=== PATIENT | male | born 1945 | race Caucasian/White ===

== ENCOUNTER 2022-10-12 11:19 | Outpatient (OUT) | payer MEDICARE, SELFPAY ==
[2022-10-12 12:30] LABS: D Dimer 0.37 mg/L FEU (<=0.59)
== END 2022-10-12 11:20 | disposition home or self-care (01) ==
LOC: LAB 11:26
PROVIDERS: PCP Internal Medicine; Visit Provider Internal Medicine
DX: M79.89 Other specified soft tissue disorders (principal)
CPT/HCPCS: 36415; 85378

== ENCOUNTER 2022-12-06 09:34 | Outpatient (OUT) | payer MEDICARE, SELFPAY ==
--- NOTE | 2022-12-06 10:39 | CA_ITS ---
Patient: SILKE VEGA Exam Date: 12/06/2022 : 1945 Gender:M Ordering : DR RAZIA LIPSCOMB D.O. Admission #: [id number] Family : Order #: [id number] CLICK HERE TO VIEW EXAM ECHOCARDIOGRAM REPORT PROCEDURE: CA ECHO DOPPLER COMPLETE INDICATIONS: Dyspnea on exertion, fatigue, lower extremity swelling, hypertension COMPARISON: None. DESCRIPTION: COMPLETE ECHOCARDIOGRAM Real-time transthoracic echocardiography with 2D, M-mode, spectral and color flow Doppler performed. QUALITY: Technical quality was good. LEFT VENTRICLE: Normal chamber size. Mild concentric left ventricular hypertrophy. LV EF: Normal left ventricular ejection fraction, (>55%). DIASTOLIC: Diastolic function is indeterminate. ATRIAL SEPTUM: Inadequately seen. LEFT ATRIUM: Normal chamber size. RIGHT ATRIUM: Normal chamber size. RIGHT VENTRICLE: Appears enlarged. Normal right ventricular systolic function. TRICUSPID VALVE: Normal mobility and thickness. No stenosis with mild regurgitation. Doppler studies reveal moderately (45-60) elevated right sided pressures. RVSP 50 mmHg MITRAL VALVE: Normal mobility and thickness. No evidence of mitral valve stenosis. Mild mitral annular calcification. Mild mitral regurgitation. AORTIC VALVE: Normal trileaflet appearance. Thickened aortic valve. Normal leaflet mobility. No evidence of aortic valve stenosis. Trivial aortic regurgitation. AORTIC ROOT: Normal diameter and appearance. PULMONIC VALVE: Normal thickness and mobility. No stenosis. Trivial regurgitation. PERICARDIUM: No evidence of pericardial effusion. IVC: Not well visualized. CONCLUSION: 1. Global left ventricular systolic function is normal; visually estimated ejection fraction is 60 to 65% 2. Mild left ventricular hypertrophy 3. Diastolic function is indeterminate 4. The right ventricle appears enlarged with normal systolic function 5. Mild tricuspid regurgitation 6. Moderately elevated right ventricular systolic pressure 7. Mild mitral regurgitation Adult Echocardiography Procedure Report Left Ventricle LVEDD (3.7 - 5.6 cm): 4.60 cm LVESD (2.2 - 4.0 cm): 3.43 cm LVIVS thickness (0.6 - 1.2 cm): 1.32 cm LVPW thickness (0.5 - 1.0 cm): 1.08 cm e': 0.08 m/s E - e': 9.15 LVOT Max Gradient: 4.93 mm[Hg] LVOT Area (cm2): 1.11 m/s Peak Velocity (LVOT): 1.11 m/s Mean Velocity (LVOT): 0.80 m/s LVOT Diameter 1.95 cm Left Atrium LA Volume Index (2D A2C): 28.38 ml/m2 Left Atrium Systolic Dimension: 3.85 cm Mitral Valve MV E to A Ratio: 0.78 Mitral Valve A-Wave Peak Velocity: 0.90 m/s Mitral Valve E-Wave Peak Velocity: 0.70 m/s Right Ventricle Aorta AO Root Diam: 3.21 cm Aortic Valve AoV Area ([place]): 2.49 cm2, 2.49 cm2 AoV Area (VTI): 2.64 cm2, 2.64 cm2 Peak Velocity(Antegrade Flow): 1.33 m/s Peak Gradient(Antegrade Flow): 7.12 mm[Hg] Mean Velocity(Antegrade Flow): 0.88 m/s Mean Gradient(Antegrade Flow): 3.54 mm[Hg] Velocity Time Integral: 27.05 cm Tricuspid Valve Peak Velocity (Regurgitant Flow): 3.43 m/s Pulmonic Valve Peak Velocity: 0.98 m/s Peak Gradient: 3.81 mm[Hg], 3.81 mm[Hg] Right Atrium Dictated by: María Lucio M.D. on 12/07/2022 at 13:23 Approved by: María Lucio M.D. on 12/07/2022 at 13:26
== END 2022-12-06 09:35 | disposition home or self-care (01) ==
LOC: CARD 09:35
PROVIDERS: PCP Internal Medicine; Visit Provider Internal Medicine
DX: M79.89 Other specified soft tissue disorders (principal); I10 Essential (primary) hypertension; R06.09 Other forms of dyspnea; R53.83 Other fatigue; I07.1 Rheumatic tricuspid insufficiency
CPT/HCPCS: 93306

== ENCOUNTER 2022-12-19 09:48 | Outpatient (OUT) | payer MEDICARE, SELFPAY ==
[2022-12-19 10:27] LABS: Protein Creatinine Ratio Urine 0.09; Total Protein Urine Random 26.3 mg/dL (<=11.9)
[2022-12-19 10:31] LABS: Basophils Absolute Auto 0.1 10^3/uL (0.0-0.1); Basophils Percent Auto 1.1 % (0.2-2.0); Eosinophils Absolute Auto 0.2 10^3/uL (0.0-0.7); Eosinophils Percent Auto 2.9 % (0.9-7.0); Hematocrit 42.8 % (42.0-54.0); Immature Granulocytes Abs Auto 0.05 10^3/uL (0.00-0.03); Immature Granulocytes Pct Auto 0.7 % (0.0-0.5); Lymphocytes Absolute Auto 1.6 10^3/uL (1.2-3.8); Mean Corpuscular HGB Conc 32.7 g/dL (29.9-35.2); Mean Corpuscular Hemoglobin 29.9 pg (25.9-34.0); Mean Corpuscular Volume 91.3 fL (80.0-94.0); Mean Platelet Volume 10.6 fL (9.5-13.5); Monocytes Absolute Auto 0.7 10^3/uL (0.3-0.8); Monocytes Percent Auto 9.5 % (1.7-12.0); Neutrophils Absolute Auto 4.5 10^3/uL (1.4-6.5); Neutrophils Percent Auto 62.8 % (43.0-75.0); Platelet Count 209 10^3/uL (150-450); Red Blood Count 4.69 10^6/uL (4.70-6.10); Red Cell Distribution Width 13.2 % (11.0-15.0); White Blood Count 7.1 10^3/uL (4.0-11.0)
[2022-12-19 11:55] LABS: Alanine Aminotransferase 20 U/L (16-63); Albumin Globulin Ratio 1.1; Albumin Level 3.6 g/dL (3.4-5.0); Alkaline Phosphatase 92 U/L (46-116); Anion Gap 13.3; Aspartate Amino Transferase 15 U/L (15-37); BUN Creatinine Ratio 16.5; Bilirubin Total 0.5 mg/dL (0.2-1.0); Calcium 9.1 mg/dL (8.5-10.1); Carbon Dioxide 26.7 mmol/L (21.0-32.0); Chloride 103 mmol/L (98-107); Estimated GFR (African America >60 (>=60); Estimated GFR (Non-African Ame >60 (>=60); Globulin 3.4 g/dL; Glucose 86 mg/dL (74-106); Sodium 139 mmol/L (136-145); Thyroid Stimulating Hormone 1.353 uIU/mL (0.358-3.740)
== END 2022-12-19 09:49 | disposition home or self-care (01) ==
LOC: LAB 09:50
PROVIDERS: PCP Internal Medicine; Visit Provider Internal Medicine
DX: M79.89 Other specified soft tissue disorders (principal); I10 Essential (primary) hypertension; R53.83 Other fatigue
CPT/HCPCS: 36415; 80053; 82570; 84156; 84443; 85025

== ENCOUNTER 2022-12-28 13:36 | Outpatient (OUT) | payer MEDICARE, SELFPAY ==
--- NOTE | 2022-12-28 13:40 | US_ITS ---
[address] [address] Patient Name: SILKE VEGA MRN: [id number] date: 1945 Sex: M Assigned Patient Location: US Current Patient Location: US Accession/Order Number: [id number] Exam Date: 12/28/2022 13:45 Report Date: 12/28/2022 18:26 At the request of: RAZIA LIPSCOMB Procedure: US venous doppler LE BI EXAMINATION: US venous doppler LE BI HISTORY: Varicose veins of both legs with edema I83.893 COMPARISON: No relevant comparison available. TECHNIQUE: Grayscale, color and Doppler FINDINGS: Region: Bilateral legs Thrombus: None Flow: Normal Augmentation: Normal Compressibility: Normal Other: 6.9 cm anechoic area in the right popliteal fossa likely a popliteal cyst. Limited evaluation of the left leg. Subcutaneous edema. US/US venous doppler LE BI IMPRESSION: No deep or superficial vein thrombus identified in the legs *Exam performed in accordance with [facility] practice guidelines- Peripheral venous ultrasound, July 10, 2009. Electronically authenticated by: SILKE CUMMINGS Date: 12/28/2022 18:26
== END 2022-12-28 13:37 | disposition home or self-care (01) ==
LOC: US 13:37
PROVIDERS: PCP Internal Medicine; Visit Provider Internal Medicine
DX: I83.893 Varicose veins of bilateral lower extremities with other complications (principal)
CPT/HCPCS: 93970

== ENCOUNTER 2023-01-30 12:34 | Outpatient (RCR) | payer MEDICARE, SELFPAY | END 2023-01-31 15:48 | disposition home or self-care (01) | LOC: OT 12:34 | PROVIDERS: PCP Internal Medicine; Visit Provider Internal Medicine | DX: R22.40 Localized swelling, mass and lump, unspecified lower limb (principal) | CPT/HCPCS: 97166 ==

== ENCOUNTER 2023-02-09 11:43 | Outpatient (OUT) | payer MEDICARE, SELFPAY ==
[2023-02-09 12:09] LABS: Anion Gap 12.7; BUN Creatinine Ratio 19.5; Calcium 9.1 mg/dL (8.5-10.1); Carbon Dioxide 26.2 mmol/L (21.0-32.0); Chloride 103 mmol/L (98-107); Estimated GFR (African America >60 (>=60); Estimated GFR (Non-African Ame 60 (>=60); Glucose 97 mg/dL (74-106); Potassium 3.9 mmol/L (3.5-5.1); Sodium 138 mmol/L (136-145)
[2023-02-09 12:35] LABS: Prostate Specific Antigen Scrn 0.86 ng/mL (<=4.00)
== END 2023-02-09 11:44 | disposition home or self-care (01) ==
LOC: LAB 11:44
PROVIDERS: PCP Internal Medicine; Visit Provider Internal Medicine
DX: Z00.00 Encounter for general adult medical examination without abnormal findings (principal); Z12.5 Encounter for screening for malignant neoplasm of prostate; I10 Essential (primary) hypertension
CPT/HCPCS: 36415; 80048; G0103

== ENCOUNTER 2023-05-07 11:10 | Emergency (ER) | payer MEDICARE, SELFPAY ==
[2023-05-07] VITALS (20 sets, daily range): BP systolic 131–160; BP diastolic 61–81; PULSE 63–72; RESP 18–33; TEMP 36.4; O2SAT 85–97; BMI 25.8
--- NOTE | 2023-05-07 11:26 | XR_ITS ---
The [address] [address] Patient Name: SILKE VEGA MRN: [id number] date: 1945 Sex: M Assigned Patient Location: ER Current Patient Location: ER Accession/Order Number: [id number] Exam Date: 05/07/2023 11:35 Report Date: 05/07/2023 11:58 At the request of: MIKEY ESCAMILLA Procedure: XR chest 1V EXAM: XR chest 1V HISTORY: Weakness Word vision, hypertension, leg swelling COMPARISON: 09/26/2021. TECHNIQUE: AP portable erect FINDINGS: LUNGS: No significant pulmonary parenchymal abnormalities. VASCULATURE: No increased pulmonary vasculature. PLEURA: No pneumothorax, effusion, or pleural thickening. Elevation the right hemidiaphragm CARDIAC: No cardiomegaly or cardiac silhouette abnormality. MEDIASTINUM: No visible mass or adenopathy. Aortic atherosclerosis BONES: No fracture or visible bone lesion. OTHER: Negative. XR/XR chest 1V IMPRESSION: No acute cardiopulmonary process Electronically authenticated by: SILKE CUMMINGS Date: 05/07/2023 11:58
--- NOTE | 2023-05-07 11:26 | ECG_ITS ---
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
--- NOTE | 2023-05-07 11:26 | CT_ITS ---
The [address] [address] Patient Name: SILKE VEGA MRN: [id number] date: 1945 Sex: M Assigned Patient Location: ER Current Patient Location: ER Accession/Order Number: [id number] Exam Date: 05/07/2023 11:35 Report Date: 05/07/2023 12:05 At the request of: MIKEY ESCAMILLA Procedure: CT head/brain wo con HEAD CT WITHOUT CONTRAST: 05/07/2023 11:35 AM EST Clinical Data: weakness, history of hypertension Comparison: 08/17/2022 Unenhanced axial data from base to vertex. INTRA-AXIAL: No acute hemorrhage. No acute infarction is evident. EXTRA-AXIAL: Again, punctate hyperdense focus in a posterior right parietal sulcus or this is subpial. No interval change. It may simply be vascular No distinct evidence of acute extra-axial hemorrhage. No focal fluid collection. BRAIN VOLUME: Unremarkable for age. VENTRICLES: No hydrocephalus PARANASAL SINUSES: No air-fluid levels in the included aspects. MASTOIDS: Clear. CALVARIUM: No acute finding. EXTRACALVARIAL: No acute findings CT/CT head/brain wo con IMPRESSION: 1. No evidence of acute intracranial process on this unenhanced study as described. All CT scans at this facility use dose modulation, iterative reconstruction, and/or weight based dosing when appropriate to reduce radiation dose to as low as reasonably achievable. Electronically authenticated by: GERTRUDE CASTORENA Date: 05/07/2023 12:05
--- NOTE | 2023-05-07 11:28 | ED.GENADUL1 ---
HPI - General Adult General Chief complaint: Eye Problems Stated complaint: cva symptoms Time Seen by Provider: 05/07/23 11:20 Source: patient and family Mode of arrival: walk-in Limitations: physical limitation History of Present Illness HPI narrative: 78-year-old male presents for body pains and weakness. He hasn't been as active as typical, he's been laying around more than usual and has been sleeping. He doesn't have a headache but the rest of his body hurts. He was put on a new blood pressure medication last week but family doesn't know the name of it. He's had no trauma or fever. No vomiting or diarrhea. Related Data Allergies Allergy/AdvReac Type Severity Reaction Status Date / Time Penicillins Allergy Unknown Verified 05/07/23 11:14 Review of Systems ROS Narrative A ten point review of systems is negative except as noted above. Exam Narrative Exam Narrative: Nurses note and vital signs reviewed and patient is not hypoxic. General: The patient appears well and in no apparent distress. Patient is resting on cart. Skin: Warm, dry, no pallor noted. There is no rash noted. there is some mild erythema on the dorsum of his right foot. Head: Normocephalic, atraumatic Eye: Normal conjunctiva, no drainage Ears, Nose, Mouth, and Throat: oral mucosa is moist. Nares patent. Cardiovascular: Regular Rate and Rhythm Respiratory: Patient is in no distress, no accessory muscle use, lungs are clear to auscultation, no wheezing, rales or rhonchi Back: non-tender GI: soft and nontender Musculoskeletal: The patient has no evidence of calf tenderness, no pitting edema, symmetrical pulses noted bilaterally Neurological: awake and alert. He knows his name and where he is but did not get the year correct. He knows why he is here. Cranial nerves II through XII intact Psychiatric: Cooperative Constitutional Vital Signs, click to edit/add: Last Vital Signs Temp 97.5 F L 05/07/23 11:14 Pulse 71 05/07/23 12:50 Resp 28 H 05/07/23 12:50 BP 155/78 H 05/07/23 12:32 Pulse Ox 95 05/07/23 12:50 O2 Del Method Room Air 05/07/23 11:14 Course Vital Signs Vital signs: Vital Signs Temperature 97.5 F L 05/07/23 11:14 Pulse Rate 72 05/07/23 11:14 Respiratory Rate 18 05/07/23 11:14 Blood Pressure 131/61 05/07/23 11:14 Pulse Oximetry 95 05/07/23 11:14 Oxygen Delivery Method Room Air 05/07/23 11:14 Temperature 97.5 F L 05/07/23 11:14 Pulse Rate 71 05/07/23 12:50 Respiratory Rate 28 H 05/07/23 12:50 Blood Pressure 155/78 H 05/07/23 12:32 Pulse Oximetry 95 05/07/23 12:50 Oxygen Delivery Method Room Air 05/07/23 11:14 Medical Decision Making MDM Narrative Medical decision making narrative: His workup is negative. His blood pressure has been appropriate here. He'll be discharged home and follow-up with his PCP. He's also had some increased tremors from his Parkinson disease and his is going to contact his neurologist. Differential Diagnosis Differential Diagnosis: stroke, urinary tract infection, anemia, medication side effect Lab Data Lab results reviewed: Yes I reviewed the patient's lab results Labs: Lab Results 05/07/23 05/07/23 Range/Units 11:33 12:52 WBC 7.4 (4.0-11.0) 10^3/uL RBC 4.58 L (4.70-6.10) 10^6/uL Hgb 14.0 (14.0-18.0) g/dL Hct 42.6 (42.0-54.0) % MCV 93.0 (80.0-94.0) fL MCH 30.6 (25.9-34.0) pg MCHC 32.9 (29.9-35.2) g/dL RDW 12.7 (11.0-15.0) % Plt Count 178 (150-450) 10^3/uL MPV 11.9 (9.5-13.5) fL Neut % (Auto) 71.0 (43.0-75.0) % Lymph % (Auto) 19.2 L (20.5-60.0) % [place] % (Auto) 7.4 (1.7-12.0) % Eos % (Auto) 1.1 (0.9-7.0) % Baso % (Auto) 0.9 (0.2-2.0) % Neut # (Auto) 5.3 (1.4-6.5) 10^3/uL Lymph # (Auto) 1.4 (1.2-3.8) 10^3/uL [place] # (Auto) 0.6 (0.3-0.8) 10^3/uL Eos # (Auto) 0.1 (0.0-0.7) 10^3/uL Baso # (Auto) 0.1 (0.0-0.1) 10^3/uL Abs Immat Gran (auto) 0.03 (0.00-0.03) 10^3/uL Imm/Tot Granulo (auto) 0.4 (0.0-0.5) % Sodium 140 (136-145) mmol/L Potassium 3.9 (3.5-5.1) mmol/L Chloride 104 (98-107) mmol/L Carbon Dioxide 25.4 (21.0-32.0) mmol/L Anion Gap 14.5 BUN 22.0 H (7.0-18.0) mg/dL Creatinine 1.10 (0.70-1.30) mg/dL Est GFR ( Amer) >60 (>=60) Est GFR (Non-Af Amer) >60 (>=60) BUN/Creatinine Ratio 20.0 Glucose 133 H (74-106) mg/dL Calcium 8.9 (8.5-10.1) mg/dL Troponin I High Sens 6.2 (4.0-76.1) pg/mL Urine Color Yellow (YELLOW) Urine Clarity Clear (CLEAR) Urine pH 6.0 (5.0-9.0) Ur Specific [place] 1.015 (1.005-1.025) Urine Protein Negative (NEG/TRACE) mg/dL Urine Glucose (UA) Negative (NEGATIVE) mg/dL Urine Ketones Negative (NEGATIVE) mg/dL Urine Occult Blood Negative (NEGATIVE) Urine Nitrite Negative (NEGATIVE) Urine Bilirubin Negative (NEGATIVE) Urine Urobilinogen 1.0 (0.2-1.0) EU/dL Ur Leukocyte Esterase Negative (NEGATIVE) Urine RBC 0-2 (0-2) #/HPF Urine WBC 0-2 A (NONE SEEN) #/HPF Ur Squamous Epith Cells None seen (NONE/RARE) #/LPF Urine Crystals None seen (None Seen) #/HPF Urine Bacteria None seen (NONE SEEN) #/HPF Urine Casts None seen (NONE SEEN) #/LPF Urine Mucus None seen (NONE SEEN) Imaging Data CT scan - head: Radiologist's impression: ITS Impressions Chest X-Ray 05/07/23 11:26 IMPRESSION: No acute cardiopulmonary process Electronically authenticated by: SILKE CUMMINGS Date: 05/07/2023 11:[address] 05/07/23 11:26 IMPRESSION: 1. No evidence of acute intracranial process on this unenhanced study as described. All CT scans at this facility use dose modulation, iterative reconstruction, and/or weight based dosing when appropriate to reduce radiation dose to as low as reasonably achievable. Electronically authenticated by: GERTRUDE CASTORENA Date: 05/07/2023 12:05 ECG Data Attestation: I personally reviewed and interpreted this ECG as follows: (EKG on my interpretation shows sinus rhythm with artifact from tremors from Parkinson) Discharge Plan Discharge Chief Complaint: Eye Problems Clinical Impression: Hypertension Patient Disposition: Home, Self-Care Time of Disposition Decision: 13:37 Condition: Good Mode of Transportation: Private Vehicle Instructions: Hypertension (ED) Stand Alone Forms: Portal Instructions Referrals: Prashant Gary DO [Primary Care Provider] - 1 week
[2023-05-07 12:03] LABS: Basophils Absolute Auto 0.1 10^3/uL (0.0-0.1); Basophils Percent Auto 0.9 % (0.2-2.0); Eosinophils Absolute Auto 0.1 10^3/uL (0.0-0.7); Eosinophils Percent Auto 1.1 % (0.9-7.0); Hematocrit 42.6 % (42.0-54.0); Immature Granulocytes Abs Auto 0.03 10^3/uL (0.00-0.03); Immature Granulocytes Pct Auto 0.4 % (0.0-0.5); Lymphocytes Absolute Auto 1.4 10^3/uL (1.2-3.8); Lymphocytes Percent Auto 19.2 % (20.5-60.0); Mean Corpuscular HGB Conc 32.9 g/dL (29.9-35.2); Mean Corpuscular Hemoglobin 30.6 pg (25.9-34.0); Mean Platelet Volume 11.9 fL (9.5-13.5); Monocytes Absolute Auto 0.6 10^3/uL (0.3-0.8); Monocytes Percent Auto 7.4 % (1.7-12.0); Neutrophils Absolute Auto 5.3 10^3/uL (1.4-6.5); Platelet Count 178 10^3/uL (150-450); Red Blood Count 4.58 10^6/uL (4.70-6.10); Red Cell Distribution Width 12.7 % (11.0-15.0); White Blood Count 7.4 10^3/uL (4.0-11.0)
[2023-05-07 12:22] LABS: Anion Gap 14.5; Calcium 8.9 mg/dL (8.5-10.1); Carbon Dioxide 25.4 mmol/L (21.0-32.0); Chloride 104 mmol/L (98-107); Estimated GFR (African America >60 (>=60); Estimated GFR (Non-African Ame >60 (>=60); Glucose 133 mg/dL (74-106); Potassium 3.9 mmol/L (3.5-5.1); Sodium 140 mmol/L (136-145); Troponin I High Sensitivity 6.2 pg/mL (4.0-76.1)
--- OUTSIDE RECORDS SUMMARY | 2023-05-07 12:34 | XMS_ITS | CCD ---
Author Name Unknown Address [address] [place] [address] Organization [facility] Care Team Providers Care Foam Rubber Mixer Name Role Phone [place], Julia K Unavailable Unavailable [place], Julia K Unavailable Unavailable [place], Julia K Unavailable Unavailable PRASHANT GARY~[phone] UNKNOWN Unavailable Unavailable Prashant Gary DO Primary Care Provider Prashant Gary DO Primary Care Provider Prashant Gary LAKSHMIPATHY ., WILMER Attending Ev vailable ABDIRAHMAN, DR RANDLE Primary Care Unavailable LAKSHMIPATHY ., WILMER Consulting Ev vailable LAKSHMIPATHY ., WILMER Admitting Ev vailable DR PRASHANT GARY Primary Care Unavailable LAKSHMIPATHY ., WILMER Consulting Ev vailable LAKSHMIPATHY ., NARSAMEER Admitting Ev vailable LAKSHMIPATHY ., WILMER Attending Ev DR PRASHANT Mata Primary Care Unavailable HALKER ., WILL Admitting Unavailable HALKER ., WILL Attending Unavailable ABDIRAHMAN, DR RANDLE Admitting Unavailable ABDIRAHMAN, DR RANDLE Attending Unavailable ABDIRAHMAN, DR RANDLE Consulting Unavailable ABDIRAHMAN, DR RANDLE Primary Care Unavailable ZIEBER, DR AL Bolden Consulting Unavailable ABDIRAHMAN, DR RANDLE Admitting Unavailable ABDIRAHMAN, DR RANDLE Attending Unavailable ABDIRAHMAN, DR RANDLE Consulting Unavailable ABDIRAHMAN, DR RANDLE Primary Care Unavailable WEN BAEZ Attending Unavailable WEN BAEZ Consulting Unavailable ABDIRAHMAN, DR RANDLE Primary Care Unavailable WEN BAEZ Admitting Unavailable LAKSHMIPATHY ., NARSAMEER Consulting Ev vailable OWOYLIZZETTE AREVALOYINKA Consulting Unavailable WEN BAEZ Consulting Unavailable WEN BAEZ Admitting Unavailable ABDIRAHMAN, DR RANDLE Primary Care Unavailable WEN BAEZ Attending Unavailable AGUILAR YOST Consulting Unavailable ABDIRAHMAN, DR RANDLE Primary Care Unavailable LAKSHMIPATHY ., NARENDRANATH Attending Ev vailable LAKSHMIPATHY ., NARENDRANATH Consulting Ev vailable EMILSHMIPATHY ., NARENDRANATH Admitting Ev vailable MEMO MAGALLON Referring Unavailable MEMO MAGALLON Attending Unavailable PRASHANT GARY Primary Care Unavailable Allergies Allergy Classification Reported Allergen(s) Allergy Type Date of Onset Reaction(s) Facility (4 sources) Latex; Translations: [LATEX, NATURAL RUBBER] Drug Allergy 022 Rash [facility] Work Phone: (4 sources) Morphine; Translations: [MORPHINE] Drug Allergy 011 Other: See Comments [facility] (4 sources) Penicillin G; Translations: [PENICILLIN G] Drug Allergy 007 [facility] Work Phone: (2 sources) Morphine Drug Allergy 020 [facility] Repository (2 sources) natural latex rubber Drug allergy (disorder) [facility]ository (2 sources) Penicillins Drug allergy (disorder) 013 [facility] Repository (8 sources) cyclobenzaprine Drug Allergy Cyclobenzaprine *CHEMICALS* Comment:Hallucina tions [employer] Other (8 sources) pregabalin Drug Allergy Comment:Hallucin a ReCo[employer]ons [employer] Other (8 sources) Flexeril *MUSCULOSKELETAL THERAPY AGENTS* Propensity to adverse reactions Comment:Hallucina tions [employer] Other (8 sources) Substance with penicillin structure and antibacterial mechanism of action (substance) Drug allergy Unknown [employer] Other (3 sources) patient allergy list reviewed by nurse or physicia Propensity to adverse reactions 016 Comment:Done [employer] Other Medications Current Medications Medication Drug Class(es) Dates Sig (Normalized) Sig (Original) acetaminophen 325 mg / HYDROcodone bitartrate 5 mg oral tablet (16 sources) Opioid Agonist take 1 tablet by mouth every six hours HYDROcodone-Aceta minophen 5-325 MG 1 tablet as needed Orally every 6 hrs Active Comment on above: Take 1 tablet by finesse th every 6 hours as needed. AeroChamber Mini Chamber - (13 sources) Start: 06-28-2022 AeroChamber Mini Chamber - 1 inhalation Use with MDI every 4 hours as needed for cough or SOB for 30 days Jun, Active atorvastatin 10 mg oral tablet (16 sources) HMG-CoA Reductase Inhibitor take 1 tablet by mouth every twenty-four hours Atorvastatin Calcium 10 MG 1 tablet Orally Once a day for 90 days Active Comment on above: one daily carbidopa 25 mg / levodopa 100 mg oral tablet (17 sources) Aromatic Amino Acid Decarboxylation Inhibitor, Aromatic Amino Acid Start: 08-08-2021 End: 04-28-2023 take 2 tablets by mouth three times daily carbidopa-levodop a (SINEMET 25-100) 25-100 mg per tablet Indications: Parkinson disease (HCC) Take 2 tablets by mouth three times daily. 540 tablet 3 04/28/2022 04/28/2023 Active take 2 tablets by mouth every si x hours Sinemet 25-100 MG 2 tablet Orally qid Active take 1 tablet by finesse two times weekly as needed Sinemet 25-100 MG 1 tablet as needed Orally Two times a Week Active Comment on above: Take [address] [facility] three times daily. cloNIDine hydrochloride 0.1 mg oral tablet (1 source) Central alpha-2 Adrenergic Agonist Start: 04-27-19 24 take 1 tablet by mouth every twelve hours cloNIDine HCl 0.1 MG 1 tablet Orally every 12 hours for 30 days Apr, Active 24 hr felodipine 5 mg extended release oral tablet (12 sources) Dihydropyridine Calcium Channel Ailyn Start: 12-22-19 take 1 tablet by mouth every twenty-four hours Felodipine ER 5 MG 1 tablet Orally Once a day for 30 days Replaces the 10mg dose Dec, Active Start: 01-17-2021 felodipine ER (PLENDIL) 10 mg 24 hr tablet Felodipine ER 10 MG as directed Orally Active furosemide 20 mg oral tablet (5 sources) Loop Diuretic Start: 01-12-2023 take 1 tablet by mouth every twenty-four hours Furosemide 20 MG 1 tablet Orally Once a day for 30 days Dec, Active hydroCHLOROthiazide 25 mg oral tablet (1 source) Thiazide Diuretic Start: 12-21-2022 take 1 tablet by mouth every twenty-four hours hydroCHLOROthiazide 25 MG 1 tablet in the morning Orally Once a day for 30 days Dec, Active losartan potassium 100 mg oral tablet (16 sources) Angiotensin 2 Receptor Ailyn take 1 tablet by mouth every twenty-four hours Losartan Potassium 100 MG 1 tablet Orally Once a day Active Comment on above: Take 100 mg by mouth once daily. lubiprostone 0.008 mg oral capsule (20 sources) Chloride Channel Activator Start: 10-12-2022 take 1 capsule by mouth once daily at mealtime Lubiprostone 8 MCG 1 capsule with food and water Orally qd for 30 days Sep, Active Start: 10-12-2022 take 1 capsule by mo uth once daily at mealtime Lubiprostone 8 MCG 1 capsule with food and water Orally qd for 30 days Sep, Active Start: 08-30-2022 take 1 capsule by mo uth twice daily at mealtime Lubiprostone 24 MCG 1 capsule with food and water Orally Twice a day for 30 days August, Active Lubiprostone 24 MCG TAKE 1 CAPSULE BY MOUTH TWICE A DAY WITH FOOD OR WATER FOR 30 DAYS for 30 Active pramipexole dihydrochloride 0.25 mg oral tablet (17 sources) Nonergot Dopamine Agonist Start: 08-08-2021 End: 04-28-2023 take 3 tablets by mouth four times daily pramipexole (MIRAPEX) 0.25 mg tablet Indications: Parkinson disease (HCC) , Gait instability Take 3 tablets by mouth four times daily. 1080 tablet 3 04/28/2022 04/28/2023 Active Mirapex Active Comment on above: Take 3 tablets by mo uth four times daily. Completed/Discontinued Medications Medication Drug Class(es) Dates Sig (Normalized) Sig (Original) [id number] 200 actuat albuterol 0.09 mg/actuat metered dose inhaler (16 sources) beta2-Adrenergic Agonist Start: 01-20-2021 albuterol HFA (PROVENTIL HFA, VENTOLIN HFA) 90 mcg/actuation inhaler take 2 puff(s) by in halation every four hours as needed for cough Albuterol Sulfate HFA 108 (90 Base) MCG/ACT 2 puffs Inhalation every 4 hrs as needed for cough and SOB Active take 2 puff(s) by in halation every four hours as needed for cough Albuterol Sulfate HFA 108 (90 Base) MCG/ACT 2 puffs Inhalation every 4 hrs as needed for cough and SOB Active take 2 puff(s) by in halation every four hours as needed for cough Albuterol Sulfate HFA 108 (90 Base) MCG/ACT 2 puffs Inhalation every 4 hrs as needed for cough and SOB Active Docusate (3 sources) docusate sodium (STOOL SOFTENER ORAL) Take by mouth as needed. 0 Active Comment on above: Take by mouth as nee ded. Problems Active Problems Problem Classification Problem Date Documented Da te Episodic/Chronic Chronic obstructive pulmonary disease and bronchiectasis (20 sources) Bronchiectasis; Translations: [Bronchiectasis, uncomplicated] Onset: 04-23-2022 Chronic Disorders of lipid metabolism (20 sources) Pure hypercholesterolemia; Translations: [Familial hypercholesterolemia] Onset: 12-07-2014 Chronic E Codes: Struck by; against (1 source) Striking against or struck by other objects, initial encounter; Translations: [STRIKING AGNST/STRUCK OTH OBJ INIT] Onset: 08-21-2022 Episodic Esophageal disorders (3 sources) Stricture of esophagus; Translations: [Esophageal obstruction] Onset: 10-05-2021 Chronic Essential hypertension (20 sources) Hypertensive disorder; Translations: [Essential (primary) hypertension] Onset: 12-07-2014 03-01-2011 Chronic Hyperplasia of prostate (6 sources) Lower urinary tract symptoms due to benign prostatic hypertrophy; Translations: [Benign prostatic hyperplasia with lower urinary tract symptoms] Onset: 12-07-2014 Chronic Immunizations and screening for infectious disease (3 sources) Vaccination given; Translations: [Encounter for immunization] Episodic Nonspecific chest pain (16 sources) Chest pain; Translations: [Other chest pain] Episodic Occlusion or stenosis of precerebral arteries (3 sources) Carotid artery occlusion without infarction; Translations: [Occlusion and stenosis of carotid artery without mention of cerebral infarction] Onset: 05-13-2015 Chronic Osteoarthritis (20 sources) Degenerative joint disease of ankle AND/OR foot; Translations: [Primary osteoarthritis, unspecified ankle and foot] Onset: 03-25-2007 03-25-2007 Chronic Other aftercare (16 sources) High risk drug monitoring status; Translations: [[facility] (current) use of opiate analgesic] Episodic Other aftercare (13 sources) H/O: high risk medication; Translations: [Other termite exterminator helper (current) drug therapy] Episodic Other aftercare (4 sources) [facility] (current) use of opiate analgesic Episodic Other aftercare (3 sources) Long-term current use of drug therapy; Translations: [Other termite exterminator helper (current) drug therapy] Episodic Other connective tissue disease (1 source) Other specified soft tissue disorders Episodic Other diseases of veins and lymphatics (8 sources) Peripheral venous insufficiency; Translations: [Unspecified venous (peripheral) insufficiency] Onset: 11-06-2016 Episodic Other diseases of veins and lymphatics (2 sources) Venous insufficiency (chronic) (peripheral) Episodic Other ear and sense organ disorders (13 sources) Sensorineural hearing loss, bilateral; Translations: [Sensorineural hearing loss, bilateral] Chronic Other gastrointestinal disorders (13 sources) Dysphagia; Translations: [Dysphagia, unspecified] Episodic Other hereditary and degenerative nervous system conditions (1 source) Restless legs; Translations: [Restless legs syndrome] Chronic Other injuries and conditions due to external causes (4 sources) Unspecified injury of head, initial encounter; Translations: [UNSPECIFIED INJURY HEAD INITIAL ENC] Onset: 08-17-2022 Episodic Other injuries and conditions due to external causes (3 sources) History of fall; Translations: [History of falling] Episodic Other lower respiratory disease (14 sources) Chronic cough; Translations: [Chronic cough] Onset: 04-23-2022 Episodic Other lower respiratory disease (5 sources) Other forms of dyspnea; Translations: [OTHER FORMS OF DYSPNEA] Onset: 04-21-2022 Episodic Other lower respiratory disease (3 sources) Dyspnea; Translations: [Other forms of dyspnea] Episodic Other lower respiratory disease (3 sources) Cough; Translations: [Cough] Episodic Other nervous system disorders (1 source) Other chronic pain; Translations: [OTHER CHRONIC PAIN] Onset: 07-22-2022 Chronic Other nervous system disorders (9 sources) Polyneuropathy; 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 Other nervous system disorders (3 sources) Hereditary peripheral neuropathy; Translations: [Unspecified hereditary and idiopathic peripheral neuropathy] Onset: 12-07-2014 Chronic Other nervous system disorders (1 source) Abnormal gait; Translations: [Unsteadiness on feet] Episodic Other nervous system disorders (3 sources) Paresthesia; Translations: [Paresthesia of skin] Episodic Other nutritional; endocrine; and metabolic disorders (3 sources) Overweight; Translations: [Overweight] Episodic Other screening for suspected conditions (not mental disorders or infectious disease) (3 sources) Radiology result abnormal; Translations: [Other nonspecific (abnormal) findings on radiological and other examination of body structure] Onset: 05-13-2015 Chronic Other screening for suspected conditions (not mental disorders or infectious disease) (2 sources) Encounter for screening for malignant neoplasm of prostate; Translations: [ENC SCREEN MALIG NEOPLASM PROSTATE] Onset: 01-03-2022 Episodic Parkinson`s disease (20 sources) Parkinson's disease; Translations: [Parkinson's disease] Chronic Peripheral and visceral atherosclerosis (9 sources) Atherosclerosis of aorta; Translations: [Atherosclerosis of aorta] Onset: 04-20-2015 Chronic Residual codes; unclassified (1 source) REM sleep behavior disorder; 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 Spondylosis; intervertebral disc disorders; other back problems (20 sources) Lumbar spondylosis; Translations: [Spondylosis without myelopathy or radiculopathy, lumbar region] Chronic Spondylosis; intervertebral disc disorders; other back problems (5 sources) Radiculopathy, thoracic region; Translations: [RADICULOPATHY THORACIC REGION] Onset: 07-18-2022 Episodic Substance-related disorders (13 sources) Tobacco user; Translations: [Nicotine dependence, cigarettes, in remission] Chronic Unclassified (3 sources) Long-term current use of drug therapy; Translations: [Long-term (current) use of other medications] Onset: 11-06-2016 Varicose veins of lower extremity (9 sources) Varicose veins of lower limb co-occurrent with edema; Translations: [Varicose veins of bilateral lower extremities with other complications] Episodic Viral infection (20 sources) Postherpetic neuralgia; Translations: [Other postherpetic nervous system involvement] Onset: 08-17-2022 Episodic Past or Other Problems Problem Classification Problem Date Documented Da te Episodic/Chronic Complication of device; implant or graft (3 sources) Infection AND/OR inflammatory reaction due to internal prosthetic device, implant AND/OR graft; Translations: [Infection and inflammatory reaction due to other internal orthopedic prosthetic devices, implants and grafts, initial encounter] Onset: 09-26-2011 09-26-2011 Episodic E Codes: Natural/environment (1 source) Exposure to other specified factors, initial encounter; Translations: [EXPOSURE OTHER SPEC FACTORS INITIAL] Onset: 09-28-2021 Episodic Heart valve disorders (3 sources) Heart murmur; Translations: [Undiagnosed cardiac murmurs] Onset: 04-20-2015 Episodic Malaise and fatigue (4 sources) Malaise and fatigue; Translations: [Other malaise and fatigue] Onset: 11-27-2017 Episodic Other aftercare (1 source) Other skilled nursing (current) drug therapy; Translations: [OTH PRISON CURRENT DRUG THERAPY] Onset: 01-03-2022 Episodic Other connective tissue disease (3 sources) Neuralgia; Translations: [Neuralgia and neuritis, unspecified] Onset: 12-07-2014 Episodic Other gastrointestinal disorders (3 sources) Dysphagia, unspecified; Translations: [DYSPHAGIA UNSPECIFIED] Onset: 09-26-2021 Episodic Other infections; including parasitic (3 sources) Lyme disease; Translations: [Lyme disease] Onset: 10-13-2015 Episodic Other injuries and conditions due to external causes (1 source) Food in esophagus causing other injury, initial encounter; Translations: [FOOD ESOPH CAUS OTH INJURY INIT ENC] Onset: 09-28-2021 Episodic Other injuries and conditions due to external causes (3 sources) Nonvenomous insect bite of multiple sites; Translations: [Other, multiple, and unspecified sites, insect bite, nonvenomous, without mention of infection] Onset: 10-13-2015 Episodic Other upper respiratory infections (3 sources) Acute maxillary sinusitis; Translations: [Acute recurrent maxillary sinusitis] Onset: 05-24-2018 Episodic Screening and history of mental health and substance abuse codes (4 sources) Personal history of nicotine dependence; Translations: [History of tobacco use] Onset: 05-13-2015 Episodic Results Test Name Value Interpretation Reference Range Facility [facility] SILKE DE LA GARZA ([id number]) 1945 M Date Time Provider Department 12/06/22 MEMO MAGALLON NRMDN During your visit today, we recorded the following information about you: Eduardo Graff 12/06/2022 8:54 AM Signed Pharmacy called stating they the express scripts are unable to fill the carbidopa-levodopa (SINEMET 25-100) 25-100 mg per tablet. Patient is requesting that it be sent to e- [facility]/pharmacy #[id number] [place] [address] - [address] [facility] [facility] . Please call patient at [phone] once sent to the pharmacy. Thank you! Eduardo Memo Cali MD 12/06/2022 2:44 PM Signed The following approved medication requests have been transmitted electronically. Requested Prescriptions Signed Prescriptions Disp Refills carbidopa-levodopa (SINEMET 25-100) 25-100 mg per tablet 540 tablet 3 Sig: Take 2 tablets by mouth three times daily. Authorizing Provider: MEMO MAGALLON MD Appleby, Kristin, MD 12/06/2022 2:44 PM Signed Addended by: MEMO MAGALLON on: 12/06/2022 02:44 PM Modules accepted: Orders Allergies As of Date: 12/06/2022 Noted Allergy Reaction LATEX, NATURAL RUBBER 04/26/2021 2 - Rash MORPHINE 03/01/2011 14 - Other: See Comments Comments: Pt takes Avinza po, had allergic reaction with Morphine IV push, red streaking up arm. PENICILLIN G 03/06/2007 2 - Rash Date Reviewed: 04/28/2022 Reviewed by: Memo Magallon MD - Fully Assessed Reason for Visit: Medication Problem [65] Visit Diagnosis:Parkinson disease (HCC) [G20] Order(s):carbidopa-levodop a (SINEMET 25-100) 25-100 mg per tabletTake 2 tablets by mouth three times daily.Disp: 540 tabletRfl: 3 Prescriptions as of 12/06/2022 - carbidopa-levodopa (SINEMET 25-100) 25-100 mg per tablet Take 2 tablets by mouth three times daily. - pramipexole (MIRAPEX) 0.25 mg tablet Take 3 tablets by mouth four times daily. - docusate sodium (STOOL SOFTENER ORAL) Take by mouth as needed. - felodipine ER (PLENDIL) 10 mg 24 hr tablet - albuterol HFA (PROVENTIL HFA, VENTOLIN HFA) 90 mcg/actuation inhaler - HYDROcodone-acetaminophen (NORCO) 5-325 mg per tablet Take 1 tablet by mouth every 6 hours as needed. - losartan (COZAAR) 100 mg tablet Take 100 mg by mouth once daily. - atorvastatin calcium(LIPITOR 10 MG TAB) one daily Problem List As Of Date 12/06/2022 Noted Resolved OSTEOARTHROS NOS-ANKLE [M19.079] 03/25/2007 Primary localized osteoarthrosis, unspecified s*03/01/2011 Parkinson disease [G20] HTN (hypertension) [I10] Infection, orth device NEC [T84.7XXA] 09/26/2011 Prescriptions ordered this encounter Disp Refills Start End CARBIDOPA 25 MG-LEVODOPA 100 MG TABL* 540 * 3 12/06/2022 12/06/2023 Route: ORAL Sig: Take 2 tablets by mouth three times daily. Medications Discontinued During This Encounter Prescriptions - carbidopa-levodopa (SINEMET 25-100) 25-100 mg per tablet (Discontinued) Take 2 tablets by mouth three times daily. Encounter Status:Closed by EDUARDO GRAFF on 12/06/22 Normal [facility] CT HEAD WO CONon 08-17-2022 CT HEAD WO CON EXAMINATION: CT HEAD WO CON, CT CSPINE WO CON CLINICAL HISTORY: HEADACHE TECHNIQUE: Serial axial unenhanced images were obtained from the vertex to the foramen magnum. Spiral, high resolution axial unenhanced images were obtained from the skull base to the cervicothoracic junction with sagittal and coronal planar reconstructions. . All CT scans at this facility use dose modulation, iterative reconstruction, and/or weight based dosing when appropriate to reduce radiation dose to as low as reasonably achievable. COMPARISON: CT brain 12/10/2015 RESULT: BRAIN: Acute change: No evidence of an acute contusion or other acute parenchymal process. Hemorrhage: No evidence of acute intracranial hemorrhage. Mass lesion / Mass effect: There is no evidence of an intracranial mass or extraaxial fluid collection. No significant mass effect. Chronic change: Patchy foci of low attenuation coefficient are present within the supratentorial white matter which is a nonspecific finding but likely represents moderate microvascular ischemia. Parenchyma: There is moderate generalized volume loss. Ventricles: Ventricular enlargement concordant with the degree of parenchymal volume loss. Soft Tissues: No significant superficial soft tissue swelling. Facial bones: No evidence of an acute fracture in the visualized facial bones. Orbits: Bilateral lens replacement. Paranasal Sinuses: The paranasal sinuses are clear. Mastoid air cells: Clear. CERVICAL: Counting reference: Craniocervical junction. Alignment: Mild reversal of the cervical lordosis. Grade 1 anterolisthesis of C2 on C3. Mild retrolisthesis of C4 on C5 and C5 on C6. Mild loss of disc height involving the C5 and C6 vertebral bodies. Loss of disc spaces throughout the cervical spine. Craniocervical junction: Craniocervical junction is normal. Osseous structures/fracture: No evidence of a lytic or blastic process in the visualized spine. No evidence of acute or chronic fracture. Cervical soft tissues: The paraspinal soft tissues planes are maintained. Advanced multilevel degenerative changes of the cervical spine without significant canal stenosis and neural foraminal narrowing is prominent at C5-C6 and C6-C7. Upper thoracic spine: Visualized upper thoracic canal and foramina without significant narrowing. IMPRESSION: Brain: 1. No acute intracranial abnormality; no acute infarct, intracranial hemorrhage or extra-axial collection. 2. Chronic microvascular ischemia and involutional changes. Cervical spine: 1. No acute fracture or traumatic malalignment in the cervical spine. 2. Advanced multilevel degenerative changes of the cervical spine most prominent at C5-C6 and C6-C7. Electronically authenticated by: ANNE COLLIER Date: 2022-08-17 20:25 Normal [facility] CREATININEon 04-21-2022 Creatinine [Mass/Vol] 0.84 mg/dL Normal 0.70-1.30 [facility] Comment on above: Performed By: #### C MADM #### [facility] [address] [address] [address] Sarah Nath EGFR-AF DUTCH >60 Normal >=60 [facility] Comment on above: Performed By: #### C MADM #### [facility] [address] [address] [address] Sarah Nath EGFR-NON AF DUTCH >60 Normal >=60 [facility] Comment on above: Performed By: #### C MADM #### [facility] [address] [address] [address] Sarah Nath CTA CHEST WO W CONon 023 CTA CHEST WO W CON EXAMINATION: CTA CHEST WO W CON HISTORY: Dyspnea COMPARISON: No relevant comparison available. TECHNIQUE: Multi-planar CT images were created with IV contrast. Axial, Coronal, and Sagittal images. Dose reduction techniques were achieved by using automated exposure control and/or adjustment of mA and/or kV according to patient size and/or use of iterative reconstruction technique. 3-D reconstruction was performed on a separate workstation. FINDINGS: VASCULATURE: No pulmonary embolism or abnormal opacity. LUNGS: Mild bronchiectasis within the lower lobes. Trace amount atelectasis within the dependent lung regions. No acute infiltrates, mass, or significant chronic interstitial changes. PLEURA: No mass, effusion, or pneumothorax. TRA: No mass or adenopathy. MEDIASTINUM: No mass or adenopathy. CARDIAC: No enlargement, pericardial effusion, or pericardial thickening. AORTA: No aneurysm or dissection. CHEST WALL: No mass or axillary adenopathy. BONES: No bone lesion or fracture. LIMITED ABDOMEN: No suspicious findings. Limited images of the upper abdomen. OTHER: Negative. IMPRESSION: 1. Mild bronchiectasis within lower lobes. 2. No acute infiltrates or significant chronic interstitial changes. 3. No pulmonary embolism. Electronically authenticated by: AL MANCERA Date: 2022-04-21 08:37 Normal [facility] HEMOGLOBINon 04-21-2022 Hemoglobin (Bld) [Mass/Vol] 16.1 g/dL Normal 14.0-18.0 [facility] Comment on above: Performed By: #### H GB #### [facility] [address] [address] [address] Sarah Nath CBC AUTO DIFFon 12-30-2021 BASO # 0.1 103/ul Normal 0.0-0.1 [facility] Comment on above: Performed By: #### C EDSONM #### [facility] [address] [address] [address] Sarah Nath Basophils/100 WBC (Bld) 0.9 % Normal 0.2-2.0 [facility] Comment on above: Performed By: #### C EDSONM #### [facility] [address] [address] [address] Sarah Nath EO # 0.1 103/ul Normal 0.0-0.7 [facility] Comment on above: Performed By: #### C MADM #### [facility] [address] [place] [address] Dr. Sarah Nath Eosinophils/100 WBC (Bld) 2.0 % Normal 0.9-7.0 [facility] Comment on above: Performed By: #### C MADM #### [facility] [address] [place] [address] Dr. Sarah Nath Erythrocyte distribution width (RBC) [Ratio] 12.5 % Normal 11.0-15.0 [facility] Comment on above: Performed By: #### C MADM #### [facility] [address] [place] [address] Dr. Sarah Nath Hematocrit (Bld) [Volume fraction] 44.2 % Normal 42.0-54.0 [facility] Comment on above: Performed By: #### C MADM #### [facility] [address] [place] [address] Dr. Sarah Nath Hemoglobin (Bld) [Mass/Vol] 14.6 g/dL Normal 14.0-18.0 [facility] Comment on above: Performed By: #### C MADM #### [facility] [address] [place] [address] Dr. Sarah Nath IG # 0.03 10e3/ul Normal 0.00-0.03 [facility] Comment on above: Performed By: #### C MADM #### [facility] [address] [place] [address] Dr. Sarah Nath IG % 0.4 % Normal 0.0-0.5 [facility] Comment on above: Performed By: #### C MADM #### [facility] [address] [place] [address] Dr. Sarah Nath LYMPH # 1.7 103/ul Normal 1.2-3.8 [facility] Comment on above: Performed By: #### C MADM #### [facility] [address] [address] [address] Sarah Nath Lymphocytes/100 WBC (Bld) 24.6 % Normal 20.5-60.0 [facility] Comment on above: Performed By: #### C MADM #### [facility] [address] [place] [address] Dr. Sarah Nath MANUAL DIFF REQ NO Normal [facility] Comment on above: Performed By: #### C MADM #### [facility] [address] [place] [address] Dr. Sarah Nath MCH (RBC) [Entitic mass] 30.0 pg Normal 25.9-34.0 [facility] Comment on above: Performed By: #### C MADM #### [facility] [address] [place] [address] Dr. Sarah Nath MCHC (RBC) [Mass/Vol] 33.0 g/dL Normal 29.9-35.2 [facility] Comment on above: Performed By: #### C MADM #### [facility] [address] [place] [address] Dr. Sarah Nath MCV (RBC) [Entitic vol] 90.8 fL Normal 80.0-94.0 [facility] Comment on above: Performed By: #### C MADM #### [facility] [address] [place] [address] Dr. Sarah Nath MONO # 0.6 103/ul Normal 0.3-0.8 [facility] Comment on above: Performed By: #### C MADM #### [facility] [address] [place] [address] Dr. Sarah Nath Monocytes/100 WBC (Bld) 8.8 % Normal 1.7-12.0 [facility] Comment on above: Performed By: #### C MADM #### [facility] [address] [place] [address] Dr. Sarah Nath NEUT # 4.3 103/ul Normal 1.4-6.5 [facility] Comment on above: Performed By: #### C MADM #### [facility] [address] [place] [address] Dr. Sarah Nath Neutrophils/100 WBC (Bld) 63.3 % Normal 43.0-75.0 [facility] Comment on above: Performed By: #### C MADM #### [facility] [address] [address] [address] Sarah Nath Platelet mean volume (Bld) [Entitic vol] 10.7 fL Normal 9.5-13.5 [facility] Comment on above: Performed By: #### C MADM #### [facility] [address] [address] [address] Sarah Nath PLT 179 103/ul Normal 150-450 [facility] Comment on above: Performed By: #### C MADM #### [facility] [address] [address] [address] Sarah Nath RBC 4.87 106/ul Normal 4.70-6.10 [facility] Comment on above: Performed By: #### C MADM #### [facility] [address] [address] [address] Sarah Nath WBC 6.8 103/ul Normal 4.0-11.0 [facility] Comment on above: Performed By: #### C MADM #### [facility] [address] [place] [address] Dr. Sarah Nath LIPID PROFILEon 12-30-2021 CHOL-HDL RATIO NORM SEE BELOW Normal [facility] Comment on above: Result Comment: 3.3 - 4.4 LOW RISK 4.4 - 7.1 AVERAGE RISK 7.1 - 11.0 MODERATE RISK >11.0 HIGH RISK Performed By: #### A LT, LIPID, BMP #### [facility] [address] [place] [address] Dr. Sarah Nath Cholesterol [Mass/Vol] 172 mg/dL Normal <=200 [facility] Comment on above: Performed By: #### A LT, LIPID, BMP #### [facility] [address] [address] [address] Sarah Nath Cholesterol in HDL [Mass/Vol] 73 mg/dL Critically high 40-60 [facility] Comment on above: Performed By: #### A LT, LIPID, BMP #### [facility] [address] [place] [address] Dr. Sarah Nath Cholesterol in LDL [Mass/Vol] 80.2 mg/dL Normal [facility] Comment on above: Performed By: #### A LT, LIPID, BMP #### [facility] [address] [place] [address] Dr. Sarah Nath Cholesterol.total /Cholesterol in HDL [Mass ratio] 2.4 {ratio} Normal [facility] Comment on above: Performed By: #### A LT, LIPID, BMP #### [facility] [address] [place] [address] Dr. Sarah Nath HDL NORMAL > or = 60 mg/dl - LO W CARDIOVASCULAR RISK <40 mg/dl - HIGH CARDIOVASCULAR RISK Normal [facility] Comment on above: Performed By: #### A LT, LIPID, BMP #### [facility] [address] [place] [address] Dr. Sarah Nath LDL CALC NORMAL SEE BELOW Normal [facility] Comment on above: Result Comment: <100 mg/dl OPTIMAL 100 - 129 mg/dl NEAR OR ABOVE OPTIMAL 130 - 159 mg/dl BORDERLINE HIGH 160 - 189 mg/dl HIGH >190 mg/dl VERY HIGH Performed By: #### A LT, LIPID, BMP #### [facility] [address] [place] [address] Dr. Sarah Nath Triglyceride [Mass/Vol] 94 mg/dL Normal <=150 [facility] Comment on above: Performed By: #### A LT, LIPID, BMP #### [facility] [address] [place] [address] Dr. Sarah Nath VLDL CALC 18.8 mg/dL Normal [facility] Comment on above: Performed By: #### A LT, LIPID, BMP #### [facility] [address] [place] [address] Dr. Sarah Nath PROF CHEM 8 (BAS METB)on Anion gap [Moles/Vol] 13.3 mmol/L Normal [facility] Comment on above: Performed By: #### A LT, LIPID, BMP #### [facility] [address] [address] [address] Sarah Nath Calcium [Mass/Vol] 8.8 mg/dL Normal 8.5-10.1 [facility] Comment on above: Performed By: #### A LT, LIPID, BMP #### [facility] [address] [address] [address] Sarah Nath Chloride [Moles/Vol] 102 mmol/L Normal 98-107 [facility] Comment on above: Performed By: #### A LT, LIPID, BMP #### [facility] [address] [address] [address] Sarah Nath CO2 [Moles/Vol] 24.6 mmol/L Normal 21.0-32.0 [facility] Comment on above: Performed By: #### A LT, LIPID, BMP #### [facility] [address] [place] [address] Dr. Sarah Nath Creatinine [Mass/Vol] 0.77 mg/dL Normal 0.70-1.30 [facility] Comment on above: Performed By: #### A LT, LIPID, BMP #### [facility] [address] [place] [address] Dr. Sarah Nath EGFR-AF DUTCH >60 Normal >=60 [facility] Comment on above: Performed By: #### A LT, LIPID, BMP #### [facility] [address] [place] [address] Dr. Sarah Nath EGFR-NON AF DUTCH >60 Normal >=60 [facility] Comment on above: Performed By: #### A LT, LIPID, BMP #### [facility] [address] [place] [address] Dr. Sarah Nath Glucose [Mass/Vol] 100 mg/dL Normal 74-106 [facility] Comment on above: Performed By: #### A LT, LIPID, BMP #### [facility] [address] [place] [address] Dr. Sarah Nath Potassium [Moles/Vol] 3.9 mmol/L Normal 3.5-5.1 [facility] Comment on above: Performed By: #### A LT, LIPID, BMP #### [facility] [address] [address] [address] Sarah Nath Sodium [Moles/Vol] 136 mmol/L Normal 136-145 [facility] Comment on above: Performed By: #### A LT, LIPID, BMP #### [facility] [address] [address] [address] Sarah Nath Urea nitrogen [Mass/Vol] 14.0 mg/dL Normal 7.0-18.0 [facility] Comment on above: Performed By: #### A LT, LIPID, BMP #### [facility] [address] [place] [address] Dr. Sarah Nath Urea nitrogen/Creatini ne [Mass ratio] 18.2 mg/mg Normal [facility] Comment on above: Performed By: #### A LT, LIPID, BMP #### [facility] [address] [place] [address] Dr. Sarah Nath [facility] 12-30-2021 ALT [Catalytic activity/Vol] 9 U/L Critically low 16-63 [facility] Comment on above: Performed By: #### A LT, LIPID, BMP #### [facility] [address] [place] [address] Dr. Sarah Nath COVID-19 [facility] 10-03-2021 SARS-CoV-2 (COVID-19) RNA ZAHIDA+probe Ql (Unsp spec) Negative Normal Negative [facility] Comment on above: Order Comment: Healt hcare Worker?: N Result Comment: Testing for SARS-CoV-2 by RT-PCR This test was developed and its performance characteristics determined by [employer]) and validated at the [facility]. This test has not been FDA cleared or approved. This test has been authorized by FDA under an Emergency Use Authorization (EUA). This test has been validated in accordance with the FDA's Guidance Document (Policy for Diagnostics Testing in Laboratories Certified to Perform High Complexity Testing under CLIA prior to Emergency Use Authorization for Coronavirus Disease-2019 during the Public Health Emergency) issued on July 17, 2019. This test is only authorized for the duration of time the declaration that circumstances exist justifying the authorization of the emergency use of in vitro diagnostic tests for detection of SARS-CoV-2 virus and/or diagnosis of COVID-19 infection under section 564(b)(1) of the Act, 21 U.S.C. 360bbb-3(b)(1), unless the authorization is terminated or revoked sooner. PERFORMED BY: [place] [address] PATHOLOGIST [employer] INTERPRETER NANCY MICHEL M.D. Performed By: #### C OVID 19 [facility] #### [id number] [facility] XR CHEST 1 Von 09-27-2021 XR CHEST 1 V EXAM: XR CHEST 1 V HISTORY: CHEST PAIN, UNSPECIFIED COMPARISON: 06/28/2018 and 05/21/2019 TECHNIQUE: Single frontal view of the chest. FINDINGS: Tubes/lines/devices: None. Lungs: Adequate inflation. No evidence of pneumonia or pulmonary edema. Pleura: No pneumothorax. No pleural effusion. Heart and mediastinum: No enlargement of the cardiomediastinal silhouette. Unchanged right paratracheal thickening. Bones/soft tissues: No acute osseous findings. Unremarkable soft tissues. Abdomen: Unremarkable. IMPRESSION: 1. No acute pulmonary findings. 2. Unchanged right paratracheal thickening. Consider nonemergent chest CT to evaluate the underlying etiology. Electronically authenticated by: AGUILAR YOST Date: 2021-09-26 22:49 Normal [facility] CARDIAC OWEN ADMITon 022 CK [Catalytic activity/Vol] 89 U/L Normal 39-308 [facility] Comment on above: Performed By: #### C MADM #### [facility] [address] [address] [address] Sarah Nath CK.MB [Mass/Vol] 2.62 ng/mL Normal <=3.60 [facility] Comment on above: Performed By: #### C MADM #### [facility] [address] [address] [address] Sarah Nath HSTROP 5.6 pg/mL Normal 4.0-76.1 [facility] Comment on above: Result Comment: CUT- OFF POINTS HAVE BEEN ESTABLISHED BASED ON THE FOURTH UNIVERSAL DEFINITIONS OF MYOCARDIAL INFARCTION. THE UPPER REFERENCE LIMIT (URL) OF TROPONIN, DEFINED THE 99TH PERCENTILE OF cTnI DISTRIBUTION IN A REFERENCE POPULATION, HAS BEEN CONFIRMED THE DECISION THRESHOLD FOR [place] DIAGNOSIS. Performed By: #### C MADM #### [facility] [address] [place] [address] Dr. Sarah Nath MARISELA 73 ng/mL Normal 16-96 [facility] Comment on above: Performed By: #### C MADM #### [facility] [address] [place] [address] Dr. Sarah Nath CBC AUTO DIFFon 09-26-2021 BASO # 0.1 103/ul Normal 0.0-0.1 [facility] Comment on above: Performed By: #### C MADM #### [facility] [address] [place] [address] Dr. Sarah Nath Basophils/100 WBC (Bld) 0.7 % Normal 0.2-2.0 [facility] Comment on above: Performed By: #### C MADM #### [facility] [address] [place] [address] Dr. Sarah Nath EO # 0.1 103/ul Normal 0.0-0.7 [facility] Comment on above: Performed By: #### C MADM #### [facility] [address] [place] [address] Dr. Sarah Nath Eosinophils/100 WBC (Bld) 1.0 % Normal 0.9-7.0 [facility] Comment on above: Performed By: #### C MADM #### [facility] [address] [place] [address] Dr. Sarah Nath Erythrocyte distribution width (RBC) [Ratio] 12.9 % Normal 11.0-15.0 [facility] Comment on above: Performed By: #### C MADM #### [facility] [address] [place] [address] Dr. Sarah Nath Hematocrit (Bld) [Volume fraction] 48.9 % Normal 42.0-54.0 [facility] Comment on above: Performed By: #### C MADM #### [facility] [address] [address] [address] Sarah Nath Hemoglobin (Bld) [Mass/Vol] 16.1 g/dL Normal 14.0-18.0 [facility] Comment on above: Performed By: #### C MADM #### [facility] [address] [address] [address] Sarah Nath IG # 0.06 10e3/ul Critically high 0.00-0.03 [facility] Comment on above: Performed By: #### C MADM #### [facility] [address] [address] [address] Sarah Nath IG % 0.7 % Critically high 0.0-0.5 [facility] Comment on above: Performed By: #### C MADM #### [facility] [address] [place] [address] Dr. Sarah Nath LYMPH # 2.0 103/ul Normal 1.2-3.8 [facility] Comment on above: Performed By: #### C MADM #### [facility] [address] [place] [address] Dr. Sarah Nath Lymphocytes/100 WBC (Bld) 21.2 % Normal 20.5-60.0 [facility] Comment on above: Performed By: #### C MADM #### [facility] [address] [place] [address] Dr. Sarah Nath MANUAL DIFF REQ NO Normal [facility] Comment on above: Performed By: #### C MADM #### [facility] [address] [address] [address] Sarah Nath MCH (RBC) [Entitic mass] 30.4 pg Normal 25.9-34.0 [facility] Comment on above: Performed By: #### C MADM #### [facility] [address] [address] [address] Sarah Nath MCHC (RBC) [Mass/Vol] 32.9 g/dL Normal 29.9-35.2 [facility] Comment on above: Performed By: #### C MADM #### [facility] [address] [address] [address] Sarah Nath MCV (RBC) [Entitic vol] 92.3 fL Normal 80.0-94.0 [facility] Comment on above: Performed By: #### C MADM #### [facility] [address] [address] [address] Sarah Nath MONO # 0.7 103/ul Normal 0.3-0.8 [facility] Comment on above: Performed By: #### C MADM #### [facility] [address] [place] [address] Dr. Sarah Nath Monocytes/100 WBC (Bld) 7.9 % Normal 1.7-12.0 [facility] Comment on above: Performed By: #### C MADM #### [facility] [address] [place] [address] Dr. Sarah Nath NEUT # 6.3 103/ul Normal 1.4-6.5 [facility] Comment on above: Performed By: #### C MADM #### [facility] [address] [place] [address] Dr. Sarah Nath Neutrophils/100 WBC (Bld) 68.5 % Normal 43.0-75.0 [facility] Comment on above: Performed By: #### C MADM #### [facility] [address] [place] [address] Dr. Sarah Nath Platelet mean volume (Bld) [Entitic vol] 11.1 fL Normal 9.5-13.5 [facility] Comment on above: Performed By: #### C MADM #### [facility] [address] [place] [address] Dr. Sarah Nath PLT 231 103/ul Normal 150-450 [facility] Comment on above: Performed By: #### C MADM #### [facility] [address] [place] [address] Dr. Sarah Nath RBC 5.30 106/ul Normal 4.70-6.10 [facility] Comment on above: Performed By: #### C MADM #### [facility] [address] [place] [address] Dr. Sarah Nath WBC 9.2 103/ul Normal 4.0-11.0 [facility] Comment on above: Performed By: #### C [facility] #### [facility] [address] [place], [place] [address] Dr. Sarah Nath Coding Summary.on 02-19-2018 Coding Summary. CODING DATE: 018 [facility] STATUS: Home (Routine DC) PAYOR: Medicare APC DESCRIPTION 5522 Level 2 Imaging without Contrast ADMIT DX: REASON FOR VISIT DX: R13.12 Dysphagia, oropharyngeal phase FINAL DX: PRINCIPAL: R13.12 Dysphagia, oropharyngeal phase SECONDARY: PYMT PROC APC STAT DESCRIPTION DOCTOR NAME DATE NOTE: The code number assigned matches the documented diagnosis and / or procedure in the patient's chart. However, the narrative phrase printed from the coding software may appear abbreviated, or result in slightly different terminology. Coded By: Esther Terry Date Saved: 02/19/2018 12:43 pm Normal [facility] XR Swallowing Function w/ Vi eric 02-18-2018 XR Swallowing Function w/ Video Exam Date/Time:02/18/2018 09:26 ESTReason for Exam:R13.12 Dysphagia, oropharyngeal phase, PARKINSONSReportIMPRESSION : NO EVIDENCE OF ASPIRATION.CLINICAL HISTORY: R13.12 Dysphagia, oropharyngeal phase, Parkinson's. COMMENT: Fluoroscopic images were recorded with the patient swallowing differentconsistencies of barium in an upright position as administered under the supervisionof Chikis Diaz, the speech pathologist. The patient swallowed pudding consistencybarium, barium coated soft fruit, barium coated cracker, and thin liquid barium. Withsome swallows, after hypopharyngeal contraction, a small amount of barium remains inthe piriform sinuses inferiorly and/or cervical esophagus. There is a small Zenker'sdiverticulum. There is no penetration of barium into the vestibule nor aspiration ofbarium into the trachea during the study.The radiation dose data is recorded in the technologist comment. FINAL REPORT Dictated: 02/18/2018 3:05 pm Johnny Quintanilla M.D. Signed (Electronic Signature): 02/18/2018 3:05 pm Signed by: Johnny Quintanilla M.D. Transcribed by: LIEGH ANN Technologist: Eloise CommentsRadiation Dose: Kar in mGy = 4.8 Normal [facility] Coding Summary.on 12-05-2017 Coding Summary. CODING DATE: 018 [facility] STATUS: Home (Routine DC) PAYOR: Medicare APC DESCRIPTION 5481 Laser Eye Procedures ADMIT DX: REASON FOR VISIT DX: H26.40 Unspecified secondary cataract FINAL DX: PRINCIPAL: H26.40 Unspecified secondary cataract SECONDARY: PYMT PROC APC STAT DESCRIPTION DOCTOR NAME DATE [id number] T Discission of secondary Sterling Chatman DO 12/04/2017 membranous cataract (opacified posterior lens capsule and/or anterior hyaloid); laser surgery (eg, YAG laser) (1 or more stages) LT Left side (used to identify procedures performed on the left side of the body) NOTE: The code number assigned matches the documented diagnosis and / or procedure in the patient's chart. However, the narrative phrase printed from the coding software may appear abbreviated, or result in slightly different terminology. Coded By: Jewell Reynoso Date Saved: 12/05/2017 09:17 am [facility] Vital Signs Date Time Vital Sign Value Performing Clinician Facility 04-19-2023 10:00-0500 Body height 162.56 cm [facility] [employer] Other [employer] Other 04-19-2023 10:00-0500 Body mass index (BMI) [Ratio] 26.5 kg/m2 [employer] Other [employer] Other 04-19-2023 10:00-0500 Body weight 70.04 kg [employer] Other [employer] Other 04-19-2023 10:00-0500 Diastolic blood pressure 80 mm[Hg] [employer] Other [employer] Other 04-19-2023 10:00-0500 Respiratory rate 12 /min [employer] Other [employer] Other 04-19-2023 10:00-0500 Systolic blood pressure 190 mm[Hg] Prashant Ball Other [employer] Other 01-12-2023 10:30-0400 Body height 162.56 cm Prashant Ball Other [employer] Other 01-12-2023 10:30-0400 Body mass index (BMI) [Ratio] 26.33 kg/m2 Prash[facility] Other [employer] Other 01-12-2023 10:30-0400 Body weight 69.58 kg Prashant Ball Other [employer] Other 01-12-2023 10:30-0400 Diastolic blood pressure 60 mm[Hg] Prashant Ball Other [employer] Other 01-12-2023 10:30-0400 Respiratory rate 12 /min Prashant Ball Other [employer] Other 01-12-2023 10:30-0400 Systolic blood pressure 108 mm[Hg] Prashant Ball Other [employer] Other 11-14-2022 09:45-0400 Body height 162.56 cm Prashant Ball Other [employer] Other 11-14-2022 09:45-0400 Body weight 0.91 kg Prashant Ball Other [employer] Other 11-14-2022 09:45-0400 Diastolic blood pressure 75 mm[Hg] Prashant Ball Other [employer] Other 11-14-2022 09:45-0400 Respiratory rate 12 /min Prashant Ball Other [employer] Other 11-14-2022 09:45-0400 Systolic blood pressure 167 mm[Hg] Prashant Ball Other [employer] Other 10-12-2022 10:30-0400 Body height 162.56 cm Prashant Ball Other [employer] Other 10-12-2022 10:30-0400 Body mass index (BMI) [Ratio] 25.95 kg/m2 Prashant Ball Other [employer] Other 10-12-2022 10:30-0400 Body weight 68.58 kg Prashant Ball Other [employer] Other 10-12-2022 10:30-0400 Diastolic blood pressure 64 mm[Hg] Prashant Ball Other [employer] Other 10-12-2022 10:30-0400 Respiratory rate 12 /min Prashant Ball Other [employer] Other 10-12-2022 10:30-0400 Systolic blood pressure 124 mm[Hg] Prashant Ball Other [employer] Other 06-28-2022 12:30-0400 Body height 162.56 cm Prashant Ball Other [employer] Other 06-28-2022 12:30-0400 Body mass index (BMI) [Ratio] 25.95 kg/m2 Prashant Ball Other [employer] Other 06-28-2022 12:30-0400 Body weight 68.58 kg Prashant Ball Other [employer] Other 06-28-2022 12:30-0400 Diastolic blood pressure 81 mm[Hg] Prashant Ball Other [employer] Other 06-28-2022 12:30-0400 Respiratory rate 12 /min Prashant Gary Other [employer] Other 06-28-2022 12:30-0400 Systolic blood pressure 177 mm[Hg] Prashant Gary Other [employer] Other Encounters Encounter Date Encounter Type Care Provider Facility Start: 04-26-2023 End: 04-26-2023 ambulatory Prashant Abdirahman Other [employer] Other Start: 04-26-2023 Telephone encounter Prashant Gary [facility] Start: 04-19-2023 End: 04-19-2023 ambulatory Prashant Ball Other [employer] Other Start: 04-19-2023 Office outpatient vi sit 25 minutes Prashant Ball [facility] Start: 02-09-2023 End: 02-09-2023 ambulatory Prashant Ball Other [employer] Other Start: 02-09-2023 Telephone encounter Prashant Gary [facility] Start: 01-14-2023 End: 01-14-2023 ambulatory Prashant Ball Other [employer] Other Start: 01-14-2023 Telephone encounter Prashant Ball [facility] Start: 01-12-2023 End: 01-12-2023 ambulatory Prashant Ball Other [employer] Other Start: 01-12-2023 Patient encounter procedure Prashant Ball [facility] Start: 12-29-2022 End: 12-29-2022 ambulatory Prashant Ball Other [employer] Other Start: 12-29-2022 Telephone encounter Prashant Ball [facility] Start: 12-15-2022 End: 12-15-2022 ambulatory Prashant Ball Other [employer] Other Start: 12-15-2022 Telephone encounter Prashant ORDAZ [facility] Start: 12-06-2022 Telephone encounter Memo sawyer MD Work Phone: Neurology Comment on above: Medication Problem Start: 11-14-2022 End: 11-14-2022 ambulatory Prashant Gary Other [employer] Other Start: 11-14-2022 Office outpatient vi sit 15 minutes Prashant Gary [facility] Start: 10-12-2022 End: 10-12-2022 ambulatory Prashant Gary Other [employer] Other Start: 10-12-2022 Office outpatient vi sit 25 minutes Prashant Gary [facility] Start: 09-12-2022 End: 09-12-2022 ambulatory Prashant Gary Other [employer] Other Start: 09-12-2022 Telephone encounter Prashant ORDAZ [facility] Start: 08-17-2022 End: 08-17-2022 ambulatory WEN BAEZ Facility:[facility] Start: 08-17-2022 End: 08-18-2022 ambulatory NARENDRANATH LAKSHMIPATHY . Facility:[facility] Start: 08-01-2022 End: 08-01-[address] PRASHANT GARY Facility:[facility] Start: 07-18-2022 End: 07-19-[address] PRASHANT GARY Facility:[facility] Start: 06-28-2022 End: 06-28-2022 ambulatory Prashant Gary Other [employer] Other Start: 06-28-2022 Office outpatient vi sit 25 minutes Prashant Gary [facility] Start: 06-28-2022 Telephone encounter Prashant ORDAZ [facility] Start: 04-28-2022 End: 04-28-2022 ambulatory Memo Magallon MD Work Phone: Neurology Comment on above: Parkinson disease (H CC); Gait instability Start: 04-28-2022 End: 04-28-2022 Telemedicine consultation with patient Memo Magallon MD Work Phone: [facility] Start: 04-21-2022 End: 04-22-[address] PRASHANT GARY Facility:[facility] Start: 12-30-2021 End: 12-31-[address] PRASHANT GARY Facility:[facility] Start: 12-27-2021 Adult health examination Prashant Gary Other [employer] Other Start: 10-24-2021 End: 10-24-2021 [facility] Memo Magallon MD Work Phone: Neurology Comment on above: Parkinson disease (H CC) (Primary Dx); REM sleep behavior disorder; Restless legs syndrome Start: 09-26-2021 End: 09-27-2021 ambulatory WEN SASHA Facility:[facility] Start: 02-18-2018 End: 02-19-2018 Patient encounter procedure Julia Magallon Facility:[facility] Procedures Date Procedure Procedure Detail Performing Clinician Start: 12-30-2021 PSA screening NARENDRAN ATH LAKSHMIPATHY . Comment on above: Performed By: #### P [facility] #### [facility] [address] [place] [address] Dr. Sarah Nath Start: 04-12-2019 Adult depression screening assessment Memo Magallon MD Work Phone: Start: 02-27-2015 Screening for malign ant neoplasm of colon Prashant Gary Other Start: 12-07-2014 Screening for malign ant neoplasm of prostate Prashant Gary Other Depression screening Bon Gary Other Screening for malign ant neoplasm of prostate Prashant Gary Other Plan of Treatment Date Care Activity Detail Author Start: 12-15-2022 Influenza vaccination INFLUENZA (#1) [facility] Start: 11-23-2022 ambulatory Ambulatory Facility:[facility] 1 Start: 04-16-2022 ADVANCE DIRECTIVE DISCUSSION ADVANCE DIRECTIVE DISCUSSION [facility] Start: 04-16-2022 DEPRESSION ASSESSMENT DEPRESSION ASS ESSMENT [facility] Start: 12-15-2021 Influenza vaccination INFLUENZA (#1) [facility] Start: 04-16-2021 ADVANCE DIRECTIVE DISCUSSION ADVANCE DIRECTIVE DISCUSSION [facility] Start: 04-12-2020 Adult depression scr eening assessment DEPRESSION SCREENING [facility] Start: 07-06-2015 DIABETES SCREEN DIABETES SCREEN [facility] Start: 2008 PNEUMOCOCCAL: 65+ (1 - PCV) PNEUMOCOCCAL: 65+ (1 - PCV) [facility] Start: 1993 SHINGRIX VACCINE (1 of 2) MORAES GRIX VACCINE (1 of 2) [facility] Start: 1962 Urine microalbumin profile DTAP,TDAP ,TD (1 - Tdap) [facility] Start: 1961 ANNUAL PCP TEAM 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 FELECIA DISEASE VISIT ANNUAL PCP TEAM CHRONIC DISEASE VISIT [facility] Start: 1961 BP CONTROLLED (<130/80) BP CONTROLLE D (<130/80) [facility] Start: 1961 HEPATITIS C SCREENING HEPATITIS C SC REENING [facility] Start: 1943 COVID-19 VACCINE (#1) COVID-19 VACCI NE (#1) [facility] Immunizations Immunization Date Immunization Notes Care Provider Lucita chávez 01-12-2023 influenza, high dose seasonal, preservative-free Prashant Gary Other [employer] Other 12-29-2021 influenza virus vaccine, split virus (incl. purified surface antigen) Prashant Gary Other [employer] Other 03-29-2021 COVID-19 Vaccine Pfi zer - Documentation Purposes Only Prashant Gary Other [employer] Other 06-04-2020 COVID-19 Vaccine Pfi zer - Documentation Purposes Only Prashant Gary Other [employer] Other 05-14-2020 COVID-19 Vaccine Moderna - Documentation Purposes Only Prashant Gary Other [employer] Other 02-18-2020 influenza virus vaccine, split virus (incl. purified surface antigen) Prashant Gary Other [employer] Other 11-28-2017 influenza virus vaccine, split virus (incl. purified surface antigen) Prashant Gary Other [employer] Other 11-28-2017 pneumococcal conjuga te vaccine, 13 valent Prashant Abdirahman Other [employer] Other Payers Date Payer Category Payer Medicare HUMANA MEDICARE HUMANA MEDICARE PPO [id number] 2011-Present [phone] [address] [address] [place] [address] PPO [id number] 2011 Medicare HUMANA MEDICARE HUMANA MEDICARE PPO [id number] 2011-Present [phone] [id number] [place] [address] PPO [id number] 1959 Medicare [id number] 1943 Unknown [id number] 1943 Unknown [id number] 1943 Unknown [id number] 1943 Unknown [id number] 1943 Unknown [id number] 1943 Unknown [id number] 1943 Unknown [id number] 1943 Unknown [id number] Social History Date Type Detail Facility Start: 03-01-2011 End: 05-14-2012 Tobacco smoking status NHIS Ex-smoker [facility] End: 05-14-1983 History of tobacco use Current smoker [facility] End: 05-14-1983 History of tobacco use Cigarette Smoker [facility] Start: 03-01-2011 End: 04-28-2022 Cigarettes smoked current (pack per day) - Reported 12 [facility] Start: 03-01-2011 End: 05-14-2012 Tobacco use and exposure Smokeless tobacco non-user [facility] Start: 01-22-2020 Alcohol intake Current drinke r of alcohol (finding) [facility] Start: 1945 Sex Assigned At Not on file C [facility] Start: 10-14-2021 End: 10-24-2021 Exposure to SARS-CoV-2 (event) Unable to assess [facility] Work Phone: Start: 01-22-2020 End: 04-28-2022 Sex Assigned At [facility] Adult Depression Screening Assessment 4 [facility] Medical Equipment Procedure Code Equipment Code Equipment Origin al Text Equipment Identifier Dates Graft Bn Infs Rhbmp-2 2.8ml Sm - [id number] Start: 05-15-2012 Sub Bngf Prognx + Dbm Bov - [id number] Start: 05-15-2012 6.5 Commpression Screw [id number] Start: 03-01-2011 6.5 Mm Compressi on Screw [id number] Start: 03-01-2011 6.5 Compression Screw [id number] Start: 03-01-2011 4.5mm Compressio n Screw [id number] Start: 03-01-2011 6.5mm X110mm Screw [id number] Start: 03-01-2011 Nfz-Ea-I-Kind Implant - [id number] Start: 05-15-2012 Comment on above: Description: 3.5 x 2 0mm angle lock screw Orb-Pj-H-Kind Implant - [id number] Start: 05-15-2012 Comment on above: Description: 3.5 x 1 0 mm angle lock screw Bsx-Eu-Q-Kind Implant - [id number] Start: 05-15-2012 Comment on above: Description: 3.5 x 1 0mm angle lock screw Hzp-Ei-M-Kind Implant - [id number] Start: 05-15-2012 Comment on above: Description: 8 hole l shape ankle plate Axu-Vl-D-Kind Implant - [id number] Start: 05-15-2012 Comment on above: Description: 3.5 x 3 0 lock screw Ocl-Uo-Y-Kind Implant - [id number] Start: 05-15-2012 Comment on above: Description: 3.5 x 3 0mm angle lock screw Kix-Iy-V-Kind Implant - [id number] Start: 05-15-2012 Comment on above: Description: 3.5mm 3 8mm lock screw [id number] 0329 52-Plate Omega3 Standard Barrel Hip Keyless 135 4 Hole [id number] - [id number] Start: 07-05-2012 Screw Compr 6.5x 50mm - [id number] Start: [id number] 0329 52-Screw Bn 13mm 100mm O+ Ss Std - [id number] Start: [id number] 0329 52-Screw Compression [place] 32mm [id number] - [id number] Start: [id number] 0329 52-Screw Bn 4.5mm 38mm Axsos Ss - [id number] Start: [id number] 0329 52-Screw Bn 4.5mm 36mm Axsos Ss - [id number] Start: 07-05-2012 Clinical Notes 10-24-2021 to 04-26-2023 Note Date & Type Note Facility 04-26-2023 Evaluation note Encounter Date Diagnosis Assessment Notes Apr, Primary hypertension (ICD-10 - I10) [employer] Other 01-04-2024 Evaluation note* Encounter Date Diagnosis Assessment Notes Treatment Notes Treatment Clinical Notes Apr, Essential hypertension (ICD-10 - I10) This patient is instructed to consume a healthy, low-fat, low-salt diet. They are also encouraged to continue exercise to achieve/maintain a normal BMI. Patient is instructed on home BP measurements: - rest for 5 minutes w/o talking- positioned w/ feet on floor and arm supported- average best 2/3 readings w/ goal < 135/85 _update in couple days Apr, Bronchiectasis without complication (ICD-10 - J47.9) Mucolytics and CLAUDETTE as needed. Cough and deep breathing exercises UTD w/ vaccines Apr, Chronic venous insufficiency (ICD-10 - I87.2) Avoid salt and elevate lower extremities, support stockings, inspect legs and feet daily for blisters and ulcerations. Apr, Lumbar spondylosis (ICD-10 - M47.816) The patient is instructed to avoid bending, twisting or lifting. They are to use intermittent heat and ice as needed. They may schedule a massage or gentle manipulation. They may safely use Tylenol as needed. Apr, Hyperlipidemia type II (ICD-10 - E78.01) Instructed on diet and exercise with continued statin therapy.Discussed the beneficial effects of lowering cholesterol in reducing the risk for cerebrovascular and cardiovascular disease. Apr, Parkinson disease (ICD-10 - G20) Encouraged to keep active Walk hourly in the house during winter months. Walk outside w/ better weather. Apr, Chronic prescription opiate use (ICD-10 - Z79.891) This patient requires opiate use on a daily basis to control pain.This patient does not exhibit drug-seeking or aberrant behavior.This patient is able to continue with ADL, with an adequate quality of life, that they would not be able toachieve without the prescription pain medication.There has been no surgical treatment recommended for this condition.Use of non-opiate treatment should be continued, such as nonstrenuous and aquatic exercises.This patient has a pain management contract and they have been counseled on safe storage of the medication.They have been counseled on the risks of concomitant use with alcohol or sedating meds. PDMP is being followed and this patient's OARRS report is being monitored every 90 days. [employer] Other 09-29-2023 Evaluation note* Encounter Date Diagnosis Assessment Notes Treatment Notes Treatment Clinical Notes Dec, Medicare annual wellness visit, subsequent (ICD-10 - Z00.00) Personalized health advice was given to the beneficiary including a written plan for screenings discussed and provided. Advanced care planning reviewed and/or information given as requested. Additional counseling was provided here today in regards to, [ ]. The above visit was performed by [ ], under direct supervision of [ ]. Document reviewed and amended by provider signed below. Dec, Chronic venous insufficiency (ICD-10 - I87.2) Avoid salt and elevate lower extremities, support stockings, inspect legs and feet daily for blisters and ulcerations. Evaluation compete: - venous US negative for DVT - Echo w/ normal LVEF and only mild increased RVSP - r/o cirrhosis and nephrosis - d/c Felodipine and added diuretic - ordered lift chair to improve compliance in elevating legs Referral to Lymphatic clinic Dec, Essential hypertension (ICD-10 - I10) This patient is instructed to consume a healthy, low-fat, low-salt diet. They are also encouraged to continue exercise to achieve/maintain a normal BMI. Dec, Bronchiectasis without complication (ICD-10 - J47.9) Stable w/o dyspnea, wheezing, fever or chills UTD w/ immunizations. Increase fluids, mucinex and Albuterol to improve pulmonary toilet Dec, Lumbar spondylosis (ICD-10 - M47.816) The patient is instructed to avoid bending, twisting or lifting. They are to use intermittent heat and ice as needed. They may schedule a massage or gentle manipulation. They may safely use Tylenol as needed. Referred to pain management w/o benefit Dec, Hyperlipidemia type II (ICD-10 - E78.01) Instructed on diet and exercise with continued statin therapy.Discussed the beneficial effects of lowering cholesterol in reducing the risk for cerebrovascular and cardiovascular disease. Dec, Parkinson disease (ICD-10 - G20) Fall precautions Unable to stand from sitting position Suggest lift chair Dec, Chronic prescription opiate use (ICD-10 - Z79.891) This patient requires opiate use on a daily basis to control pain.This patient does not exhibit drug-seeking or aberrant behavior.This patient is able to continue with ADL, with an adequate quality of life, that they would not be able to achieve without the prescription pain medication.There has been no surgical treatment recommended for this condition.Use of nonopiate treatment should be continued, such as nonstrenuous and aquatic exercises.This patient has a pain management contract and they have been counseled on safe storage of the medication.They have been counseled on the risks of concomitant use with alcohol or sedating meds. PDMP is being followed and this patient's OARRS report is being monitored every 90 days. Dec, Screening PSA (prostate specific antigen) (ICD-10 - Z12.5) Mikaela PSA Dec, Other Continues, tolerating Failed multiple trials of guideline directed therapy Failed to improve w/ injections [employer] Other 08-23-2023 Miscellaneous Notes* Telephone Encounter - Eduardo Graff - 12/06/2022 8:52 AM EDT Pharmacy called stating they the express scripts are unable to fill the carbidopa-levodopa ([id number]) 25-100 mg per tablet. Patient is requesting that it be sent to [facility]/pharmacy #[id number] [place] [address] [address] [facility] . Please call patient at [phone] once sent to the pharmacy. Thank you! Eduardo Graff [facility]* Encounter Date Diagnosis Assessment Notes Treatment Notes Treatment Clinical Notes Nov, Essential hypertension (ICD-10 - I10) This patient is instructed to consume a healthy, low-fat, low-salt diet. They are also encouraged to continue exercise to achieve/maintain a normal BMI. Patient is instructed on home BP measurements: - rest for 5 minutes w/o talking- positioned w/ feet on floor and arm supported- average best 2/3 readings w/ goal < 135-85 Nov, Varicose veins of both legs with edema (ICD-10 - I83.893) Avoid salt and elevate lower extremities, support stockings, inspect legs and feet daily for blisters and ulcerations. r/o cirrhosis, nephrosis, pulmonary HTN and CHF Nov, Dyspnea on exertion (ICD-10 - R06.09) Secondary to bronchiectasis. r/o cardiomyopathy, pulmonary HTN Nov, Bronchiectasis without complication (ICD-10 - J47.9) CLAUDETTE as needed. Push fluids, expectorants such as Mucinex. Cough and deep breathing exercises Flutter? Nov, Fatigue, unspecified type (ICD-10 - R53.83) Healthy diet, keep active, proper sleep routine Nov, Other Avoid salt and elevate lower extremities, support stockings, inspect legs and feet daily for blisters and ulcerations. [employer] Other 06-29-2023 Evaluation note* Encounter Date Diagnosis Assessment Notes Treatment Notes Treatment Clinical Notes Sep, Bronchiectasis without complication (ICD-10 - J47.9) Chronic condition w/o cure, encouraged to perform cough and deep breathing exercises Mucinex/Robitusin +/- Albuterol - states inhaler worsens cough Sep, Swelling of lower extremity (ICD-10 - M79.89) Avoid salt and elevate lower extremities, support stockings, inspect legs and feet daily for blisters and ulcerations. Discussed tube compression Discussed lymphatic clinic Must elevate and use compression Felodipine may be contributing DDimer to r/o DVT Sep, Essential hypertension (ICD-10 - I10) This patient is instructed to consume a healthy, low-fat, low-salt diet. They are also encouraged to continue exercise to achieve/maintain a normal BMI. Sep, Lumbar spondylosis (ICD-10 - M47.816) The patient is instructed to avoid bending, twisting or lifting. They are to use intermittent heat and ice as needed. They may schedule a massage or gentle manipulation. They may safely use Tylenol as needed. Sep, Post herpetic neuralgia (ICD-10 - B02.29) Recently evaluated in the pain clinic and received LAUREN w/o benefit. Failed multiple medical treatments. Continue opiate pain meds for now. Sep, Hyperlipidemia type II (ICD-10 - E78.01) Instructed on diet and exercise with continued statin therapy.Discussed the beneficial effects of lowering cholesterol in reducing the risk for cerebrovascular and cardiovascular disease. Sep, Parkinson disease (ICD-10 - G20) Fall precautions Keep active f/u Neurology Sep, Chronic prescription opiate use (ICD-10 - Z79.891) ADR w/ Amitiza, works but has urgency and diarrhea. Suggested healthy, high fiber diet, fluids and reduce Amitiza to 8mg [employer] Other 05-30-2023 Evaluation note* Encounter Date Diagnosis Assessment Notes Treatment Notes Treatment Clinical Notes August, Essential hypertension (ICD-10 - I10) [employer] Other 04-04-2023 NoteCONSULTATION CONSULTATION DATE: 07/18/2022 TO: Prashant Gary D.O. HISTORY: Patient presents today complaining of 5-7/10 pain in his left rib area, left abdominal area, sharp/burning in character. He has increasing pain with even light touch. Denies any change in bowel and bladder habits or new sensorimotor changes in his lower extremities. He feels the most comfortable in the semi-recumbent position. He uses [place] for pain control, 5 mg daily p.r. n. He uses this pretty infrequently. He reports that this seems to take some of the edge off but not completely. He is intolerant to multiple medications, cannot detail or recall the reactions to most of the medications, but he did report that he may have had an issues with gabapentin in the past, causing him to have hallucinations. Again, this is unclear from the patient. EXAM: His examination is notable for the patient having a well healed rash over the distribution of what appears to be the T9 and 10 dermatome predominantly, and he also has allodynia and hyperpathia over this distribution. He also has, along the T9 nerve root, he appears to have pain along the distribution of the myotome as well. Could feel myofascial spasm involving the thoracic paravertebral muscles, especially on the left side. IMPRESSION: Patient has chronic pain considering postherpetic neuralgia complicated by thoracic neuritis involving the T9 and T10 nerve root predominantly. PLAN: I have placed him on Zonegran 50 mg pills, one at h.s. for one week, then increase to two at h.s. thereafter, if he tolerates. I have added baclofen 10 mg pills, half a pill at h.s. and to proceed with a T9, T10 thoracic epidural steroid injection under fluoroscopic guidance. We will use no more than 20 mg of Depo-Medrol as part of the injectate. Gone over the details of the procedure with the patient. All his questions were answered. He agrees to proceed with the outline plan. As part of providing excellent, safe, comprehensive care, the following was completed at our patient's visit: 1. A medication reconciliation and review to ensure accurate knowledge of current/active medications, including asking our patients to inform us about any [id number] medications or herbal remedies/nutritional supplements/alternative remedies. 2. A review to specifically ensure our patients have had annual screening for: elevated body mass index (BMI, see intake chart for exact total), tobacco use, screening for depression, and screening for unhealthy alcohol use. When screening is concerning, patients are provided with education and the specific recommendation to discuss the concerning health issue and treatment options with their primary care provider.[facility] [id number] Evaluation note * Encounter Date Diagnosis Assessment Notes Treatment Notes Treatment Clinical Notes Jun, Essential hypertension (ICD-10 - I10) This patient is instructed to consume a healthy, low-fat, low-salt diet. They are also encouraged to continue exercise to achieve/maintain a normal BMI. Jun, Hyperlipidemia type II (ICD-10 - E78.01) Diet and exercise with continued statin therapy. Jun, Bronchiectasis without complication (ICD-10 - J47.9) CLAUDETTE as needed to clear secretions and cough. Deep breathing and cough exercises. Mucinex as needed Jun, Post herpetic neuralgia (ICD-10 - B02.29) Intractable pain Failed conservative treatment Refer to pain management for options Jun, Lumbar spondylosis (ICD-10 - M47.816) This patient requires opiate use on a daily basis to control pain.Despite treatment, he remains in pain. Will refer to pain management for alternative options Jun, Parkinson disease (ICD-10 - G20) Fall precautions, no change in medications, f/u Neurology Jun, Chronic prescription opiate use (ICD-10 - Z79.891) [employer] Other 01-13-2023 NoteHNO ID: [id number] Author: Memo Magallon MD Service: ? Author Type: Physician Type: Progress Notes Filed: 04/28/2022 5:37 PM Note Text: [facility] - FOLLOW UP EVALUATION - VIRTUAL VISIT Prashant Gary DO [address] [facility] [address] Dear Prashant Gary, DO: I had the pleasure of seeing Mr. De La Garza for follow-up today. As you know he is a 77 year old right-handed male with a history of Parkinson's disease since 2002. Also with chronic low back pain and diffuse arthritis, fused ankles. He is seen with his . We had a visit using: Frameri I received consent from the patient to perform the visit using this platform. Subjective During his previous visit the following plan was made: Previous plan-10/24/2021 Visit: PD - continue current medications. Exercise. RLS - controlled with pramipexole. No side effects RBD - controlled despite being off melatonin. Monitor. Interval History About the same. Shingles pain is unchanged. Pain management not helpful. Nervous now and left arm with tremor. Usually tremor is manageable. Numbness in feet from toes to mid-foot. Gradual for a long time. Not all the time. Mentioned to PCP and thought could have neuropathy. Has had many EMGs in the past and nothing found. Not getting worse. Eyes water a lot. Attributed to dry eyes. Movement Disorders Medications Schedule - as of the start of the visit: Medications 6am 12pm 6pm 12am Sinemet 25/100 2 2 2 Mirapex 0.25 mg 3 3 3 3 Parkinson's Motor Complications Medication benefit onset: 15 minutes Medication duration: 6 hours Wearing off: no Dyskinesia: no (Comment: If tired and not frequently) Prior Anti-Parkinson Therapies Apomorphine SC (Apokyn) Carbidopa/Levodopa Carbidopa/Levodopa CR Carbidopa/Levodopa/Entacapone Pramipexole Selegiline ALLERGIES Allergen Reactions Latex, Natural Rubb* Rash Morphine Other: See Comments Pt takes Avinza po, had allergic reaction with Morphine IV push, red streaking up arm. Penicillin G Rash Current Outpatient Medications Medication Sig docusate sodium (STOOL SOFTENER ORAL) Take by mouth as needed. felodipine ER (PLENDIL) 10 mg 24 hr tablet albuterol HFA (PROVENTIL HFA, VENTOLIN HFA) 90 mcg/actuation inhaler HYDROcodone-acetaminophen (NORCO) 5-325 mg per tablet Take 1 tablet by mouth every 6 hours as needed. losartan (COZAAR) 100 mg tablet Take 100 mg by mouth once daily. atorvastatin calcium(LIPITOR 10 MG TAB) one daily carbidopa-levodopa (SINEMET 25-100) 25-100 mg per tablet Take 2 tablets by mouth three times daily. pramipexole (MIRAPEX) 0.25 mg tablet Take 3 tablets by mouth four times daily. No current facility-administered medications for this visit. Questionnaires: In addition, the following areas that may be affected by abnormal involuntary movements were evaluated: Daily activities Difficulties with eating: can do but slow Difficulties in dressing: can do but slow Difficulties with hygiene activities: can do but slow. needs help with socks due to the fused ankle Difficulties with handwriting: really bad. very small. wants to still write the checks Difficulties with doing hobbies and other activities: Difficulties turning in bed: nothing new or worse. sometimes difficulty due to soft mattress Difficulties getting out of bed, car or chair: nothing new or worse Tremors/Gait/Balance Shaking or tremors: yes Walking and balance problems: slower. still goes to get mail and to the barn. If they go out he takes WC. Number of falls in the Last Month: no falls Gait freezing: Autonomic/Pain Lightheadeness on standing: no Urinary problems: Constipation problems: yes. oatmeal, applesauce, stool softeners. drinking more water Pain and other sensations: Speech/Swallowing Speech problems: hesitates coming up with words. sounds ok Drooling: at night only Chewing and swallowing problems: no Sleep/Fatigue Sleep problems: no. 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 talking, laughing Restless Legs Syndrome: Yes managed Leg swelling: Impaired sense of smell: Cognition: Cognitive impairment: no not what it used to be. does puzzles. Does well if someone comes to visit. MoCA Cognitive assessment: Hallucinations and delusions: no Apathy: yes Occasionally but nothing severe. Intermittent. Physically difficult to get out. Impulse control disorder: Palliative Concerns: Caregiver burden: Spiritual concerns: Advanced directives on file: Palliative services: Therapy and Exercise: Last PT Date: Last OT Date: Last ST Date: Exercises Regularly: Objective General: Awake, alert, interactive, no acute distress, good nutritional status, normal development, well-kep (more content not included)...[facility]01-13-2023 History of Present illness Narrative* Memo Magallon MD - 04/28/2022 5:28 PM EST [facility] - FOLLOW UP EVALUATION - VIRTUAL VISIT Prashant Gary DO [address] [facility] [address] Dear Prashant Gary DO: I had the pleasure of seeing Mr. De La Garza for follow-up today. As you know he is a 77 year old right-handed male with a history of Parkinson's disease since 2002. Also with chronic low back pain and diffuse arthritis, fused ankles. He is seen with his . We had a visit using: Frameri I received consent from the patient to perform the visit using this platform. Subjective During his previous visit the following plan was made: Previous plan-10/24/2021 Visit: PD - continue current medications. Exercise. RLS - controlled with pramipexole. No side effects RBD - controlled despite being off melatonin. Monitor. Interval History About the same. Shingles pain is unchanged. Pain management not helpful. Nervous now and left arm with tremor. Usually tremor is manageable. Numbness in feet from toes to mid-foot. Gradual for a long time. Not all the time. Mentioned to PCPand thought could have neuropathy. Has had many EMGs in the past and nothing found. Not getting worse. Eyes water a lot. Attributed to dry eyes. Movement Disorders Medications Schedule - as of the start of the visit: Medications 6am 12pm 6pm 12am Sinemet 25/100 2 2 2 Mirapex 0.25 mg 3 3 3 3 Parkinson's Motor Complications Medication benefit onset: 15 minutes Medication duration: 6 hours Wearing off: no Dyskinesia: no (Comment: If tired and not frequently) Prior Anti-Parkinson Therapies Apomorphine SC (Apokyn) Carbidopa/Levodopa Carbidopa/Levodopa CR Carbidopa/Levodopa/Entacapone Pramipexole Selegiline ALLERGIES Allergen Reactions Latex, Natural Rubb* Rash Morphine Other: See Comments Pt takes Avinza po, had allergic reaction with Morphine IV push, red streaking up arm. Penicillin G Rash Current Outpatient Medications Medication Sig docusate sodium (STOOL SOFTENER ORAL) Take by mouth as needed. felodipine ER (PLENDIL) 10 mg 24 hr tablet albuterol HFA (PROVENTIL HFA, VENTOLIN HFA) 90 mcg/actuation inhaler HYDROcodone-acetaminophen (NORCO) 5-325 mg per tablet Take 1 tablet by mouth every 6 hours as needed. losartan (COZAAR) 100 mg tablet Take 100 mg by mouth once daily. atorvastatin calcium(LIPITOR 10 MG TAB) one daily carbidopa-levodopa (SINEMET 25-100) 25-100 mg per tablet Take 2 tablets by mouth three times daily. pramipexole (MIRAPEX) 0.25 mg tablet Take 3 tablets by mouth four times daily. No current facility-administered medications for this visit. Questionnaires: In addition, the following areas that may be affected by abnormal involuntary movements were evaluated: Daily activities Difficulties with eating: can do but slow Difficulties in dressing: can do but slow Difficulties with hygiene activities: can do but slow. needs help with socks due to the fused ankle Difficulties with handwriting: really bad. very small. wants to still write the checks Difficulties with doing hobbies and other activities: Difficulties turning in bed: nothing new or worse. sometimes difficulty due to soft mattress Difficulties getting out of bed, car or chair: nothing new or worse Tremors/Gait/Balance Shaking or tremors: yes Walking and balance problems: slower. still goes to get mail and to the barn. If they go out he takes WC. Number of falls in the Last Month: no falls Gait freezing: Autonomic/Pain Lightheadeness on standing: no Urinary problems: Constipation problems: yes. oatmeal, applesauce, stool softeners. drinking more water Pain and other sensations: Speech/Swallowing Speech problems: hesitates coming up with words. sounds ok Drooling: at night only Chewing and swallowing problems: no Sleep/Fatigue Sleep problems: no. 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 talking, laughing Restless Legs Syndrome: Yes managed Leg swelling: Impaired sense of smell: Cognition: Cognitive impairment: no not what it used to be. does puzzles. Does well if someone comes to visit. MoCA Cognitive assessment: Hallucinations and delusions: no Apathy: yes Occasionally but nothing severe. Intermittent. Physically difficult to get out. Impulse control disorder: Palliative Concerns: Caregiver burden: Spiritual concerns: Advanced directives on file: Palliative services: Therapy and Exercise: Last PT Date: Last OT Date: Last ST Date: Exercises Regularly: Objective General: Awake, alert, interactive, no acute distress, good nutritional status, normal development,well-kept Neurological Exam Mental Status Awake and alert. Language is fluent with no aphasia. Motor Occasional left arm resting tremor. No dyskinesia . Assessment and Plan: Assessment Mr. De La Garza is a right-handed 77 year old male with history significant for HTN, neuropathy, LBP, withdystonia-predominant PD since around 2002. His symptoms are stable. There are no motor fluctuations and no recent falls. The following are the current problems noted and addressed during this visit: Parkinson disease (hcc) Gait instability Plan 04/28/2022 Visit: Continue current medications exercise Interested in clinical research? Not currently Updated Movement Disorder Medication Schedule: Medications 6am 12pm 6pm 12am Sinemet 25/100 2 2 2 Mirapex 0.25 mg 3 3 3 3 Level of service : 56585 (20-29 min). Time spent 25 min on the day of service, which included preparing to see the patient, [id number] patient care, completing clinical documentation, and counseling and educating the patient/family/caregiver. Thank you for allowing me to be part of the clinical care of this patient! I look forward to continued participation in the patient s care with you. Please do not hesitate to call with any questions. Sincerely, Memo Magallon MD [facility] History of Present illness Narrative* Memo Magaloln MD - 10/24/2021 11:00 AM EDT [facility] - FOLLOW UP EVALUATION Tamika Gillis [address] [facility] [address] Prashant Gary, DO [address] [facility] [address] I had the pleasure of seeing Mr. De La Garza for follow up today. He is a 76 year old right-handed male with a history of Parkinson's disease since 2002. Also with chronic low back pain and diffuse arthritis, fused ankles. He is seen with his . We had a visit using: Frameri I received consent from the patient to perform the visit using this platform. Subjective Previous Plan-04/26/2021 Visit: Parkinson's disease: Continue current medication schedule Exercise as you are able REM Sleep Behavior Disorder ((acting out of dreams)): Continue melatonin Restless leg syndrome: Continue pramipexole for this and Parkinson's disease symptoms Interval History: Still with persistent shingles pain at his trunk mainly on the left. Tried multiple medications andside effects. Saw PCP and referred to pain management. Walking more than before. Better in open space. Takes walker. Less freezing. Parkinson's Medication Schedule - as of the start of the visit: 6am 12pm 6pm 12am Sinemet 25/100 2 2 2 Mirapex 0.25 mg 3 3 3 3 Parkinson's Motor Complications Medication benefit onset: 15 minutes Medication duration: 5.5 hours Dyskinesia: no (Comment: If tired and not frequently) Prior Anti-Parkinson Therapies Apomorphine SC (Apokyn) Carbidopa/Levodopa Carbidopa/Levodopa CR Carbidopa/Levodopa/Entacapone Pramipexole Selegiline In addition, the following Parkinson-associated features were evaluated: Daily activities Difficulties with eating: No Difficulties in dressing: No Difficulties with hygiene activities: sometimes needs help with socks Difficulties turning in bed: Yes: difficult but can do it Difficulties getting out of bed, car or chair: Yes: difficult but can do it Tremors/Gait/Balance Shaking or tremors: Yes: Walking and balance problems: Yes: Number of falls in the Last Month: No. None in several months or more. New house is easier to walk in and more accessible. Autonomic/Pain Lightheadeness on standing: No Urinary problems: Yes: frequency Constipation problems: Yes: sometimes Speech/Swallowing Drooling: Yes: when asleep Chewing and swallowing problems: Yes: one week ago problem with esophagus. Needed emergent dilation. Went to ED. Otherwise no trouble Sleep/Fatigue Problems sleeping at night: No Daytime sleepiness: Yes: sometimes. Going out is a chore REM sleep behavior disorder: yes But none lately. Off melatonin Restless Legs Syndrome: yes Treated with pramipexole. Mood/Behavior/Cognition Cognitive impairment: no Better than 1 year ago. Had difficulty with transition after they moved. No Data Recorded Hallucinations and delusions: no Apathy: yes Occasionally but nothing severe. Intermittent. Physically difficult to get out. Palliative Concerns Caregiver burden: Spiritual concerns: Advanced directives on file: Palliative services: Finally, the following table shows the patient's overall global physical and mental health using the PROMIS scale relative to the previous visit: PROMIS-10 Office Visit from 04/17/2019 in Neurology Office Visit from 09/04/2018 in Neurology Global Physical Health T Score 32.4 37.4 Global Mental Health T Score 38.8 0-10 Standard Pain Scale 2 6 *PROMIS-10 scoring scale: mean = 50, over 50 is above average, under 50 is below average ALLERGIES Allergen Reactions Latex, Natural Rubb* Rash Morphine Other: See Comments Pt takes Avinza po, had allergic reaction with Morphine IV push, red streaking up arm. Penicillin G Rash Current Outpatient Medications Medication Sig docusate sodium (STOOL SOFTENER ORAL) Take by mouth as needed. carbidopa-levodopa (SINEMET 25-100) 25-100 mg per tablet Take 2 tablets by mouth three times daily. pramipexole (MIRAPEX) 0.25 mg tablet Take 3 tablets by mouth four times daily. felodipine ER (PLENDIL) 10 mg 24 hr tablet albuterol HFA (PROVENTIL HFA, VENTOLIN HFA) 90 mcg/actuation inhaler HYDROcodone-acetaminophen (NORCO) 5-325 mg per tablet Take 1 tablet by mouth every 6 hours as needed. losartan (COZAAR) 100 mg tablet Take 100 mg by mouth once daily. atorvastatin calcium(LIPITOR 10 MG TAB) one daily No current facility-administered medications for this visit. Objective Vital Signs: There were no vitals taken for this visit. General Physical Examination: General: Awake, alert, interactive, no acute distress, good nutritional status, normal development,well-kept General Neurological Examination: Neurological Exam Mental Status Awake and alert. Speech is normal. Language is fluent with no aphasia. Fund of knowledge is appropriate for level of education. Assessment and Plan: Assessment Mr. De La Garza is a right-handed 76 year old male with history significant for HTN, neuropathy, LBP, withdystonia-predominant PD since around 2002. No new complaints. Main complaint continues to be post-herpetic neuralgia. He reports not tolerating multiple medications for this and PCP referred to pain management. Gait is felt to be better since moving to a more accessible house. The following are the current problems noted and addressed during this visit: Parkinson disease (hcc) (primary encounter diagnosis) Rem sleep behavior disorder Restless legs syndrome Plan 10/24/2021 Visit: PD - continue current medications. Exercise. RLS - controlled with pramipexole. No side effects RBD - controlled despite being off melatonin. Monitor. Updated Parkinson's Medication Schedule: 6am 12pm 6pm 12am Sinemet 25/100 2 2 2 Mirapex 0.25 mg 3 3 3 3 Return at or around: 04/26/22 Medical Decision Making: Problems: Moderate: 2+ stable chronic illnesses Risk: Moderate: Drug management Medical Decision Making Level: 4 - Moderate Thank you for allowing me to be part of the clinical care of this patient! I look forward to continued participation in the patient s care with you. Please do not hesitate to call with any questions. Sincerely, Memo Magallon MD [facility]* Diagnosis Parkinson disease (HCC)- Primary Paralysis agitans REM sleep behavior disorder Restless legs syndrome Restless legs syndrome (RLS) documented in this encounter [facility] note* Diagnosis Parkinson disease (HCC) Paralysis agitans Gait instability Abnormality of gait documented in this encounter [facility] noteNo [employer] Other History general Narrative - Reported* Type Description Date Medical History Chronic cough Medical History Chronic prescription opiate use Medical History Lumbar spondylosis Medical History Arthritis of ankle, right Medical History Post herpetic neuralgia Medical History Parkinson disease Medical History Essential hypertension Medical History Hyperlipidemia type II Medical History Sensorineural hearing loss, bila teral Medical History Arthritis of left hip Medical History Nicotine dependence, cigarettes, in remission Medical History High risk medication use Medical History Acute chest wall pain Surgical History LEFT ANKLE FUSION Surgical History LEFT INGUINAL HERNIORRHAPHY Surgical History EGD, WITH PYLORIC BALLNEO DILATI ON 2021 Hospitalization History SEE SURGICAL HX [employer] Other Reason for referral (narrative)* Reason *FU 07/12 Referral for pain management Diagnosis 1 Lumbar spondylosis ( M47.816) Diagnosis 2 Post herpetic neural adam (B02.29) Referral Organization [facility] Mendez chester Referring Provider First Name Prashant Referring Provider Last Name Abdirahman Referring Provider Specialty Internal Me dicine Referred Organization [facility] Referred Provider France Yi Referred Address [address] [facility],[place], [place],[address] Referred Provider Specialty Pain Medicin e Referral Priority Routine General Notes Patient with chronic pain secondary to lumbar spondylosis and post herpetic neuralgia Margareth Haider 06/28/2022 01:49:00 PM >received today, notes locked, referral faxed Margareth Haider 07/05/2022 11:52:22 AM >FAXED FIRST ATTEMPT LETTER Clinical Notes He requires daily us e of opiates to control his pain. Despite this treatment, he remains in daily pain. Alternative medications have failed due to ADR. He is being referred for evaluation and treatment. P: [phone] F: [phone] [employer] Other Summary Purpose Family History No Family History Records FoundNo Family History Records FoundNo Family History Records FoundNo Family History Records Found Advance Directives No Advanced Directives Records FoundNo Advanced Directives Records FoundNo Advanced Directives Records FoundNo Advanced Directives Records Found Reason for Referral Specialty Diagnoses / Procedures Referred By Rose encinas Referred To Contact Diagnoses Parkinson disease (HCC) Procedures PROVIDER ORDERED FOLLOW UP OFFICE/OUTPATIENT [facility] 60-74 MINUTES Memo Magallon MD [facility] [address] [facility] [address] [place] [address] Referral ID Status Reason Start Date Expiration Date Visits Requested Visits Authorized [id number] Authorized PCP Requested Referral 10/24/2021 01/22/2022 1 1 Referral ID Status Reason Start Date Expiration Date Visits Requested Visits Authorized [id number] Authorized PCP Requested Referral 04/28/2022 07/27/2022 1 1 Additional Source Comments (unrecognized sect ion and content) No Status Records FoundNo Status Records FoundNo Status Records FoundNo Status Records Found INFORMATION SOURCE (unrecogn ized section and content) DATE CREATED AUTHOR 03/24/2018 Daniel Nunez [facility] DATE CREATED AUTHOR AUTHOR'S ORGANIZ ATION 10/07/2021 [facility] DATE CREATED AUTHOR AUTHOR'S ORGANIZ ATION 08/22/2022 [facility] DATE CREATED AUTHOR AUTHOR'S ORGANIZ ATION 12/07/2022 [facility] Source Comments (unrecognize d section and content) In the event this informatio n is protected by the Federal Confidentiality of Alcohol and Drug Abuse Patient Records regulations: The Federal rules restrict any use of the information to criminally investigate or prosecute any alcohol or drug abuse patient.[facility] the event this information is protected by the Federal Confidentiality of Alcohol and Drug Abuse Patient Records regulations: The Federal rules restrict any use of the information to criminally investigate or prosecute any alcohol or drug abuse patient.[facility] the event this information is protected by the Federal Confidentiality of Alcohol and Drug Abuse Patient Records regulations: The Federal rules restrict any use of the information to criminally investigate or prosecute any alcohol or drug abuse patient.[facility] Reason for Visit (unrecogniz ed section and content) BP Readings Reason Comments Telemedicine Follow Up Specialty Diagnoses / Procedures Referred By Rose encinas Referred To Contact Diagnoses Parkinson disease (HCC) Procedures PROVIDER ORDERED FOLLOW UP OFFICE/OUTPATIENT NEW HIGH MDM 60-74 MINUTES Memo Magallon MD [address] [facility] [address] [place] [address] Referral ID Status Reason Start Date Expiration Date V isits Requested Visits Authorized [id number] Closed PCP Requested Referral 10/24/2021 01/22/2022 1 1 Reason Comments Medication Problem Care Teams (unrecognized sec tion and content) [employer] Relationship Specialty Start Date End Date Prashant Gary DO PCP - General 03/11/07 [employer] Relationship Specialty Start Date End Date Prashant Gary DO PCP - General 03/11/07 [employer] Relationship Specialty Start Date End Date Prashant Gary DO PCP - General 03/11/07 FOR RECORDS PERTAINING TO PATIENTS WHO ARE OR HAVE BEEN ENROLLED IN A CHEMICAL DEPENDENCY/SUBSTANCEABUSE PROGRAM, SOME INFORMATION MAY BE OMITTED. This clinical summary was aggregated from multiple sources. Caution should be exercised in using it in the provision of clinical care. This summary normalizes information from multiple sources, and as a consequence, information in this document may materially change the coding, format and clinical context of patient data. In addition, data may be omitted in some cases. CLINICAL DECISIONS SHOULD BE BASED ON THE PRIMARY CLINICAL RECORDS. [facility] [email or web address] [facility]. provides no warranty or guarantee of the accuracy or completeness of information in this document.
[2023-05-07 13:00] LABS: Bilirubin Urine NEGATIVE (NEGATIVE); Blood Urine NEGATIVE (NEGATIVE); Clarity Urine CLEAR (CLEAR); Color Urine YELLOW (YELLOW); Glucose Urine UA NEGATIVE (NEGATIVE); Ketones Urine NEGATIVE (NEGATIVE); Leukocyte Esterase Urine NEGATIVE (NEGATIVE); Nitrite Urine NEGATIVE (NEGATIVE); Protein Urine NEGATIVE (NEG/TRACE); Specific Gravity Urine 1.015 (1.005-1.025)
[2023-05-07 13:05] LABS: Bacteria Urine NONE SEEN #/HPF (NONE SEEN); Mucus Urine NONE SEEN (NONE SEEN); RBC Urine 0-2 #/HPF (0-2); WBC Urine 0-2 #/HPF (NONE SEEN)
[2023-05-07 13:06] LABS: Cast Seen? NONE SEEN #/LPF (NONE SEEN); Crystals Seen? None Seen #/HPF (None Seen); Squamous Epithelial Cell Urine NONE SEEN #/LPF (NONE/RARE)
== END 2023-05-07 14:04 | disposition home or self-care (01) ==
PROVIDERS: Emergency Provider Emergency Medicine; PCP Internal Medicine
DX: I10 Essential (primary) hypertension (principal); G20.A1 Parkinson's disease without dyskinesia, without mention of fluctuations
CPT/HCPCS: 36415; 70450; 71045; 80048; 81001; 84484; 85025; 93005; 99285

== ENCOUNTER 2024-01-22 07:38 | Outpatient (OUT) | payer MEDICARE, SELFPAY ==
--- OUTSIDE RECORDS SUMMARY | 2024-01-21 12:20 | XMS_ITS | CCD ---
Author Organization [facility] Care Team Providers Care Color Receiver Name Role Phone Naun, Julia K Unavailable Unavailable Naun, Julia K Unavailable Unavailable Cut Off, Julia K Unavailable Unavailable BELEN [phone] UNKNOWN Unavailable Unavailable Prashant Gary DO Primary Care Provider Prashant Gary DO Primary Care Provider Prashant Gary LAKSHMIPATHY ., WILMER Attending Ev vailable ABDIRAHMAN, DR RANDLE Primary Care Unavailable LAKSHMIPATHY ., WILMER Consulting Ev vailable LAKSHMIPATHY ., WILMER Admitting Ev vailable ABDIRAHMAN, DR RANDLE Primary Care Unavailable LAKSHMIPATHY ., WILMER Consulting Ev vailable LAKSHMIPATHY ., NARJHONATH Admitting Ev vailable LAKSHMIPATHY ., WILMER Attending Ev vailable ABDIRAHMAN, DR RANDLE Primary Care Unavailable HALKER ., WILL Admitting Unavailable HALKER .WILL Attending Unavailable ABDIRAHMAN, DR RANDLE Admitting Unavailable BALL, DR RANDLE Attending Unavailable BALL, DR RANDLE Consulting Unavailable ABDIRAHMAN, DR RANDLE Primary Care Unavailable ZIEBER, DR AL Bolden Consulting Unavailable ABDIRAHMAN, DR RANDLE Admitting Unavailable BALL, DR RANDLE Attending Unavailable BALL, DR RANDLE Consulting Unavailable ABDIRAHMAN, DR RANDLE Primary Care Unavailable WEN BAEZ Attending Unavailable WEN BAEZ Consulting Unavailable ABDIRAHMAN, DR RANDLE Primary Care Unavailable WEN BAEZ Admitting Unavailable LAKSHMIPATHY ., NARENDÁLVAROATH Consulting Ev vailable OWOYELE, ANNE Consulting Unavailable WEN BAEZ Consulting Unavailable SASHA, WEN Admitting Unavailable ABDIRAHMAN, DR RANDLE Primary Care Unavailable WEN BAEZ Attending Unavailable AGUILAR YOST Consulting Unavailable ABDIRAHMAN, DR RANDLE Primary Care Unavailable LAKSHMIPATHY ., NARENDRANATH Attending Ev vailable LAKSHMIPATHY ., NARENDRANATH Consulting Ev vailable LAKSHMIPATHY ., NARENDRANATH Admitting Ev vailable Memo Magallon MD Unavailable [phone] [place] Unavailable [phone] Prashant Gary DO Primary Care Provider PRASHANT GARY Primary Care Unavailable MEMO MAGALLON Referring Unavailable MEMO MAGALLON Attending Unavailable PRASHANT GARY Primary Care Unavailable MEMO MAGALLON Referring Unavailable MEMO MAGALLON Attending Unavailable PRASHANT GARY Primary Care Unavailable MEMO MAGALLON Attending Unavailable Allergies Allergy Classification Reported Allergen(s) Allergy Type Date of Onset Reaction(s) Facility (7 sources) Latex; Translations: [LATEX, NATURAL RUBBER] Drug Allergy 022 [facility] Work Phone: (7 sources) Morphine; Translations: [MORPHINE] Drug Allergy 011 Other: See Comments [facility] (7 sources) Penicillin G; Translations: [PENICILLIN G] Drug Allergy 007 [facility] Work Phone: (2 sources) Morphine Drug Allergy [address] [facility] (2 sources) natural latex rubber Drug allergy (disorder) [facility] (2 sources) Penicillins Drug allergy (disorder) [address] [facility] (13 sources) cyclobenzaprine Drug Allergy Cyclobenzaprine *CHEMICALS* Comment:Hallucina tions Ph.Creative Other (13 sources) pregabalin Drug Allergy Comment:Hallucin a Biotronics3D Other (13 sources) Flexeril *MUSCULOSKELETAL THERAPY AGENTS* Propensity to adverse reactions Comment:Hallucina Scrip Productsons Ph.Creative Other (13 sources) Substance with penicillin structure and antibacterial mechanism of action (substance) Drug allergy Unknown Ph.Creative Other (3 sources) patient allergy list reviewed by nurse or physicia Propensity to adverse reactions 016 Comment:Done Ph.Creative Other Medications Current Medications Medication Drug Class(es) Dates Sig (Normalized) Sig (Original) AeroChamber Mini Chamber - (18 sources) Start: 06-28-2022 AeroChamber Mini Chamber - 1 inhalation Use with MDI every 4 hours as needed for cough or SOB for 30 days Jun, Active [id number] 200 actuat albuterol 0.09 mg/actuat metered dose inhaler (20 sources) beta2-Adrenergic Agonist Start: 01-20-2021 albuterol HFA (PROVENTIL HFA, VENTOLIN HFA) 90 mcg/actuation inhaler 01/20/2021 Active take 2 puff(s) by in halation [...] as needed for cough and SOB Active atorvastatin 10 mg oral tablet (20 sources) HMG-CoA Reductase Inhibitor atorvastatin calcium(LIPITOR 10 MG TAB) one daily Active Comment on above: one daily carbidopa 25 mg / levodopa 100 mg oral tablet (20 sources) Aromatic Amino Acid Decarboxylation Inhibitor, Aromatic Amino Acid Start: 08-08-2021 End: 07-04-2024 carbidopa-levodopa (SINEMET 25-100) 25-100 mg per tablet Indications: Parkinson's disease, unspecified whether dyskinesia present, unspecified whether manifestations fluctuate (HCC) Take 2 tablets by mouth three times a day. 2 tab at 6am, 12pm and 6pm 540 tablet 3 07/05/2023 07/04/2024 Active take 2 tablets by mouth every si x hours Sinemet 25-100 MG 2 tablet Orally qid Active take 1 tablet by finesse th two times weekly as needed Sinemet 25-100 MG 1 tablet as needed Orally Two times a Week Active Comment on above: Take 2 tablets by mo ut three times daily. Take 2 tablets by mo [facility] three times a day. 2 tab at 6am, 12pm and 6pm Take 2 tablets by [facility] three times a day. 24 hr felodipine 5 mg extended release oral tablet (19 sources) Dihydropyridine Calcium Channel Ailyn Start: 12-21-2022 felodipine ER (PLENDIL) 5 mg 24 hr tablet Take by mouth every 24 hours. 12/21/2022 Active Start: 12-21-2022 take 1 tablet by finesse every twenty-four hours Felodipine ER 5 MG 1 tablet Orally Once a day for 30 days Replaces the 10mg dose Dec, Active Start: 01-17-2021 End: 05-10-2023 felodipine ER (PLENDIL) 10 m g 24 hr tablet Felodipine ER 10 MG as directed Orally Active Comment on above: Take by mouth every 24 hours. furosemide 20 mg oral tablet (12 sources) Loop Diuretic Start: 2022 furosemide (LASIX) 20 mg tablet 05/03/2023 Active hydroCHLOROthiazide 25 mg oral tablet (1 source) Thiazide Diuretic Start: 2022 take 1 tablet by mouth every twenty-four hours hydroCHLOROthiazide 25 MG 1 tablet in the morning Orally Once a day for 30 days Dec, Active losartan potassium 100 mg oral tablet (20 sources) Angiotensin 2 Receptor Ailyn losartan (COZAAR) 10 0 mg tablet Take 50 mg by mouth once daily. Active take 1 tablet by finesse every twenty-four hours Losartan Potassium 50 MG 1 tablet Orally Once a day Active take 1 tablet by [facility] every twenty-four hours Losartan Potassium 100 MG 1 tablet Orally Once a day Active Comment on above: Take 100 mg by mouth once daily. Take 50 mg by mouth once daily. lubiprostone 0.008 mg oral capsule (20 sources) Chloride Channel Activator Start: take 1 capsule by mouth once daily at mealtime Lubiprostone 8 MCG 1 capsule with food and water Orally qd for 30 days Sep, Active Start: 10-12-2022 take 1 capsule by [facility] once daily at mealtime Lubiprostone 8 MCG 1 capsule with food and water Orally qd for 30 days Sep, Active Start: 08-30-2022 take 1 capsule by [facility] twice daily at mealtime Lubiprostone 24 MCG 1 capsule with food and water Orally Twice a day for 30 days August, Active Lubiprostone 24 MCG TAKE 1 CAPSULE BY MOUTH TWICE A DAY WITH FOOD OR WATER FOR 30 DAYS for 30 Active pramipexole dihydrochloride 0.25 mg oral tablet (20 sources) Nonergot Dopamine Agonist Start: 08-08-2021 End: 07-04-2024 take 3 tablets by mouth four times daily pramipexole (MIRAPEX) 0.25 mg tablet Indications: Parkinson's disease, unspecified whether dyskinesia present, unspecified whether manifestations fluctuate (HCC) , Gait instability Take 3 tablets by mouth four times daily. 1080 tablet 3 07/05/2023 07/04/2024 Active Mirapex Active Comment on above: Take 3 tablets by mo [facility] four times daily. Completed/Discontinued Medications Medication Drug Class(es) Dates Sig (Normalized) Sig (Original) acetaminophen 325 mg / HYDROcodone bitartrate 5 mg oral tablet (20 sources) Opioid Agonist End: 05-10-2023 take 1 tablet by mouth every six hours as needed HYDROcodone-acetam inophen (NORCO) 5-325 mg per tablet Take 1 tablet by mouth every 6 hours as needed. 0 05/10/2023 Discontinued Comment on above: Take 1 tablet by finesse every 6 hours as needed. cloNIDine hydrochloride 0.1 mg oral tablet (7 sources) Central alpha-2 Adrenergic Agonist Start: 04-27-2023 End: 07-05-2023 take 1 tablet by mouth every twelve hours cloNIDine HCl (CATAPRES) 0.1 mg tablet Take 1 tablet by mouth every 12 hours. 0 04/27/2023 07/05/2023 Discontinued Comment on above: Take 1 tablet by finesse th every 12 hours. Docusate (4 sources) End: 05-10-2023 docusate sodium (STOOL SOFTENER ORAL) Take by mouth as needed. 0 05/10/2023 Discontinued docusate sodium (STOOL SOFTENER ORAL) Take by [...] [Encounter for immunization] Episodic Nonspecific chest pain (20 sources) Chest pain; Translations: [Other chest pain] Episodic Occlusion or stenosis of precerebral arteries (3 sources) Carotid artery occlusion without infarction; Translations: [Occlusion and stenosis of carotid artery without mention of cerebral infarction] Onset: 05-13-2015 Chronic Osteoarthritis (20 sources) Degenerative joint disease of ankle AND/OR foot; Translations: [Primary osteoarthritis, unspecified ankle and foot] Onset: 03-25-2007 03-25-2007 Chronic Other aftercare (20 sources) High risk drug monitoring status; Translations: [halfway (current) use of opiate analgesic] Episodic Other aftercare (18 sources) H/O: high risk medication; Translations: [Other termite treater helper (current) drug therapy] Episodic Other aftercare (4 sources) halfway (current) use of opiate analgesic Episodic Other aftercare (3 sources) Long-term current use of drug therapy; Translations: [Other termite treater helper (current) drug therapy] Episodic Other connective tissue disease (1 source) Other specified soft tissue disorders Episodic Other diseases of veins and lymphatics (13 sources) Peripheral venous insufficiency; Translations: [Unspecified venous (peripheral) insufficiency] Onset: 11-06-2016 Episodic Other diseases of veins and lymphatics (2 sources) Venous insufficiency (chronic) (peripheral) Episodic Other ear and sense organ disorders (18 sources) Sensorineural hearing loss, bilateral; Translations: [Sensorineural hearing loss, bilateral] Chronic Other gastrointestinal disorders (18 sources) Dysphagia; Translations: [Dysphagia, unspecified] Episodic Other [...] of falling] Episodic Other lower respiratory disease (19 sources) Chronic cough; Translations: [Chronic cough] Onset: [...] Onset: 07-22-2022 Chronic Other nervous system disorders (14 sources) Polyneuropathy; 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 Other nervous system disorders (3 sources) Hereditary peripheral neuropathy; Translations: [Unspecified hereditary and idiopathic peripheral neuropathy] Onset: 12-07-2014 Chronic Other nervous system disorders (3 sources) Abnormal gait; Translations: [Unsteadiness on feet] Episodic [...] sources) Parkinson's disease; Translations: [Parkinson's disease] Chronic Parkinson`s disease (1 source) Parkinson`s disease; Translations: [Parkinson's disease, unspecified whether dyskinesia present, unspecified whether manifestations fluctuate (HCC)] Onset: 03-01-2011 Peripheral and visceral atherosclerosis (9 sources) Atherosclerosis [...] THORACIC REGION] Onset: 07-18-2022 Episodic Substance-related disorders (18 sources) Tobacco user; Translations: [Nicotine dependence, cigarettes, in remission] Chronic Unclassified (3 sources) Long-term current use of drug therapy; Translations: [Long-term (current) use of other medications] Onset: 11-06-2016 Varicose veins of lower extremity (14 sources) Varicose veins of lower limb co-occurrent with edema; Translations: [Varicose veins of bilateral lower extremities with other complications] Episodic Viral infection (20 sources) Postherpetic neuralgia; Translations: [Other postherpetic nervous system involvement] Onset: 08-17-2022 Episodic Past or Other Problems Problem Classification Problem Date Documented Da te Episodic/Chronic Complication of device; implant or graft (6 sources) Infection AND/OR inflammatory reaction due to [...] 11-27-2017 Episodic Other aftercare (1 source) Other termite treater helper (current) drug therapy; Translations: [OTH BULB FARMWORKER CURRENT DRUG THERAPY] Onset: 01-03-2022 Episodic Other [...] Test Name Value Interpretation Reference Range Facility [facility] 01-09-2024 CNOV Office Visit (NRMDN) -- GARYSILKE Radhika ([id number]) 1945 M Date Time Provider Department 01/09/24 11:00 AM [facility] During your visit today, we recorded the following information about you: Memo Magallon MD 01/10/2024 12:50 PM Signed [facility] - FOLLOW UP EVALUATION Prashant Gary DO [address] [facility] [id number] I had the pleasure of seeing Mr. De La Garza for follow up today. He is a 78 year old right-handed male with a history of Parkinson's disease since 2002. Also with chronic low back pain and diffuse arthritis, fused ankles. He is seen with his . Subjective Previous Plan-07/05/2023 Visit: Continue your medications as you have been taking them. We are not making any changes today. If you feel you are not tolerating them or your symptoms are changing before your next appointment, please feel free to send me a [employer] message or contact the office PT Interval History: Dyskinesia now which is not typical. More with stress. Also more tremor, often with time pressure. No clear pattern for either besides stressors. Pushes walker far out ahead. can correct him. Has multiple types of walkers. No problems at night. Doesn't want to go to PT. takes him along when she goes out. Doesn't feel safe leaving him alone at home. No falls in a year. Still walks to the barn. No strength to do anything for very long. Generalized weakness. Hallucinations are infrequent. Sometimes illusions. Vision is bad. Still shingles pain which is significant complaint still. Parkinson's Medication Schedule - as of the start of the visit: Medications 6am 12pm 6pm 12am Sinemet 25/100 2 2 2 Mirapex 0.25 mg 3 3 3 3 Parkinson's Motor Complications Medication benefit onset: 15 minutes Medication duration: 6 hours Wearing off: no Dyskinesia: yes (Comment: If tired and not frequently) Prior Anti-Parkinson Therapies Apomorphine SC (Apokyn) Carbidopa/Levodopa Carbidopa/Levodopa CR Carbidopa/Levodopa/Entacap one Pramipexole Selegiline Questionnaires In addition, the following areas that may be affected by abnormal involuntary movements were evaluated: Daily activities Difficulties with eating: Yes (slight) Difficulties in dressing: Yes (slight) Difficulties with hygiene activities: Yes (slight) Difficulties with handwriting: Yes (slight) Difficulties with doing hobbies and other activities: Yes (mild) Difficulties turning in bed: Yes (slight) Difficulties getting out of bed, car or chair: Yes (slight) Tremors/Gait/Balance Shaking or tremors: Yes (moderate) Walking and balance problems: Yes (moderate) Number of falls in the Last Month: 0 Gait freezing: Yes (severe) Autonomic/Pain Lightheadeness on standing: Yes (slight) Urinary problems: frequency. drinks a lot of water Constipation problems: 0 (none) Pain and other sensations: Yes (moderate) Speech/Swallowing Speech problems: Yes (slight) Drooling: Yes (slight) Chewing and swallowing problems: Yes (slight) Sleep/Fatigue Sleep problems: Yes (slight) sleeps a lot Daytime sleepiness: Fatigue: Mood/Behavior Depression: PHQ-9 Score: 12 usually representing moderate (10-14) depression. Anxiety: Finally, the following table shows the patient's overall global physical and mental health using the PROMIS scale: PROMIS-10 Flowsheet Row Office Visit from 05/10/2023 in Neurology Office Visit from 04/17/2019 in Neurology Global Physical Health T Score -- 32.4 Global Mental Health T Score -- 38.8 0-10 Standard Pain Scale 2 2 *PROMIS-10 scoring scale: mean = 50, over 50 is above average, under 50 is below average ALLERGIES Allergen Reactions Latex, Natural Rubb* Rash Morphine Other: See Comments Pt takes Avinza po, had allergic reaction with Morphine IV push, red streaking up arm. Penicillin G Rash Current Outpatient Medications Medication Sig carbidopa-levodopa (SINEMET 25-100) 25-100 mg per tablet Take 2 tablets by mouth three times a day. 2 tab at 6am, 12pm and 6pm pramipexole (MIRAPEX) 0.25 mg tablet Take 3 tablets by mouth four times daily. felodipine ER (PLENDIL) 5 mg 24 hr tablet Take by mouth every 24 hours. furosemide (LASIX) 20 mg tablet albuterol HFA (PROVENTIL HFA, VENTOLIN HFA) 90 mcg/actuation inhaler losartan (COZAAR) 100 mg tablet Take 50 mg by mouth once daily. atorvastatin calcium(LIPITOR 10 MG TAB) one daily No current facility-administered medications for this visit. Objective Vital Signs: SpO2 97% Orthostatic Vitals: Sitting: BP 146/61 Pulse 61 Standing: BP 153/68 Pulse 64 No LMP for male patient. There is no height or weight on file to calculate BMI. General Physical Examination: General: Awake, alert, interactive, no acute distress, good nutritional status, normal development, well-kept General Neurological Examination (more content not included)... Normal [facility] CNOVon 05-10-2023 CNOV Office Visit (NRMDN) -- SILKE DE LA GARZA ([id number]) 1945 M Date Time Provider Department 05/10/23 2:00 PM MEMO MAGALLON NRMDN During your visit today, we recorded the following information about you: Pulse Blood pressure Height 86/minute 162/76 1.651 m Memo Magallon MD 05/10/2023 2:46 PM Signed It was a pleasure to see you today. We addressed the following diagnoses: Parkinson's disease without dyskinesia or fluctuating manifestations (primary encounter diagnosis) My recommendations are as follows: No change to Parkinson's medications for now - Follow-up with primary care - Physical therapy - Follow-up in June - Movement Disorders Medication Schedule: Medications 6am 12pm 6pm 12am Sinemet 25/100 2 2 2 Mirapex 0.25 mg 3 3 3 3 If there are any concerns before your next visit, please call or you can send a message through [employer]. You can also now schedule and select appointments through [employer]. MD Naun Gonzales Kristin, MD 05/14/2023 7:43 AM Signed [facility] - FOLLOW UP EVALUATION No referring provider defined for this encounter. Prashant Gary, DO [address] [facility] [id number] I had the pleasure of seeing Mr. De La Garza for follow up today. He is a 78 year old right-handed male with a history of Parkinson's disease since 2002. Also with chronic low back pain and diffuse arthritis, fused ankles. He is seen with his . Subjective Previous Plan-04/28/2022 Visit: Continue current medications exercise Interval History: Few weeks ago at PCP BP was 200's. Clonidine added. More sedated after starting it. Sleeping all the time. Weak all over. Gradually getting worse in terms of Parkinson's. Gets confused about things. Seems to have started around the time clonidine initiated. Shingles pain still there. Double and hazy vision at times. More lately. Can see a man after waking up at night. Knows he's not there. Needing help with ADLs but more lately. Tremor worse much of the time. Not wearing off. Sleeps well through the night. Sometimes up to bathroom. Hard to get OOB alone sometimes. No PT in months. Open to going back. Parkinson's Medication Schedule - as of the start of the visit: Medications 6am 12pm 6pm 12am Sinemet 25/100 2 2 2 Mirapex 0.25 mg 3 3 3 3 Parkinson's Motor Complications Medication benefit onset: 15 minutes Medication duration: 6 hours Wearing off: no Dyskinesia: no (Comment: If tired and not frequently) Prior Anti-Parkinson Therapies Apomorphine SC (Apokyn) Carbidopa/Levodopa Carbidopa/Levodopa CR Carbidopa/Levodopa/Entacap one Pramipexole Selegiline Questionnaires In addition, the following areas that may be affected by abnormal involuntary movements were evaluated: Daily activities Difficulties with eating: Difficulties in dressing: Yes (moderate) Difficulties with hygiene activities: Yes (mild) Difficulties with handwriting: Yes (mild) Difficulties with doing hobbies and other activities: Yes (mild) Difficulties turning in bed: Yes (severe) Difficulties getting out of bed, car or chair: Yes (moderate) Tremors/Gait/Balance Shaking or tremors: Yes (moderate) more than before Walking and balance problems: Yes (mild) Number of falls in the Last Month: none Gait freezing: Yes (severe) Autonomic/Pain Lightheadeness on standin (none) Urinary problems: Constipation problems: 0 (none) Pain and other sensations: Yes (severe) Speech/Swallowing Speech problems: Yes (slight) Drooling: Yes (mild) Chewing and swallowing problems: Yes (slight) Sleep/Fatigue Sleep problems: Daytime sleepiness: Yes (severe) Fatigue: Yes (severe) Mood/Behavior Depression: PHQ-9 Score: 7 usually representing mild (5-9) depression. Anxiety: MEHRDAD-7 Total Score: 9 usually representing mild (5-9) anxiety. Finally, the following table shows the patient's overall global physical and mental health using the PROMIS scale: PROMIS-10 Flowsheet Row Office Visit from 05/10/2023 in Neurology Office Visit from 04/17/2019 in Neurology Global Physical Health T Score -- 32.4 Global Mental Health T Score -- 38.8 0-10 Standard Pain Scale 2 2 *PROMIS-10 scoring scale: mean = 50, over 50 is above average, under 50 is below average ALLERGIES Allergen Reactions Latex, Natural Rubb* Rash Morphine Other: See Comments Pt takes Avinza po, had allergic reaction with Morphine IV push, red streaking up arm. Penicillin G Rash Current Outpatient Medications Medication Sig cloNIDine HCl (CATAPRES) 0.1 mg tablet Take 1 tablet by mouth every 12 hours. furosemide (LASIX) 20 mg tablet carbidopa-levodopa (SINEMET 25-100) 25-100 mg per tablet Take 2 tablets by mouth three times a day. (Patient taking differently: Take 2 tablets by mouth three times a day. 2 tab at 6am, 12pm and 6pm) pramipexole (MIRAPEX) 0 (more content not included)... Normal [facility] CT HEAD WO CONon 08-17-2022 CT HEAD [...] by: ANNE COLLIER Date: 2022-08-17 20:25 Normal [facility] CREATININEon 04-21-2022 Creatinine [Mass/Vol] 0.84 mg/dL Normal 0.70-1.30 [facility] Comment on above: Performed By: #### C MADM #### [facility] [address] [place] [address] Dr. Sarah Nath EGFR-AF WELSH >60 Normal >=60 [facility] Comment on above: Performed By: #### C MADM #### [facility] [address] [address] [address] Sarah Nath EGFR-NON AF WELSH >60 Normal >=60 [facility] Comment on above: Performed By: #### C MADM #### [facility] [address] [place] [address] Dr. Sarah Nath CTA CHEST WO W [...] AL MANCERA Date: 2022-04-21 08:37 Normal [facility] HEMOGLOBINon 04-21-2022 Hemoglobin (Bld) [Mass/Vol] 16.1 g/dL Normal 14.0-18.0 [facility] Comment on above: Performed By: #### H GB #### [facility] [address] [address] [address] Sarah Nath CBC AUTO DIFFon 12-30-2021 BASO # 0.1 103/ul Normal 0.0-0.1 [facility] Comment on above: Performed By: #### C MADM #### [facility] [address] [place] [address] Dr. Sarah Nath Basophils/100 WBC (Bld) 0.9 % Normal 0.2-2.[address] [facility] Comment on above: Performed By: #### C MADM #### [facility] [address] [address] [address] Sarah Nath EO # 0.1 103/ul Normal 0.0-0.7 [facility] Comment on above: Performed By: #### C MADM #### [facility] [address] [address] [address] Sarah Nath Eosinophils/100 WBC (Bld) 2.0 % Normal 0.9-7.0 [facility] Comment on above: Performed By: #### C MADM #### [facility] [facility] [address] [address] [address] Sarah Nath Erythrocyte distribution width (RBC) [Ratio] 12.5 % Normal 11.0-15.0 [facility] Comment on above: Performed By: #### C MADM #### [facility] [address] [place] [address] Dr. Sarah Nath Hematocrit (Bld) [Volume fraction] 44.2 % Normal 42.0-54.0 [facility] Comment on above: Performed By: #### C MADM #### [facility] [address] [place] [address] Dr. Sarah Nath Hemoglobin (Bld) [Mass/Vol] 14.6 g/dL Normal 14.0-18.0 [facility] Comment on above: Performed By: #### C MADM #### [facility] [address] [place] [address] Dr. Sarah Nath IG # 0.03 10e3/ul Normal 0.00-0.03 [facility] Comment on above: Performed By: #### C MADM #### [facility] [address] [place] [address] Dr. Sarah Nath IG % 0.4 % Normal 0.0-0.5 [facility] Comment on above: Performed By: #### C MADM #### [facility] [address] [place] [address] Dr. Sarah Nath LYMPH # 1.7 103/ul Normal 1.2-3.8 [facility] Comment on above: Performed By: #### C MADM #### [facility] [address] [place] [address] Dr. Sarah Nath Lymphocytes/100 WBC (Bld) 24.6 % Normal 20.5-60.0 [facility] Comment on above: Performed By: #### C MADM #### [facility] [address] [place] [address] Dr. Sarah Nath MANUAL DIFF REQ NO Normal [facility] Comment on above: Performed By: #### C MADM #### [facility] [address] [address] [address] Sarah Nath MCH (RBC) [Entitic mass] 30.0 pg Normal 25.9-34.[address] [facility] Comment on above: Performed By: #### C MADM #### [facility] [address] [address] [address] Sarah Nath MCHC (RBC) [Mass/Vol] 33.0 g/dL Normal 29.9-35.[address] [facility] Comment on above: Performed By: #### C MADM #### [facility] [address] [address] [address] Sarah Nath MCV (RBC) [Entitic vol] 90.8 fL Normal 80.0-94.[address] [facility] Comment on above: Performed By: #### C MADM #### [facility] [address] [place] [address] Dr. Sarah Nath MONO # 0.6 103/ul Normal 0.3-0.[address] [facility] Comment on above: Performed By: #### C MADM #### [facility] [address] [address] [address] Sarah Nath Monocytes/100 WBC (Bld) 8.8 % Normal 1.7-12.[address] [facility] Comment on above: Performed By: #### C MADM #### [facility] [address] [address] [address] Sarah Nath NEUT # 4.3 103/ul Normal 1.4-6.[address] [facility] Comment on above: Performed By: #### C MADM #### [facility] [address] [place] [address] Dr. Sarah Nath Neutrophils/100 WBC (Bld) 63.3 % Normal 43.0-75.[address] [facility] Comment on above: Performed By: #### C MADM #### [facility] [address] [place] [address] Dr. Sarah Nath Platelet mean volume (Bld) [Entitic vol] 10.7 fL Normal 9.5-13.[address] [facility] Comment on above: Performed By: #### C MADM #### [facility] [address] [address] [address] Sarah Nath PLT 179 103/ul Normal 150-[address] [facility] Comment on above: Performed By: #### C MADM #### [facility] [address] [place] [address] Dr. Sarah Nath RBC 4.87 106/ul Normal 4.70-6.[address] [facility] Comment on above: Performed By: #### C MADM #### [facility] [address] [place] [address] Dr. Saarh Nath WBC 6.8 103/ul Normal 4.0-11.[address] [facility] Comment on above: Performed By: #### C MADM #### [facility] [address] [place] [address] Dr. Sarah Nath LIPID PROFILEon 12-30-2021 CHOL-HDL RATIO NORM SEE BELOW Normal [facility] Comment on above: Result Comment: 3.3 - 4.4 LOW RISK 4.4 - 7.1 AVERAGE RISK 7.1 - 11.0 MODERATE RISK >11.0 HIGH RISK Performed By: #### A LT, LIPID, BMP #### [facility] [address] [place] [address] Dr. Sarah Nath Cholesterol [Mass/Vol] 172 mg/dL Normal <=[address] [facility] Comment on above: Performed By: #### A LT, LIPID, BMP #### [facility] [address] [place] [address] Dr. Sarah Nath Cholesterol in HDL [Mass/Vol] 73 mg/dL Critically high 40-[address] [facility] Comment on above: Performed By: #### A LT, LIPID, BMP #### [facility] [address] [place] [address] Dr. Sarah Nath Cholesterol in LDL [Mass/Vol] 80.2 mg/dL Normal [facility] Comment on above: Performed By: #### A LT, LIPID, BMP #### [facility] [address] [place] [address] Dr. Sarah Nath Cholesterol.total /Cholesterol in HDL [Mass ratio] 2.4 {ratio} Normal [facility] Comment on above: Performed By: #### A LT, LIPID, BMP #### [facility] [address] [address] [address] Sarah Nath HDL NORMAL > or = 60 mg/dl - LO W CARDIOVASCULAR RISK <40 mg/dl - HIGH CARDIOVASCULAR RISK Normal [facility] Comment on above: Performed By: #### A LT, LIPID, BMP #### [facility] [address] [address] [address] Sarah Nath LDL CALC NORMAL SEE BELOW Normal [facility] Comment on above: Result Comment: <100 mg/dl OPTIMAL 100 - 129 mg/dl NEAR OR ABOVE OPTIMAL 130 - 159 mg/dl BORDERLINE HIGH 160 - 189 mg/dl HIGH >190 mg/dl VERY HIGH Performed By: #### A LT, LIPID, BMP #### [facility] [address] [address] [address] Sarah Nath Triglyceride [Mass/Vol] 94 mg/dL Normal <=150 [facility] Comment on above: Performed By: #### A LT, LIPID, BMP #### [facility] [address] [address] [address] Sarah Nath VLDL CALC 18.8 mg/dL Normal [facility] Comment on above: Performed By: #### A LT, LIPID, BMP #### [facility] [address] [address] [address] Sarah Nath PROF CHEM 8 (BAS METB)on Anion gap [Moles/Vol] 13.3 mmol/L Normal [facility] Comment on above: Performed By: #### A LT, LIPID, BMP #### [facility] [address] [address] [address] Sarah Nath Calcium [Mass/Vol] 8.8 mg/dL Normal 8.5-10.1 [facility] Comment on above: Performed By: #### A LT, LIPID, BMP #### [facility] [address] [address] [address] Sarah Nath Chloride [Moles/Vol] 102 mmol/L Normal 98-107 [facility] Comment on above: Performed By: #### A LT, LIPID, BMP #### [facility] [address] [place] [address] Dr. Sarah Nath CO2 [Moles/Vol] 24.6 mmol/L Normal 21.0-32.0 [facility] Comment on above: Performed By: #### A LT, LIPID, BMP #### [facility] [address] [place] [address] Dr. Sarah Nath Creatinine [Mass/Vol] 0.77 mg/dL Normal 0.70-1.[address] [facility] Comment on above: Performed By: #### A LT, LIPID, BMP #### [facility] [address] [place] [address] Dr. Sarah Nath EGFR-AF WELSH >60 Normal >=60 [facility] Comment on above: Performed By: #### A LT, LIPID, BMP #### [facility] [address] [place] [address] Dr. Sarah Nath EGFR-NON AF WELSH >60 Normal >=60 [facility] Comment on above: Performed By: #### A LT, LIPID, BMP #### [facility] [address] [place] [address] Dr. Sarah Nath Glucose [Mass/Vol] 100 mg/dL Normal 74-[address] [facility] Comment on above: Performed By: #### A LT, LIPID, BMP #### [facility] [address] [place] [address] Dr. Sarah Nath Potassium [Moles/Vol] 3.9 mmol/L Normal 3.5-5.[address] [facility] Comment on above: Performed By: #### A LT, LIPID, BMP #### [facility] [address] [place] [address] Dr. Sarah Nath Sodium [Moles/Vol] 136 mmol/L Normal 136-[address] [facility] Comment on above: Performed By: #### A LT, LIPID, BMP #### [facility] [address] [place] [address] Dr. Sarah Nath Urea nitrogen [Mass/Vol] 14.0 mg/dL Normal 7.0-18.0 [facility] Comment on above: Performed By: #### A LT, LIPID, BMP #### [facility] [address] [address] [address] Sarah Nath Urea nitrogen/Creatini ne [Mass ratio] 18.2 mg/mg Normal [facility] Comment on above: Performed By: #### A LT, LIPID, BMP #### [facility] [address] [address] [address] Sarah Nath [facility] 12-30-2021 ALT [Catalytic activity/Vol] 9 U/L Critically low 16-63 [facility] Comment on above: Performed By: #### A LT, LIPID, BMP #### [facility] [address] [address] [address] Sarah Nath [facility] SARS-CoV-2 (COVID-19) RNA ZAHIDA+probe Ql (Unsp spec) Negative Normal Negative [facility] Comment on above: Order Comment: Healt hcare Worker?: N Result Comment: Testing for SARS-CoV-2 by RT-PCR This test was developed and its performance characteristics determined by [employer], [employer] and validated at the [facility]. This test has not been FDA cleared [...] is terminated or revoked sooner. PERFORMED BY: [address] [place] [address] PATHOLOGIST [employer] NANCY MICHEL M.D. Performed By: #### C OVID 19 [facility] #### [facility] [address] XR CHEST 1 Von 09-27-2021 XR CHEST [...] AGUILAR YOST Date: 2021-09-26 22:49 Normal [address] [facility] CARDIAC OWEN ADMITon 022 CK [Catalytic activity/Vol] 89 U/L Normal 39-308 [facility] Comment on above: Performed By: #### C MADM #### [facility] [address] [address] [address] Sarah Nath CK.MB [Mass/Vol] 2.62 ng/mL Normal <=3.60 [facility] Comment on above: Performed By: #### C MADM #### [facility] [address] [address] [address] Sarah Nath HSTROP 5.6 pg/mL Normal 4.0-76.1 [facility] Comment on above: Result Comment: CUT- OFF POINTS HAVE BEEN ESTABLISHED BASED ON THE FOURTH UNIVERSAL DEFINITIONS OF MYOCARDIAL INFARCTION. THE UPPER REFERENCE LIMIT (URL) OF TROPONIN, DEFINED THE 99TH PERCENTILE OF cTnI DISTRIBUTION IN A REFERENCE POPULATION, HAS BEEN CONFIRMED THE DECISION THRESHOLD FOR ID DIAGNOSIS. Performed By: #### C MADM #### [facility] [address] [address] [address] Sarah Nath MARISELA 73 ng/mL Normal 16-[address] [facility] Comment on above: Performed By: #### C MADM #### [facility] [address] [address] [address] Sarah Nath CBC AUTO DIFFon 09-26-2021 BASO # 0.1 103/ul Normal 0.0-0.1 [facility] Comment on above: Performed By: #### C MADM #### [facility] [address] [address] [address] Sarah Nath Basophils/100 WBC (Bld) 0.7 % Normal 0.2-2.0 [facility] Comment on above: Performed By: #### C MADM #### [facility] [address] [address] [address] Sarah Nath EO # 0.1 103/ul Normal 0.0-0.7 [facility] Comment on above: Performed By: #### C MADM #### [facility] [address] [place] [address] Dr. Sarah Nath Eosinophils/100 WBC (Bld) 1.0 % Normal 0.9-7.0 [facility] Comment on above: Performed By: #### C MADM #### [facility] [address] [address] [address] Sarah Nath Erythrocyte distribution width (RBC) [Ratio] 12.9 % Normal 11.0-15.0 [facility] Comment on above: Performed By: #### C MADM #### [facility] [address] [address] [address] Sarah Nath Hematocrit (Bld) [Volume fraction] 48.9 % Normal 42.0-54.0 [facility] Comment on above: Performed By: #### C MADM #### [facility] [address] [address] [address] Sarah Nath Hemoglobin (Bld) [Mass/Vol] 16.1 g/dL Normal 14.0-18.0 [facility] Comment on above: Performed By: #### C MADM #### [facility] [address] [address] [address] Sarah Nath IG # 0.06 10e3/ul Critically high 0.00-0.03 [facility] Comment on above: Performed By: #### C MADM #### [facility] [address] [address] [address] Sarah Nath IG % 0.7 % Critically high 0.0-0.5 [facility] Comment on above: Performed By: #### C MADM #### [facility] [address] [address] [address] Sarah Nath LYMPH # 2.0 103/ul Normal 1.2-3.8 [facility] Comment on above: Performed By: #### C MADM #### [facility] [address] [address] [address] Sarah Nath Lymphocytes/100 WBC (Bld) 21.2 % Normal 20.5-60.0 [facility] Comment on above: Performed By: #### C MADM #### [facility] [address] [place] [address] Dr. Sarah Nath MANUAL DIFF REQ NO Normal [facility] Comment on above: Performed By: #### C MADM #### [facility] [address] [address] [address] Sarah Nath MCH (RBC) [Entitic mass] 30.4 pg Normal 25.9-34.0 [facility] Comment on above: Performed By: #### C MADM #### [facility] [address] [address] [address] Sarah Nath MCHC (RBC) [Mass/Vol] 32.9 g/dL Normal 29.9-35.2 [facility] Comment on above: Performed By: #### C MADM #### [facility] [address] [address] [address] Sarah Nath MCV (RBC) [Entitic vol] 92.3 fL Normal 80.0-94.0 [facility] Comment on above: Performed By: #### C MADM #### [facility] [address] [address] [address] Sarah Nath MONO # 0.7 103/ul Normal 0.3-0.8 [facility] Comment on above: Performed By: #### C MADM #### [facility] [address] [address] [address] Sarah Nath Monocytes/100 WBC (Bld) 7.9 % Normal 1.7-12.0 [facility] Comment on above: Performed By: #### C MADM #### [facility] [address] [address] [address] Sarah Nath NEUT # 6.3 103/ul Normal 1.4-6.5 [facility] Comment on above: Performed By: #### C MADM #### [facility] [address] [address] [address] Sarah Nath Neutrophils/100 WBC (Bld) 68.5 % Normal 43.0-75.0 [facility] Comment on above: Performed By: #### C MADM #### [facility] [address] [place] [address] Dr. Sarah Nath Platelet mean volume (Bld) [Entitic vol] 11.1 fL Normal 9.5-13.5 [facility] Comment on above: Performed By: #### C MADM #### [facility] [address] [address] [address] Sarah Nath PLT 231 103/ul Normal 150-[address] [facility] Comment on above: Performed By: #### C MADM #### [facility] [address] [address] [address] Sarah Nath RBC 5.30 106/ul Normal 4.70-6.[address] [facility] Comment on above: Performed By: #### C MADM #### [facility] [address] [address] [address] Sarah Nath WBC 9.2 103/ul Normal 4.0-11.[address] [facility] Comment on above: Performed By: #### C MADM #### [facility] [address] [address] [address] Sarah Nath Coding Summary.on 02-19-2018 Coding Summary. CODING DATE: 018 FINAL [facility] STATUS: Home (Routine DC) PAYOR: Medicare [...] Terry Date Saved: 02/19/2018 12:43 pm Normal [facility] XR Swallowing Function w/ Vi deoon 02-18-2018 XR Swallowing Function w/ Video Exam [...] Signed by: Johnny Quintanilla M.D. Transcribed by: LEIGH ANN Technologist: JONNATechomar CommentsRadiation Dose: Ka,r in mGy = 4.8 Normal [facility] Coding Summary.on 12-05-2017 Coding Summary. CODING DATE: 018 FINAL [facility] STATUS: Home (Routine DC) PAYOR: Medicare APC DESCRIPTION [id number] [facility] Procedures ADMIT DX: REASON FOR VISIT DX: H26.40 Unspecified secondary cataract FINAL DX: PRINCIPAL: H26.40 Unspecified secondary cataract SECONDARY: PYMT PROC APC STAT DESCRIPTION DOCTOR NAME DATE [id number] T Discission of secondary Sterling Chatman DO [...] Jewell Reynoso Date Saved: 12/05/2017 09:17 am [facility] Vital Signs Date Time Vital Sign Value Performing Clinician Facility 01-09-2024 10:48-0400 SaO2% (BldA) [Mass fraction] 97 % Memo Magallon MD Work Phone: [facility] 04-19-2023 10:00-0500 Body height 162.56 cm [facility]ashant [employer] [facility] [employer] Other 04-19-2023 10:00-0500 Body mass index (BMI) [Ratio] 26.5 kg/m2 [facility]ashant [employer] [facility] [employer] Other 04-19-2023 10:00-0500 Body weight 70.04 kg Prashant Ball Other [employer] Other 04-19-2023 10:00-0500 Diastolic blood pressure 80 mm[Hg] Prashant [employer] [facility] [employer] Other 04-19-2023 10:00-0500 Respiratory rate 12 /min Prashant [employer] [facility] [employer] Other 04-19-2023 10:00-0500 Systolic blood pressure 190 mm[Hg] Prashant Ball Other [employer] Other 01-12-2023 10:30-0400 Body height 162.56 cm Prashant Ball Other [employer] Other 01-12-2023 10:30-0400 Body mass index (BMI) [Ratio] 26.33 kg/m2 Prashant Ball Other [employer] Other 01-12-2023 10:30-0400 Body weight 69.58 kg Prashant Ball Other [employer] Other 01-12-2023 10:30-0400 Diastolic blood pressure 60 mm[Hg] Prashant Ball Other [employer] Other 01-12-2023 10:30-0400 Respiratory rate 12 /min Prashant Ball Other [employer] Other 01-12-2023 10:30-0400 Systolic blood pressure 108 mm[Hg] Prashant Ball Other [employer] Other 11-14-2022 09:45-0400 Body height 162.56 cm Prashant Ball Other [employer] Other 11-14-2022 09:45-0400 Body weight 0.91 kg Prashant Ball Other [employer] Other 11-14-2022 09:45-0400 Diastolic blood pressure 75 mm[Hg] Prashant Ball Other [employer] Other 11-14-2022 09:45-0400 Respiratory rate 12 /min Prashant Ball Other [employer] Other 11-14-2022 09:45-0400 Systolic blood pressure 167 mm[Hg] Prashant Ball Other [employer] Other 10-12-2022 10:30-0400 Body height 162.56 cm Prashant Ball Other [employer] Other 10-12-2022 10:30-0400 Body mass index (BMI) [Ratio] 25.95 kg/m2 Prashant Ball Other [employer] Other 10-12-2022 10:30-0400 Body weight 68.58 kg Prashant Ball Other [employer] Other 10-12-2022 10:30-0400 Diastolic blood pressure 64 mm[Hg] Prashant Ball Other [employer] Other 10-12-2022 10:30-0400 Respiratory rate 12 /min Prashant Ball Other [employer] Other 10-12-2022 10:30-0400 Systolic blood pressure 124 mm[Hg] Prashant Ball Other [employer] Other 06-28-2022 12:30-0400 Body height 162.56 cm Prashant Ball Other [employer] Other 06-28-2022 12:30-0400 Body mass index (BMI) [Ratio] 25.95 kg/m2 Prashant Ball Other [employer] Other 06-28-2022 12:30-0400 Body weight 68.58 kg Prashant Ball Other [employer] Other 06-28-2022 12:30-0400 Diastolic blood pressure 81 mm[Hg] Prashant Ball Other [employer] Other 06-28-2022 12:30-0400 Respiratory rate 12 /min Prashant Ball Other [employer] Other 06-28-2022 12:30-0400 Systolic blood pressure 177 mm[Hg] Prashant Gary Other [employer] Other Encounters Encounter Date Encounter Type Care Provider Facility Start: 01-09-2024 End: 01-09-2024 ambulatory PRASHANT GARY Facility:[facility] Start: 01-09-2024 End: 01-09-2024 Office outpatient visit 15 minutes Memo Magallon MD Work Phone: Neurology Comment on above: Parkinson's disease, unspecified whether dyskinesia present, unspecified whether manifestations fluctuate (HCC) Start: 07-05-2023 End: 07-05-2023 ambulatory Memo Magallon MD Work Phone: Neurology Comment on above: Parkinson's disease, unspecified whether dyskinesia present, unspecified whether manifestations fluctuate (HCC); Gait instability Start: 07-05-2023 End: 07-05-2023 Telemedicine consultation with patient Memo Magallon MD Work Phone: [facility] Start: 05-25-2023 End: 05-25-2023 ambulatory Prashant Gary Other [employer] Other Start: 05-25-2023 Telephone encounter Prashant ORDAZ [facility] Start: 05-22-2023 End: 05-22-2023 ambulatory Prashant Gary Other [employer] Other Start: 05-22-2023 Telephone encounter Prashant ORDAZ [facility] Start: 05-17-2023 End: 05-17-2023 ambulatory Prashant Gary Other [employer] Other Start: 05-17-2023 Telephone encounter Prashant ORDAZ [facility] Start: 05-14-2023 End: 05-14-2023 ambulatory Prashant Gary Other [employer] Other Start: 05-14-2023 Telephone encounter Prashant ORDAZ [facility] Start: 05-10-2023 End: 05-10-2023 ambulatory PRASHANT GARY Facility:[facility] Start: 05-07-2023 End: 05-07-2023 ambulatory Prashant Ball Other [employer] Other Start: 05-07-2023 Telephone encounter Prashant Gary [facility] Start: 04-30-2023 Refill Memo faria MD Work Phone: [facility] Comment on above: Refill Request Start: 04-26-2023 End: 04-26-2023 ambulatory Prashant Gary Other [employer] Other Start: 04-26-2023 Telephone encounter Prashant Gary [facility] Start: 04-19-2023 End: 04-19-2023 ambulatory Prashant Ball Other [employer] Other Start: 04-19-2023 Office outpatient vi sit 25 minutes Prashant Gary [facility] Start: 02-09-2023 End: 02-09-2023 ambulatory Prashant Ball Other [employer] Other Start: 02-09-2023 Telephone encounter Prashant Gary [facility] Start: 01-14-2023 End: 01-14-2023 ambulatory Prashant Ball Other [employer] Other Start: 01-14-2023 Telephone encounter Prashant Gary [facility] Start: 01-12-2023 End: 01-12-2023 ambulatory Prashant Ball Other [employer] Other Start: 01-12-2023 Patient encounter procedure Prashatn Ball [facility] Start: 12-29-2022 End: 12-29-2022 ambulatory Prashant Ball Other [employer] Other Start: 12-29-2022 Telephone encounter Prashant Ball [facility] Start: 12-15-2022 End: 12-15-2022 ambulatory Prashant Ball Other [employer] Other Start: 12-15-2022 Telephone encounter Prashant ORDAZ [facility] Start: 12-06-2022 Telephone encounter Memo sawyer MD Work Phone: Neurology Comment on above: Medication Problem Start: 11-14-2022 End: 11-14-2022 ambulatory Prashant Gary Other [employer] Other Start: 11-14-2022 Office outpatient vi sit [address] [facility] Start: 10-12-2022 End: 10-12-2022 ambulatory Prashant Gary Other [employer] Other Start: 10-12-2022 Office outpatient vi sit [address] [facility] Start: 09-12-2022 End: 09-12-2022 ambulatory Prashant Gary Other [employer] Other Start: 09-12-2022 Telephone encounter Prashant ORDAZ G [facility] Start: 08-17-2022 End: 08-17-2022 ambulatory WEN BAEZ Facility:H1 Start: 08-17-2022 End: 08-18-2022 ambulatory NARENDRANATH LAKSHMIPATHY . Facility:H1 Start: 08-01-2022 End: 08-01-[address] PRASHANT GARY Facility:[facility]1 Start: 07-18-2022 End: 07-19-[address] PRASHANT GARY Facility:[facility]1 Start: 06-28-2022 End: 06-28-2022 ambulatory Prashant Gary Other [employer] Other Start: 06-28-2022 Office outpatient vi sit [address] [facility] Start: 06-28-2022 Telephone encounter Prashant ORDAZ G [facility] Start: 04-28-2022 End: 04-28-2022 ambulatory Memo Magallon MD Work Phone: Neurology Comment on above: Parkinson disease (H CC); Gait instability Start: 04-28-2022 End: 04-28-2022 Telemedicine consultation with patient Memo Magallon MD Work Phone: [facility] Start: 04-21-2022 End: 04-22-[address] PRASHANT GARY Facility:[facility]1 Start: 12-30-2021 End: 12-31-[address] PRASHANT GARY Facility:[facility]1 Start: 12-27-2021 Adult health examination Josiah harper Abdirahman Other [facility] [place] Other Start: 10-24-2021 End: 10-24-2021 [facility] Memo Magallon MD Work Phone: Neurology Comment on above: Parkinson disease (H CC) (Primary Dx); REM sleep behavior disorder; Restless legs syndrome Start: 09-26-2021 End: 09-27-2021 ambulatory WEN BAEZ Facility:[facility]1 Start: 02-18-2018 End: 02-19-2018 Patient encounter procedure Julia Magallon Facility:[facility] Procedures Date Procedure Procedure Detail Performing Clinician Start: 12-30-2021 PSA screening NARENDRAN ATH [place] . Comment on above: Performed By: #### P [facility] #### [facility] [address] [place] [address] Dr. Sarah Nath Start: 04-12-2019 Adult depression screening assessment Memo Magallon MD Work Phone: Start: 02-27-2015 Screening for malign ant neoplasm of colon Prashant Gary Other Start: 12-07-2014 Screening for malign ant neoplasm of prostate Prashant aGry Other Depression screening Bon Gary Other Screening for malign ant neoplasm of prostate Prashant Gary Other Plan of Treatment Date Care Activity Detail Author Start: 07-24-2024 End: 07-24-2024 Patient encounter procedure 07/24/2024 11:00 AM EDT Office Visit Neurology [address] [address] Memo Magallon MD [address] [facility] [address] [place] [address] 6 month follow up Neurology Comment on above: 6 month follow up Start: 01-09-2024 End: 01-09-2024 Patient encounter procedure 01/09/2024 11:00 AM EDT Office Visit Neurology [address] [address] Memo Magallon MD [address] [facility] [address] [place] [address] 6 month follow up Neurology Comment on above: 6 month follow up Start: 12-16-2023 Covid-19 Vaccine ( season) Covid-19 Vaccine () [facility] Start: 12-16-2023 Influenza vaccination Influenza Vacc ine (#1) [facility] Start: 04-16-2023 Advance Directive Discussion Advance Directive Discussion [facility] Start: 04-16-2023 Depression [facility] Start: 12-15-2022 Covid-19 Vaccine ( season) Covid-19 Vaccine ( season) [facility] Start: 12-15-2022 Influenza vaccination INFLUENZA (#1) [facility] Start: 11-23-2022 ambulatory Ambulatory Facility:H 1 Start: 04-16-2022 ADVANCE DIRECTIVE DISCUSSION ADVANCE DIRECTIVE DISCUSSION [facility] Start: 04-16-2022 [facility]ION [facility] Start: 12-15-2021 Influenza vaccination INFLUENZA (#1) [facility] Start: 04-16-2021 ADVANCE DIRECTIVE DISCUSSION ADVANCE DIRECTIVE DISCUSSION [facility] Start: 04-12-2020 Adult depression screening assessment DEPRESSION SCREENING [facility] Start: 11-28-2018 Pneumococcal Vaccine : 65+ (2 of 2 - PPSV23 or PCV20) Pneumococcal Vaccine: 65+ (2 of 2 - PPSV23 or PCV20) [facility] Start: 2018 RSV Vaccine (1 - 1-d ose 75+ series) RSV Vaccine (1 - 1-dose 75+ series) [facility] Start: 07-06-2015 DIABETES SCREEN DIABETES SCREEN [facility] Start: 07-06-2015 Diabetes Screening Diabetes Screenin g [facility] Start: 2008 PNEUMOCOCCAL: 65+ (1 - PCV) PNEUMOCOCCAL: 65+ (1 - PCV) [facility] Start: 2003 RSV Vaccine (1 - 1-d ose 60+ series) RSV Vaccine (1 - 1-dose 60+ series) [facility] Start: 1993 SHINGRIX VACCINE (1 of 2) SHINGRIX V ACCINE (1 of 2) [facility] Start: 1962 Urine microalbumin profile [facility] Start: 1961 ANNUAL PCP TEAM FARMHAND FELECIA DISEASE VISIT ANNUAL PCP TEAM CHRONIC DISEASE VISIT [facility] Start: 1961 Anxiety Screening Anxiety Screening [facility] Start: 1961 BP CONTROLLED (<130/80) BP CONTROLLE D (<130/80) [facility] Start: 1961 Depression Screening Depression Scre ening [facility] Start: 1961 HEPATITIS C SCREENING HEPATITIS C SC REENING [facility] Start: 1943 COVID-19 VACCINE (#1) COVID-19 VACCI NE (#1) [facility] Immunizations Immunization Date Immunization Notes Care Provider Fa cility 01-12-2023 influenza, high dose seasonal, preservative-free Prashant Gary Other [employer] Other 01-12-2023 influenza virus vaccine, unspecified formulation Memo Magallon MD Work Phone: [facility] 12-29-2021 influenza virus vaccine, split virus (incl. purified surface antigen) Prashant Gary Other [employer] Other 03-29-2021 COVID-19 Vaccine Pfi zer - Documentation Purposes Only Prashant Gary Other [employer] Other 06-04-2020 COVID-19 Vaccine Pfi zer - Documentation Purposes Only Prashant Gary Other [employer] Other 05-14-2020 COVID-19 Vaccine Moderna - Documentation Purposes Only Prashant Gary Other [employer] Other 02-18-2020 influenza virus vaccine, split virus (incl. purified surface antigen) Prashant Gary Other [employer] Other 11-28-2017 influenza virus vaccine, split virus (incl. purified surface antigen) Prashant Gary Other [employer] Other 11-28-2017 pneumococcal conjuga te vaccine, 13 valent Prashant Gary Other [employer] Other Payers Date Payer Category Payer Medicare HU[employer]NA MEDICARE HU[employer]NA MEDICARE PPO [id number] 2011-Present [phone] [place] [address] PPO [id number] 2011 Medicare HUMANA MEDICARE HU[employer]NA MEDICARE PPO [id number] 2011-Present [phone] [place] [address] PPO [id number] 1959 Medicare [id number] 1943 Unknown [id number] 1943 Unknown [id number] 1943 Unknown [id number] 1943 Unknown [id number] 1943 Unknown [id number] 1943 Unknown [id number] 1943 Unknown [id number] 1943 Unknown [id number] Social History Date Type Detail Facility Start: 03-01-2011 End: 01-09-2024 Tobacco smoking status NHIS Ex-smoker [facility] Start: 05-14-1975 End: 05-14-1983 History of tobacco use Current smoker [facility] Start: 05-14-1975 End: 05-14-1983 History of tobacco use Cigarette Smoker [facility] Start: 03-01-2011 End: 07-05-2023 Cigarettes smoked current (pack per day) - Reported 12 [facility] Start: 03-01-2011 End: 01-09-2024 Tobacco use and exposure Smokeless tobacco non-user [facility] Start: 01-22-2020 End: 01-09-2024 Alcohol intake Current drinker of alcohol (finding) [facility] Start: 1945 Sex Assigned At Not on file [facility] Start: 10-14-2021 End: 10-24-2021 Exposure to SARS-CoV-2 (event) Unable to assess [facility] Work Phone: Start: 01-22-2020 End: 07-05-2023 Sex Assigned At [facility] Adult Depression Screening Assessment 4 [facility] Medical Equipment Procedure Code Equipment Code Equipment Origin al Text Equipment Identifier Dates Graft Bn Infs Rhbmp-2 2.8ml Sm - [id number] Start: 05-15-2012 Sub Bngf Prognx + Dbm Bov - [id number] Start: 05-15-2012 6.5 Commpression Screw [id number] Start: 03-01-2011 6.5 Mm Compressi on Screw [id number] Start: 03-01-2011 6.5 Compression Screw [id number] Start: 03-01-2011 4.5mm Compressio n Screw [id number] Start: 03-01-2011 6.5mm X110mm Screw [id number] Start: 03-01-2011 Yjt-Sz-M-Kind Implant - [id number] Start: 05-15-2012 Comment on above: Description: 3.5 x 2 0mm angle lock screw Grh-Td-I-Kind Implant - [id number] Start: 05-15-2012 Comment on above: Description: 3.5 x 1 0 mm angle lock screw Mhh-Dp-U-Kind Implant - [id number] Start: 05-15-2012 Comment on above: Description: 3.5 x 1 0mm angle lock screw Ujb-Yf-K-Kind Implant - [id number] Start: 05-15-2012 Comment on above: Description: 8 hole l shape ankle plate Eco-Io-K-Kind Implant - [id number] Start: 05-15-2012 Comment on above: Description: 3.5 x 3 0 lock screw Scz-Kd-D-Kind Implant - [id number] Start: 05-15-2012 Comment on above: Description: 3.5 x 3 0mm angle lock screw Lxl-Ih-L-Kind Implant - [id number] Start: 05-15-2012 Comment on above: Description: 3.5mm 3 8mm lock screw [id number] 0329 52-Plate Omega3 Standard Barrel Hip Keyless 135 4 Hole [id number] - [id number] Start: 07-05-2012 Screw Compr 6.5x 50mm - [id number] Start: [id number] 0329 52-Screw Bn 13mm 100mm O+ Ss Std - [id number] Start: [id number] 0329 52-Screw Compression [place] 32mm 802993f - [id number] Start: [id number] 0329 52-Screw Bn 4.5mm 38mm Axsos Ss - [id number] Start: [id number] 0329 52-Screw Bn 4.5mm 36mm Axsos Ss - [id number] Start: 03-22-2013 Clinical Notes 10-24-2021 to 01-10-2024 Memo Magallon MD - 01/10/2024 12:46 PM EDTAMemo bruno MD - 07/05/2023 7:32 AM EDT Note Date & Type Note Facility 01-10-2024 Note HNO ID: [id number] Author: MEMO MAGALLON MD Service: ? Author Type: Physician Type: Progress Notes Filed: 01/10/2024 12:50 Note Text: [facility] - FOLLOW UP EVALUATION Prashant Gary, DO [address] [facility] [address] I had the pleasure of seeing Mr. De La Garza for follow up today. He is a 78 year old right-handed male with a history of Parkinson's disease since 2002. Also with chronic low back pain and diffuse arthritis, fused ankles. He is seen with his . Subjective Previous Plan-07/05/2023 Visit: Continue your medications as you have been taking them. We are not making any changes today. If you feel you are not tolerating them or your symptoms are changing before your next appointment, please feel free to send me a [employer] message or contact the office PT Interval History: Dyskinesia now which is not typical. More with stress. Also more tremor, often with time pressure. No clear pattern for either besides stressors. Pushes walker far out ahead. can correct him. Has multiple types of walkers. No problems at night. Doesn't want to go to PT. takes him along when she goes out. Doesn't feel safe leaving him alone at home. No falls in a year. Still walks to the barn. No strength to do anything for very long. Generalized weakness. Hallucinations are infrequent. Sometimes illusions. Vision is bad. Still shingles pain which is significant complaint still. Parkinson's Medication Schedule - as of the start of the visit: Medications 6am 12pm 6pm 12am Sinemet 25/100 2 2 2 Mirapex 0.25 mg 3 3 3 3 Parkinson's Motor Complications Medication benefit onset: 15 minutes Medication duration: 6 hours Wearing off: no Dyskinesia: yes (Comment: If tired and not frequently) Prior Anti-Parkinson Therapies Apomorphine SC (Apokyn) Carbidopa/Levodopa Carbidopa/Levodopa CR Carbidopa/Levodopa/Entacapone Pramipexole Selegiline Questionnaires In addition, the following areas that may be affected by abnormal involuntary movements were evaluated: Daily activities Difficulties with eating: Yes (slight) Difficulties in dressing: Yes (slight) Difficulties with hygiene activities: Yes (slight) Difficulties with handwriting: Yes (slight) Difficulties with doing hobbies and other activities: Yes (mild) Difficulties turning in bed: Yes (slight) Difficulties getting out of bed, car or chair: Yes (slight) Tremors/Gait/Balance Shaking or tremors: Yes (moderate) Walking and balance problems: Yes (moderate) Number of falls in the Last Month: 0 Gait freezing: Yes (severe) Autonomic/Pain Lightheadeness on standing: Yes (slight) Urinary problems: frequency. drinks a lot of water Constipation problems: 0 (none) Pain and other sensations: Yes (moderate) Speech/Swallowing Speech problems: Yes (slight) Drooling: Yes (slight) Chewing and swallowing problems: Yes (slight) Sleep/Fatigue Sleep problems: Yes (slight) sleeps a lot Daytime sleepiness: Fatigue: Mood/Behavior Depression: PHQ-9 Score: 12 usually representing moderate (10-14) depression. Anxiety: Finally, the following table shows the patient's overall global physical and mental health using the PROMIS scale: PROMIS-10 Flowsheet Row Office Visit from 05/10/2023 in Neurology Office Visit from 04/17/2019 in Neurology Global Physical Health T Score -- 32.4 Global Mental Health T Score -- 38.8 0-10 Standard Pain Scale 2 2 *PROMIS-10 scoring scale: mean = 50, over 50 is above average, under 50 is below average ALLERGIES Allergen Reactions Latex, Natural Rubb* Rash Morphine Other: See Comments Pt takes Avinza po, had allergic reaction with Morphine IV push, red streaking up arm. Penicillin G Rash Current Outpatient Medications Medication Sig carbidopa-levodopa (SINEMET 25-100) 25-100 mg per tablet Take 2 tablets by mouth three times a day. 2 tab at 6am, 12pm and 6pm pramipexole (MIRAPEX) 0.25 mg tablet Take 3 tablets by mouth four times daily. felodipine ER (PLENDIL) 5 mg 24 hr tablet Take by mouth every 24 hours. furosemide (LASIX) 20 mg tablet albuterol HFA (PROVENTIL HFA, VENTOLIN HFA) 90 mcg/actuation inhaler losartan (COZAAR) 100 mg tablet Take 50 mg by mouth once daily. atorvastatin calcium(LIPITOR 10 MG TAB) one daily No current facility-administered medications for this visit. Objective Vital Signs: SpO2 97% Orthostatic Vitals: Sitting: BP 146/61 Pulse 61 Standing: BP 153/68 Pulse 64 No LMP for male patient. There is no height or weight on file to calculate BMI. General Physical Examination: General: Awake, alert, interactive, no acute distress, good nutritional status, normal development, well-kept General Neurological Examination: Neurological Exam Mental Status Awake and alert. Language is fluent with no aphasia. Motor Frequent mild dyskinesia. Movement Disorders Scales Performed: MDS-UPDRS Motor subsc (more content not included)... [facility] 01-10-2024 History of Present illness Narrative [facility] - FOLLOW UP EVALUATION Prashant Gary, DO [address] [facility] [address] I had the pleasure of seeing Mr. De La Garza for follow up today. He is a 78 year old right-handed male with a history of Parkinson's disease since 2002. Also with chronic low back pain and diffuse arthritis, fused ankles. He is seen with his . Subjective Previous Plan-07/05/2023 Visit: Continue your medications as you have been taking them. We are not making any changes today. If you feel you are not tolerating them or your symptoms are changing before your next appointment, please feel free to send me a [employer] message or contact the office PT Interval History: Dyskinesia now which is not typical. More with stress. Also more tremor, often with time pressure. No clear pattern for either besides stressors. Pushes walker far out ahead. can correct him. Has multiple types of walkers. No problems at night. Doesn't want to go to PT. takes him along when she goes out. Doesn't feel safe leaving him alone at home. No falls in a year. Still walks to the barn. No strength to do anything for very long. Generalized weakness. Hallucinations are infrequent. Sometimes illusions. Vision is bad. Still shingles pain which is significant complaint still. Parkinson's Medication Schedule - as of the start of the visit: Medications 6am 12pm 6pm 12am Sinemet 25/100 2 2 2 Mirapex 0.25 mg 3 3 3 3 Parkinson's Motor Complications Medication benefit onset: 15 minutes Medication duration: 6 hours Wearing off: no Dyskinesia: yes (Comment: If tired and not frequently) Prior Anti-Parkinson Therapies Apomorphine SC (Apokyn) Carbidopa/Levodopa Carbidopa/Levodopa CR Carbidopa/Levodopa/Entacapone Pramipexole Selegiline Questionnaires In addition, the following areas that may be affected by abnormal involuntary movements were evaluated: Daily activities Difficulties with eating: Yes (slight) Difficulties in dressing: Yes (slight) Difficulties with hygiene activities: Yes (slight) Difficulties with handwriting: Yes (slight) Difficulties with doing hobbies and other activities: Yes (mild) Difficulties turning in bed: Yes (slight) Difficulties getting out of bed, car or chair: Yes (slight) Tremors/Gait/Balance Shaking or tremors: Yes (moderate) Walking and balance problems: Yes (moderate) Number of falls in the Last Month: 0 Gait freezing: Yes (severe) Autonomic/Pain Lightheadeness on standing: Yes (slight) Urinary problems: frequency. drinks a lot of water Constipation problems: 0 (none) Pain and other sensations: Yes (moderate) Speech/Swallowing Speech problems: Yes (slight) Drooling: Yes (slight) Chewing and swallowing problems: Yes (slight) Sleep/Fatigue Sleep problems: Yes (slight) sleeps a lot Daytime sleepiness: Fatigue: Mood/Behavior Depression: PHQ-9 Score: 12 usually representing moderate (10-14) depression. Anxiety: Finally, the following table shows the patient's overall global physical and mental health using the PROMIS scale: PROMIS-10 Flowsheet Row Office Visit from 05/10/2023 in Neurology Office Visit from 04/17/2019 in Neurology Global Physical Health T Score -- 32.4 Global Mental Health T Score -- 38.8 0-10 Standard Pain Scale 2 2 *PROMIS-10 scoring scale: mean = 50, over 50 is above average, under 50 is below average ALLERGIES Allergen Reactions Latex, Natural Rubb* Rash Morphine Other: See Comments Pt takes Avinza po, had allergic reaction with Morphine IV push, red streaking up arm. Penicillin G Rash Current Outpatient Medications Medication Sig carbidopa-levodopa (SINEMET 25-100) 25-100 mg per tablet Take 2 tablets by mouth three times a day. 2 tab at 6am, 12pm and 6pm pramipexole (MIRAPEX) 0.25 mg tablet Take 3 tablets by mouth four times daily. felodipine ER (PLENDIL) 5 mg 24 hr tablet Take by mouth every 24 hours. furosemide (LASIX) 20 mg tablet albuterol HFA (PROVENTIL HFA, VENTOLIN HFA) 90 mcg/actuation inhaler losartan (COZAAR) 100 mg tablet Take 50 mg by mouth once daily. atorvastatin calcium(LIPITOR 10 MG TAB) one daily No current facility-administered medications for this visit. Objective Vital Signs: SpO2 97% Orthostatic Vitals: Sitting: BP 146/61 Pulse 61 Standing: BP 153/68 Pulse 64 No LMP for male patient. There is no height or weight on file to calculate BMI. General Physical Examination: General: Awake, alert, interactive, no acute distress, good nutritional status, normal development, well-kept General Neurological Examination: Neurological Exam Mental Status Awake and alert. Language is fluent with no aphasia. Motor Frequent mild dyskinesia. Movement Disorders Scales Performed: MDS-UPDRS Motor subscale condition of exam Medication Off/On/Naiive ON Time of UPDRS 1129 Time of Last Medication 0600 Last Medication Taken DBS Right N/A DBS Left N/A MDS-UPDRS Motor subscale scores Speech 2-Mild. Loss of modulation, diction, or volume, with a few words unclear, but the overall sentences easy to follow. Facial Expression 2-Mild. In addition to decreased eye-blink frequency, Masked facies present in the lower face as well, namely fewer movements around the mouth, such as less spontaneous smiling, but lips not parted. Rigidity Neck 0-Normal. No rigidity. Rigidity Right Upper Extremity 0-Normal. No rigidity. Rigidity Left Upper Extremity 0-Normal. No rigidity. Rigidity Right Lower Extremity 0-Normal. No rigidity. Rigidity Left Lower Extremity 0-Normal. No rigidity. Finger Taps Right 1-Slight. a) the regular rhythm is broken with one or two interruptions or hesitations of the tapping movement, b) slight slowing, c) the amplitude decrements near the end of the 10 taps. Finger Taps Left 1-Slight. a) the regular rhythm is broken with one or two interruptions or hesitations of the tapping movement, b) slight slowing, c) the amplitude decrements near the end of the 10 taps. Hand Movements Right 1-Slight. a) the regular rhythm is broken with one or two interruptions or hesitations of the movement, b) slight slowing, c) the amplitude decrements near the end of the task. Hand Movements Left 3-Moderate. a) more than 5 interruptions during the movement or at least one longer arrest (freeze) in ongoing movement, b) moderate slowing, c) the amplitude decrements starting after the 1st [id number] sequence. Arm Movements Right 1-Slight. a) the regular rhythm is broken with one or two interruptions or hesitations of the movement, b) slight slowing, c) the amplitude decrements near the end of the sequence. Arm Movements Left 1-Slight. a) the regular rhythm is broken with one or two interruptions or hesitations of the movement, b) slight slowing, c) the amplitude decrements near the end of the sequence. Toe Taps Right 4-Severe. Cannot or can only barely perform the task because of slowing, interruptions or decrements. (ankle fusion bilaterally) Toe Taps Left 4-Severe. Cannot or can only barely perform the task because of slowing, interruptions or decrements. Leg Agility Right 1-Slight. a) the regular rhythm is broken with one or two interruptions or hesitations of the movement, b) slight slowing, c) the amplitude decrements near the end of the task. Leg Agility Left 1-Slight. a) the regular rhythm is broken with one or two interruptions or hesitations of the movement, b) slight slowing, c) the amplitude decrements near the end of the task. Arise From Chair Gait Gait Freezing Posture Stability Posture Body Bradykinesia 1-Slight. Slight global slowness and poverty of spontaneous movements. Postural Tremor Hand Right 0-Normal. No tremor. Postural Tremor Hand Left 0-Normal. No tremor. Kinetic Tremor Right 0-Normal. No tremor. Kinetic Tremor Left 0-Normal. No tremor. Rest Tremor Amplitude Right Upper Extremity 0-Normal. No tremor. Rest Tremor Amplitude Left Upper Extremity 0-Normal. No tremor. Rest Tremor Amplitude Right Lower Extremity 0-Normal. No tremor. Rest Tremor Amplitude Left Lower Extremity 0-Normal. No tremor. Rest Tremor Amplitude Lip/Jaw 0-Normal. No tremor. Rest Tremor Constancy 0-Normal. No tremor. MDS-UPDRS Motor subscale totals Left Total 10 Right Total 8 Midline Total Tremor Total / 10 0 PIGD Total / 3 Overall Total % Change Compared to Last Filed Total Pertinent Studies Head CT 05/07/2023 Unenhanced axial data from base to vertex. INTRA-AXIAL: No acute hemorrhage. No acute infarction is evident. EXTRA-AXIAL: Again, punctate hyperdense focus in a posterior right parietal sulcus or this is subpial. No interval change. It may simply be vascular No distinct evidence of acute extra-axial hemorrhage. No focal fluid collection. BRAIN VOLUME: Unremarkable for age. VENTRICLES: No hydrocephalus PARANASAL SINUSES: No air-fluid levels in the included aspects. MASTOIDS: Clear. CALVARIUM: No acute finding. EXTRACALVARIAL: No acute findings IMPRESSION: 1. No evidence of acute intracranial process on this unenhanced study as described. Assessment and Plan: Assessment Mr. De La Garza is a right-handed 78 year old year old male with history significant for HTN, neuropathy, LBP, with dystonia-predominant PD since around 2002. Improved significantly compared to last in-person visit in April when symptoms were exacerbated possibly due to clonidine. Dyskinesia that he has today is not typical and likely due to mild stress/anxiety related to being at the visit. Discussed the importance of exercise. Strongly urged him to attend physical therapy to work on gait and balance. The following are the current problems noted and addressed during this visit: Parkinson's disease, unspecified whether dyskinesia present, unspecified whether manifestations fluctuate ([facility]) Plan 01/09/2024 Visit: Continue your medications as you have been taking them. We are not making any changes today. If you feel you are not tolerating them or your symptoms are changing before your next appointment, please feel free to send me a QingCloud message or contact the office - Physical therapy- Interested in clinical research? Not discussed Updated Movement Disorders Medication Schedule: Medications 6am 12pm 6pm 12am Sinemet 25/100 2 2 2 Mirapex 0.25 mg 3 3 3 3 Return at or around: 07/08/24 Level of service : 81449 (20-29 min). Time spent 24 min on the day of service, which included preparing to see the patient, [id number] patient care, completing clinical documentation, performing a medically appropriate examination, and counseling and educating the patient/family/caregiver. Thank you for allowing me to be part of the clinical care of this patient! I look forward to continued participation in the patient s care with you. Please do not hesitate to call with any questions. Sincerely, Memo Magallon MD documented in this encounter [facility] 07-05-2023 Note HNO ID: [id number] Author: MEMO MAGALLON MD Service: ? Author Type: Physician Type: Progress Notes Filed: 07/08/2023 15:52 Note Text: [facility] - FOLLOW UP EVALUATION - VIRTUAL VISIT Prashant Gary DO [address] [facility] [address] Dear Prashant Gary DO: I had the pleasure of seeing Mr. De La Garza for follow-up today. As you know he is a 78 year old right-handed male with a history of Parkinson's disease since 2002. Also with chronic low back pain and diffuse arthritis, fused ankles. He is seen with his . We had a visit using: Telephone I have communicated my name and active licensure. The patient's identity and physical location were verified at the time of this visit. Either the patient or their legal pharmaceutical service representative has been informed of the risks and benefits of -- and alternatives to -- treatment through a remote evaluation and consents to proceed with the evaluation remotely. Subjective During his previous visit the following plan was made: Previous plan-05/10/2023 Visit: No change to Parkinson's medications for now - Follow-up with primary care - Physical therapy - Follow-up in June - Patient's perception of importance for healthcare provider to let them know of research trials for which they may be eligible? Not very important Interested in clinical research? Not currently Interval History Since last visit adjustments made to BP medication. Off clonidine and reduced losartan. Much better. Walking better. Still sleepy. Sees people. Not scary. Manageable. He's convinced they are there. Still more tremor in the left hand than before. Sleeps well through the night. No falls. Walks out to the barn again. Going with on errands again. Hasn't been good enough for PT. Will go when it warms up. Swallowing- sometimes phlegm in the night but otherwise ok. Movement Disorders Medications Schedule - as of [...] G Rash Current Outpatient Medications Medication Sig felodipine ER (PLENDIL) 5 mg 24 hr tablet Take by mouth every 24 hours. furosemide (LASIX) 20 mg tablet albuterol HFA (PROVENTIL HFA, VENTOLIN HFA) 90 mcg/actuation inhaler losartan (COZAAR) 100 mg tablet Take 50 mg by mouth once daily. atorvastatin calcium(LIPITOR 10 MG TAB) one daily carbidopa-levodopa (SINEMET 25-100) 25-100 mg per tablet Take 2 tablets by mouth three times a day. 2 tab at 6am, 12pm and 6pm pramipexole (MIRAPEX) 0.25 mg tablet Take 3 tablets by mouth four times daily. No current facility-administered medications for this visit. Questionnaires: Objective Pertinent Studies Head CT 05/07/2023 Unenhanced axial data from base to vertex. INTRA-AXIAL: No acute hemorrhage. No acute infarction is evident. EXTRA-AXIAL: Again, punctate hyperdense focus in a posterior right parietal sulcus or this is subpial. No interval change. It may simply be vascular No distinct evidence of acute extra-axial hemorrhage. No focal fluid collection. BRAIN VOLUME: Unremarkable for age. VENTRICLES: No hydrocephalus PARANASAL SINUSES: No air-fluid levels in the included aspects. MASTOIDS: Clear. CALVARIUM: No acute finding. EXTRACALVARIAL: No acute findings IMPRESSION: 1. No evidence of acute intracranial process on this unenhanced study as described. Assessment and Plan: Assessment Mr. De La Garza is a right-handed 78 year old male with history significant for HTN, neuropathy, LBP, with dystonia-predominant PD since around 2002. At last visit his symptoms had recently worsened in the setting of BP medication changes, seemed triggered by starting clonidine. He is off clonidine, BP medications have stabilized, he is feeling good again. Will continue current medications. PT when ready. The following are the current problems noted and addressed during this visit: Parkinson's disease, unspecified whether dyskinesia present, unspecified whether manifestations fluctuate (hcc) Gait instability Plan 07/05/2023 Visit: Continue your medications as you have been taking them. We are not making any changes today. If you feel you are not tolerating them or your symptoms are changing before your next appointment, please feel free to send me a QingCloud message or contact the office PT Interested in clinical research? Not currently Updated Movement Disor (more content not included)... [facility] 07-05-2023 History of Present illness Narrative [facility] - FOLLOW UP EVALUATION - VIRTUAL VISIT Prashant Gary DO [address] [facility] [address] Dear Prashant Gary DO: I had the pleasure of seeing Mr. De La Garza for follow-up today. As you know he is a 78 year old right-handed male with a history of Parkinson's disease since 2002. Also with chronic low back pain and diffuse arthritis, fused ankles. He is seen with his . We had a visit using: Telephone I have communicated my name and active licensure. The patient's identity and physical location were verified at the time of this visit. Either the patient or their legal pharmaceutical service representative has been informed of the risks and benefits of -- and alternatives to -- treatment through a remote evaluation and consents to proceed with the evaluation remotely. Subjective During his previous visit the following plan was made: Previous plan-05/10/2023 Visit: No change to Parkinson's medications for now - Follow-up with primary care - Physical therapy - Follow-up in June - Patient's perception of importance for healthcare provider to let them know of research trials for which they may be eligible? Not very important Interested in clinical research? Not currently Interval History Since last visit adjustments made to BP medication. Off clonidine and reduced losartan. Much better. Walking better. Still sleepy. Sees people. Not scary. Manageable. He's convinced they are there. Still more tremor in the left hand than before. Sleeps well through the night. No falls. Walks out to the barn again. Going with on errands again. Hasn't been good enough for PT. Will go when it warms up. Swallowing- sometimes phlegm in the night but otherwise ok. Movement Disorders Medications Schedule - as of [...] G Rash Current Outpatient Medications Medication Sig felodipine ER (PLENDIL) 5 mg 24 hr tablet Take by mouth every 24 hours. furosemide (LASIX) 20 mg tablet albuterol HFA (PROVENTIL HFA, VENTOLIN HFA) 90 mcg/actuation inhaler losartan (COZAAR) 100 mg tablet Take 50 mg by mouth once daily. atorvastatin calcium(LIPITOR 10 MG TAB) one daily carbidopa-levodopa (SINEMET 25-100) 25-100 mg per tablet Take 2 tablets by mouth three times a day. 2 tab at 6am, 12pm and 6pm pramipexole (MIRAPEX) 0.25 mg tablet Take 3 tablets by mouth four times daily. No current facility-administered medications for this visit. Questionnaires: Objective Pertinent Studies Head CT 05/07/2023 Unenhanced axial data from base to vertex. INTRA-AXIAL: No acute hemorrhage. No acute infarction is evident. EXTRA-AXIAL: Again, punctate hyperdense focus in a posterior right parietal sulcus or this is subpial. No interval change. It may simply be vascular No distinct evidence of acute extra-axial hemorrhage. No focal fluid collection. BRAIN VOLUME: Unremarkable for age. VENTRICLES: No hydrocephalus PARANASAL SINUSES: No air-fluid levels in the included aspects. MASTOIDS: Clear. CALVARIUM: No acute finding. EXTRACALVARIAL: No acute findings IMPRESSION: 1. No evidence of acute intracranial process on this unenhanced study as described. Assessment and Plan: Assessment Mr. De La Garza is a right-handed 78 year old male with history significant for HTN, neuropathy, LBP, with dystonia-predominant PD since around 2002. At last visit his symptoms had recently worsened in the setting of BP medication changes, seemed triggered by starting clonidine. He is off clonidine, BP medications have stabilized, he is feeling good again. Will continue current medications. PT when ready. The following are the current problems noted and addressed during this visit: Parkinson's disease, unspecified whether dyskinesia present, unspecified whether manifestations fluctuate (hcc) Gait instability Plan 07/05/2023 Visit: Continue your medications as you have been taking them. We are not making any changes today. If you feel you are not tolerating them or your symptoms are changing before your next appointment, please feel free to send me a QingCloud message or contact the office PT Interested in clinical research? Not currently Updated Movement Disorder Medication Schedule: Medications 6am 12pm 6pm 12am Sinemet 25/100 2 2 2 Mirapex 0.25 mg 3 3 3 3 Total time in minutes spent with patient: 27 with more than 50% of the time spent in patient education/counselling/coordinati ng care with the patient and /or family. Thank you for allowing me to be part of the clinical care of this patient! I look forward to continued participation in the patient s care with you. Please do not hesitate to call with any questions. Sincerely, Memo Magallon MD documented in this encounter [facility] 05-25-2023 Evaluation note Encounter Date Diagnosis Assessment Notes May, Essential hypertension (ICD-10 - I10) [facility] Other 01-25-2024 NoteHNO ID: [id number] Author: MEMO MAGALLON MD Service: ? Author Type: Physician Type: Progress Notes Filed: 05/14/2023 07:43 Note Text: [facility] - FOLLOW UP EVALUATION No referring provider defined for this encounter. Prashant Gary DO [address] [facility] [address] I had the pleasure of seeing Mr. De La Garza for follow up today. He is a 78 year old right-handed male with a history of Parkinson's disease since 2002. Also with chronic low back pain and diffuse arthritis, fused ankles. He is seen with his . Subjective Previous Plan-04/28/2022 Visit: Continue current medications exercise Interval History: Few weeks ago at PCP BP was 200's. Clonidine added. More sedated after starting it. Sleeping all the time. Weak all over. Gradually getting worse in terms of Parkinson's. Gets confused about things. Seems to have started around the time clonidine initiated. Shingles pain still there. Double and hazy vision at times. More lately. Can see a man after waking up at night. Knows he's not there. Needing help with ADLs but more lately. Tremor worse much of the time. Not wearing off. Sleeps well through the night. Sometimes up to bathroom. Hard to get OOB alone sometimes. No PT in months. Open to going back. Parkinson's Medication Schedule - as of the start of the visit: Medications 6am 12pm 6pm 12am Sinemet 25/100 2 2 2 Mirapex 0.25 mg 3 3 3 3 Parkinson's Motor Complications Medication benefit onset: 15 minutes Medication duration: 6 hours Wearing off: no Dyskinesia: no (Comment: If tired and not frequently) Prior Anti-Parkinson Therapies Apomorphine SC (Apokyn) Carbidopa/Levodopa Carbidopa/Levodopa CR Carbidopa/Levodopa/Entacapone Pramipexole Selegiline Questionnaires In addition, the following areas that may be affected by abnormal involuntary movements were evaluated: Daily activities Difficulties with eating: Difficulties in dressing: Yes (moderate) Difficulties with hygiene activities: Yes (mild) Difficulties with handwriting: Yes (mild) Difficulties with doing hobbies and other activities: Yes (mild) Difficulties turning in bed: Yes (severe) Difficulties getting out of bed, car or chair: Yes (moderate) Tremors/Gait/Balance Shaking or tremors: Yes (moderate) more than before Walking and balance problems: Yes (mild) Number of falls in the Last Month: none Gait freezing: Yes (severe) Autonomic/Pain Lightheadeness on standin (none) Urinary problems: Constipation problems: 0 (none) Pain and other sensations: Yes (severe) Speech/Swallowing Speech problems: Yes (slight) Drooling: Yes (mild) Chewing and swallowing problems: Yes (slight) Sleep/Fatigue Sleep problems: Daytime sleepiness: Yes (severe) Fatigue: Yes (severe) Mood/Behavior Depression: PHQ-9 Score: 7 usually representing mild (5-9) depression. Anxiety: MEHRDAD-7 Total Score: 9 usually representing mild (5-9) anxiety. Finally, the following table shows the patient's overall global physical and mental health using the PROMIS scale: PROMIS-10 Flowsheet Row Office Visit from 05/10/2023 in Neurology Office Visit from 04/17/2019 in Neurology Global Physical Health T Score -- 32.4 Global Mental Health T Score -- 38.8 0-10 Standard Pain Scale 2 2 *PROMIS-10 scoring scale: mean = 50, over 50 is above average, under 50 is below average ALLERGIES Allergen Reactions Latex, Natural Rubb* Rash Morphine Other: See Comments Pt takes Avinza po, had allergic reaction with Morphine IV push, red streaking up arm. Penicillin G Rash Current Outpatient Medications Medication Sig cloNIDine HCl (CATAPRES) 0.1 mg tablet Take 1 tablet by mouth every 12 hours. furosemide (LASIX) 20 mg tablet carbidopa-levodopa (SINEMET 25-100) 25-100 mg per tablet Take 2 tablets by mouth three times a day. (Patient taking differently: Take 2 tablets by mouth three times a day. 2 tab at 6am, 12pm and 6pm) pramipexole (MIRAPEX) 0.25 mg tablet Take 3 tablets by mouth four times daily. albuterol HFA (PROVENTIL HFA, VENTOLIN HFA) 90 mcg/actuation inhaler losartan (COZAAR) 100 mg tablet Take 100 mg by mouth once daily. atorvastatin calcium(LIPITOR 10 MG TAB) one daily No current facility-administered medications for this visit. Objective Vital Signs: BP 162/76 (BP Site: Right Arm, BP Position: Sitting, BP Cuff Size: Regular Adult) Pulse 86 Ht 165.1 cm (5' 5 ) SpO2 95% BMI 26.63 kg/m? Orthostatic Vitals: None for this encounter Height: 165.1 cm (5' 5 ) No LMP for male patient. Body mass index is 26.63 kg/m?. General Physical Examination: General: Awake, alert, interactive, no acute distress, good nutritional status, normal development, well-kept General Neurological Examination: Neurological Exam Mental Status Awake and alert. Language is fluent with no aphasia. Movement Disorders Scales Performed: [id number]-[id number] Motor subsca (more content not included)...[facility] 04-30-2023 Telephone encounter Note* Telephone Encounter - Memo Magallon MD - 04/30/2023 12:16 PM EST Done [facility]01-15-2024 Miscellaneous Notes* Telephone Encounter - Memo Magallon MD - 04/30/2023 12:16 PM EST Done * Telephone Encounter - Mague Altamirano - 04/30/2023 11:31 AM EST Spouse requesting refill as follows: Last FUV Apr 2022 with [facility] Next FUV June 2023 with [facility] Requested Prescriptions Pending Prescriptions Disp Refills carbidopa-levodopa (SINEMET 25-100) 25-100 mg per tablet 540 tablet 3 Sig: Take 2 tablets by mouth three times a day. pramipexole (MIRAPEX) 0.25 mg tablet 1080 tablet 3 Sig: Take 3 tablets by mouth four times daily. Upon approval, script will be sent electronically to the patient's pharmacy. Mague Da Silva, Scarf And Anneal Operator III documented [facility] Telephone encounter Note * Telephone Encounter - Mague Altamirano - 04/30/2023 11:31 AM EST Spouse requesting refill as follows: Last FUV Apr 2022 with [facility] Next FUV June 2023 with [facility] Requested Prescriptions Pending Prescriptions Disp Refills carbidopa-levodopa (SINEMET 25-100) 25-100 mg per tablet 540 tablet 3 Sig: Take 2 tablets by mouth three times a day. pramipexole (MIRAPEX) 0.25 mg tablet 1080 tablet 3 Sig: Take 3 tablets by mouth four times daily. Upon approval, script will be sent electronically to the patient's pharmacy. Mague Da Silva, Scarf And Anneal Operator III [facility]01-11-2024 Evaluation note* Encounter Date Diagnosis Assessment Notes Treatment Notes Treatment Clinical Notes Apr, Primary hypertension (ICD-10 - I10) [facility] Other 01-04-2024 Evaluation note* Encounter Date Diagnosis [...] report is being monitored every 90 days. [facility] Other 09-29-2023 Evaluation note* Encounter Date Diagnosis [...] PSA (prostate specific antigen) (ICD-10 - Z12.5) Johnalry PSA Dec, Other Continues, tolerating Failed multiple trials of guideline directed therapy Failed to improve w/ injections [facility] Other 08-23-2023 Miscellaneous Notes* Telephone Encounter - Autumn Graff - 12/06/2022 8:52 AM EDT Pharmacy called stating they the [facility] are unable to fill the carbidopa-levodopa ([id number]) 25-100 mg per tablet. Patient is requesting that it be sent to e- [facility]/pharmacy #[id number] [place] [address] [address] [facility] . Please call patient at [phone] once sent to the pharmacy. Thank you! Autumn Graff documented [facility] this encounterC[facility] Evaluation note* Encounter Date Diagnosis Assessment [...] and feet daily for blisters and ulcerations. [facility] Other 06-29-2023 Evaluation note* Encounter Date Diagnosis [...] diet, fluids and reduce Amitiza to 8mg [facility] Other 05-30-2023 Evaluation note* Encounter Date Diagnosis Assessment Notes Treatment Notes Treatment Clinical Notes August, Essential hypertension (ICD-10 - I10) [facility] Other 04-04-2023 NoteCONSULTATION CONSULTATION DATE: 07/18/2022 TO: [...] comfortable in the semi-recumbent position. He uses [place] for pain control, 5 mg daily p.r. [...] our patients to inform us about any ozoe-elv-aklykyv medications or herbal remedies/nutritional supplements/alternative remedies. 2. [...] treatment options with their primary care provider.[id number] Evaluation note * Encounter Date Diagnosis Assessment [...] breathing and cough exercises. Mucinex as needed 15 Mar, 2023 Post herpetic neuralgia (ICD-10 - B02.29) Intractable [...] Chronic prescription opiate use (ICD-10 - Z79.891) [facility] Other 01-13-2023 History of Present illness Narrative* Memo Magallon MD - 04/28/2022 5:28 PM EST [facility] - FOLLOW UP EVALUATION - VIRTUAL VISIT Prashant Gary DO [address] [facility] [address] Dear Prashant Gary DO: I had the pleasure of seeing Mr. De La Garza for follow-up today. As you know he is a 77 year old right-handed male with a history of Parkinson's disease since 2002. Also with chronic low back pain and diffuse arthritis, fused ankles. He is seen with his . We had a visit using: YaBeam I received consent from the patient to [...] 3 3 3 Level of service : 55031 (20-29 min). Time spent 25 min on the day of service, which included preparing to see the patient, [id number] patient care, completing clinical documentation, and counseling and educating the patient/family/caregiver. Thank you for allowing me to be part of the clinical care of this patient! I look forward to continued participation in the patient s care with you. Please do not hesitate to call with any questions. Sincerely, Memo Magallon MD documented in [facility] encounter[facility] History of Present illness Narrative* Memo Magallon MD - 10/24/2021 11:00 AM EDT [facility] - FOLLOW UP EVALUATION Tamika Gillis [address] [facility] [address] Prashant Gary, DO [address] [place] [place] [address] I had the pleasure of seeing Mr. De La Garza for follow up today. He is a 76 year old right-handed male with a history of Parkinson's disease since 2002. Also with chronic low back pain and diffuse arthritis, fused ankles. He is seen with his . We had a visit using: YaBeam I received consent from the patient to [...] Sincerely, Memo Magallon MD [facility] Diagnosis Parkinson disease (HCC)- Primary Paralysis agitans REM sleep behavior disorder Restless legs syndrome Restless legs syndrome (RLS) documented in this encounter [facility] note* Diagnosis Parkinson disease (HCC) Paralysis agitans Gait instability Abnormality of gait documented in this encounter [facility] noteNo [employer] [employer] Other Evaluation note* Diagnosis Parkinson's disease, unspecified whether dyskinesia present, unspecified whether manifestations fluctuate (HCC) Gait instability Abnormality of gait documented in this encounter [facility] note* Diagnosis Parkinson disease (HCC) Paralysis agitans Gait instability Abnormality of gait [facility] Diagnosis Parkinson's disease, unspecified whether dyskinesia present, unspecified whether manifestations fluctuate (HCC) documented in this encounter [facility] general Narrative - Reported* Type Description Date [...] INGUINAL HERNIORRHAPHY Surgical History EGD, WITH PYLORIC BALLON DILATI ON 2021 Hospitalization History SEE SURGICAL HX [facility] Other Reason for referral (narrative)* Reason * 07/12 Referral for pain management Diagnosis 1 Lumbar spondylosis ( M47.816) Diagnosis 2 Post herpetic neural adam (B02.29) Referral Organization [facility] nemo Referring Provider First Name Prashant Referring Provider Last Name Abdirahman Referring Provider Specialty Internal Me dicine [facility] Referred Provider France Yi Referred Address [address] [place], [place],[address] Referred Provider Specialty Pain Medicin e Referral [...] being referred for evaluation and treatment. P: [phone] F: [phone] [facility] Other Summary Purpose Family History No Family History Records FoundNo Family History Records FoundNo Family History Records FoundNo Family History Records Found Advance Directives No Advanced Directives Records FoundNo Advanced Directives Records FoundNo Advanced Directives Records FoundNo Advanced Directives Records Found Reason for Referral Specialty Diagnoses / Procedures Referred By Contac t Referred To Contact Diagnoses Parkinson disease (HCC) Procedures PROVIDER ORDERED FOLLOW UP OFFICE/OUTPATIENT NEW HIGH MDM 60-74 MINUTES Memo Magallon MD [address] [address] Referral ID Status Reason Start Date Expiration Date Visits Requested Visits Authorized [id number] Authorized PCP Requested Referral 10/24/2021 01/22/2022 1 1 Referral ID Status Reason Start Date Expiration Date Visits Requested Visits Authorized [id number] Authorized PCP Requested Referral 04/28/2022 07/27/2022 1 1 Specialty Diagnoses / Procedures Referred By Contac t Referred To Contact Diagnoses Parkinson's disease, unspecified whether dyskinesia present, unspecified whether manifestations fluctuate (HCC) Procedures PROVIDER ORDERED FOLLOW UP OFFICE/OUTPATIENT NEW HIGH MDM 60 MINUTES Memo Magallon MD [address] [address] Referral ID Status Reason Start Date Expiration Date Visits Requested Visits Authorized [id number] Authorized PCP Requested Referral 07/05/2023 10/03/2023 1 1 Referral ID Status Reason Start Date Expiration Date Visits Requested Visits Authorized [id number] Authorized PCP Requested Referral 01/09/2024 04/08/2024 1 1 Specialty Diagnoses / Procedures Referred By Contac t Referred To Contact [facility] Diagnoses Parkinson's disease, unspecified whether dyskinesia present, unspecified whether manifestations fluctuate (HCC) Procedures CONSULT TO PHYSICAL THERAPY PHYSICAL THERAPY EVALUATION HIGH COMPLEX 45 MINS Memo Magallon MD [address] [address] [facility] [place] [address] Referral ID Status Reason Start Date Expiration Date Visits Requested Visits Authorized [id number] Pending Review Auto-Generat ed Referral 01/09/2024 01/08/2025 1 1 Additional Source Comments (unrecognized sect ion and content) No Status Records FoundNo Status Records FoundNo Status Records FoundNo Status Records Found INFORMATION SOURCE (unrecogn ized section and content) DATE CREATED AUTHOR 03/24/2018 Daniel Nunez [facility] DATE CREATED AUTHOR AUTHOR'S ORGANIZ ATION 10/07/2021 [facility] DATE CREATED AUTHOR AUTHOR'S ORGANIZ ATION 08/22/2022 [facility] DATE CREATED AUTHOR AUTHOR'S ORGANIZ ATION 01/11/2024 [facility] Source Comments (unrecognize d section and content) In the event this informatio n is protected by the Federal Confidentiality of Alcohol and Drug Abuse Patient Records regulations: The Federal rules restrict any use of the information to criminally investigate or prosecute any alcohol or drug abuse patient.[facility] the event this information is protected by the Federal Confidentiality of Alcohol and Drug Abuse Patient Records regulations: The Federal rules restrict any use of the information to criminally investigate or prosecute any alcohol or drug abuse patient.[facility] the event this information is protected by the Federal Confidentiality of Alcohol and Drug Abuse Patient Records regulations: The Federal rules restrict any use of the information to criminally investigate or prosecute any alcohol or drug abuse patient.[facility] the event this information is protected by the Federal Confidentiality of Alcohol and Drug Abuse Patient Records regulations: The Federal rules restrict any use of the information to criminally investigate or prosecute any alcohol or drug abuse patient.[facility] the event this information is protected by the Federal Confidentiality of Alcohol and Drug Abuse Patient Records regulations: The Federal rules restrict any use of the information to criminally investigate or prosecute any alcohol or drug abuse patient.[facility] the event this information is protected by the Federal Confidentiality of Alcohol and Drug Abuse Patient Records regulations: The Federal rules restrict any use of the information to criminally investigate or prosecute any alcohol or drug abuse patient.[facility] Reason for Visit (unrecogniz ed section and content) Reason Comments Telemedicine Follow Up Specialty Diagnoses / Procedures Referred By Contac t Referred To Contact Diagnoses Parkinson disease (HCC) Procedures PROVIDER ORDERED FOLLOW UP OFFICE/OUTPATIENT [facility] 60-74 MINUTES Memo Magallon MD [address] [place] [id number] Referral ID Status Reason Start Date Expiration Date V isits Requested Visits Authorized [id number] Closed PCP Requested Referral 10/24/2021 01/22/2022 1 1 Reason Comments Medication Problem Reason Onset Date Comments Refill Request 04/30/2023 Reason Comments Parkinson's Disease Specialty Diagnoses / Procedures Referred By Rose t Referred To Contact Diagnoses Parkinson's disease, unspecified whether dyskinesia present, unspecified whether manifestations fluctuate ([facility]) Procedures PROVIDER ORDERED FOLLOW UP OFFICE/OUTPATIENT NEW HIGH MDM 60 MINUTES Memo Magallon MD [address] [address] Referral ID Status Reason Start Date Expiration Date V isits Requested Visits Authorized [id number] Closed PCP Requested Referral 07/05/2023 10/03/2023 1 1 Care Teams (unrecognized sec tion and content) Color Receiver Relationship Specialty Start Date End Date Prashant Gary DO PCP - General 03/11/07 Color Receiver Relationship Specialty Start Date End Date Prashant Gary DO PCP - General 03/11/07 Color Receiver Relationship Specialty Start Date End Date Prashant Gary DO PCP - General 03/11/07 Color Receiver Relationship Specialty Start Date End Date Prashant Gary DO PCP - General 03/11/07 Memo Magallon MD [address] [address] Specialty Electrician Constructor Supervisor Neurology 04/04/23 Tamika Gillis [employer] [address] [place] [address] Specialty Electrician Constructor Supervisor Neurology 04/04/23 Color Receiver Relationship Specialty Start Date End Date Prashant Gary DO PCP - General 03/11/07 Memo Magallon MD [address] [phone] Specialty Electrician Constructor Supervisor Neurology 04/04/23 Tamika Gillis, [employer] [address] [place] [address] Specialty Electrician Constructor Supervisor Neurology 04/04/23 Color Receiver Relationship Specialty Start Date End Date Prashant Gary DO PCP - General 03/11/07 Memo Magallon MD [address] [phone] Specialty Electrician Constructor Supervisor Neurology 04/04/23 Tamika Gillis, [employer] [address] [place], [place] [id number] Specialty Electrician Constructor Supervisor Neurology 04/04/23 FOR RECORDS PERTAINING TO PATIENTS WHO ARE [...] BE BASED ON THE PRIMARY CLINICAL RECORDS. [facility] [employer] [facility]. provides no warranty or guarantee of the accuracy or completeness of information in this document.
--- OUTSIDE RECORDS SUMMARY | 2024-01-22 07:41 | XMS_ITS | CCD ---
Author Organization [facility] Care Team Providers Care Tank Cooper Name Role Phone Naun, Julia K Unavailable Unavailable Naun, Julia K Unavailable Unavailable [place], Julia K Unavailable Unavailable BELEN [phone] UNKNOWN Unavailable Unavailable Prashant Gary DO Primary [...] Admitting Ev vailable Memo Magallon MD Unavailable [phone] Car[place] BARAJASTamika [place] Unavailable Prashant Gary DO Primary Care Provider PRASHANT GARY Primary Care Unavailable MEMO MAGALLON Referring Unavailable MEMO MAGALLON Attending Unavailable PRASHANT GARY Primary Care Unavailable MEMO MAGALLON Referring Unavailable MEMO MAGALLON Attending Unavailable PRASHANT GARY Primary Care Unavailable MEMO MAGALLON Attending Unavailable Allergies Allergy Classification Reported Allergen(s) Allergy Type Date of Onset Reaction(s) Facility (7 sources) Latex; Translations: [LATEX, NATURAL RUBBER] Drug Allergy 022 [facility] Work Phone: (7 sources) Morphine; Translations: [MORPHINE] Drug Allergy 011 Other: See Comments [facility] (7 sources) Penicillin G; Translations: [PENICILLIN G] Drug Allergy 007 [facility] Work Phone: (2 sources) Morphine Drug Allergy 020 [facility] (2 sources) natural latex rubber Drug allergy (disorder) [facility] (2 sources) Penicillins Drug allergy (disorder) 013 [facility] (13 sources) cyclobenzaprine Drug Allergy Cyclobenzaprine *CHEMICALS* Comment:Hallucina tions [facility] Other (13 sources) pregabalin Drug Allergy Comment:Hallucin a [employer] Other (13 sources) Flexeril *MUSCULOSKELETAL THERAPY AGENTS* Propensity to adverse reactions Comment:Hallucina CamioCamons [facility] Other (13 sources) Substance with penicillin structure and antibacterial mechanism of action (substance) Drug allergy Unknown [facility] Other (3 sources) patient allergy list reviewed by nurse or physicia Propensity to adverse reactions 016 Comment:Done [facility] Other Medications Current Medications Medication Drug Class(es) Dates Sig (Normalized) Sig (Original) AeroChamber Mini Chamber - (18 sources) Start: 06-28-2022 AeroChamber Mini Chamber - 1 inhalation Use with MDI every 4 hours as needed for cough or SOB for 30 days Jun, Active [id number] 200 actuat albuterol 0.09 mg/actuat metered dose [...] times daily. Take 2 tablets by mo [facility] three times a day. 2 tab at 6am, 12pm and 6pm Take 2 tablets by [facility] three times a day. 24 hr felodipine [...] a day Active take 1 tablet by [facility] every twenty-four hours Losartan Potassium 100 MG [...] Active Start: 10-12-2022 take 1 capsule by [facility] once daily at mealtime Lubiprostone 8 MCG 1 capsule with food and water Orally qd for 30 days Sep, Active Start: 08-30-2022 take 1 capsule by [facility] twice daily at mealtime Lubiprostone 24 MCG [...] on above: Take 3 tablets by mo [facility] four times daily. 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; Translations: [OTH MEDIA LIBRARIAN CURRENT DRUG THERAPY] Onset: 01-03-2022 Episodic Other [...] Test Name Value Interpretation Reference Range Facility [facility] 01-09-2024 CNOV Office Visit (NRMDN) -- GARYSILKE Radhika ([id number]) 1945 M Date Time Provider Department 01/09/24 11:00 AM [facility] your visit today, we recorded the following information about you: Memo Magallon MD 01/10/2024 12:50 PM Signed [facility] - FOLLOW UP EVALUATION Prashant Gary DO [address] [facility] [address] I had the pleasure of seeing Mr. [...] please feel free to send me a Kick[employer] message or contact the office PT Interval [...] Neurological Examination (more content not included)... Normal [facility] CNOVon 05-10-2023 CNOV Office Visit (NRMDN) -- SILKE DE LA GARZA ([id number]) 1945 M Date Time Provider Department 05/10/23 [...] or you can send a message through [employer]. You can also now schedule and select appointments through [employer]. MD Naun Gonzales Kristin, MD 05/14/2023 7:43 AM Signed [facility] - FOLLOW UP EVALUATION No referring provider defined for this encounter. Prashant Gary, DO [address] [facility] [address] I had the pleasure of seeing Mr. [...] (MIRAPEX) 0 (more content not included)... Normal [facility] CT HEAD WO CONon 08-17-2022 CT [...] by: ANNE COLLIER Date: 2022-08-17 20:25 Normal [facility] CREATININEon 04-21-2022 Creatinine [Mass/Vol] 0.84 mg/dL Normal 0.70-1.30 [facility] Comment on above: Performed By: #### C MADM #### [facility] [address] [place] [address] Dr. Sarah Nath EGFR-AF ITALIAN >60 Normal >=60 [facility] Comment on above: Performed By: #### C MADM #### [facility] [address] [address] [address] Sarah Nath EGFR-NON AF ITALIAN >60 Normal >=60 [facility] Comment on above: Performed By: #### C MADM #### [facility] [address] [place] [address] Dr. Sarah Nath CTA CHEST WO W [...] AL MANCERA Date: 2022-04-21 08:37 Normal [facility] HEMOGLOBINon 04-21-2022 Hemoglobin (Bld) [Mass/Vol] 16.1 g/dL Normal 14.0-18.0 [facility] Comment on above: Performed By: #### H GB #### [facility] [address] [address] [address] Sarah Nath CBC AUTO DIFFon 12-30-2021 BASO # 0.1 103/ul Normal 0.0-0.1 [facility] Comment on above: Performed By: #### C MADM #### [facility] [address] [place] [address] Dr. Sarah Nath Basophils/100 WBC (Bld) 0.9 % Normal 0.2-2.0 [facility] Comment on above: Performed By: #### C MADM #### [facility] [address] [address] [address] Sarah Nath EO # 0.1 103/ul Normal 0.0-0.7 [facility] Comment on above: Performed By: #### C MADM #### [facility] [address] [address] [address] Sarah Nath Eosinophils/100 WBC (Bld) 2.0 % Normal 0.9-7.0 [facility] Comment on above: Performed By: #### C MADM #### [facility] [address] [address] [address] Sarah Nath Erythrocyte distribution width (RBC) [Ratio] 12.5 % Normal 11.0-15.0 [facility] Comment on above: Performed By: #### C MADM #### [facility] [address] [place] [address] Dr. Sarah Nath Hematocrit (Bld) [Volume fraction] 44.2 % Normal 42.0-54.0 [facility] Comment on above: Performed By: #### C MADM #### [facility] [address] [place] [address] Dr. Sarah Nath Hemoglobin (Bld) [Mass/Vol] 14.6 g/dL Normal 14.0-18.0 [facility] Comment on above: Performed By: #### C MADM #### [facility] [address] [place] [address] Dr. Sarah Nath IG # 0.03 10e3/ul Normal 0.00-0.03 [facility] Comment on above: Performed By: #### C MADM #### [facility] [address] [place] [address] Dr. Sarah Nath IG % 0.4 % Normal 0.0-0.5 [facility] Comment on above: Performed By: #### C MADM #### [facility] [address] [place] [address] Dr. Sarah Nath LYMPH # 1.7 103/ul Normal 1.2-3.8 [facility] Comment on above: Performed By: #### C MADM #### [facility] [address] [place] [address] Dr. Sarah Nath Lymphocytes/100 WBC (Bld) 24.6 % Normal 20.5-60.0 [facility] Comment on above: Performed By: #### C MADM #### [facility] [address] [place] [address] Dr. Sarah Nath MANUAL DIFF REQ NO Normal [facility] Comment on above: Performed By: #### C MADM #### [facility] [address] [address] [address] Sarah Nath MCH (RBC) [Entitic mass] 30.0 pg Normal 25.9-34.0 [facility] Comment on above: Performed By: #### C MADM #### [facility] [address] [address] [address] Sarah Nath MCHC (RBC) [Mass/Vol] 33.0 g/dL Normal 29.9-35.2 [facility] Comment on above: Performed By: #### C MADM #### [facility] [address] [address] [address] Sarah Nath MCV (RBC) [Entitic vol] 90.8 fL Normal 80.0-94.0 [facility] Comment on above: Performed By: #### C MADM #### [facility] [address] [place] [address] Dr. Sarah Nath MONO # 0.6 103/ul Normal 0.3-0.8 [facility] Comment on above: Performed By: #### C MADM #### [facility] [address] [address] [address] Sarah Nath Monocytes/100 WBC (Bld) 8.8 % Normal 1.7-12.0 [facility] Comment on above: Performed By: #### C MADM #### [facility] [address] [address] [address] Sarah Nath NEUT # 4.3 103/ul Normal 1.4-6.5 [facility] Comment on above: Performed By: #### C MADM #### [facility] [address] [place] [address] Dr. Sarah Nath Neutrophils/100 WBC (Bld) 63.3 % Normal 43.0-75.0 [facility] Comment on above: Performed By: #### C MADM #### [facility] [address] [place] [address] Dr. Sarah Nath Platelet mean volume (Bld) [Entitic vol] 10.7 fL Normal 9.5-13.5 [facility] Comment on above: Performed By: #### C MADM #### [facility] [address] [address] [address] Sarah Nath PLT 179 103/ul Normal 150-450 [facility] Comment on above: Performed By: #### C MADM #### [facility] [address] [place] [address] Dr. Sarah Nath RBC 4.87 106/ul Normal 4.70-6.10 [facility] Comment on above: Performed By: #### C MADM #### [facility] [address] [place] [address] Dr. Sarah Nath WBC 6.8 103/ul Normal 4.0-11.0 [facility] Comment on above: Performed By: #### C MADM #### [facility] [address] [place] [address] Dr. Sarah Nath LIPID PROFILEon 12-30-2021 CHOL-HDL RATIO NORM SEE BELOW Normal [facility] Comment on above: Result Comment: 3.3 - 4.4 LOW RISK 4.4 - 7.1 AVERAGE RISK 7.1 - 11.0 MODERATE RISK >11.0 HIGH RISK Performed By: #### A LT, LIPID, BMP #### [facility] [address] [place] [address] Dr. Sarah Nath Cholesterol [Mass/Vol] 172 mg/dL Normal <=200 [facility] Comment on above: Performed By: #### A LT, LIPID, BMP #### [facility] [address] [place] [address] Dr. Sarah Nath Cholesterol in HDL [Mass/Vol] 73 mg/dL Critically high 40-60 [facility] Comment on above: Performed By: #### A LT, LIPID, BMP #### [facility] [address] [place] [address] Dr. Sarah Nath Cholesterol in LDL [Mass/Vol] 80.2 mg/dL Normal [facility] Comment on above: Performed By: #### A LT, LIPID, BMP #### [facility] [address] [place] [address] Dr. Sarah Nath Cholesterol.total /Cholesterol in HDL [Mass ratio] 2.4 {ratio} Normal [facility] Comment on above: Performed By: #### A LT, LIPID, BMP #### [facility] [address] [address] [address] Sarah Nath HDL NORMAL > or = 60 mg/dl - LO W CARDIOVASCULAR RISK <40 mg/dl - HIGH CARDIOVASCULAR RISK Normal [facility] Comment on above: Performed By: #### A LT, LIPID, BMP #### [facility] [address] [address] [address] Sarah Nath LDL CALC NORMAL SEE BELOW Normal [facility] Comment on above: Result Comment: <100 mg/dl OPTIMAL 100 - 129 mg/dl NEAR OR ABOVE OPTIMAL 130 - 159 mg/dl BORDERLINE HIGH 160 - 189 mg/dl HIGH >190 mg/dl VERY HIGH Performed By: #### A LT, LIPID, BMP #### [facility] [address] [address] [address] Sarah Nath Triglyceride [Mass/Vol] 94 mg/dL Normal <=150 [facility] Comment on above: Performed By: #### A LT, LIPID, BMP #### [facility] [address] [address] [address] Sarah Nath VLDL CALC 18.8 mg/dL Normal [facility] Comment on above: Performed By: #### A LT, LIPID, BMP #### [facility] [address] [address] [address] Sarah Nath PROF CHEM 8 (BAS METB)on Anion gap [Moles/Vol] 13.3 mmol/L Normal [facility] Comment on above: Performed By: #### A LT, LIPID, BMP #### [facility] [address] [address] [address] Sarah Nath Calcium [Mass/Vol] 8.8 mg/dL Normal 8.5-10.1 [facility] Comment on above: Performed By: #### A LT, LIPID, BMP #### [facility] [address] [address] [address] Sarah Nath Chloride [Moles/Vol] 102 mmol/L Normal 98-107 [facility] Comment on above: Performed By: #### A LT, LIPID, BMP #### [facility] [address] [place] [address] Dr. Sarah Nath CO2 [Moles/Vol] 24.6 mmol/L Normal 21.0-32.0 [facility] Comment on above: Performed By: #### A LT, LIPID, BMP #### [facility] [address] [place] [address] Dr. Sarah Nath Creatinine [Mass/Vol] 0.77 mg/dL Normal 0.70-1.30 [facility] Comment on above: Performed By: #### A LT, LIPID, BMP #### [facility] [address] [place] [address] Dr. Sarah Nath EGFR-AF ITALIAN >60 Normal >=60 [facility] Comment on above: Performed By: #### A LT, LIPID, BMP #### [facility] [address] [place] [address] Dr. Sarah Nath EGFR-NON AF ITALIAN >60 Normal >=60 [facility] Comment on above: Performed By: #### A LT, LIPID, BMP #### [facility] [address] [place] [address] Dr. Sarah Nath Glucose [Mass/Vol] 100 mg/dL Normal 74-106 [facility] Comment on above: Performed By: #### A LT, LIPID, BMP #### [facility] [address] [place] [address] Dr. Sarah Nath Potassium [Moles/Vol] 3.9 mmol/L Normal 3.5-5.1 [facility] Comment on above: Performed By: #### A LT, LIPID, BMP #### [facility] [address] [place] [address] Dr. Sarah Nath Sodium [Moles/Vol] 136 mmol/L Normal 136-145 [facility] Comment on above: Performed By: #### A LT, LIPID, BMP #### [facility] [address] [place] [address] Dr. Sarah Nath Urea nitrogen [Mass/Vol] 14.0 mg/dL Normal 7.0-18.0 [facility] Comment on above: Performed By: #### A LT, LIPID, BMP #### [facility] [address] [address] [address] Sarah Nath Urea nitrogen/Creatini ne [Mass ratio] 18.2 mg/mg Normal [facility] Comment on above: Performed By: #### A LT, LIPID, BMP #### [facility] [address] [address] [address] Sarah Nath [facility] 12-30-2021 ALT [Catalytic activity/Vol] 9 U/L Critically low 16-63 [facility] Comment on above: Performed By: #### A LT, LIPID, BMP #### [facility] [address] [address] [address] [facility] SARS-CoV-2 (COVID-19) RNA ZAHIDA+probe Ql (Unsp spec) Negative Normal Negative [facility] Comment on above: Order Comment: Healt hcare Worker?: N Result Comment: Testing for SARS-CoV-2 by RT-PCR This test was developed and its performance characteristics determined by [employer] and validated at the [facility]. This test has not been FDA [...] is terminated or revoked sooner. PERFORMED BY: [address] [address] [place] [address] PATHOLOGIST GRANTS MANAGER NANCY MICHEL M.D. Performed By: #### C OVID 19 [facility] #### [facility] [address] XR CHEST 1 Von 09-27-2021 XR [...] AGUILAR YOST Date: 2021-09-26 22:49 Normal [facility] CARDIAC OWEN ADMITon 022 CK [Catalytic activity/Vol] 89 U/L Normal 39-308 [facility] Comment on above: Performed By: #### C MADM #### [facility] [address] [address] [address] Sarah Nath CK.MB [Mass/Vol] 2.62 ng/mL Normal <=3.60 [facility] Comment on above: Performed By: #### C MADM #### [facility] [address] [address] [address] Sarah Nath HSTROP 5.6 pg/mL Normal 4.0-76.1 [facility] Comment on above: Result Comment: CUT- OFF POINTS HAVE BEEN ESTABLISHED BASED ON THE FOURTH UNIVERSAL DEFINITIONS OF MYOCARDIAL INFARCTION. THE UPPER REFERENCE LIMIT (URL) OF TROPONIN, DEFINED THE 99TH PERCENTILE OF cTnI DISTRIBUTION IN A REFERENCE POPULATION, HAS BEEN CONFIRMED THE DECISION THRESHOLD FOR DE DIAGNOSIS. Performed By: #### C MADM #### [facility] [address] [address] [address] Sarah Nath MARISELA 73 ng/mL Normal 16-96 [facility] Comment on above: Performed By: #### C MADM #### [facility] [address] [address] [address] Sarah Nath CBC AUTO DIFFon 09-26-2021 BASO # 0.1 103/ul Normal 0.0-0.1 [facility] Comment on above: Performed By: #### C MADM #### [facility] [address] [address] [address] Sarah Nath Basophils/100 WBC (Bld) 0.7 % Normal 0.2-2.0 [facility] Comment on above: Performed By: #### C MADM #### [facility] [address] [address] [address] Sarah Nath EO # 0.1 103/ul Normal 0.0-0.7 [facility] Comment on above: Performed By: #### C MADM #### [facility] [address] [place] [address] Dr. Sarah Nath Eosinophils/100 WBC (Bld) 1.0 % Normal 0.9-7.0 [facility] Comment on above: Performed By: #### C MADM #### [facility] [address] [address] [address] Sarah Nath Erythrocyte distribution width (RBC) [Ratio] 12.9 % Normal 11.0-15.0 [facility] Comment on above: Performed By: #### C MADM #### [facility] [address] [address] [address] Sarah Nath Hematocrit (Bld) [Volume fraction] 48.9 % Normal 42.0-54.0 [facility] Comment on above: Performed By: #### C MADM #### [facility] [address] [address] [address] Sarah Nath Hemoglobin (Bld) [Mass/Vol] 16.1 g/dL Normal 14.0-18.0 [facility] Comment on above: Performed By: #### C MADM #### [facility] [address] [address] [address] Sarah Nath IG # 0.06 10e3/ul Critically high 0.00-0.03 [facility] Comment on above: Performed By: #### C MADM #### [facility] [address] [address] [address] Sarah Nath IG % 0.7 % Critically high 0.0-0.5 [facility] Comment on above: Performed By: #### C MADM #### [facility] [address] [address] [address] Sarah Nath LYMPH # 2.0 103/ul Normal 1.2-3.8 [facility] Comment on above: Performed By: #### C MADM #### [facility] [address] [address] [address] Sarah Nath Lymphocytes/100 WBC (Bld) 21.2 % Normal 20.5-60.0 [facility] Comment on above: Performed By: #### C MADM #### [facility] [address] [place] [address] Dr. Sarah Nath MANUAL DIFF REQ NO Normal [facility] Comment on above: Performed By: #### C MADM #### [facility] [address] [address] [address] Sarah Nath MCH (RBC) [Entitic mass] 30.4 pg Normal 25.9-34.0 [facility] Comment on above: Performed By: #### C MADM #### [facility] [address] [address] [address] Sarah Nath MCHC (RBC) [Mass/Vol] 32.9 g/dL Normal 29.9-35.2 [facility] Comment on above: Performed By: #### C MADM #### [facility] [address] [address] [address] Sarah Nath MCV (RBC) [Entitic vol] 92.3 fL Normal 80.0-94.0 [facility] Comment on above: Performed By: #### C MADM #### [facility] [address] [address] [address] Sarah Nath MONO # 0.7 103/ul Normal 0.3-0.8 [facility] Comment on above: Performed By: #### C MADM #### [facility] [address] [address] [address] Sarah Nath Monocytes/100 WBC (Bld) 7.9 % Normal 1.7-12.0 [facility] Comment on above: Performed By: #### C MADM #### [facility] [address] [address] [address] Sarah Nath NEUT # 6.3 103/ul Normal 1.4-6.5 [facility] Comment on above: Performed By: #### C MADM #### [facility] [address] [address] [address] Sarah Nath Neutrophils/100 WBC (Bld) 68.5 % Normal 43.0-75.0 [facility] Comment on above: Performed By: #### C MADM #### [facility] [address] [place] [address] Dr. Sarah Nath Platelet mean volume (Bld) [Entitic vol] 11.1 fL Normal 9.5-13.5 [facility] Comment on above: Performed By: #### C MADM #### [facility] [address] [address] [address] Sarah Nath PLT 231 103/ul Normal 150-450 [facility] Comment on above: Performed By: #### C MADM #### [facility] [address] [address] [address] Sarah Nath RBC 5.30 106/ul Normal 4.70-6.10 [facility] Comment on above: Performed By: #### C MADM #### [facility] [address] [address] [address] Sarah Nath WBC 9.2 103/ul Normal 4.0-11.0 [facility] Comment on above: Performed By: #### C MADM #### [facility] [address] [address] [address] Sarah Nath Coding Summary.on 02-19-2018 Coding Summary. CODING DATE: 018 FINAL [facility] STATUS: Home (Routine DC) PAYOR: Medicare APC [...] Terry Date Saved: 02/19/2018 12:43 pm Normal [facility] XR Swallowing Function w/ Vi deoon [...] Dose: Ka,r in mGy = 4.8 Normal [facility] Coding Summary.on 12-05-2017 Coding Summary. CODING DATE: 018 FINAL [facility] STATUS: Home (Routine DC) PAYOR: Medicare APC DESCRIPTION [id number] [facility] Procedures ADMIT DX: REASON FOR VISIT DX: H26.40 Unspecified secondary cataract FINAL DX: PRINCIPAL: H26.40 Unspecified secondary cataract SECONDARY: PYMT PROC APC STAT DESCRIPTION DOCTOR NAME DATE [id number] T Discission of secondary Sterling Chatman DO [...] Jewell Reynoso Date Saved: 12/05/2017 09:17 am [facility] Vital Signs Date Time Vital Sign Value Performing Clinician Facility 01-09-2024 10:48-0400 SaO2% (BldA) [Mass fraction] 97 % Memo Magallon MD Work Phone: [facility] 04-19-2023 10:00-0500 Body height 162.56 cm Prashant ZAOZAO Other [facility] Other 04-19-2023 10:00-0500 Body mass index (BMI) [Ratio] 26.5 kg/m2 Prashant ZAOZAO Other [facility] Other 04-19-2023 10:00-0500 Body weight 70.04 kg Prashant Ball Other [facility] Other 04-19-2023 10:00-0500 Diastolic blood pressure 80 mm[Hg] Prashant ZAOZAO Other [facility] Other 04-19-2023 10:00-0500 Respiratory rate 12 /min Prashant ZAOZAO Other [facility] Other 04-19-2023 10:00-0500 Systolic blood pressure 190 mm[Hg] Prashant Ball Other [facility] Other 01-12-2023 10:30-0400 Body height 162.56 cm Prashant Ball Other [facility] Other 01-12-2023 10:30-0400 Body mass index (BMI) [Ratio] 26.33 kg/m2 Prashant Ball Other [facility] Other 01-12-2023 10:30-0400 Body weight 69.58 kg Prashant Ball Other [facility] Other 01-12-2023 10:30-0400 Diastolic blood pressure 60 mm[Hg] Prashant Ball Other [facility] Other 01-12-2023 10:30-0400 Respiratory rate 12 /min Prashant Ball Other [facility] Other 01-12-2023 10:30-0400 Systolic blood pressure 108 mm[Hg] Prashant Ball Other [employer] Other 11-14-2022 09:45-0400 Body height 162.56 cm Prashant Ball Other [facility] Other 11-14-2022 09:45-0400 Body weight 0.91 kg Prashant Ball Other [facility] Other 11-14-2022 09:45-0400 Diastolic blood pressure 75 mm[Hg] Prashant Ball Other [facility] Other 11-14-2022 09:45-0400 Respiratory rate 12 /min Prashant Ball Other [facility] Other 11-14-2022 09:45-0400 Systolic blood pressure 167 mm[Hg] Prashant Ball Other [facility] Other 10-12-2022 10:30-0400 Body height 162.56 cm Prashant Ball Other [facility] Other 10-12-2022 10:30-0400 Body mass index (BMI) [Ratio] 25.95 kg/m2 Prashant Ball Other [facility] Other 10-12-2022 10:30-0400 Body weight 68.58 kg Prashant Ball Other [facility] Other 10-12-2022 10:30-0400 Diastolic blood pressure 64 mm[Hg] Prashant Ball Other [facility] Other 10-12-2022 10:30-0400 Respiratory rate 12 /min Prashant Ball Other [facility] Other 10-12-2022 10:30-0400 Systolic blood pressure 124 mm[Hg] Prashant Ball Other [facility] Other 06-28-2022 12:30-0400 Body height 162.56 cm Prashant Ball Other [facility] Other 06-28-2022 12:30-0400 Body mass index (BMI) [Ratio] 25.95 kg/m2 Prashant Ball Other [facility] Other 06-28-2022 12:30-0400 Body weight 68.58 kg Prashant Ball Other [facility] Other 06-28-2022 12:30-0400 Diastolic blood pressure 81 mm[Hg] Prashant Ball Other [facility] Other 06-28-2022 12:30-0400 Respiratory rate 12 /min Prashant Ball Other [facility] Other 06-28-2022 12:30-0400 Systolic blood pressure 177 mm[Hg] Prashant Gary Other [facility] Other Encounters Encounter Date Encounter Type Care Provider Facility Start: 01-09-2024 End: 01-09-2024 ambulatory PRASHANT GARY Facility:[facility] Start: 01-09-2024 End: 01-09-2024 Office outpatient visit [...] with patient Memo Magallon MD Work Phone: [facility] Start: 05-25-2023 End: 05-25-2023 ambulatory Prashant Gary Other [facility] [facility] Other Start: 05-25-2023 Telephone encounter Prashant ORDAZ [facility] Start: 05-22-2023 End: 05-22-2023 ambulatory Prashant Gary Other [facility] [facility] Other Start: 05-22-2023 Telephone encounter Prashant ORDAZ [facility] Start: 05-17-2023 End: 05-17-2023 ambulatory Prashant Gary Other [facility] [facility] Other Start: 05-17-2023 Telephone encounter Prashant ORDZA [facility] Start: 05-14-2023 End: 05-14-2023 ambulatory Prashant Gary Other [facility] Other Start: 05-14-2023 Telephone encounter Prashant ORDAZ [facility] Start: 05-10-2023 End: 05-10-2023 ambulatory PRASHANT GARY Facility:[facility] Start: 05-07-2023 End: 05-07-2023 ambulatory Prashant Ball Other [facility] Other Start: 05-07-2023 Telephone encounter Prashant Gary [facility] Start: 04-30-2023 Refill Memo faria MD Work Phone: [facility] Comment on above: Refill Request Start: 04-26-2023 End: 04-26-2023 ambulatory Prashant Gary Other [facility] Other Start: 04-26-2023 Telephone encounter Prashant Gary [facility] Start: 04-19-2023 End: 04-19-2023 ambulatory Prashant Ball Other [facility] Other Start: 04-19-2023 Office outpatient vi sit 25 minutes Prashant Gary [facility] Start: 02-09-2023 End: 02-09-2023 ambulatory Prashant Ball Other [facility] Other Start: 02-09-2023 Telephone encounter Prashant Gary [facility] Start: 01-14-2023 End: 01-14-2023 ambulatory Prashant Ball Other [facility] Other Start: 01-14-2023 Telephone encounter Prashant Gary [facility] Start: 01-12-2023 End: 01-12-2023 ambulatory Prashant Ball Other [facility] Other Start: 01-12-2023 Patient encounter procedure Prashant Ball [facility] Start: 12-29-2022 End: 12-29-2022 ambulatory Parshant Ball Other [facility] Other Start: 12-29-2022 Telephone encounter Prashant Ball [facility] Start: 12-15-2022 End: 12-15-2022 ambulatory Prashant Ball Other [facility] Other Start: 12-15-2022 Telephone encounter Prashant ORDAZ [facility] Start: 12-06-2022 Telephone encounter Memo sawyer MD Work Phone: Neurology Comment on above: Medication Problem Start: 11-14-2022 End: 11-14-2022 ambulatory Prashant Gary Other [facility] Other Start: 11-14-2022 Office outpatient vi sit 15 minutes Prashant Gary [facility] Start: 10-12-2022 End: 10-12-2022 ambulatory Prashant Gary Other [facility] Other Start: 10-12-2022 Office outpatient vi sit 25 minutes Prashant Abdirahman [facility] Start: 09-12-2022 End: 09-12-2022 ambulatory Prashant Gary Other [facility] Other Start: 09-12-2022 Telephone encounter Prashant ORDAZ [facility] Start: 08-17-2022 End: 08-17-2022 ambulatory WEN BAEZ Facility:[facility] Start: 08-17-2022 End: 08-18-2022 ambulatory NARENDRANATH LAKSHMIPATHY . Facility:[facility] Start: 08-01-2022 End: 08-01-[address] PRASHANT GARY Facility:[facility] Start: 07-18-2022 End: 07-19-[address] PRASHANT GARY Facility:[facility] Start: 06-28-2022 End: 06-28-2022 ambulatory Prashant Gary Other [facility] Other Start: 06-28-2022 Office outpatient vi sit 25 minutes Prashant Abdirahman [facility] Start: 06-28-2022 Telephone encounter Prashant ORDAZ [facility] Start: 04-28-2022 End: 04-28-2022 ambulatory Memo Magallon MD Work Phone: Neurology Comment on above: Parkinson disease (H CC); Gait instability Start: 04-28-2022 End: 04-28-2022 Telemedicine consultation with patient Memo Magallon MD Work Phone: [facility] Start: 04-21-2022 End: 04-22-[address] PRASHANT GARY Facility:[facility] Start: 12-30-2021 End: 12-31-[address] PRASHANT GARY Facility:[facility] Start: 12-27-2021 Adult health examination Josiah harper Abdirahman Other [facility] Other Start: 10-24-2021 End: 10-24-2021 [facility] Memo Magallon MD Work Phone: Neurology Comment on above: Parkinson disease (H CC) (Primary Dx); REM sleep behavior disorder; Restless legs syndrome Start: 09-26-2021 End: 09-27-2021 ambulatory WEN BAEZ Facility:[facility] Start: 02-18-2018 End: 02-19-2018 Patient encounter procedure Julia Magallon Facility:[facility] Procedures Date Procedure Procedure Detail Performing Clinician Start: 12-30-2021 PSA screening NARENDRAN ATH [place] . Comment on above: Performed By: #### P [facility] #### [facility] [address] [place] [address] Dr. Sarah Nath Start: 04-12-2019 Adult depression [...] AM EDT Office Visit Neurology [address] [address] Memo Magallon MD [address] [place] [address] 6 month follow up Neurology Comment on above: 6 month follow up Start: 01-09-2024 End: 01-09-2024 Patient encounter procedure 01/09/2024 11:00 AM EDT Office Visit Neurology [address] [address] Memo Magallon MD [address] [place] [address] 6 month follow up Neurology Comment on above: 6 month follow up Start: 12-16-2023 Covid-19 Vaccine ( season) Covid-19 Vaccine () [facility] Start: 12-16-2023 Influenza vaccination Influenza Vacc ine (#1) [facility] Start: 04-16-2023 Advance Directive Discussion Advance Directive Discussion [facility] Start: 04-16-2023 Depression Assessment Depression Ass [facility] Start: 12-15-2022 Covid-19 Vaccine ( season) Covid-19 Vaccine ( season) [facility] Start: 12-15-2022 Influenza vaccination INFLUENZA (#1) [facility] Start: 11-23-2022 ambulatory Ambulatory Facility:[facility] Start: 04-16-2022 ADVANCE DIRECTIVE DISCUSSION ADVANCE DIRECTIVE DISCUSSION [facility] Start: 04-16-2022 [facility]PRESSION [facility]MENT [facility] Start: 12-15-2021 Influenza vaccination INFLUENZA (#1) [facility] Start: 04-16-2021 ADVANCE DIRECTIVE DISCUSSION ADVANCE DIRECTIVE DISCUSSION [facility] Start: 04-12-2020 Adult depression screening assessment DEPRESSION SCREENING [facility] Start: 11-28-2018 Pneumococcal Vaccine : 65+ (2 of 2 - PPSV23 or PCV20) Pneumococcal Vaccine: 65+ (2 of 2 - PPSV23 or PCV20) [facility] Start: 2018 RSV Vaccine (1 - 1-d ose 75+ series) RSV Vaccine (1 - 1-dose 75+ series) [facility] Start: 07-06-2015 DIABETES SCREEN DIABETES SCREEN [facility] Start: 07-06-2015 Diabetes Screening Diabetes Screenin g [facility] Start: 2008 PNEUMOCOCCAL: 65+ (1 - PCV) PNEUMOCOCCAL: 65+ (1 - PCV) [facility] Start: 2003 RSV Vaccine (1 - 1-d ose 60+ series) RSV Vaccine (1 - 1-dose 60+ series) [facility] Start: 1993 SHINGRIX VACCINE (1 of 2) SHINGRIX V ACCINE (1 of 2) [facility] Start: 1962 Urine microalbumin profile [facility] Start: 1961 ANNUAL PCP 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 FELECIA DISEASE VISIT ANNUAL PCP TEAM CHRONIC DISEASE VISIT [facility] Start: 1961 Anxiety Screening Anxiety Screening [facility] Start: 1961 BP CONTROLLED (<130/80) BP CONTROLLE D (<130/80) [facility] Start: 1961 Depression Screening Depression Scre ening [facility] Start: 1961 HEPATITIS C SCREENING HEPATITIS C SC REENING [facility] Start: 1943 COVID-19 VACCINE (#1) COVID-19 VACCI NE (#1) [facility] Immunizations Immunization Date Immunization Notes Care Provider Fa cility 01-12-2023 influenza, high dose seasonal, preservative-free Prashant Gary Other [facility] Other 01-12-2023 influenza virus vaccine, unspecified formulation Memo Magallon MD Work Phone: [facility] 12-29-2021 influenza virus vaccine, split virus (incl. purified surface antigen) Prashant Gary Other [facility] Other 03-29-2021 COVID-19 Vaccine Pfi zer - Documentation Purposes Only Prashant Gary Other [facility] Other 06-04-2020 COVID-19 Vaccine Pfi zer - Documentation Purposes Only Prashant Gary Other [facility] Other 05-14-2020 COVID-19 Vaccine Moderna - Documentation Purposes Only Prashant Gary Other [facility] Other 02-18-2020 influenza virus vaccine, split virus (incl. purified surface antigen) Prashant Gary Other [facility] Other 11-28-2017 influenza virus vaccine, split virus (incl. purified surface antigen) Prashant Gary Other [facility] Other 11-28-2017 pneumococcal conjuga te vaccine, 13 valent Prashant Gary Other [facility] Other Payers Date Payer Category Payer Medicare HUMANA MEDICARE HUMANA MEDICARE PPO [id number] 2011-Present [phone] [address] [place] [address] PPO [id number] 2011 Medicare HUMANA MEDICARE HUMANA MEDICARE PPO [id number] 2011-Present [phone] [address] [place] [address] PPO [id number] 1959 Medicare [id number] 1943 Unknown [id number] 1943 Unknown [id number] 1943 Unknown [id number] 1943 Unknown [id number] 1943 Unknown [id number] 1943 Unknown [id number] 1943 Unknown [id number] 1943 Unknown [id number] Social History Date Type Detail Facility Start: 03-01-2011 End: 01-09-2024 Tobacco smoking status NHIS Ex-smoker [facility] Start: 05-14-1975 End: 05-14-1983 History of tobacco use Current smoker [facility] Start: 05-14-1975 End: 05-14-1983 History of tobacco use Cigarette Smoker [facility] Start: 03-01-2011 End: 07-05-2023 Cigarettes smoked current (pack per day) - Reported 12 [facility] Start: 03-01-2011 End: 01-09-2024 Tobacco use and exposure Smokeless tobacco non-user [facility] Start: 01-22-2020 End: 01-09-2024 Alcohol intake Current drinker of alcohol (finding) [facility] Start: 1945 Sex Assigned At Not on file [facility] Start: 10-14-2021 End: 10-24-2021 Exposure to SARS-CoV-2 (event) Unable to assess [facility] Work Phone: Start: 01-22-2020 End: 07-05-2023 Sex Assigned At [facility] Adult Depression Screening Assessment 4 [facility] Medical Equipment Procedure Code Equipment Code Equipment Origin al Text Equipment Identifier Dates Graft Bn Infs Rhbmp-2 2.8ml Sm - [id number] Start: 05-15-2012 Sub Bngf Prognx + Dbm Bov - [id number] Start: 05-15-2012 6.5 Commpression Screw [id number] Start: 03-01-2011 6.5 Mm Compressi on Screw [id number] Start: 03-01-2011 6.5 Compression Screw [id number] Start: 03-01-2011 4.5mm Compressio n Screw [id number] Start: 03-01-2011 6.5mm X110mm Screw [id number] Start: 03-01-2011 Oec-Mf-E-Kind Implant - [id number] Start: 05-15-2012 Comment on above: Description: 3.5 x 2 0mm angle lock screw Aop-Du-Q-Kind Implant - [id number] Start: 05-15-2012 Comment on above: Description: 3.5 x 1 0 mm angle lock screw Ivx-Sr-W-Kind Implant - [id number] Start: 05-15-2012 Comment on above: Description: 3.5 x 1 0mm angle lock screw Tpe-Nx-R-Kind Implant - [id number] Start: 05-15-2012 Comment on above: Description: 8 hole l shape ankle plate Ajh-To-F-Kind Implant - [id number] Start: 05-15-2012 Comment on above: Description: 3.5 x 3 0 lock screw Tzr-Dx-D-Kind Implant - [id number] Start: 05-15-2012 Comment on above: Description: 3.5 x 3 0mm angle lock screw Trr-Kb-O-Kind Implant - [id number] Start: 05-15-2012 Comment on above: Description: 3.5mm 3 8mm lock screw [id number] 0329 52-Plate Omega3 Standard Barrel Hip Keyless 135 4 Hole [id number] - [id number] Start: 07-05-2012 Screw Compr 6.5x 50mm - [id number] Start: [id number] 0329 52-Screw Bn 13mm 100mm O+ Ss Std - [id number] Start: [id number] 0329 52-Screw Compression [place] 32mm 774931f - [id number] Start: [id number] 0329 52-Screw Bn 4.5mm 38mm Axsos Ss - [id number] Start: [id number] 0329 52-Screw Bn 4.5mm 36mm Axsos Ss - [id number] Start: 03-22-2013 Clinical Notes 10-24-2021 to 01-10-2024 Memo Magallon MD - 01/10/2024 12:46 PM EDTAMemo bruno MD - 07/05/2023 7:32 AM EDT Note Date & Type Note Facility 01-10-2024 Note HNO ID: [id number] Author: MEMO MAGALLON MD Service: ? Author Type: Physician Type: Progress Notes Filed: 01/10/2024 12:50 Note Text: [facility] - FOLLOW UP EVALUATION Prashant Gary, DO [address] [facility] [address] I had the pleasure of seeing Mr. [...] please feel free to send me a Kickplay message or contact the office PT Interval [...] MDS-UPDRS Motor subsc (more content not included)... [facility] 01-10-2024 History of Present illness Narrative [facility] - FOLLOW UP EVALUATION Prashant Gary, DO [address] [facility] [address] I had the pleasure of seeing Mr. [...] please feel free to send me a ZENTt message or contact the office PT Interval [...] the amplitude decrements starting after the 1st pyam-bxk-wmwze sequence. Arm Movements Right 1-Slight. a) the [...] whether dyskinesia present, unspecified whether manifestations fluctuate ([facility]) Plan 01/09/2024 Visit: Continue your medications as you have been taking them. We are not making any changes today. If you feel you are not tolerating them or your symptoms are changing before your next appointment, please feel free to send me a Kickplay message or contact the office - Physical therapy- Interested in clinical research? Not discussed Updated Movement Disorders Medication Schedule: Medications 6am 12pm 6pm 12am Sinemet 25/100 2 2 2 Mirapex 0.25 mg 3 3 3 3 Return at or around: 07/08/24 Level of service : 02416 (20-29 min). Time spent 24 min on the day of service, which included preparing to see the patient, ntsz-sv-eqlj patient care, completing clinical documentation, performing a medically appropriate examination, and counseling and educating the patient/family/caregiver. Thank you for allowing me to be part of the clinical care of this patient! I look forward to continued participation in the patient s care with you. Please do not hesitate to call with any questions. Sincerely, Memo Magallon MD documented in this encounter [facility] 07-05-2023 Note HNO ID: [id number] Author: MEMO MAGALLON MD Service: ? Author Type: Physician Type: Progress Notes Filed: 07/08/2023 15:52 Note Text: [facility] - FOLLOW UP EVALUATION - VIRTUAL VISIT Prashant Gary DO [address] [facility] [address] Dear Prashant Gary DO: I had the [...] visit. Either the patient or their legal sales representative groceries has been informed of the risks and [...] please feel free to send me a Kickplay message or contact the office PT Interested in clinical research? Not currently Updated Movement Disor (more content not included)... [facility] 07-05-2023 History of Present illness Narrative [facility] - FOLLOW UP EVALUATION - VIRTUAL VISIT Prashant Gary DO [address] [facility] [address] Dear Prashant Gary DO: I had the [...] visit. Either the patient or their legal sales representative groceries has been informed of the risks and [...] please feel free to send me a Kickplay message or contact the office PT Interested [...] Memo Magallon MD documented in this encounter [facility] 05-25-2023 Evaluation note Encounter Date Diagnosis Assessment Notes May, Essential hypertension (ICD-10 - I10) [facility] Other 01-25-2024 NoteHNO ID: [id number] Author: MEMO MAGALLON MD Service: ? Author Type: Physician Type: Progress Notes Filed: 05/14/2023 07:43 Note Text: [facility] - FOLLOW UP EVALUATION No referring provider defined for this encounter. Prashant Gary DO [address] [facility] [address] I had the pleasure of seeing Mr. [...] Performed: MDS-UPDRS Motor subsca (more content not included)...[facility] 04-30-2023 Telephone encounter Note* Telephone Encounter - Memo Magaloln MD - 04/30/2023 12:16 PM EST Done [facility]01-15-2024 Miscellaneous Notes* Telephone Encounter - Memo Magallon [...] to the patient's pharmacy. Mague Da Silva, Ecotherapist III documented [facility] Telephone encounter Note * Telephone Encounter - [...] to the patient's pharmacy. Mague Da Silva, Ecotherapist III [facility]01-11-2024 Evaluation note* Encounter Date Diagnosis Assessment Notes Treatment Notes Treatment Clinical Notes Apr, Primary hypertension (ICD-10 - I10) [facility] Other 01-04-2024 Evaluation note* Encounter Date Diagnosis [...] report is being monitored every 90 days. [facility] Other 09-29-2023 Evaluation note* Encounter Date Diagnosis [...] directed therapy Failed to improve w/ injections [facility] Other 08-23-2023 Miscellaneous Notes* Telephone Encounter - Autumn Graff - 12/06/2022 8:52 AM EDT Pharmacy called stating they the [facility] are unable to fill the carbidopa-levodopa ([id number]) 25-100 mg per tablet. Patient is requesting that it be sent to e- [facility]/pharmacy #[id number] [place] [address] - [address] [facility] . Please call patient at [phone] once sent to the pharmacy. Thank you! Autumn Graff [facility] note* Encounter Date Diagnosis Assessment Notes [...] and feet daily for blisters and ulcerations. [facility] Other 06-29-2023 Evaluation note* Encounter Date Diagnosis [...] diet, fluids and reduce Amitiza to 8mg [facility] Other 05-30-2023 Evaluation note* Encounter Date Diagnosis Assessment Notes Treatment Notes Treatment Clinical Notes August, Essential hypertension (ICD-10 - I10) [facility] Other 04-04-2023 NoteCONSULTATION CONSULTATION DATE: 07/18/2022 TO: [...] comfortable in the semi-recumbent position. He uses Ihlen for pain control, 5 mg daily p.r. [...] our patients to inform us about any bada-tfh-ahaqadc medications or herbal remedies/nutritional supplements/alternative remedies. 2. [...] treatment options with their primary care provider.[id number] note * Encounter Date Diagnosis Assessment [...] Chronic prescription opiate use (ICD-10 - Z79.891) [facility] Other 01-13-2023 History of Present illness Narrative* Memo Magallon MD - 04/28/2022 5:28 PM EST [facility] - FOLLOW UP EVALUATION - VIRTUAL VISIT Prashant Gary DO [address] [facility] [address] Dear Prashant Gary DO: I had the pleasure of seeing Mr. De La Garza for follow-up today. As you know he is a 77 year old right-handed male with a history of Parkinson's disease since 2002. Also with chronic low back pain and diffuse arthritis, fused ankles. He is seen with his . We had a visit using: [employer] I received consent from the patient to [...] 3 3 3 Level of service : 49593 (20-29 min). Time spent 25 min on the day of service, which included preparing to see the patient, nqno-kh-upcv patient care, completing clinical documentation, and counseling and educating the patient/family/caregiver. Thank you for allowing me to be part of the clinical care of this patient! I look forward to continued participation in the patient s care with you. Please do not hesitate to call with any questions. Sincerely, Memo Magallon MD [facility] History of Present illness Narrative* Memo Magallon MD - 10/24/2021 11:00 AM EDT [facility] - FOLLOW UP EVALUATION Tamika Gillis [address] [facility] [address] Prashant Gary, DO [address] [place] [facility] [place] [address] I had the pleasure of seeing Mr. De La Garza for follow up today. He is a 76 year old right-handed male with a history of Parkinson's disease since 2002. Also with chronic low back pain and diffuse arthritis, fused ankles. He is seen with his . We had a visit using: [employer] I received consent from the patient to [...] Sincerely, Memo Magallon MD [facility] Diagnosis Parkinson disease (HCC)- Primary Paralysis agitans REM sleep behavior disorder Restless legs syndrome Restless legs syndrome (RLS) documented in this encounter [facility] note* Diagnosis Parkinson disease (HCC) Paralysis agitans Gait instability Abnormality of gait documented in this encounter [facility] noteNo [employer] Other Evaluation note* Diagnosis Parkinson's disease, unspecified whether dyskinesia present, unspecified whether manifestations fluctuate (HCC) Gait instability Abnormality of gait documented in this encounter [facility] note* Diagnosis Parkinson disease (HCC) Paralysis agitans Gait instability Abnormality of gait [facility] Diagnosis Parkinson's disease, unspecified whether dyskinesia present, unspecified whether manifestations fluctuate (HCC) documented in this [facility] general Narrative - Reported* Type Description [...] ON 2021 Hospitalization History SEE SURGICAL HX [facility] Other Reason for referral (narrative)* Reason * 07/12 Referral for pain management Diagnosis 1 Lumbar spondylosis ( M47.816) Diagnosis 2 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 P: [phone] F: [id number] [facility] Other Summary Purpose Family History No Family [...] 60-74 MINUTES Memo Magallon MD [address] [address] Referral ID Status Reason Start Date Expiration Date Visits Requested Visits Authorized [id number] Authorized PCP Requested Referral 10/24/2021 01/22/2022 1 1 Referral ID Status Reason Start Date Expiration Date Visits Requested Visits Authorized [id number] Authorized PCP Requested Referral 04/28/2022 07/27/2022 1 1 Specialty Diagnoses / Procedures Referred By Contac t Referred To Contact Diagnoses Parkinson's disease, unspecified whether dyskinesia present, unspecified whether manifestations fluctuate (HCC) Procedures PROVIDER ORDERED FOLLOW UP OFFICE/OUTPATIENT NEW HIGH MDM 60 MINUTES Memo Magallon MD [address] [address] Referral ID Status Reason Start Date Expiration Date Visits Requested Visits Authorized [id number] Authorized PCP Requested Referral 07/05/2023 10/03/2023 1 1 Referral ID Status Reason Start Date Expiration Date Visits Requested Visits Authorized [id number] Authorized PCP Requested Referral 01/09/2024 04/08/2024 1 1 Specialty Diagnoses / Procedures Referred By Contac t Referred To Contact [facility] Diagnoses Parkinson's disease, unspecified whether dyskinesia present, unspecified whether manifestations fluctuate (HCC) Procedures CONSULT TO PHYSICAL THERAPY PHYSICAL THERAPY EVALUATION HIGH COMPLEX 45 MINS Memo Magallon MD [address] [address] [facility] [place] [id number] Referral ID Status Reason Start Date Expiration Date Visits Requested Visits Authorized [id number] Pending Review Auto-Generat ed Referral 01/09/2024 01/08/2025 1 1 Additional Source Comments (unrecognized sect ion and content) No Status Records FoundNo Status Records FoundNo Status Records FoundNo Status Records Found INFORMATION SOURCE (unrecogn ized section and content) DATE CREATED AUTHOR 03/24/2018 Daniel Nunez [facility] DATE CREATED AUTHOR AUTHOR'S ORGANIZ ATION 10/07/2021 [facility] DATE CREATED AUTHOR AUTHOR'S ORGANIZ ATION 08/22/2022 [facility] DATE CREATED AUTHOR AUTHOR'S ORGANIZ ATION 01/11/2024 [facility] Source Comments (unrecognize d section and content) In the event this informatio n is protected by the Federal Confidentiality of Alcohol and Drug Abuse Patient Records regulations: The Federal rules restrict any use of the information to criminally investigate or prosecute any alcohol or drug abuse patient.[facility] the event this information is protected by the Federal Confidentiality of Alcohol and Drug Abuse Patient Records regulations: The Federal rules restrict any use of the information to criminally investigate or prosecute any alcohol or drug abuse patient.[facility] the event this information is protected by the Federal Confidentiality of Alcohol and Drug Abuse Patient Records regulations: The Federal rules restrict any use of the information to criminally investigate or prosecute any alcohol or drug abuse patient.[facility] the event this information is protected by the Federal Confidentiality of Alcohol and Drug Abuse Patient Records regulations: The Federal rules restrict any use of the information to criminally investigate or prosecute any alcohol or drug abuse patient.[facility] [place] the event this information is protected by the Federal Confidentiality of Alcohol and Drug Abuse Patient Records regulations: The Federal rules restrict any use of the information to criminally investigate or prosecute any alcohol or drug abuse patient.[facility] the event this information is protected by the Federal Confidentiality of Alcohol and Drug Abuse Patient Records regulations: The Federal rules restrict any use of the information to criminally investigate or prosecute any alcohol or drug abuse patient.[facility] Reason for Visit (unrecogniz ed section and content) Reason Comments Telemedicine Follow Up Specialty Diagnoses / Procedures Referred By Contac t Referred To Contact Diagnoses Parkinson disease (HCC) Procedures PROVIDER ORDERED FOLLOW UP OFFICE/OUTPATIENT [facility] 60-74 MINUTES Memo Magallon MD [address] [place] [address] Referral ID Status Reason Start Date Expiration Date V isits Requested Visits Authorized [id number] Closed PCP Requested Referral 10/24/2021 01/22/2022 1 1 Reason Comments Medication Problem Reason Onset Date Comments Refill Request 04/30/2023 Reason Comments Parkinson's Disease Specialty Diagnoses / Procedures Referred By Rose t Referred To Contact Diagnoses Parkinson's disease, unspecified whether dyskinesia present, unspecified whether manifestations fluctuate ([facility]) Procedures PROVIDER ORDERED FOLLOW UP OFFICE/OUTPATIENT NEW HIGH MDM 60 MINUTES Memo Magallon MD [address] [address] Referral ID Status Reason Start Date Expiration Date V isits Requested Visits Authorized [id number] Closed PCP Requested Referral 07/05/2023 10/03/2023 1 1 Care Teams (unrecognized sec tion and content) Tank Cooper Relationship Specialty Start Date End Date Prashant Gary DO PCP - General 03/11/07 Tank Cooper Relationship Specialty Start Date End Date Prashant Gary DO PCP - General 03/11/07 Tank Cooper Relationship Specialty Start Date End Date Prashant Gary DO PCP - General 03/11/07 Tank Cooper Relationship Specialty Start Date End Date Prashant Gary DO PCP - General 03/11/07 Memo Magallon MD [address] [address] Specialty Project Planner Neurology 04/04/23 Tamika Gillis STEAM HAMMER OPERATOR.TELEPHONE SUPERVISOR [address] [place] [address] Specialty Project Planner Neurology 04/04/23 Tank Cooper Relationship Specialty Start Date End Date Prashant Gary DO PCP - General 03/11/07 Memo Magallon MD [address] [phone] Specialty Project Planner Neurology 04/04/23 Tamika Gillis, STEAM HAMMER OPERATOR.TELEPHONE SUPERVISOR [address] [place] [address] Specialty Project Planner Neurology 04/04/23 Tank Cooper Relationship Specialty Start Date End Date Prashant Gary DO PCP - General 03/11/07 Memo Magallon MD [address] [phone] Specialty Project Planner Neurology 04/04/23 Tamika Gillis, STEAM HAMMER OPERATOR.TELEPHONE SUPERVISOR [address], [place] [phone] Specialty Project Planner Neurology 04/04/23 FOR RECORDS PERTAINING TO PATIENTS [...] BE BASED ON THE PRIMARY CLINICAL RECORDS. [facility] [employer] [facility]. provides no warranty or guarantee of the accuracy or completeness of information in this document.
[2024-01-22 08:11] LABS: Basophils Absolute Auto 0.1 10^3/uL (0.0-0.1); Basophils Percent Auto 1.4 % (0.2-2.0); Eosinophils Absolute Auto 0.1 10^3/uL (0.0-0.7); Eosinophils Percent Auto 1.7 % (0.9-7.0); Hematocrit 42.1 % (42.0-54.0); Hemoglobin 14.1 g/dL (14.0-18.0); Immature Granulocytes Abs Auto 0.02 10^3/uL (0.00-0.03); Immature Granulocytes Pct Auto 0.3 % (0.0-0.5); Lymphocytes Absolute Auto 1.3 10^3/uL (1.2-3.8); Mean Corpuscular HGB Conc 33.5 g/dL (29.9-35.2); Mean Corpuscular Hemoglobin 30.3 pg (25.9-34.0); Mean Corpuscular Volume 90.5 fL (80.0-94.0); Mean Platelet Volume 11.6 fL (9.5-13.5); Monocytes Absolute Auto 0.6 10^3/uL (0.3-0.8); Monocytes Percent Auto 8.9 % (1.7-12.0); Neutrophils Absolute Auto 4.3 10^3/uL (1.4-6.5); Neutrophils Percent Auto 66.7 % (43.0-75.0); Platelet Count 175 10^3/uL (150-450); Red Blood Count 4.65 10^6/uL (4.70-6.10); Red Cell Distribution Width 12.8 % (11.0-15.0); White Blood Count 6.4 10^3/uL (4.0-11.0)
[2024-01-22 09:49] LABS: Prostate Specific Antigen Scrn 0.69 ng/mL (<=4.00)
[2024-01-22 11:17] LABS: Alanine Aminotransferase <6 U/L (16-63); Albumin Globulin Ratio 1.2; Albumin Level 3.5 g/dL (3.4-5.0); Alkaline Phosphatase 93 U/L (46-116); Anion Gap 12.7; Aspartate Amino Transferase 16 U/L (15-37); BUN Creatinine Ratio 14.9; Bilirubin Total 0.9 mg/dL (0.2-1.0); Calcium 9.3 mg/dL (8.5-10.1); Chloride 103 mmol/L (98-107); Chol HDL Ratio 2.1; Cholesterol 150 mg/dL (<=200); Estimated GFR (African America >60 (>=60 mL/min/1.73m^2); Estimated GFR (Non-African Ame >60 (>=60 mL/min/1.73m^2); Globulin 2.9 g/dL; Glucose 95 mg/dL (74-106); HDL Cholesterol 70 mg/dL (40-60); Potassium 3.7 mmol/L (3.5-5.1); Sodium 138 mmol/L (136-145); Thyroid Stimulating Hormone 1.198 uIU/mL (0.358-3.740); Total Protein 6.4 g/dL (6.4-8.2); Triglycerides 58 mg/dL (<=150); VLDL CHOLESTEROL 11.6 mg/dL
== END 2024-01-22 07:39 | disposition home or self-care (01) ==
LOC: LAB 07:38
PROVIDERS: PCP Internal Medicine; Visit Provider Internal Medicine
DX: R63.4 Abnormal weight loss (principal); I10 Essential (primary) hypertension; E78.00 Pure hypercholesterolemia, unspecified; I87.2 Venous insufficiency (chronic) (peripheral); G20.C Parkinsonism, unspecified; Z12.5 Encounter for screening for malignant neoplasm of prostate; R53.83 Other fatigue
CPT/HCPCS: 36415; 80053; 80061; 84443; 85025; G0103

== ENCOUNTER 2024-01-27 13:58 | Emergency (ER) | payer MEDICARE, SELFPAY ==
[2024-01-27] VITALS (23 sets, daily range): BP systolic 63–145; BP diastolic 41–73; PULSE 59–73; TEMP 36.8; O2SAT 93–100; BMI 22.5
--- OUTSIDE RECORDS SUMMARY | 2024-01-27 14:05 | XMS_ITS | CCD ---
Author Organization [facility] Care Team Providers Care Game Show Host Name Role Phone Naun, Julia K Unavailable Unavailable Naun, Julia K Unavailable Unavailable Naun, Julia K Unavailable Unavailable BELEN [id number] UNKNOWN Unavailable Unavailable Prashant Gary DO Primary Care Provider Prashant Gary DO Primary Care Provider Prashant Gary LAKSHMIPATHY ., WILMER Attending Ev vailable ABDIRAHMAN, DR RANDLE Primary Care Unavailable LAKSHMIPATHY ., WILMER Consulting Ev vailable LAKSHMIPATHY ., WILMER Admitting Ev vailable ABDIRAHAMN, DR RANDLE Primary Care Unavailable LAKSHMIPATHY ., [...] Admitting Ev vailable Memo Magallon MD Unavailable [phone] [place] Unavailable [phone] Prashant Gary DO Primary Care Provider PRASHANT GARY Primary Care Unavailable MEMO MAGALLON Referring Unavailable MEMO MAGALLON Attending Unavailable PRASHANT GARY Primary Care Unavailable MEMO MAGALLON Referring Unavailable MEMO MAGALLON Attending Unavailable PRASHANT GARY Primary Care Unavailable MEMO MAGALLON Attending Unavailable Allergies Allergy Classification Reported Allergen(s) Allergy Type Date of Onset Reaction(s) Facility (7 sources) Latex; Translations: [LATEX, NATURAL RUBBER] Drug Allergy 022 [facility] Work Phone: (7 sources) Morphine; Translations: [MORPHINE] Drug Allergy 011 Other: See Comments [facility] (7 sources) Penicillin G; Translations: [PENICILLIN G] Drug Allergy 00[facility] Work Phone: (2 sources) Morphine Drug Allergy 020 [facility] (2 sources) natural latex rubber Drug allergy (disorder) [facility] (2 sources) Penicillins Drug allergy (disorder) 013 [facility] (13 sources) cyclobenzaprine Drug Allergy Cyclobenzaprine *CHEMICALS* Comment:Hallucina tions [employer] Other (13 sources) pregabalin Drug Allergy Comment:Hallucin a [employer] Other (13 sources) Flexeril *MUSCULOSKELETAL THERAPY AGENTS* Propensity to adverse reactions Comment:Hallucina Rainons [employer] Other (13 sources) Substance with penicillin structure and antibacterial mechanism of action (substance) Drug allergy Unknown [employer] Other (3 sources) patient allergy list reviewed by nurse or physicia Propensity to adverse reactions 016 Comment:Done [employer] Other Medications Current Medications Medication Drug Class(es) Dates Sig (Normalized) Sig (Original) AeroChamber Mini Chamber - (18 sources) Start: 06-28-2022 AeroChamber Mini Chamber - 1 inhalation Use with MDI every 4 hours as needed for cough or SOB for 30 days Jun, Active [id number] actuat albuterol 0.09 mg/actuat metered dose [...] times daily. Take 2 tablets by mo [facility] three times a day. 2 tab at 6am, 12pm and 6pm Take 2 tablets by [facility] three times a day. 24 hr [...] a day Active take 1 tablet by [facility] every twenty-four hours Losartan Potassium 100 MG [...] Active Start: 10-12-2022 take 1 capsule by [facility] once daily at mealtime Lubiprostone 8 MCG 1 capsule with food and water Orally qd for 30 days Sep, Active Start: 08-30-2022 take 1 capsule by [facility] twice daily at mealtime Lubiprostone 24 [...] on above: Take 3 tablets by mo [facility] four times daily. Completed/Discontinued Medications Medication Drug [...] sources) High risk drug monitoring status; Translations: [intermediate (current) use of opiate analgesic] Episodic Other aftercare (18 sources) H/O: high risk medication; Translations: [Other vermin exterminator (current) drug therapy] Episodic Other aftercare (4 sources) intermediate (current) use of opiate analgesic Episodic Other aftercare (3 sources) Long-term current use of drug therapy; Translations: [Other vermin exterminator (current) drug therapy] Episodic Other connective tissue [...] 11-27-2017 Episodic Other aftercare (1 source) Other vermin exterminator (current) drug therapy; Translations: [OTH OUTCOME ANALYST CURRENT DRUG THERAPY] Onset: 01-03-2022 Episodic Other [...] Test Name Value Interpretation Reference Range Facility [facility] 01-09-2024 CNOV Office Visit (NRMDN) -- GARYSILKE Radhika ([id number]) 1945 M Date Time Provider Department 01/09/24 11:00 AM MEMO MAGALLON [facility] During your visit today, we recorded the following information about you: Memo Magallon MD 01/10/2024 12:50 PM Signed [facility] - FOLLOW UP EVALUATION Prashant Gary DO [address] [facility] [address] I had the pleasure of seeing Mr. [...] please feel free to send me a [email or web address] message or contact the office PT Interval [...] Neurological Examination (more content not included)... Normal [facility] CNOVon 05-10-2023 CNOV Office Visit (NRMDN) -- SILKE DE LA GARZA ([id number]) 1945 M Date Time Provider Department 05/10/23 [...] or you can send a message through [employer]. You can also now schedule and select appointments through [employer]. MD Naun Gonzales Kristin, MD 05/14/2023 7:43 AM Signed [facility] - FOLLOW UP EVALUATION No referring provider defined for this encounter. Prashant Gary, DO [address] [facility] [address] I had the pleasure of seeing Mr. [...] (MIRAPEX) 0 (more content not included)... Normal [facility] CT HEAD WO CONon 08-17-2022 CT [...] by: ANNE COLLIER Date: 2022-08-17 20:25 Normal [facility] CREATININEon 04-21-2022 Creatinine [Mass/Vol] 0.84 mg/dL Normal 0.70-1.30 [facility] Comment on above: Performed By: #### C MADM #### [facility] [address] [place] [address] Dr. Sarah Nath EGFR-AF ETHIOPIAN >60 Normal >=60 [facility] Comment on above: Performed By: #### C MADM #### [facility] [address] [address] [address] Sarah Nath EGFR-NON AF ETHIOPIAN >60 Normal >=60 [facility] Comment on above: Performed By: #### C MADM #### [facility] [address] [place] [address] Dr. Sarah Nath CTA CHEST WO W [...] AL MANCERA Date: 2022-04-21 08:37 Normal [facility] HEMOGLOBINon 04-21-2022 Hemoglobin (Bld) [Mass/Vol] 16.1 g/dL Normal 14.0-18.0 [facility] Comment on above: Performed By: #### H GB #### [facility] [address] [address] [address] Sarah Nath CBC AUTO DIFFon 12-30-2021 BASO # 0.1 103/ul Normal 0.0-0.1 [facility] Comment on above: Performed By: #### C MADM #### [facility] [address] [place] [address] Dr. Sarah Nath Basophils/100 WBC (Bld) 0.9 % Normal 0.2-2.0 [facility] Comment on above: Performed By: #### C MADM #### [facility] [address] [address] [address] Sarah Nath EO # 0.1 103/ul Normal 0.0-0.7 [facility] Comment on above: Performed By: #### C MADM #### [facility] [address] [address] [address] Sarah Nath Eosinophils/100 WBC (Bld) 2.0 % Normal 0.9-7.0 [facility] Comment on above: Performed By: #### C MADM #### [facility] [address] [address] [address] Sarah Nath Erythrocyte distribution width (RBC) [Ratio] 12.5 % Normal 11.0-15.0 [facility] Comment on above: Performed By: #### C MADM #### [facility] [address] [place] [address] Dr. Sarah Nath Hematocrit (Bld) [Volume fraction] 44.2 % Normal 42.0-54.0 [facility] Comment on above: Performed By: #### C MADM #### [facility] [address] [place] [address] Dr. Sarah Nath Hemoglobin (Bld) [Mass/Vol] 14.6 g/dL Normal 14.0-18.0 [facility] Comment on above: Performed By: #### C MADM #### [facility] [address] [place] [address] Dr. Sarah Nath IG # 0.03 10e3/ul Normal 0.00-0.03 [facility] Comment on above: Performed By: #### C MADM #### [facility] [address] [place] [address] Dr. Sarah Nath IG % 0.4 % Normal 0.0-0.5 [facility] Comment on above: Performed By: #### C MADM #### [facility] [address] [place] [address] Dr. Sarah Nath LYMPH # 1.7 103/ul Normal 1.2-3.8 [facility] Comment on above: Performed By: #### C MADM #### [facility] [address] [place] [address] Dr. Sarah Nath Lymphocytes/100 WBC (Bld) 24.6 % Normal 20.5-60.0 [facility] Comment on above: Performed By: #### C MADM #### [facility] [address] [place] [address] Dr. Sarah Nath MANUAL DIFF REQ NO Normal [facility] Comment on above: Performed By: #### C MADM #### [facility] [address] [address] [address] Sarah Nath MCH (RBC) [Entitic mass] 30.0 pg Normal 25.9-34.0 [facility] Comment on above: Performed By: #### C MADM #### [facility] [address] [address] [address] Sarah Nath MCHC (RBC) [Mass/Vol] 33.0 g/dL Normal 29.9-35.2 [facility] Comment on above: Performed By: #### C MADM #### [facility] [address] [address] [address] Sarah Nath MCV (RBC) [Entitic vol] 90.8 fL Normal 80.0-94.0 [facility] Comment on above: Performed By: #### C MADM #### [facility] [address] [place] [address] Dr. Sarah Nath MONO # 0.6 103/ul Normal 0.3-0.8 [facility] Comment on above: Performed By: #### C MADM #### [facility] [address] [address] [address] Sarah Nath Monocytes/100 WBC (Bld) 8.8 % Normal 1.7-12.0 [facility] Comment on above: Performed By: #### C MADM #### [facility] [address] [address] [address] Sarah Nath NEUT # 4.3 103/ul Normal 1.4-6.5 [facility] Comment on above: Performed By: #### C MADM #### [facility] [address] [place] [address] Dr. Sarah Nath Neutrophils/100 WBC (Bld) 63.3 % Normal 43.0-75.0 [facility] Comment on above: Performed By: #### C MADM #### [facility] [address] [place] [address] Dr. Sarah Nath Platelet mean volume (Bld) [Entitic vol] 10.7 fL Normal 9.5-13.5 [facility] Comment on above: Performed By: #### C MADM #### [facility] [address] [address] [address] Sarah Nath PLT 179 103/ul Normal 150-450 [facility] Comment on above: Performed By: #### C MADM #### [facility] [address] [place] [address] Dr. Sarah Nath RBC 4.87 106/ul Normal 4.70-6.10 [facility] Comment on above: Performed By: #### C MADM #### [facility] [address] [place] [address] Dr. Sarah Nath WBC 6.8 103/ul Normal 4.0-11.0 [facility] Comment on above: Performed By: #### C MADM #### [facility] [address] [place] [address] Dr. Sarah Nath LIPID PROFILEon 12-30-2021 CHOL-HDL RATIO NORM SEE BELOW Normal [facility] Comment on above: Result Comment: 3.3 - 4.4 LOW RISK 4.4 - 7.1 AVERAGE RISK 7.1 - 11.0 MODERATE RISK >11.0 HIGH RISK Performed By: #### A LT, LIPID, BMP #### [facility] [address] [place] [address] Dr. Sarah Nath Cholesterol [Mass/Vol] 172 mg/dL Normal <=200 [facility] Comment on above: Performed By: #### A LT, LIPID, BMP #### [facility] [address] [place] [address] Dr. Sarah Nath Cholesterol in HDL [Mass/Vol] 73 mg/dL Critically high 40-60 [facility] Comment on above: Performed By: #### A LT, LIPID, BMP #### [facility] [address] [place] [address] Dr. Sarah Nath Cholesterol in LDL [Mass/Vol] 80.2 mg/dL Normal [facility] Comment on above: Performed By: #### A LT, LIPID, BMP #### [facility] [address] [place] [address] Dr. Sarah Nath Cholesterol.total /Cholesterol in HDL [Mass ratio] 2.4 {ratio} Normal [facility] Comment on above: Performed By: #### A LT, LIPID, BMP #### [facility] [address] [address] [address] Sarah Nath HDL NORMAL > or = 60 mg/dl - LO W CARDIOVASCULAR RISK <40 mg/dl - HIGH CARDIOVASCULAR RISK Normal [facility] Comment on above: Performed By: #### A LT, LIPID, BMP #### [facility] [address] [address] [address] Sarah Nath LDL CALC NORMAL SEE BELOW Normal [facility] Comment on above: Result Comment: <100 mg/dl OPTIMAL 100 - 129 mg/dl NEAR OR ABOVE OPTIMAL 130 - 159 mg/dl BORDERLINE HIGH 160 - 189 mg/dl HIGH >190 mg/dl VERY HIGH Performed By: #### A LT, LIPID, BMP #### [facility] [address] [address] [address] Sarah Nath Triglyceride [Mass/Vol] 94 mg/dL Normal <=150 [facility] Comment on above: Performed By: #### A LT, LIPID, BMP #### [facility] [address] [address] [address] Sarah Nath VLDL CALC 18.8 mg/dL Normal [facility] Comment on above: Performed By: #### A LT, LIPID, BMP #### [facility] [address] [address] [address] Sarah Nath PROF CHEM 8 (BAS METB)on Anion gap [Moles/Vol] 13.3 mmol/L Normal [facility] Comment on above: Performed By: #### A LT, LIPID, BMP #### [facility] [address] [address] [address] Sarah Nath Calcium [Mass/Vol] 8.8 mg/dL Normal 8.5-10.1 [facility] Comment on above: Performed By: #### A LT, LIPID, BMP #### [facility] [address] [address] [address] Sarah Nath Chloride [Moles/Vol] 102 mmol/L Normal 98-107 [facility] Comment on above: Performed By: #### A LT, LIPID, BMP #### [facility] [address] [place] [address] Dr. Sarah Nath CO2 [Moles/Vol] 24.6 mmol/L Normal 21.0-32.0 [facility] Comment on above: Performed By: #### A LT, LIPID, BMP #### [facility] [address] [place] [address] Dr. Sarah Nath Creatinine [Mass/Vol] 0.77 mg/dL Normal 0.70-1.30 [facility] Comment on above: Performed By: #### A LT, LIPID, BMP #### [facility] [address] [place] [address] Dr. Sarah Nath EGFR-AF ETHIOPIAN >60 Normal >=60 [facility] Comment on above: Performed By: #### A LT, LIPID, BMP #### [facility] [address] [place] [address] Dr. Sarah Nath EGFR-NON AF ETHIOPIAN >60 Normal >=60 [facility] Comment on above: Performed By: #### A LT, LIPID, BMP #### [facility] [address] [place] [address] Dr. Sarah Nath Glucose [Mass/Vol] 100 mg/dL Normal 74-106 [facility] Comment on above: Performed By: #### A LT, LIPID, BMP #### [facility] [address] [place] [address] Dr. Sarah Nath Potassium [Moles/Vol] 3.9 mmol/L Normal 3.5-5.1 [facility] Comment on above: Performed By: #### A LT, LIPID, BMP #### [facility] [address] [place] [address] Dr. Sarah Nath Sodium [Moles/Vol] 136 mmol/L Normal 136-145 [facility] Comment on above: Performed By: #### A LT, LIPID, BMP #### [facility] [address] [place] [address] Dr. Sarah Nath Urea nitrogen [Mass/Vol] 14.0 mg/dL Normal 7.0-18.0 [facility] Comment on above: Performed By: #### A LT, LIPID, BMP #### [facility] [address] [address] [address] Sarah Nath Urea nitrogen/Creatini ne [Mass ratio] 18.2 mg/mg Normal [facility] Comment on above: Performed By: #### A LT, LIPID, BMP #### [facility] [address] [address] [address] Sarah Nath [facility] 12-30-2021 ALT [Catalytic activity/Vol] 9 U/L Critically low 16-63 [facility] Comment on above: Performed By: #### A LT, LIPID, BMP #### [facility] [address] [address] [address] Sarah Nath COVID[facility]19 [facility] SARS-CoV-2 (COVID-19) RNA ZAHIDA+probe Ql (Unsp spec) Negative Normal Negative [facility] Comment on above: Order Comment: Healt hcare Worker?: N Result Comment: Testing for SARS-CoV-2 by RT-PCR This test was developed and its performance characteristics determined by [employer] and validated at the [facility]. This test has not been FDA [...] is terminated or revoked sooner. PERFORMED BY: [address] [address] [place] [address] PATHOLOGIST CONTROL CLERK AUDITING NANCY MICHEL M.D. Performed By: #### C OVID 19 [facility] #### [facility] [address] XR CHEST 1 Von 09-27-2021 XR [...] AGUILAR YOST Date: 2021-09-26 22:49 Normal [facility] CARDIAC OWEN ADMITon 022 CK [Catalytic activity/Vol] 89 U/L Normal 39-308 [facility] Comment on above: Performed By: #### C MADM #### [facility] [address] [address] [address] Sarah Nath CK.MB [Mass/Vol] 2.62 ng/mL Normal <=3.60 [facility] Comment on above: Performed By: #### C MADM #### [facility] [address] [address] [address] Sarah Nath HSTROP 5.6 pg/mL Normal 4.0-76.1 [facility] Comment on above: Result Comment: CUT- OFF POINTS HAVE BEEN ESTABLISHED BASED ON THE FOURTH UNIVERSAL DEFINITIONS OF MYOCARDIAL INFARCTION. THE UPPER REFERENCE LIMIT (URL) OF TROPONIN, DEFINED THE 99TH PERCENTILE OF cTnI DISTRIBUTION IN A REFERENCE POPULATION, HAS BEEN CONFIRMED THE DECISION THRESHOLD FOR VA DIAGNOSIS. Performed By: #### C MADM #### [facility] [address] [address] [address] Sarah Nath MARISELA 73 ng/mL Normal 16-96 [facility] Comment on above: Performed By: #### C MADM #### [facility] [address] [address] [address] Sarah Nath CBC AUTO DIFFon 09-26-2021 BASO # 0.1 103/ul Normal 0.0-0.1 [facility] Comment on above: Performed By: #### C MADM #### [facility] [address] [address] [address] Sarah Nath Basophils/100 WBC (Bld) 0.7 % Normal 0.2-2.0 [facility] Comment on above: Performed By: #### C MADM #### [facility] [address] [address] [address] Sarah Nath EO # 0.1 103/ul Normal 0.0-0.7 [facility] Comment on above: Performed By: #### C MADM #### [facility] [address] [place] [address] Dr. Sarah Nath Eosinophils/100 WBC (Bld) 1.0 % Normal 0.9-7.0 [facility] Comment on above: Performed By: #### C MADM #### [facility] [address] [address] [address] Sarah Nath Erythrocyte distribution width (RBC) [Ratio] 12.9 % Normal 11.0-15.0 [facility] Comment on above: Performed By: #### C MADM #### [facility] [address] [address] [address] Sarah Nath Hematocrit (Bld) [Volume fraction] 48.9 % Normal 42.0-54.0 [facility] Comment on above: Performed By: #### C MADM #### [facility] [address] [address] [address] Sarah Nath Hemoglobin (Bld) [Mass/Vol] 16.1 g/dL Normal 14.0-18.0 [facility] Comment on above: Performed By: #### C MADM #### [facility] [address] [address] [address] Sarah Nath IG # 0.06 10e3/ul Critically high 0.00-0.[address] [facility] Comment on above: Performed By: #### C MADM #### [facility] [address] [address] [address] Sarah Nath IG % 0.7 % Critically high 0.0-0.5 [facility] Comment on above: Performed By: #### C MADM #### [facility] [address] [address] [address] Sarah Nath LYMPH # 2.0 103/ul Normal 1.2-3.8 [facility] Comment on above: Performed By: #### C MADM #### [facility] [address] [address] [address] Sarah Nath Lymphocytes/100 WBC (Bld) 21.2 % Normal 20.5-60.0 [facility] Comment on above: Performed By: #### C MADM #### [facility] [address] [place] [address] Dr. Sarah Nath MANUAL DIFF REQ NO Normal [facility] Comment on above: Performed By: #### C MADM #### [facility] [address] [address] [address] Saarh Nath MCH (RBC) [Entitic mass] 30.4 pg Normal 25.9-34.0 [facility] Comment on above: Performed By: #### C MADM #### [facility] [address] [address] [address] Sarah Nath MCHC (RBC) [Mass/Vol] 32.9 g/dL Normal 29.9-35.2 [facility] Comment on above: Performed By: #### C MADM #### [facility] [address] [address] [address] Sarah Nath MCV (RBC) [Entitic vol] 92.3 fL Normal 80.0-94.0 [facility] Comment on above: Performed By: #### C MADM #### [facility] [address] [address] [address] Sarah Nath MONO # 0.7 103/ul Normal 0.3-0.8 [facility] Comment on above: Performed By: #### C MADM #### [facility] [address] [address] [address] Sarah Nath Monocytes/100 WBC (Bld) 7.9 % Normal 1.7-12.0 [facility] Comment on above: Performed By: #### C MADM #### [facility] [address] [address] [address] Sarah Nath NEUT # 6.3 103/ul Normal 1.4-6.5 [facility] Comment on above: Performed By: #### C MADM #### [facility] [address] [address] [address] Sarah Nath Neutrophils/100 WBC (Bld) 68.5 % Normal 43.0-75.0 [facility] Comment on above: Performed By: #### C MADM #### [facility] [address] [place] [address] Dr. Sarah Nath Platelet mean volume (Bld) [Entitic vol] 11.1 fL Normal 9.5-13.5 [facility] Comment on above: Performed By: #### C MADM #### [facility] [address] [address] [address] Sarah Nath PLT 231 103/ul Normal 150-450 [facility] [facility] Comment on above: Performed By: #### C MADM #### [facility] [address] [address] [address] Sarah Nath RBC 5.30 106/ul Normal 4.70-6.10 [facility] Comment on above: Performed By: #### C MADM #### [facility] [address] [address] [address] Sarah Nath WBC 9.2 103/ul Normal 4.0-11.0 [facility] Comment on above: Performed By: #### C MADM #### [facility] [address] [address] [address] Sarah Nath Coding Summary.on 02-19-2018 Coding Summary. CODING DATE: 018 FINAL [facility] STATUS: Home (Routine DC) PAYOR: Medicare [...] Terry Date Saved: 02/19/2018 12:43 pm Normal [facility] XR Swallowing Function w/ Vi deoon [...] Dose: Ka,r in mGy = 4.8 Normal [facility] Coding Summary.on 12-05-2017 Coding Summary. CODING DATE: 018 FINAL [facility] STATUS: Home (Routine DC) PAYOR: Medicare APC DESCRIPTION [facility] Procedures ADMIT DX: REASON FOR VISIT DX: H26.40 Unspecified secondary cataract FINAL DX: PRINCIPAL: H26.40 Unspecified secondary cataract SECONDARY: PYMT PROC APC STAT DESCRIPTION DOCTOR NAME DATE 53725 0093 T Discission of secondary Sterling Chatman DO [...] Jewell Reynoso Date Saved: 12/05/2017 09:17 am [facility] Vital Signs Date Time Vital Sign Value Performing Clinician Facility 01-09-2024 10:48-0400 SaO2% (BldA) [Mass fraction] 97 % Memo Magallon MD Work Phone: [facility] 04-19-2023 10:00-0500 Body height 162.56 cm Prashant Codeship Other [employer] Other 04-19-2023 10:00-0500 Body mass index (BMI) [Ratio] 26.5 kg/m2 Prashant [employer] Other [employer] Other 04-19-2023 10:00-0500 Body weight 70.04 kg Prashant Ball Other [employer] Other 04-19-2023 10:00-0500 Diastolic blood pressure 80 mm[Hg] Prashant [employer] Other [employer] Other 04-19-2023 10:00-0500 Respiratory rate 12 /min Prashant [employer] Other [employer] Other 04-19-2023 10:00-0500 Systolic blood pressure 190 mm[Hg] Prashant Ball Other [employer] Other 01-12-2023 10:30-0400 Body height 162.56 cm Prashant Ball Other [employer] Other 01-12-2023 10:30-0400 Body mass index (BMI) [Ratio] 26.33 kg/m2 Prashant Ball Other [employer] Other 01-12-2023 10:30-0400 Body weight 69.58 kg Prashant Ball Other [employer] Other 01-12-2023 10:30-0400 Diastolic blood pressure 60 mm[Hg] Prashant Ball Other [employer] Other 01-12-2023 10:30-0400 Respiratory rate 12 /min Prashant Ball Other [employer] Other 01-12-2023 10:30-0400 Systolic blood pressure 108 mm[Hg] Prashant Ball Other [employer] Other 11-14-2022 09:45-0400 Body height 162.56 cm Prashant Ball Other [employer] Other 11-14-2022 09:45-0400 Body weight 0.91 kg Prashant Ball Other [employer] Other 11-14-2022 09:45-0400 Diastolic blood pressure 75 mm[Hg] Prashant Ball Other [employer] Other 11-14-2022 09:45-0400 Respiratory rate 12 /min Prashant Ball Other [employer] Other 11-14-2022 09:45-0400 Systolic blood pressure 167 mm[Hg] Prashant Ball Other [employer] Other 10-12-2022 10:30-0400 Body height 162.56 cm Prashant Ball Other [employer] Other 10-12-2022 10:30-0400 Body mass index (BMI) [Ratio] 25.95 kg/m2 Prashant Ball Other [employer] Other 10-12-2022 10:30-0400 Body weight 68.58 kg Prashant Ball Other [employer] Other 10-12-2022 10:30-0400 Diastolic blood pressure 64 mm[Hg] Prashant Ball Other [employer] Other 10-12-2022 10:30-0400 Respiratory rate 12 /min Prashant Ball Other [employer] Other 10-12-2022 10:30-0400 Systolic blood pressure 124 mm[Hg] Prashant Ball Other [employer] Other 06-28-2022 12:30-0400 Body height 162.56 cm Prashant Ball Other [employer] Other 06-28-2022 12:30-0400 Body mass index (BMI) [Ratio] 25.95 kg/m2 Prashant Ball Other [employer] Other 06-28-2022 12:30-0400 Body weight 68.58 kg Prashant Ball Other [employer] Other 06-28-2022 12:30-0400 Diastolic blood pressure 81 mm[Hg] Prashant Ball Other [employer] Other 06-28-2022 12:30-0400 Respiratory rate 12 /min Prashant Ball Other [employer] Other 06-28-2022 12:30-0400 Systolic blood pressure 177 mm[Hg] Prashant Gary Other [employer] Other Encounters Encounter Date Encounter Type Care Provider Facility Start: 01-09-2024 End: 01-09-2024 ambulatory PRASHANT GARY Facility:[facility] Start: 01-09-2024 End: 01-09-2024 Office outpatient visit [...] with patient Memo Magallon MD Work Phone: [facility] Start: 05-25-2023 End: 05-25-2023 ambulatory Prashant Gary Other [employer] Other Start: 05-25-2023 Telephone encounter Prashant ORDAZ [facility] Start: 05-22-2023 End: 05-22-2023 ambulatory Prashant Gary Other [employer] Other Start: 05-22-2023 Telephone encounter Prashant ORDAZ [facility] Start: 05-17-2023 End: 05-17-2023 ambulatory Prashant Gary Other [employer] Other Start: 05-17-2023 Telephone encounter Prashant ORDAZ [facility] Start: 05-14-2023 End: 05-14-2023 ambulatory Prashant Gary Other [employer] Other Start: 05-14-2023 Telephone encounter Prashant ORDAZ [facility] Start: 05-10-2023 End: 05-10-2023 ambulatory PRASHANT GARY Facility:[facility] Start: 05-07-2023 End: 05-07-2023 ambulatory Prashant Ball Other [employer] Other Start: 05-07-2023 Telephone encounter Prashant Gary [facility] Start: 04-30-2023 Refill Memo faria MD Work Phone: [facility] Comment on above: Refill Request Start: 04-26-2023 End: 04-26-2023 ambulatory Prashant Gary Other [employer] Other Start: 04-26-2023 Telephone encounter Prashant Gary [facility] Start: 04-19-2023 End: 04-19-2023 ambulatory Prashant Ball Other [employer] Other Start: 04-19-2023 Office outpatient vi sit 25 minutes Prashant Gary [facility] Start: 02-09-2023 End: 02-09-2023 ambulatory Prashant Ball Other [employer] Other Start: 02-09-2023 Telephone encounter Prashant Gary [facility] Start: 01-14-2023 End: 01-14-2023 ambulatory Prashant Ball Other [employer] Other Start: 01-14-2023 Telephone encounter Prashant Gary [facility] Start: 01-12-2023 End: 01-12-2023 ambulatory Prashant Ball Other [employer] Other Start: 01-12-2023 Patient encounter procedure Prashant Ball [facility] Start: 12-29-2022 End: 12-29-2022 ambulatory Prashant Ball Other [employer] Other Start: 12-29-2022 Telephone encounter Prashant Ball [facility] Start: 12-15-2022 End: 12-15-2022 ambulatory Prashant Ball Other [employer] Other Start: 12-15-2022 Telephone encounter Prashant ORDAZ [facility] Start: 12-06-2022 Telephone encounter Memo sawyer MD Work Phone: Neurology Comment on above: Medication Problem Start: 11-14-2022 End: 11-14-2022 ambulatory Prashant Gary Other [employer] Other Start: 11-14-2022 Office outpatient vi sit 15 minutes Prashant Gary [facility] Start: 10-12-2022 End: 10-12-2022 ambulatory Prashant Gary Other [employer] Other Start: 10-12-2022 Office outpatient vi sit 25 minutes Prashant Abdirahman [facility] Start: 09-12-2022 End: 09-12-2022 ambulatory Prashant Gary Other [employer] Other Start: 09-12-2022 Telephone encounter Prashant ORDAZ [facility] Start: 08-17-2022 End: 08-17-2022 ambulatory WEN BAEZ Facility:[facility] Start: 08-17-2022 End: 08-18-2022 ambulatory NARENDRANATH LAKSHMIPATHY . Facility:[facility] Start: 08-01-2022 End: 08-01-[address] PRASHANT GARY Facility:[facility] Start: 07-18-2022 End: 07-19-[address] PRASHANT GARY Facility:[facility] Start: 06-28-2022 End: 06-28-2022 ambulatory Prashant Gary Other [employer] Other Start: 06-28-2022 Office outpatient vi sit 25 minutes Prashant Abdirahman [facility] Start: 06-28-2022 Telephone encounter Prashant ORDAZ [facility] Start: 04-28-2022 End: 04-28-2022 ambulatory Memo Magallon MD Work Phone: Neurology Comment on above: Parkinson disease (H CC); Gait instability Start: 04-28-2022 End: 04-28-2022 Telemedicine consultation with patient Memo Magallon MD Work Phone: [facility] Start: 04-21-2022 End: 04-22-[address] PRASHANT GARY Facility:[facility] Start: 12-30-2021 End: 12-31-[address] PRASHANT GARY Facility:[facility] Start: 12-27-2021 Adult health examination Josiah harper Abdirahman Other [facility] [employer] Other Start: 10-24-2021 End: 10-24-2021 [facility] Memo Magallon MD Work Phone: Neurology Comment on above: Parkinson disease (H CC) (Primary Dx); REM sleep behavior disorder; Restless legs syndrome Start: 09-26-2021 End: 09-27-2021 ambulatory WEN BAEZ Facility:[facility] Start: 02-18-2018 End: 02-19-2018 Patient encounter procedure Julia Magallon Facility:[facility] [place] [place] Procedures Date Procedure Procedure Detail Performing Clinician Start: 12-30-2021 PSA screening NARENDRAN [place]TH [place] . Comment on above: Performed By: #### P [facility] #### [facility] [address] [place] [address] Dr. Sarah Nath Start: 04-12-2019 Adult depression [...] AM EDT Office Visit Neurology [address] [phone] Memo Magallon MD [address] [facility] [address] [place] [address] 6 month follow up Neurology Comment on above: 6 month follow up Start: 01-09-2024 End: 01-09-2024 Patient encounter procedure 01/09/2024 11:00 AM EDT Office Visit Neurology [address] [phone] Memo Magallon MD [address] [facility] [address] [place] [address] 6 month follow up Neurology Comment on above: 6 month follow up Start: 12-16-2023 Covid-19 Vaccine ( season) Covid-19 Vaccine () [facility] Start: 12-16-2023 Influenza vaccination Influenza Vacc ine (#1) [facility] Start: 04-16-2023 Advance Directive Discussion Advance Directive Discussion [facility] Start: 04-16-2023 Depression Assessment Depression Ass witham health servicesment [facility] Start: 12-15-2022 Covid-19 Vaccine ( season) Covid-19 Vaccine ( season) [facility] Start: 12-15-2022 Influenza vaccination INFLUENZA (#1) [facility] Start: 11-23-2022 ambulatory Ambulatory Facility:[facility] 1 Start: 04-16-2022 ADVANCE DIRECTIVE DISCUSSION ADVANCE DIRECTIVE DISCUSSION [facility] Start: 04-16-2022 [facility] Start: 12-15-2021 Influenza vaccination INFLUENZA (#1) [facility] Start: 04-16-2021 ADVANCE DIRECTIVE DISCUSSION ADVANCE DIRECTIVE DISCUSSION [facility] Start: 04-12-2020 Adult depression screening assessment DEPRESSION SCREENING [facility] Start: 11-28-2018 Pneumococcal Vaccine : 65+ (2 of 2 - PPSV23 or PCV20) Pneumococcal Vaccine: 65+ (2 of 2 - PPSV23 or PCV20) [facility] Start: 2018 RSV Vaccine (1 - 1-d ose 75+ series) RSV Vaccine (1 - 1-dose 75+ series) [facility] Start: 07-06-2015 DIABETES SCREEN DIABETES SCREEN [facility] Start: 07-06-2015 Diabetes Screening Diabetes Screenin g [facility] Start: 2008 PNEUMOCOCCAL: 65+ (1 - PCV) PNEUMOCOCCAL: 65+ (1 - PCV) [facility] Start: 2003 RSV Vaccine (1 - 1-d ose 60+ series) RSV Vaccine (1 - 1-dose 60+ series) [facility] Start: 1993 SHINGRIX VACCINE (1 of 2) SHINGRIX V ACCINE (1 of 2) [facility] Start: 1962 Urine microalbumin profile [facility] Start: 1961 ANNUAL PCP TEAM ELDERLY COMPANION FELECIA DISEASE VISIT ANNUAL PCP TEAM CHRONIC DISEASE VISIT [facility] Start: 1961 Anxiety Screening Anxiety Screening [facility] Start: 1961 BP CONTROLLED (<130/80) BP CONTROLLE D (<130/80) [facility] Start: 1961 Depression Screening Depression Scre ening [facility] Start: 1961 HEPATITIS C SCREENING HEPATITIS C SC REENING [facility] Start: 1943 COVID-19 VACCINE (#1) COVID-19 VACCI NE (#1) [facility] Immunizations Immunization Date Immunization Notes Care Provider Fa cility 01-12-2023 influenza, high dose seasonal, preservative-free Prashant Gary Other [employer] Other 01-12-2023 influenza virus vaccine, unspecified formulation Memo Magallon MD Work Phone: [facility] 12-29-2021 influenza virus vaccine, split virus (incl. purified surface antigen) Prashant Gary Other [employer] Other 03-29-2021 COVID-19 Vaccine Pfi zer - Documentation Purposes Only Prashant Gary Other [employer] Other 06-04-2020 COVID-19 Vaccine Pfi zer - Documentation Purposes Only Prashant Gary Other [employer] Other 05-14-2020 COVID-19 Vaccine Moderna - Documentation Purposes Only Prashant Gary Other [employer] Other 02-18-2020 influenza virus vaccine, split virus (incl. purified surface antigen) Prashant Gary Other [employer] Other 11-28-2017 influenza virus vaccine, split virus (incl. purified surface antigen) Prashant Gary Other [employer] Other 11-28-2017 pneumococcal conjuga te vaccine, 13 valent Prashant Gary Other [employer] Other Payers Date Payer Category Payer Medicare HUMANA MEDICARE HU[employer]NA MEDICARE PPO [id number] 2011-Present [phone] [address] [place] [address] PPO [id number] 2011 Medicare HUMANA MEDICARE HUMANA MEDICARE PPO [id number] 2011-Present [phone] [place] [address] PPO [id number] 1959 Medicare [id number] 1943 Unknown [id number] 1943 Unknown [id number] 1943 Unknown [id number] 1943 Unknown [id number] 1943 Unknown [id number] 1943 Unknown [id number] 1943 Unknown [id number] 1943 Unknown [id number] Social History Date Type Detail Facility Start: 03-01-2011 End: 01-09-2024 Tobacco smoking status NHIS Ex-smoker [facility] Start: 05-14-1975 End: 05-14-1983 History of tobacco use Current smoker [facility] Start: 05-14-1975 End: 05-14-1983 History of tobacco use Cigarette Smoker [facility] Start: 03-01-2011 End: 07-05-2023 Cigarettes smoked current (pack per day) - Reported 12 [facility] Start: 03-01-2011 End: 01-09-2024 Tobacco use and exposure Smokeless tobacco non-user [facility] Start: 01-22-2020 End: 01-09-2024 Alcohol intake Current drinker of alcohol (finding) [facility] Start: 1945 Sex Assigned At Not on file C [facility] Start: 10-14-2021 End: 10-24-2021 Exposure to SARS-CoV-2 (event) Unable to assess [facility] Work Phone: Start: 01-22-2020 End: 07-05-2023 Sex Assigned At [facility] Adult Depression Screening Assessment 4 [facility] Medical Equipment Procedure Code Equipment Code Equipment Origin al Text Equipment Identifier Dates Graft Bn Infs Rhbmp-2 2.8ml Sm - [id number] Start: 05-15-2012 Sub Bngf Prognx + Dbm Bov - [id number] Start: 05-15-2012 6.5 Commpression Screw [id number] Start: 03-01-2011 6.5 Mm Compressi on Screw [id number] Start: 03-01-2011 6.5 Compression Screw [id number] Start: 03-01-2011 4.5mm Compressio n Screw [id number] Start: 03-01-2011 6.5mm X110mm Screw [id number] Start: 03-01-2011 Uvo-Iu-N-Kind Implant - [id number] Start: 05-15-2012 Comment on above: Description: 3.5 x 2 0mm angle lock screw Hmx-It-M-Kind Implant - [id number] Start: 05-15-2012 Comment on above: Description: 3.5 x 1 0 mm angle lock screw Yqf-Rl-W-Kind Implant - [id number] Start: 05-15-2012 Comment on above: Description: 3.5 x 1 0mm angle lock screw Qpy-Aw-D-Kind Implant - [id number] Start: 05-15-2012 Comment on above: Description: 8 hole l shape ankle plate Qhn-Be-X-Kind Implant - [id number] Start: 05-15-2012 Comment on above: Description: 3.5 x 3 0 lock screw Kax-Gc-Y-Kind Implant - [id number] Start: 05-15-2012 Comment on above: Description: 3.5 x 3 0mm angle lock screw Vhk-Ts-R-Kind Implant - [id number] Start: 05-15-2012 Comment on above: Description: 3.5mm 3 8mm lock screw [id number] 0329 52-Plate Omega3 Standard Barrel Hip Keyless 135 4 Hole [id number] - [id number] Start: 07-05-2012 Screw Compr 6.5x 50mm - [id number] Start: [id number] 0329 52-Screw Bn 13mm 100mm O+ Ss Std - [id number] Start: [id number] 0329 52-Screw Compression [place] 32mm [id number] - [id number] Start: [id number] 0329 52-Screw Bn 4.5mm 38mm Axsos Ss - [id number] Start: [id number] 0329 52-Screw Bn 4.5mm 36mm Axsos Ss - [id number] Start: 03-22-2013 Clinical Notes 10-24-2021 to 01-10-2024 Memo Magallon MD - 01/10/2024 12:46 PM EDTAMemo bruno MD - 07/05/2023 7:32 AM EDT Note Date & Type Note Facility 01-10-2024 Note HNO ID: [id number] Author: MEMO MAGALLON MD Service: ? Author Type: Physician Type: Progress Notes Filed: 01/10/2024 12:50 Note Text: [facility] - FOLLOW UP EVALUATION Prashant Gary, DO [address] [facility] [address] I had the pleasure of seeing Mr. [...] please feel free to send me a [email or web address] message or contact the office PT Interval [...] MDS-UPDRS Motor subsc (more content not included)... [facility] 01-10-2024 History of Present illness Narrative [facility] - FOLLOW UP EVALUATION Prashant Gary, DO [address] [facility] [address] I had the pleasure of seeing Mr. [...] please feel free to send me a [employer] message or contact the office PT Interval [...] the amplitude decrements starting after the 1st zvvr-usv-thjmr sequence. Arm Movements Right 1-Slight. a) the [...] whether dyskinesia present, unspecified whether manifestations fluctuate ([facility]) Plan 01/09/2024 Visit: Continue your medications as you have been taking them. We are not making any changes today. If you feel you are not tolerating them or your symptoms are changing before your next appointment, please feel free to send me a [email or web address] message or contact the office - Physical therapy- Interested in clinical research? Not discussed Updated Movement Disorders Medication Schedule: Medications 6am 12pm 6pm 12am Sinemet 25/100 2 2 2 Mirapex 0.25 mg 3 3 3 3 Return at or around: 07/08/24 Level of service : 06307 (20-29 min). Time spent 24 min on the day of service, which included preparing to see the patient, jadd-ts-tvrj patient care, completing clinical documentation, performing a medically appropriate examination, and counseling and educating the patient/family/caregiver. Thank you for allowing me to be part of the clinical care of this patient! I look forward to continued participation in the patient s care with you. Please do not hesitate to call with any questions. Sincerely, Memo Magallon MD documented in this encounter [facility] 07-05-2023 Note HNO ID: [id number] Author: MEMO MAGALLON MD Service: ? Author Type: Physician Type: Progress Notes Filed: 07/08/2023 15:52 Note Text: [facility] - FOLLOW UP EVALUATION - VIRTUAL VISIT Prashant Gary DO [address] [facility] [address] Dear Prsahant Gary DO: I had the pleasure of [...] visit. Either the patient or their legal health and safety representative has been informed of the risks [...] please feel free to send me a [email or web address] message or contact the office PT Interested in clinical research? Not currently Updated Movement Disor (more content not included)... [facility] 07-05-2023 History of Present illness Narrative [facility] - FOLLOW UP EVALUATION - VIRTUAL VISIT Prashant Gary DO [address] [facility] [address] Dear Prashant Gary DO: I had the [...] visit. Either the patient or their legal health and safety representative has been informed of the risks [...] please feel free to send me a [email or web address] message or contact the office PT Interested [...] Memo Magallon MD documented in this encounter [facility] 05-25-2023 Evaluation note Encounter Date Diagnosis Assessment Notes May, Essential hypertension (ICD-10 - I10) [employer] Other 01-25-2024 NoteHNO ID: [id number] Author: MEMO MAGALLON MD Service: ? Author Type: Physician Type: Progress Notes Filed: 05/14/2023 07:43 Note Text: [facility] - FOLLOW UP EVALUATION No referring provider defined for this encounter. Prashant Gary DO [address] [facility] [address] I had the pleasure of seeing Mr. [...] Performed: MDS-UPDRS Motor subsca (more content not included)...[facility] 04-30-2023 Telephone encounter Note* Telephone Encounter - Memo Magallon MD - 04/30/2023 12:16 PM EST Done [facility]01-15-2024 Miscellaneous Notes* Telephone Encounter - Memo Magallon MD - 04/30/2023 12:16 PM EST Done * Telephone Encounter - Mague lAtamirano - 04/30/2023 11:31 AM EST Spouse requesting [...] be sent electronically to the patient's pharmacy. Mageu Da Silva, Family Welfare Social Work Professor III [facility] Telephone encounter Note * Telephone Encounter - [...] to the patient's pharmacy. Mague Da Silva, Family Welfare Social Work Professor III [facility]01-11-2024 Evaluation note* Encounter Date Diagnosis Assessment Notes Treatment Notes Treatment Clinical Notes Apr, Primary hypertension (ICD-10 - I10) [employer] Other 01-04-2024 Evaluation note* Encounter Date Diagnosis [...] report is being monitored every 90 days. [employer] Other 09-29-2023 Evaluation note* Encounter Date Diagnosis [...] directed therapy Failed to improve w/ injections [employer] Other 08-23-2023 Miscellaneous Notes* Telephone Encounter - Autumn Graff - 12/06/2022 8:52 AM EDT Pharmacy called stating they [facility] unable to fill the carbidopa-levodopa ([id number]) 25-100 mg per tablet. Patient is requesting that it be sent to e- [facility]/pharmacy #[id number] - [place] [address] [address] [facility] . Please call patient at [phone] once sent to the pharmacy. Thank you! Autumn Graff documented [facility] Evaluation note* Encounter Date Diagnosis Assessment Notes [...] and feet daily for blisters and ulcerations. [employer] Other 06-29-2023 Evaluation note* Encounter Date Diagnosis [...] diet, fluids and reduce Amitiza to 8mg [employer] Other 05-30-2023 Evaluation note* Encounter Date Diagnosis Assessment Notes Treatment Notes Treatment Clinical Notes August, Essential hypertension (ICD-10 - I10) [employer] Other 04-04-2023 NoteCONSULTATION CONSULTATION DATE: 07/18/2022 TO: [...] comfortable in the semi-recumbent position. He uses [place] for pain control, 5 mg daily p.r. [...] our patients to inform us about any qddd-zdm-dqclddt medications or herbal remedies/nutritional supplements/alternative remedies. 2. [...] treatment options with their primary care provider.[id number] Evaluation note * Encounter Date Diagnosis Assessment [...] Chronic prescription opiate use (ICD-10 - Z79.891) [employer] Other 01-13-2023 History of Present illness Narrative* Memo Magallon MD - 04/28/2022 5:28 PM EST [facility] - FOLLOW UP EVALUATION - VIRTUAL VISIT Prashant Gary DO [address] [facility] [address] Dear Prashant Gary DO: I had the pleasure of seeing Mr. De La Garza for follow-up today. As you know he is a 77 year old right-handed male with a history of Parkinson's disease since 2002. Also with chronic low back pain and diffuse arthritis, fused ankles. He is seen with his . We had a visit using: [employer] I received consent from the patient to [...] 3 3 3 Level of service : 96615 (20-29 min). Time spent 25 min on the day of service, which included preparing to see the patient, renm-ir-ujae patient care, completing clinical documentation, and counseling and educating the patient/family/caregiver. Thank you for allowing me to be part of the clinical care of this patient! I look forward to continued participation in the patient s care with you. Please do not hesitate to call with any questions. Sincerely, Memo Magallon MD [facility] History of Present illness Narrative* Memo Magallon MD - 10/24/2021 11:00 AM EDT [facility] - FOLLOW UP EVALUATION Tamika Gillis [address] [facility] [address] Prashant Gary, DO [address] [place] [place] [address] I had the pleasure of seeing Mr. De La Garza for follow up today. He is a 76 year old right-handed male with a history of Parkinson's disease since 2002. Also with chronic low back pain and diffuse arthritis, fused ankles. He is seen with his . We had a visit using: [employer] I received consent from the patient to [...] Sincerely, Memo Magallon MD [facility] Diagnosis Parkinson disease (HCC)- Primary Paralysis agitans REM sleep behavior disorder Restless legs syndrome Restless legs syndrome (RLS) documented in this encounter [facility] note* Diagnosis Parkinson disease (HCC) Paralysis agitans Gait instability Abnormality of gait documented in this encounter [facility] noteNo [employer] Other Evaluation note* Diagnosis Parkinson's disease, unspecified whether dyskinesia present, unspecified whether manifestations fluctuate (HCC) Gait instability Abnormality of gait documented in this encounter [facility] note* Diagnosis Parkinson disease (HCC) Paralysis agitans Gait instability Abnormality of gait [facility]* Diagnosis Parkinson's disease, unspecified whether dyskinesia present, unspecified whether manifestations fluctuate (HCC) documented in this encounter [facility] general Narrative - Reported* Type Description [...] ON 2021 Hospitalization History SEE SURGICAL HX [employer] Other Reason for referral (narrative)* Reason * 07/12 Referral for pain management Diagnosis 1 Lumbar spondylosis ( M47.816) Diagnosis 2 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 P: [phone] F: [phone] [employer] Other Summary Purpose Family History No Family [...] 60-74 MINUTES Memo Magallon MD [address] [address] Referral ID Status Reason Start Date Expiration Date Visits Requested Visits Authorized [id number] Authorized PCP Requested Referral 10/24/2021 01/22/2022 1 1 Referral ID Status Reason Start Date Expiration Date Visits Requested Visits Authorized [id number] Authorized PCP Requested Referral 04/28/2022 07/27/2022 1 1 Specialty Diagnoses / Procedures Referred By Contac t Referred To Contact Diagnoses Parkinson's disease, unspecified whether dyskinesia present, unspecified whether manifestations fluctuate (HCC) Procedures PROVIDER ORDERED FOLLOW UP OFFICE/OUTPATIENT NEW HIGH MDM 60 MINUTES Memo Magallon MD [address] [address] Referral ID Status Reason Start Date Expiration Date Visits Requested Visits Authorized [id number] Authorized PCP Requested Referral 07/05/2023 10/03/2023 1 1 Referral ID Status Reason Start Date Expiration Date Visits Requested Visits Authorized [id number] Authorized PCP Requested Referral 01/09/2024 04/08/2024 1 1 Specialty Diagnoses / Procedures Referred By Contac t Referred To Contact [facility] Diagnoses Parkinson's disease, unspecified whether dyskinesia present, unspecified whether manifestations fluctuate (HCC) Procedures CONSULT TO PHYSICAL THERAPY PHYSICAL THERAPY EVALUATION HIGH COMPLEX 45 MINS Memo Magallon MD [address] [address] [facility] [place] [address] Referral ID Status Reason Start Date Expiration Date Visits Requested Visits Authorized [id number] Pending Review Auto-Generat ed Referral 01/09/2024 01/08/2025 1 1 Additional Source Comments (unrecognized sect ion and content) No Status Records FoundNo Status Records FoundNo Status Records FoundNo Status Records Found INFORMATION SOURCE (unrecogn ized section and content) DATE CREATED AUTHOR 03/24/2018 Daniel Nunez [facility] DATE CREATED AUTHOR AUTHOR'S ORGANIZ ATION 10/07/2021 [facility] DATE CREATED AUTHOR AUTHOR'S ORGANIZ ATION 08/22/2022 [facility] DATE CREATED AUTHOR AUTHOR'S ORGANIZ ATION 01/11/[address] [facility] Source Comments (unrecognize d section and content) In the event this informatio n is protected by the Federal Confidentiality of Alcohol and Drug Abuse Patient Records regulations: The Federal rules restrict any use of the information to criminally investigate or prosecute any alcohol or drug abuse patient.[facility] the event this information is protected by the Federal Confidentiality of Alcohol and Drug Abuse Patient Records regulations: The Federal rules restrict any use of the information to criminally investigate or prosecute any alcohol or drug abuse patient.[facility] the event this information is protected by the Federal Confidentiality of Alcohol and Drug Abuse Patient Records regulations: The Federal rules restrict any use of the information to criminally investigate or prosecute any alcohol or drug abuse patient.[facility] the event this information is protected by the Federal Confidentiality of Alcohol and Drug Abuse Patient Records regulations: The Federal rules restrict any use of the information to criminally investigate or prosecute any alcohol or drug abuse patient.[facility] the event this information is protected by the Federal Confidentiality of Alcohol and Drug Abuse Patient Records regulations: The Federal rules restrict any use of the information to criminally investigate or prosecute any alcohol or drug abuse patient.[facility] the event this information is protected by the Federal Confidentiality of Alcohol and Drug Abuse Patient Records regulations: The Federal rules restrict any use of the information to criminally investigate or prosecute any alcohol or drug abuse patient.[facility] Reason for Visit (unrecogniz ed section and content) Reason Comments Telemedicine Follow Up Specialty Diagnoses / Procedures Referred By Contac t Referred To Contact Diagnoses Parkinson disease (HCC) Procedures PROVIDER ORDERED FOLLOW UP OFFICE/OUTPATIENT [facility] 60-74 MINUTES Memo Magallon MD [address] [place] [id number] Referral ID Status Reason Start Date Expiration Date V isits Requested Visits Authorized [id number] Closed PCP Requested Referral 10/24/2021 01/22/2022 1 1 Reason Comments Medication Problem Reason Onset Date Comments Refill Request 04/30/2023 Reason Comments Parkinson's Disease Specialty Diagnoses / Procedures Referred By Rose t Referred To Contact Diagnoses Parkinson's disease, unspecified whether dyskinesia present, unspecified whether manifestations fluctuate ([facility]) Procedures PROVIDER ORDERED FOLLOW UP OFFICE/OUTPATIENT NEW HIGH MDM 60 MINUTES Memo Magallon MD [address] [address] Referral ID Status Reason Start Date Expiration Date V isits Requested Visits Authorized [id number] Closed PCP Requested Referral 07/05/2023 10/03/2023 1 1 Care Teams (unrecognized sec tion and content) Game Show Host Relationship Specialty Start Date End Date Prashant Gary DO PCP - General 03/11/07 Game Show Host Relationship Specialty Start Date End Date Prashant Gary DO PCP - General 03/11/07 Game Show Host Relationship Specialty Start Date End Date Prashant Gary DO PCP - General 03/11/07 Game Show Host Relationship Specialty Start Date End Date Prashant Gary DO PCP - General 03/11/07 Memo Magallon MD [address] [address] Specialty Park Services Specialist Neurology 04/04/23 Tamika Gillis [employer]Y TEACHER [address] [place] [address] Specialty Park Services Specialist Neurology 04/04/23 Game Show Host Relationship Specialty Start Date End Date Prashant Gary DO PCP - General 03/11/07 Memo Magallon MD [address] [id number] Specialty Park Services Specialist Neurology 04/04/23 Tamika Gillis, [employer]IOLOGY TEACHER [address] [place] [address] Specialty Park Services Specialist Neurology 04/04/23 Game Show Host Relationship Specialty Start Date End Date Prashant Gary DO PCP - General 03/11/07 Memo Magallon MD [address] [id number] Specialty Park Services Specialist Neurology 04/04/23 Tamika Gillis, [employer]RADIOLOGY TEACHER [address] [place], [place] [id number] Specialty Park Services Specialist Neurology 04/04/23 FOR RECORDS PERTAINING TO PATIENTS [...] BE BASED ON THE PRIMARY CLINICAL RECORDS. [facility] [employer] [facility]. provides no warranty or guarantee of the accuracy or completeness of information in this document.
--- NOTE | 2024-01-27 14:09 | ED.WEAKNESS1 ---
HPI - Weakness General Chief complaint: Weakness Stated complaint: LOW BP, GENERAL WEAKNESS Time Seen by Provider: 01/27/24 14:08 Source: patient Mode of arrival: Wheelchair History of Present Illness HPI Narrative: The patient have history of Parkinson disease coming to the ER with a low blood pressure that was noted by the for the last week although today he had an episode of dizziness where he felt he is going to pass out, the patient did not pass out he actually held to what ever was beside him Patient denies any nausea vomiting or any headache or chest pain He does not have any dizziness at the moment He also according to the and the family at the bedside is not drinking enough water although his appetite is decreasing over the last few weeks and he had lost some weight Related Data Home Medications ?Medication ?Instructions ?Recorded ?Confirmed atorvastatin 10 mg tablet mg 01/27/24 furosemide 20 mg tablet mg 01/27/24 losartan 50 mg tablet mg 01/27/24 pramipexole 0.25 mg tablet mg 01/27/24 Allergies Allergy/AdvReac Type Severity Reaction Status Date / Time Penicillins Allergy Unknown Verified 05/07/23 11:14 Review of Systems ROS Status of ROS 10 or more systems reviewed and unremarkable except as noted in history and below PFSH PFSH Social History Little interest or pleasure in doing things: not at all Feeling down, depressed, or hopeless: not at all Exam Narrative Exam Narrative: Nurses notes and vital signs reviewed and patient is not hypoxic. General: Well-appearing and in no apparent distress. Skin: Warm, dry, no pallor noted. No rash. Head: Normocephalic, atraumatic. Neck: Supple, non-tender. Eye: Pupils are equal, round and EOMI. No scleral icterus. Ears, Nose, Mouth, and Throat: TM are clear, no nasal mucosal hypertrophy. Oral mucosa is dry, no posterior oropharynx erythema, uvula is mid-line Cardiovascular: Regular Rate and Rhythm without murmur, gallop or rub. Respiratory: No accessory muscle use or respiratory distress. Lungs are clear to auscultation, no wheezing, rales or rhonchi Chest Wall: no tenderness Back: No midline thoracic or lumbar vertebral tenderness. No CVA tenderness Musculoskeletal: normal ROM, no calf or popliteal tenderness, no lower extremity edema/swelling GI: Abdomen is soft, non-distended. Normal bowel sounds. No masses appreciated. No tenderness to palpation. No rebound, guarding, or rigidity noted. Neurological: A&O x4. No cranial nerve dysfunction observed. No truncal ataxia. Moves all extremities. Sensation intact. Psychiatric: Cooperative and interactive. Normal mood and affect. Constitutional Vital Signs, click to edit/add: Last Vital Signs Temp 98.3 F 01/27/24 14:01 Pulse 59 L 01/27/24 15:20 Resp 16 01/27/24 15:20 BP 143/62 H 01/27/24 15:15 Pulse Ox 98 01/27/24 15:20 O2 Del Method Room Air 01/27/24 14:01 Course Vital Signs Vital signs: Vital Signs Temperature 98.3 F 01/27/24 14:01 Pulse Rate 73 01/27/24 14:01 Respiratory Rate 18 01/27/24 14:01 Blood Pressure 93/59 01/27/24 14:01 Pulse Oximetry 97 01/27/24 14:01 Oxygen Delivery Method Room Air 01/27/24 14:01 Temperature 98.3 F 01/27/24 14:01 Pulse Rate 59 L 01/27/24 15:20 Respiratory Rate 16 01/27/24 15:20 Blood Pressure 143/62 H 01/27/24 15:15 Pulse Oximetry 98 01/27/24 15:20 Oxygen Delivery Method Room Air 01/27/24 14:01 MDM - Weakness MDM Narrative Medical decision making narrative: The patient EKG showing sinus rhythm with a heart rate of [address] elevation or depression Some nonspecific T changes The patient CBC and chemistry shows an acute kidney injury with 1.3 creatinine The patient initially was noted to be orthostatic provided with 1 L of fluid he was feeling much better and ready to go home The patient instructed to measure the patient blood pressure daily with 2 readings [id number] and it should be 2 hours at least after his meal or before his meal The patient was instructed that right now we will hold his blood pressure medication until his blood pressure is above 120 systolic then he can restart the losartan at 25 mg daily The patient to follow-up with his primary care doctor within few days to repeat the kidney function test and hydration was also encouraged The patient is to follow up with primary care physician in next 2-3 days or to return to the emergency department should any of the signs or symptoms worsen or new symptoms develop. The patient agrees with the following Diagnosis and Treatment plan and the patient will be discharged home. Lab Data Labs: Lab Results 01/27/24 Range/Units 14:14 WBC 6.8 (4.0-11.0) 10^3/uL RBC 4.55 L (4.70-6.10) 10^6/uL Hgb 13.8 L (14.0-18.0) g/dL Hct 41.0 L (42.0-54.0) % MCV 90.1 (80.0-94.0) fL MCH 30.3 (25.9-34.0) pg MCHC 33.7 (29.9-35.2) g/dL RDW 12.7 (11.0-15.0) % Plt Count 189 (150-450) 10^3/uL MPV 11.3 (9.5-13.5) fL Neut % (Auto) 71.7 (43.0-75.0) % Lymph % (Auto) 18.3 L (20.5-60.0) % Hettinger % (Auto) 7.2 (1.7-12.0) % Eos % (Auto) 1.8 (0.9-7.0) % Baso % (Auto) 0.7 (0.2-2.0) % Neut # (Auto) 4.8 (1.4-6.5) 10^3/uL Lymph # (Auto) 1.2 (1.2-3.8) 10^3/uL Het[place]er # (Auto) 0.5 (0.3-0.8) 10^3/uL Eos # (Auto) 0.1 (0.0-0.7) 10^3/uL Baso # (Auto) 0.1 (0.0-0.1) 10^3/uL Abs Immat Gran (auto) 0.02 (0.00-0.03) 10^3/uL Imm/Tot Granulo (auto) 0.3 (0.0-0.5) % PT 10.7 (9.0-11.6) sec INR 1.01 Sodium 137 (136-145) mmol/L Potassium 3.7 (3.5-5.1) mmol/L Chloride 104 (98-107) mmol/L Carbon Dioxide 25.3 (21.0-32.0) mmol/L Anion Gap 11.4 BUN 18.0 (7.0-18.0) mg/dL Creatinine 1.32 H (0.70-1.30) mg/dL Est GFR ( Amer) >60 (>=60 mL/min/1.73m^2) Est GFR (Non-Af Amer) 52 L (>=60 mL/min/1.73m^2) BUN/Creatinine Ratio 13.6 Glucose 112 H (74-106) mg/dL Calcium 9.1 (8.5-10.1) mg/dL Magnesium 2.0 (1.8-2.4) mg/dL Total Bilirubin 0.5 (0.2-1.0) mg/dL AST 10 L (15-37) U/L ALT <6 L (16-63) U/L Alkaline Phosphatase 97 (46-116) U/L Troponin I High Sens 5.6 (4.0-76.1) pg/mL Total Protein 6.6 (6.4-8.2) g/dL Albumin 3.7 (3.4-5.0) g/dL Globulin 2.9 g/dL Albumin/Globulin Ratio 1.3 Discharge Plan Discharge Chief Complaint: Weakness Clinical Impression: DESIREE (acute kidney injury), Dehydration, Hypotension Patient Disposition: Home, Self-Care Time of Disposition Decision: 15:41 Condition: Good Prescriptions / Home Meds: No Action losartan 50 mg tablet atorvastatin 10 mg tablet pramipexole 0.25 mg tablet furosemide 20 mg tablet Print Language: French Instructions: Dehydration (ED), Acute Kidney Injury (DC), Hypotension (DC) Additional Instructions: please hold Losartan until his BP is above 120 systolic then restart it at 25 mg daily Referrals: Prashant Gary DO [Primary Care Provider] - 1 week
--- NOTE | 2024-01-27 14:11 | ECG_ITS ---
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
[2024-01-27 14:24] LABS: Basophils Absolute Auto 0.1 10^3/uL (0.0-0.1); Basophils Percent Auto 0.7 % (0.2-2.0); Eosinophils Absolute Auto 0.1 10^3/uL (0.0-0.7); Eosinophils Percent Auto 1.8 % (0.9-7.0); Hemoglobin 13.8 g/dL (14.0-18.0); Immature Granulocytes Abs Auto 0.02 10^3/uL (0.00-0.03); Immature Granulocytes Pct Auto 0.3 % (0.0-0.5); Lymphocytes Absolute Auto 1.2 10^3/uL (1.2-3.8); Lymphocytes Percent Auto 18.3 % (20.5-60.0); Mean Corpuscular HGB Conc 33.7 g/dL (29.9-35.2); Mean Corpuscular Hemoglobin 30.3 pg (25.9-34.0); Mean Corpuscular Volume 90.1 fL (80.0-94.0); Mean Platelet Volume 11.3 fL (9.5-13.5); Monocytes Absolute Auto 0.5 10^3/uL (0.3-0.8); Monocytes Percent Auto 7.2 % (1.7-12.0); Neutrophils Absolute Auto 4.8 10^3/uL (1.4-6.5); Neutrophils Percent Auto 71.7 % (43.0-75.0); Platelet Count 189 10^3/uL (150-450); Red Blood Count 4.55 10^6/uL (4.70-6.10); Red Cell Distribution Width 12.7 % (11.0-15.0); White Blood Count 6.8 10^3/uL (4.0-11.0)
[2024-01-27 14:38] LABS: INR 1.01; Prothrombin Time 10.7 sec (9.0-11.6)
[2024-01-27] MEDS: 0.9 % SODIUM CHLORIDE 1,000 ML 1000 ML IV (14:39)
[2024-01-27 14:44] LABS: Alanine Aminotransferase <6 U/L (16-63); Albumin Globulin Ratio 1.3; Albumin Level 3.7 g/dL (3.4-5.0); Alkaline Phosphatase 97 U/L (46-116); Anion Gap 11.4; Aspartate Amino Transferase 10 U/L (15-37); BUN Creatinine Ratio 13.6; Bilirubin Total 0.5 mg/dL (0.2-1.0); Calcium 9.1 mg/dL (8.5-10.1); Carbon Dioxide 25.3 mmol/L (21.0-32.0); Chloride 104 mmol/L (98-107); Estimated GFR (African America >60 (>=60 mL/min/1.73m^2); Estimated GFR (Non-African Ame 52 (>=60 mL/min/1.73m^2); Globulin 2.9 g/dL; Glucose 112 mg/dL (74-106); Potassium 3.7 mmol/L (3.5-5.1); Sodium 137 mmol/L (136-145); Total Protein 6.6 g/dL (6.4-8.2); Troponin I High Sensitivity 5.6 pg/mL (4.0-76.1)
== END 2024-01-27 15:55 | disposition home or self-care (01) ==
PROVIDERS: Emergency Provider Emergency Medicine; PCP Internal Medicine
DX: E86.0 Dehydration (principal); N17.9 Acute kidney failure, unspecified; I95.9 Hypotension, unspecified; G20.A1 Parkinson's disease without dyskinesia, without mention of fluctuations
CPT/HCPCS: 36415; 80053; 83735; 84484; 85025; 85610; 93005; 96360; 99285

== ENCOUNTER 2024-06-03 11:59 | Outpatient (OUT) | payer MEDICARE, SELFPAY ==
--- OUTSIDE RECORDS SUMMARY | 2024-06-03 12:13 | XMS_ITS | CCD ---
Author Organization [facility] Care Team Providers Care Lime Spreader Name Role Phone [place], Julia K Unavailable Unavailable Naun, Julia K Unavailable Unavailable Naun, Julia K Unavailable Unavailable BELEN [phone] UNKNOWN Unavailable Unavailable Prashant Gary DO Primary [...] Unavailable ABDIRAHMAN, DR RANDLE Primary Care Unavailable WNE BAEZ Attending Unavailable WEN BAEZ Consulting Unavailable [...] Admitting Ev vailable Memo Magallon MD Unavailable Carlin BARAJASTamika [place] Unavailable Prashant Gary DO [...] Translations: [LATEX, NATURAL RUBBER] Drug Allergy 022 [facility] Work Phone: (7 sources) Morphine; Translations: [MORPHINE] Drug Allergy 011 Other: See Comments [facility] (7 sources) Penicillin G; Translations: [PENICILLIN G] Drug Allergy 007 [facility] Work Phone: (2 sources) Morphine Drug Allergy 020 [facility] (2 sources) natural latex rubber Drug allergy (disorder) [facility] (2 sources) Penicillins Drug allergy (disorder) 013 [facility] (13 sources) cyclobenzaprine Drug Allergy Cyclobenzaprine *CHEMICALS* Comment:Hallucina tions [facility] Other (13 sources) pregabalin Drug Allergy Comment:Hallucin a Mzinga Other (13 sources) Flexeril *MUSCULOSKELETAL THERAPY AGENTS* Propensity to adverse reactions Comment:Hallucina VoiceObjectsons [facility] Other (13 sources) Substance with penicillin structure and antibacterial mechanism of action (substance) Drug allergy Unknown [facility] Other (3 sources) patient allergy list reviewed by nurse or physicia Propensity to adverse reactions 016 Comment:Done [facility] Other Medications Current Medications Medication Drug Class(es) Dates Sig (Normalized) Sig (Original) AeroChamber Mini Chamber - (18 sources) Start: 06-28-2022 AeroChamber Mini Chamber - 1 inhalation Use with MDI every 4 hours as needed for cough or SOB for 30 days Jun, Active [id number] 200 actuat albuterol 0.09 mg/actuat metered dose [...] times daily. Take 2 tablets by [facility] three times a day. 2 tab at 6am, 12pm and 6pm Take 2 tablets by [facility] three times a day. 24 hr [...] a day Active take 1 tablet by [facility] every twenty-four hours Losartan Potassium [...] Active Start: 10-12-2022 take 1 capsule by [facility] once daily at mealtime Lubiprostone 8 MCG 1 capsule with food and water Orally qd for 30 days Sep, Active Start: 08-30-2022 take 1 capsule by [facility] twice daily at mealtime Lubiprostone 24 [...] on above: Take 3 tablets by [facility] four times daily. 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] Episodic Other connective tissue [...] 11-27-2017 Episodic Other aftercare (1 source) Other group home (current) drug therapy; Translations: [OTH SAP BASIS ARCHITECT CURRENT DRUG THERAPY] Onset: 01-03-2022 Episodic Other [...] Test Name Value Interpretation Reference Range Facility [facility] 01-09-2024 CNOV Office Visit (NRMDN) -- GARYSILKE Radhika ([id number]) 1945 M Date Time Provider Department 01/09/24 11:00 AM [facility] your visit today, we recorded the following information about you: Memo Magallon MD 01/10/2024 12:50 PM Signed [facility] - FOLLOW UP EVALUATION Prashant Gary DO [address] [facility] [address] I had the pleasure of seeing Mr. [...] please feel free to send me a Sendmail message or contact the office PT Interval [...] Neurological Examination (more content not included)... Normal [facility] CNOVon 05-10-2023 CNOV Office Visit (NRMDN) -- SILKE DE LA GARZA ([id number]) 1945 M Date Time Provider Department 05/10/23 [...] or you can send a message through [employer]. You can also now schedule and select appointments through [employer]. MD Naun Gonzales Kristin, MD 05/14/2023 7:43 AM Signed [facility] - FOLLOW UP EVALUATION No referring provider defined for this encounter. Prashant Gary, DO [address] [facility] [address] I had the pleasure of seeing Mr. [...] (MIRAPEX) 0 (more content not included)... Normal [facility] CT HEAD WO CONon 08-17-2022 CT [...] by: ANNE COLLIER Date: 2022-08-17 20:25 Normal [facility] CREATININEon 04-21-2022 Creatinine [Mass/Vol] 0.84 mg/dL Normal 0.70-1.30 [facility] Comment on above: Performed By: #### C MADM #### [facility] [address] [place] [address] Dr. Sarah Nath EGFR-AF ERITREAN >60 Normal >=60 [facility] Comment on above: Performed By: #### C MADM #### [facility] [address] [address] [address] Sarah Nath EGFR-NON AF ERITREAN >60 Normal >=60 [facility] Comment on above: Performed By: #### C MADM #### [facility] [address] [place] [address] Dr. Sarah Nath CTA CHEST WO W [...] AL MANCERA Date: 2022-04-21 08:37 Normal [facility] HEMOGLOBINon 04-21-2022 Hemoglobin (Bld) [Mass/Vol] 16.1 g/dL Normal 14.0-18.0 [facility] Comment on above: Performed By: #### H GB #### [facility] [address] [address] [address] Sarah Nath CBC AUTO DIFFon 12-30-2021 BASO # 0.1 103/ul Normal 0.0-0.1 [facility] Comment on above: Performed By: #### C MADM #### [facility] [address] [place] [address] Dr. Sarah Nath Basophils/100 WBC (Bld) 0.9 % Normal 0.2-2.0 [facility] Comment on above: Performed By: #### C MADM #### [facility] [address] [address] [address] Sarah Nath EO # 0.1 103/ul Normal 0.0-0.7 [facility] Comment on above: Performed By: #### C MADM #### [facility] [address] [address] [address] Sarah Nath Eosinophils/100 WBC (Bld) 2.0 % Normal 0.9-7.0 [facility] Comment on above: Performed By: #### C MADM #### [facility] [address] [address] [address] Sarah Nath Erythrocyte distribution width (RBC) [Ratio] 12.5 % Normal 11.0-15.0 [facility] Comment on above: Performed By: #### C MADM #### [facility] [address] [place] [address] Dr. Sarah Nath Hematocrit (Bld) [Volume fraction] 44.2 % Normal 42.0-54.0 [facility] Comment on above: Performed By: #### C MADM #### [facility] [address] [place] [address] Dr. Sarah Nath Hemoglobin (Bld) [Mass/Vol] 14.6 g/dL Normal 14.0-18.0 [facility] Comment on above: Performed By: #### C MADM #### [facility] [address] [place] [address] Dr. Sarah Nath IG # 0.03 10e3/ul Normal 0.00-0.03 [facility] Comment on above: Performed By: #### C MADM #### [facility] [address] [place] [address] Dr. Sarah Nath IG % 0.4 % Normal 0.0-0.5 [facility] Comment on above: Performed By: #### C MADM #### [facility] [address] [place] [address] Dr. Sarah Nath LYMPH # 1.7 103/ul Normal 1.2-3.8 [facility] Comment on above: Performed By: #### C MADM #### [facility] [address] [place] [address] Dr. Sarah Nath Lymphocytes/100 WBC (Bld) 24.6 % Normal 20.5-60.0 [facility] Comment on above: Performed By: #### C MADM #### [facility] [address] [place] [address] Dr. Sarah Nath MANUAL DIFF REQ NO Normal [facility] Comment on above: Performed By: #### C MADM #### [facility] [address] [address] [address] Sarah Nath MCH (RBC) [Entitic mass] 30.0 pg Normal 25.9-34.0 [facility] Comment on above: Performed By: #### C MADM #### [facility] [address] [address] [address] Sarah Nath MCHC (RBC) [Mass/Vol] 33.0 g/dL Normal 29.9-35.2 [facility] Comment on above: Performed By: #### C MADM #### [facility] [address] [address] [address] Sarah Nath MCV (RBC) [Entitic vol] 90.8 fL Normal 80.0-94.0 [facility] Comment on above: Performed By: #### C MADM #### [facility] [address] [place] [address] Dr. Sarah Nath MONO # 0.6 103/ul Normal 0.3-0.8 [facility] Comment on above: Performed By: #### C MADM #### [facility] [address] [address] [address] Sarah Nath Monocytes/100 WBC (Bld) 8.8 % Normal 1.7-12.0 [facility] Comment on above: Performed By: #### C MADM #### [facility] [address] [address] [address] Sarah Nath NEUT # 4.3 103/ul Normal 1.4-6.5 [facility] Comment on above: Performed By: #### C MADM #### [facility] [address] [place] [address] Dr. Sarah Nath Neutrophils/100 WBC (Bld) 63.3 % Normal 43.0-75.0 [facility] Comment on above: Performed By: #### C MADM #### [facility] [address] [place] [address] Dr. Sarah Nath Platelet mean volume (Bld) [Entitic vol] 10.7 fL Normal 9.5-13.5 [facility] Comment on above: Performed By: #### C MADM #### [facility] [address] [address] [address] Sarah Nath PLT 179 103/ul Normal 150-450 [facility] Comment on above: Performed By: #### C MADM #### [facility] [address] [place] [address] Dr. Sarah Nath RBC 4.87 106/ul Normal 4.70-6.10 [facility] Comment on above: Performed By: #### C MADM #### [facility] [address] [place] [address] Dr. Sarah Nath WBC 6.8 103/ul Normal 4.0-11.0 [facility] Comment on above: Performed By: #### C MADM #### [facility] [address] [place] [address] Dr. Sarah Nath LIPID PROFILEon 12-30-2021 CHOL-HDL RATIO NORM SEE BELOW Normal [facility] Comment on above: Result Comment: 3.3 - 4.4 LOW RISK 4.4 - 7.1 AVERAGE RISK 7.1 - 11.0 MODERATE RISK >11.0 HIGH RISK Performed By: #### A LT, LIPID, BMP #### [facility] [address] [place] [address] Dr. Sarah Nath Cholesterol [Mass/Vol] 172 mg/dL Normal <=200 [facility] Comment on above: Performed By: #### A LT, LIPID, BMP #### [facility] [address] [place] [address] Dr. Sarah Nath Cholesterol in HDL [Mass/Vol] 73 mg/dL Critically high 40-60 [facility] Comment on above: Performed By: #### A LT, LIPID, BMP #### [facility] [address] [place] [address] Dr. Sarah Nath Cholesterol in LDL [Mass/Vol] 80.2 mg/dL Normal [facility] Comment on above: Performed By: #### A LT, LIPID, BMP #### [facility] [address] [place] [address] Dr. Sarah Nath Cholesterol.total /Cholesterol in HDL [Mass ratio] 2.4 {ratio} Normal [facility] Comment on above: Performed By: #### A LT, LIPID, BMP #### [facility] [address] [address] [address] Sarah Nath HDL NORMAL > or = 60 mg/dl - LO W CARDIOVASCULAR RISK <40 mg/dl - HIGH CARDIOVASCULAR RISK Normal [facility] Comment on above: Performed By: #### A LT, LIPID, BMP #### [facility] [address] [address] [address] Sarah Nath LDL CALC NORMAL SEE BELOW Normal [facility] Comment on above: Result Comment: <100 mg/dl OPTIMAL 100 - 129 mg/dl NEAR OR ABOVE OPTIMAL 130 - 159 mg/dl BORDERLINE HIGH 160 - 189 mg/dl HIGH >190 mg/dl VERY HIGH Performed By: #### A LT, LIPID, BMP #### [facility] [address] [address] [address] Sarah Nath Triglyceride [Mass/Vol] 94 mg/dL Normal <=150 [facility] Comment on above: Performed By: #### A LT, LIPID, BMP #### [facility] [address] [address] [address] Sarah Nath VLDL CALC 18.8 mg/dL Normal [facility] Comment on above: Performed By: #### A LT, LIPID, BMP #### [facility] [address] [address] [address] Sarah Nath PROF CHEM 8 (BAS METB)on Anion gap [Moles/Vol] 13.3 mmol/L Normal [facility] Comment on above: Performed By: #### A LT, LIPID, BMP #### [facility] [address] [address] [address] Sarah Nath Calcium [Mass/Vol] 8.8 mg/dL Normal 8.5-10.1 [facility] Comment on above: Performed By: #### A LT, LIPID, BMP #### [facility] [address] [address] [address] Sarah Nath Chloride [Moles/Vol] 102 mmol/L Normal 98-107 [facility] Comment on above: Performed By: #### A LT, LIPID, BMP #### [facility] [address] [place] [address] Dr. Sarah Nath CO2 [Moles/Vol] 24.6 mmol/L Normal 21.0-32.0 [facility] Comment on above: Performed By: #### A LT, LIPID, BMP #### [facility] [address] [place] [address] Dr. Sarah Nath Creatinine [Mass/Vol] 0.77 mg/dL Normal 0.70-1.30 [facility] Comment on above: Performed By: #### A LT, LIPID, BMP #### [facility] [address] [place] [address] Dr. Sarah Nath EGFR-AF ERITREAN >60 Normal >=60 [facility] Comment on above: Performed By: #### A LT, LIPID, BMP #### [facility] [address] [place] [address] Dr. Sarah Nath EGFR-NON AF ERITREAN >60 Normal >=60 [facility] Comment on above: Performed By: #### A LT, LIPID, BMP #### [facility] [address] [place] [address] Dr. Sarah Nath Glucose [Mass/Vol] 100 mg/dL Normal 74-106 [facility] Comment on above: Performed By: #### A LT, LIPID, BMP #### [facility] [address] [place] [address] Dr. Sarah Nath Potassium [Moles/Vol] 3.9 mmol/L Normal 3.5-5.1 [facility] Comment on above: Performed By: #### A LT, LIPID, BMP #### [facility] [address] [place] [address] Dr. Sarah Nath Sodium [Moles/Vol] 136 mmol/L Normal 136-145 [facility] Comment on above: Performed By: #### A LT, LIPID, BMP #### [facility] [address] [place] [address] Dr. Sarah Nath Urea nitrogen [Mass/Vol] 14.0 mg/dL Normal 7.0-18.0 [facility] Comment on above: Performed By: #### A LT, LIPID, BMP #### [facility] [address] [address] [address] Sarah Nath Urea nitrogen/Creatini ne [Mass ratio] 18.2 mg/mg Normal [facility] Comment on above: Performed By: #### A LT, LIPID, BMP #### [facility] [address] [address] [address] Sarah Nath [facility] 12-30-2021 ALT [Catalytic activity/Vol] 9 U/L Critically low 16-63 [facility] Comment on above: Performed By: #### A LT, LIPID, BMP #### [facility] [address] [address] [address] Sarah Nath [facility] SARS-CoV-2 (COVID-19) RNA ZAHIDA+probe Ql (Unsp spec) Negative Normal Negative [facility] Comment on above: Order Comment: Healt hcare Worker?: N Result Comment: Testing for SARS-CoV-2 by RT-PCR This test was developed and its performance characteristics determined by [employer] and validated at the [facility]. This test has not been FDA cleared [...] is terminated or revoked sooner. PERFORMED BY: [address] [place] [address] PATHOLOGIST TRAINING AND DEVELOPMENT PROFESSIONAL NANCY MICHEL M.D. Performed By: #### C OVID 19 [facility] #### [facility] [address] XR CHEST 1 Von 09-27-2021 XR [...] AGUILAR YOST Date: 2021-09-26 22:49 Normal [facility] CARDIAC OWEN ADMITon 022 CK [Catalytic activity/Vol] 89 U/L Normal 39-308 [facility] Comment on above: Performed By: #### C MADM #### [facility] [address] [address] [address] Sarah Nath CK.MB [Mass/Vol] 2.62 ng/mL Normal <=3.60 [facility] Comment on above: Performed By: #### C MADM #### [facility] [address] [address] [address] Sarah Nath HSTROP 5.6 pg/mL Normal 4.0-76.1 [facility] Comment on above: Result Comment: CUT- OFF POINTS HAVE BEEN ESTABLISHED BASED ON THE FOURTH UNIVERSAL DEFINITIONS OF MYOCARDIAL INFARCTION. THE UPPER REFERENCE LIMIT (URL) OF TROPONIN, DEFINED THE 99TH PERCENTILE OF cTnI DISTRIBUTION IN A REFERENCE POPULATION, HAS BEEN CONFIRMED THE DECISION THRESHOLD FOR AL DIAGNOSIS. Performed By: #### C MADM #### [facility] [address] [address] [address] Sarah Nath MARISELA 73 ng/mL Normal 16-96 [facility] Comment on above: Performed By: #### C MADM #### [facility] [address] [address] [address] Sarah Nath CBC AUTO DIFFon 09-26-2021 BASO # 0.1 103/ul Normal 0.0-0.1 [facility] Comment on above: Performed By: #### C MADM #### [facility] [address] [address] [address] Sarah Nath Basophils/100 WBC (Bld) 0.7 % Normal 0.2-2.0 [facility] Comment on above: Performed By: #### C MADM #### [facility] [address] [address] [address] Sarah Nath EO # 0.1 103/ul Normal 0.0-0.7 [facility] Comment on above: Performed By: #### C MADM #### [facility] [address] [place] [address] Dr. Sarah Nath Eosinophils/100 WBC (Bld) 1.0 % Normal 0.9-7.0 [facility] Comment on above: Performed By: #### C MADM #### [facility] [address] [address] [address] Sarah Nath Erythrocyte distribution width (RBC) [Ratio] 12.9 % Normal 11.0-15.0 [facility] Comment on above: Performed By: #### C MADM #### [facility] [address] [address] [address] Sarah Nath Hematocrit (Bld) [Volume fraction] 48.9 % Normal 42.0-54.0 [facility] Comment on above: Performed By: #### C MADM #### [facility] [address] [address] [address] Sarah Nath Hemoglobin (Bld) [Mass/Vol] 16.1 g/dL Normal 14.0-18.0 [facility] Comment on above: Performed By: #### C MADM #### [facility] [address] [address] [address] Sarah Nath IG # 0.06 10e3/ul Critically high 0.00-0.03 [facility] Comment on above: Performed By: #### C MADM #### [facility] [address] [address] [address] Sarah Nath IG % 0.7 % Critically high 0.0-0.5 [facility] Comment on above: Performed By: #### C MADM #### [facility] [address] [address] [address] Sarah Nath LYMPH # 2.0 103/ul Normal 1.2-3.8 [facility] Comment on above: Performed By: #### C MADM #### [facility] [address] [address] [address] Sarah Nath Lymphocytes/100 WBC (Bld) 21.2 % Normal 20.5-60.0 [facility] Comment on above: Performed By: #### C MADM #### [facility] [address] [place] [address] Dr. Sarah Nath MANUAL DIFF REQ NO Normal [facility] Comment on above: Performed By: #### C MADM #### [facility] [address] [address] [address] Sarah Nath MCH (RBC) [Entitic mass] 30.4 pg Normal 25.9-34.0 [facility] Comment on above: Performed By: #### C MADM #### [facility] [address] [address] [address] Sarah Nath MCHC (RBC) [Mass/Vol] 32.9 g/dL Normal 29.9-35.2 [facility] Comment on above: Performed By: #### C MADM #### [facility] [address] [address] [address] Sarah Nath MCV (RBC) [Entitic vol] 92.3 fL Normal 80.0-94.0 [facility] Comment on above: Performed By: #### C MADM #### [facility] [address] [address] [address] Sarah Nath MONO # 0.7 103/ul Normal 0.3-0.8 [facility] Comment on above: Performed By: #### C MADM #### [facility] [address] [address] [address] Sarah Nath Monocytes/100 WBC (Bld) 7.9 % Normal 1.7-12.0 [facility] Comment on above: Performed By: #### C MADM #### [facility] [address] [address] [address] Sarah Nath NEUT # 6.3 103/ul Normal 1.4-6.5 [facility] Comment on above: Performed By: #### C MADM #### [facility] [address] [address] [address] Sarah Nath Neutrophils/100 WBC (Bld) 68.5 % Normal 43.0-75.0 [facility] Comment on above: Performed By: #### C MADM #### [facility] [address] [place] [address] Dr. Sarah Nath Platelet mean volume (Bld) [Entitic vol] 11.1 fL Normal 9.5-13.5 [facility] Comment on above: Performed By: #### C MADM #### [facility] [address] [address] [address] Sarah Nath PLT 231 103/ul Normal 150-450 [facility] Comment on above: Performed By: #### C MADM #### [facility] [address] [address] [address] Sarah Nath RBC 5.30 106/ul Normal 4.70-6.10 [facility] Comment on above: Performed By: #### C MADM #### [facility] [address] [address] [address] Sarah Nath WBC 9.2 103/ul Normal 4.0-11.0 [facility] Comment on above: Performed By: #### C MADM #### [facility] [address] [address] [address] Sarah Nath Coding Summary.on 02-19-2018 Coding Summary. CODING DATE: 018 FINAL [facility] STATUS: Home (Routine DC) PAYOR: Medicare [...] Terry Date Saved: 02/19/2018 12:43 pm Normal [facility] XR Swallowing Function w/ Vi deoon [...] Dose: Ka,r in mGy = 4.8 Normal [facility] Coding Summary.on 12-05-2017 Coding Summary. CODING DATE: 018 FINAL [facility] STATUS: Home (Routine DC) PAYOR: Medicare APC DESCRIPTION [id number] Procedures ADMIT DX: REASON FOR VISIT DX: H26.40 Unspecified secondary cataract FINAL DX: PRINCIPAL: H26.40 Unspecified secondary cataract SECONDARY: PYMT PROC APC STAT DESCRIPTION DOCTOR NAME DATE [id number] T Discission of secondary Sterling Chatman DO [...] Jewell Reynoso Date Saved: 12/05/2017 09:17 am [facility] Vital Signs Date Time Vital Sign Value Performing Clinician Facility 01-09-2024 10:48-0400 SaO2% (BldA) [Mass fraction] 97 % Memo Magallon MD Work Phone: [facility] 04-19-2023 10:00-0500 Body height 162.56 cm Prashant [employer] Other [employer] Other 04-19-2023 10:00-0500 Body mass index (BMI) [Ratio] 26.5 kg/m2 Prashant [employer] Other [employer] Other 04-19-2023 10:00-0500 Body weight 70.04 kg Prashant Ball Other [facility] Other 04-19-2023 10:00-0500 Diastolic blood pressure 80 mm[Hg] Prashant [employer] Other [employer] Other 04-19-2023 10:00-0500 Respiratory rate 12 /min Prashant [employer] Other [facility] Other 04-19-2023 10:00-0500 Systolic blood pressure 190 mm[Hg] Prashant Ball Other [facility] Other 01-12-2023 10:30-0400 Body height 162.56 cm Prashant Ball Other [employer] Other 01-12-2023 10:30-0400 Body mass index (BMI) [Ratio] 26.33 kg/m2 Prashant Ball Other [employer] Other 01-12-2023 10:30-0400 Body weight 69.58 kg Prashant Ball Other [employer] Other 01-12-2023 10:30-0400 Diastolic blood pressure 60 mm[Hg] Prashant Ball Other [employer] Other 01-12-2023 10:30-0400 Respiratory rate 12 /min Prashant Ball Other [employer] Other 01-12-2023 10:30-0400 Systolic blood pressure 108 mm[Hg] Prashant Ball Other [employer] Other 11-14-2022 09:45-0400 Body height 162.56 cm Prashant Ball Other [employer] Other 11-14-2022 09:45-0400 Body weight 0.91 kg Prashant Ball Other [employer] Other 11-14-2022 09:45-0400 Diastolic blood pressure 75 mm[Hg] Prashant Ball Other [employer] Other 11-14-2022 09:45-0400 Respiratory rate 12 /min Prashant Ball Other [employer] Other 11-14-2022 09:45-0400 Systolic blood pressure 167 mm[Hg] Prashant Ball Other [employer] Other 10-12-2022 10:30-0400 Body height 162.56 cm Prashant Ball Other [employer] Other 10-12-2022 10:30-0400 Body mass index (BMI) [Ratio] 25.95 kg/m2 Prashant Ball Other [employer] Other 10-12-2022 10:30-0400 Body weight 68.58 kg Prashant Ball Other [employer] Other 10-12-2022 10:30-0400 Diastolic blood pressure 64 mm[Hg] Prashant Ball Other [employer] Other 10-12-2022 10:30-0400 Respiratory rate 12 /min Prashant Ball Other [employer] Other 10-12-2022 10:30-0400 Systolic blood pressure 124 mm[Hg] Prashant Ball Other [employer] Other 06-28-2022 12:30-0400 Body height 162.56 cm Prashant Ball Other Flotype Other 06-28-2022 12:30-0400 Body mass index (BMI) [Ratio] 25.95 kg/m2 Prashant Ball Other [employer] Other 06-28-2022 12:30-0400 Body weight 68.58 kg Prashant Ball Other [employer] Other 06-28-2022 12:30-0400 Diastolic blood pressure 81 mm[Hg] Prashant Ball Other [employer] Other 06-28-2022 12:30-0400 Respiratory rate 12 /min Prashant Ball Other [employer] Other 06-28-2022 12:30-0400 Systolic blood pressure 177 mm[Hg] Prashant Gary Other [employer] Other Encounters Encounter Date Encounter Type Care Provider Facility Start: 01-09-2024 End: 01-09-2024 ambulatory PRASHANT GARY Facility:[facility] Start: 01-09-2024 End: 01-09-2024 Office outpatient [...] with patient Memo Magallon MD Work Phone: [facility] Start: 05-25-2023 End: 05-25-2023 ambulatory Prashant Gary Other [employer] Other Start: 05-25-2023 Telephone encounter Prashant ORDAZ [facility] Start: 05-22-2023 End: 05-22-2023 ambulatory Prashant Gary Other [employer] Other Start: 05-22-2023 Telephone encounter Prashant ORDAZ [facility] Start: 05-17-2023 End: 05-17-2023 ambulatory Prashant Gary Other [employer] Other Start: 05-17-2023 Telephone encounter Prashant ORDAZ [facility] Start: 05-14-2023 End: 05-14-2023 ambulatory Prashant Gary Other [employer] Other Start: 05-14-2023 Telephone encounter Prashant ORDAZ [facility] Start: 05-10-2023 End: 05-10-2023 ambulatory PRASHANT GARY Facility:[facility] Start: 05-07-2023 End: 05-07-2023 ambulatory Prashant Ball Other [employer] Other Start: 05-07-2023 Telephone encounter Prashant Gary [facility] Start: 04-30-2023 Refill Memo faria MD Work Phone: [facility] Comment on above: Refill Request Start: 04-26-2023 End: 04-26-2023 ambulatory Prashant Gary Other [employer] Other Start: 04-26-2023 Telephone encounter Prashant Gary FP [facility] Start: 04-19-2023 End: 04-19-2023 ambulatory Prashant Ball Other [employer] Other Start: 04-19-2023 Office outpatient vi sit 25 minutes Prashant Gary [facility] Start: 02-09-2023 End: 02-09-2023 ambulatory Prashant Ball Other [employer] Other Start: 02-09-2023 Telephone encounter Prashant Gary [facility] Start: 01-14-2023 End: 01-14-2023 ambulatory Prashant Ball Other [employer] Other Start: 01-14-2023 Telephone encounter Prashant Gary [facility] Start: 01-12-2023 End: 01-12-2023 ambulatory Prashant Ball Other [employer] Other Start: 01-12-2023 Patient encounter procedure Prashant Ball [facility] Start: 12-29-2022 End: 12-29-2022 ambulatory Prashant Ball Other [employer] Other Start: 12-29-2022 Telephone encounter Prashant Ball [facility] Start: 12-15-2022 End: 12-15-2022 ambulatory Prashant Ball Other [employer] Other Start: 12-15-2022 Telephone encounter Prashant ORDAZ [facility] Start: 12-06-2022 Telephone encounter Memo sawyer MD Work Phone: Neurology Comment on above: Medication Problem Start: 11-14-2022 End: 11-14-2022 ambulatory Prashant Gary Other [employer] Other Start: 11-14-2022 Office outpatient vi sit 15 minutes Prashant Gary [facility] Start: 10-12-2022 End: 10-12-2022 ambulatory Prashant Gary Other [employer] Other Start: 10-12-2022 Office outpatient vi sit 25 minutes Prashant Abdirahman [facility] Start: 09-12-2022 End: 09-12-2022 ambulatory Prashant Gary Other [employer] Other Start: 09-12-2022 Telephone encounter Prashant ORDAZ [facility] Start: 08-17-2022 End: 08-17-2022 ambulatory WEN BAEZ Facility:[facility] Start: 08-17-2022 End: 08-18-2022 ambulatory NARENDRANATH LAKSHMIPATHY . Facility:[facility] Start: 08-01-2022 End: 08-01-[address] PRASHANT GARY Facility:[facility] Start: 07-18-2022 End: 07-19-[address] PRASHANT GARY Facility:[facility] Start: 06-28-2022 End: 06-28-2022 ambulatory Prashant Gary Other [employer] Other Start: 06-28-2022 Office outpatient vi sit 25 minutes Prashant Abdirahman [facility] Start: 06-28-2022 Telephone encounter Prashant ORDAZ [facility] Start: 04-28-2022 End: 04-28-2022 ambulatory Memo Magallon MD Work Phone: Neurology Comment on above: Parkinson disease (H CC); Gait instability Start: 04-28-2022 End: 04-28-2022 Telemedicine consultation with patient Memo Magallon MD Work Phone: [facility] Start: 04-21-2022 End: 04-22-[address] PRASHANT GARY Facility:[facility] Start: 12-30-2021 End: 12-31-[address] PRASHANT GARY Facility:[facility] Start: 12-27-2021 Adult health examination Josiah harper Abdirahman Other [facility] [employer] Other Start: 10-24-2021 End: 10-24-2021 [facility] Memo Magallon MD Work Phone: Neurology Comment on above: Parkinson disease (H CC) (Primary Dx); REM sleep behavior disorder; Restless legs syndrome Start: 09-26-2021 End: 09-27-2021 ambulatory WEN BAEZ Facility:[facility] Start: 02-18-2018 End: 02-19-2018 Patient encounter procedure Julia Magallon Facility:[facility] Procedures Date Procedure Procedure Detail Performing Clinician Start: 12-30-2021 PSA screening NARENDRAN ATH [place] . Comment on above: Performed By: #### P [facility] #### [facility] [address] [place] [address] Dr. Sarah Nath Start: 04-12-2019 Adult depression [...] AM EDT Office Visit Neurology [address] [address] Memo Magallon MD [address] [facility] [address] [place] [address] 6 month follow up Neurology Comment on above: 6 month follow up Start: 01-09-2024 End: 01-09-2024 Patient encounter procedure 01/09/2024 11:00 AM EDT Office Visit Neurology [address] [address] Memo Magallon MD [address] [facility] [address] [place] [address] 6 month follow up Neurology Comment on above: 6 month follow up Start: 12-16-2023 Covid-19 Vaccine ( season) Covid-19 Vaccine () [facility] Start: 12-16-2023 Influenza vaccination Influenza Vacc ine (#1) [facility] Start: 04-16-2023 Advance Directive Discussion Advance Directive Discussion [facility] Start: 04-16-2023 [facility] Start: 12-15-2022 Covid-19 Vaccine ( season) Covid-19 Vaccine ( season) [facility] Start: 12-15-2022 Influenza vaccination INFLUENZA (#1) [facility] Start: 11-23-2022 ambulatory Ambulatory Facility:[facility] 1 Start: 04-16-2022 ADVANCE DIRECTIVE DISCUSSION ADVANCE DIRECTIVE DISCUSSION [facility] Start: 04-16-2022 [facility] Start: 12-15-2021 Influenza vaccination INFLUENZA (#1) [facility] Start: 04-16-2021 ADVANCE DIRECTIVE DISCUSSION ADVANCE DIRECTIVE DISCUSSION [facility] Start: 04-12-2020 Adult depression screening assessment DEPRESSION SCREENING [facility] Start: 11-28-2018 Pneumococcal Vaccine : 65+ (2 of 2 - PPSV23 or PCV20) Pneumococcal Vaccine: 65+ (2 of 2 - PPSV23 or PCV20) [facility] Start: 2018 RSV Vaccine (1 - 1-d ose 75+ series) RSV Vaccine (1 - 1-dose 75+ series) [facility] Start: 07-06-2015 DIABETES SCREEN DIABETES SCREEN [facility] Start: 07-06-2015 Diabetes Screening Diabetes Screenin g [facility] Start: 2008 PNEUMOCOCCAL: 65+ (1 - PCV) PNEUMOCOCCAL: 65+ (1 - PCV) [facility] Start: 2003 RSV Vaccine (1 - 1-d ose 60+ series) RSV Vaccine (1 - 1-dose 60+ series) [facility] Start: 1993 SHINGRIX VACCINE (1 of 2) SHINGRIX V ACCINE (1 of 2) [facility] Start: 1962 Urine microalbumin profile [facility] Start: 1961 ANNUAL PCP TEAM FURNITURE MOVER FELECIA DISEASE VISIT ANNUAL PCP TEAM CHRONIC DISEASE VISIT [facility] Start: 1961 Anxiety Screening Anxiety Screening [facility] Start: 1961 BP CONTROLLED (<130/80) BP CONTROLLE D (<130/80) [facility] Start: 1961 Depression Screening Depression Scre ening [facility] Start: 1961 HEPATITIS C SCREENING HEPATITIS C SC REENING [facility] Start: 1943 COVID-19 VACCINE (#1) COVID-19 VACCI NE (#1) [facility] Immunizations Immunization Date Immunization Notes Care Provider Fa cility 01-12-2023 influenza, high dose seasonal, preservative-free Prashant Gary Other [facility] Other 01-12-2023 influenza virus vaccine, unspecified formulation Memo Magallon MD Work Phone: [facility] 12-29-2021 influenza virus vaccine, split virus (incl. purified surface antigen) Prashant Gary Other [facility] Other 03-29-2021 COVID-19 Vaccine Pfi zer - Documentation Purposes Only Prashant Gary Other [facility] Other 06-04-2020 COVID-19 Vaccine Pfi zer - Documentation Purposes Only Prashant Gary Other [facility] Other 05-14-2020 COVID-19 Vaccine Moderna - Documentation Purposes Only Prashant Gary Other [facility] Other 02-18-2020 influenza virus vaccine, split virus (incl. purified surface antigen) Prashant Gary Other [facility] Other 11-28-2017 influenza virus vaccine, split virus (incl. purified surface antigen) Prashant Gary Other [facility] Other 11-28-2017 pneumococcal conjuga te vaccine, 13 valent Prashant Gary Other [facility] Other Payers Date Payer Category Payer Medicare HUMANA MEDICARE HU[employer]NA MEDICARE PPO [id number] 2011-Present [phone] [address] [place] [address] PPO [id number] 2011 Medicare HUMANA MEDICARE HU[employer]NA MEDICARE PPO [id number] 2011-Present [phone] [place] [address] PPO [id number] 1959 Medicare [id number] 1943 Unknown [id number] 1943 Unknown [id number] 1943 Unknown [id number] 1943 Unknown [id number] 1943 Unknown [id number] 1943 Unknown [id number] 1943 Unknown [id number] 1943 Unknown [id number] Social History Date Type Detail Facility Start: 03-01-2011 End: 01-09-2024 Tobacco smoking status NHIS Ex-smoker [facility] Start: 05-14-1975 End: 05-14-1983 History of tobacco use Current smoker [facility] Start: 05-14-1975 End: 05-14-1983 History of tobacco use Cigarette Smoker [facility] Start: 03-01-2011 End: 07-05-2023 Cigarettes smoked current (pack per day) - Reported 12 [facility] Start: 03-01-2011 End: 01-09-2024 Tobacco use and exposure Smokeless tobacco non-user [facility] Start: 01-22-2020 End: 01-09-2024 Alcohol intake Current drinker of alcohol (finding) [facility] Start: 1945 Sex Assigned At Not on file [facility] Start: 10-14-2021 End: 10-24-2021 Exposure to SARS-CoV-2 (event) Unable to assess [facility] Work Phone: Start: 01-22-2020 End: 07-05-2023 Sex Assigned At [facility] Adult Depression Screening Assessment 4 [facility] Medical Equipment Procedure Code Equipment Code Equipment Origin al Text Equipment Identifier Dates Graft Bn Infs Rhbmp-2 2.8ml Sm - [id number] Start: 05-15-2012 Sub Bngf Prognx + Dbm Bov - [id number] Start: 05-15-2012 6.5 Commpression Screw [id number] Start: 03-01-2011 6.5 Mm Compressi on Screw [id number] Start: 03-01-2011 6.5 Compression Screw [id number] Start: 03-01-2011 4.5mm Compressio n Screw [id number] Start: 03-01-2011 6.5mm X110mm Screw [id number] Start: 03-01-2011 Qna-Ck-T-Kind Implant - [id number] Start: 05-15-2012 Comment on above: Description: 3.5 x 2 0mm angle lock screw Hre-Gf-J-Kind Implant - [id number] Start: 05-15-2012 Comment on above: Description: 3.5 x 1 0 mm angle lock screw Amz-Vw-I-Kind Implant - [id number] Start: 05-15-2012 Comment on above: Description: 3.5 x 1 0mm angle lock screw Dln-Fo-G-Kind Implant - [id number] Start: 05-15-2012 Comment on above: Description: 8 hole l shape ankle plate Sph-Nb-W-Kind Implant - [id number] Start: 05-15-2012 Comment on above: Description: 3.5 x 3 0 lock screw Hfr-Bc-V-Kind Implant - [id number] Start: 05-15-2012 Comment on above: Description: 3.5 x 3 0mm angle lock screw Ftr-Xl-C-Kind Implant - [id number] Start: 05-15-2012 Comment on above: Description: 3.5mm 3 8mm lock screw [id number] 0329 52-Plate Omega3 Standard Barrel Hip Keyless 135 4 Hole [id number] - [id number] Start: 07-05-2012 Screw Compr 6.5x 50mm - [id number] Start: [id number] 0329 52-Screw Bn 13mm 100mm O+ Ss Std - [id number] Start: [id number] 0329 52-Screw Compression Butternut 32mm [id number] - [id number] Start: [id number] 0329 52-Screw Bn 4.5mm 38mm Axsos Ss - [id number] Start: [id number] 0329 52-Screw Bn 4.5mm 36mm Axsos Ss - [id number] Start: 03-22-2013 Clinical Notes 10-24-2021 to 01-10-2024 Memo Magallon MD - 01/10/2024 12:46 PM EDTAMemo bruno MD - 07/05/2023 7:32 AM EDT Note Date & Type Note Facility 01-10-2024 Note HNO ID: [id number] Author: MEMO MAGALLON MD Service: ? Author Type: Physician Type: Progress Notes Filed: 01/10/2024 12:50 Note Text: [facility] - FOLLOW UP EVALUATION Prashant Gary, DO [address] [facility] [address] I had the pleasure of seeing Mr. [...] please feel free to send me a Sendmail message or contact the office PT Interval [...] MDS-UPDRS Motor subsc (more content not included)... [facility] 01-10-2024 History of Present illness Narrative [facility] - FOLLOW UP EVALUATION Prashant Gary, DO [address] [facility] [address] I had the pleasure of seeing Mr. [...] please feel free to send me a [employer] message or contact the office PT Interval [...] the amplitude decrements starting after the 1st zeaf-lhf-bddev sequence. Arm Movements Right 1-Slight. a) the [...] please feel free to send me a Sendmail message or contact the office - Physical therapy- Interested in clinical research? Not discussed Updated Movement Disorders Medication Schedule: Medications 6am 12pm 6pm 12am Sinemet 25/100 2 2 2 Mirapex 0.25 mg 3 3 3 3 Return at or around: 07/08/24 Level of service : 66731 (20-29 min). Time spent 24 min on the day of service, which included preparing to see the patient, yiwe-gc-nhdi patient care, completing clinical documentation, performing a medically appropriate examination, and counseling and educating the patient/family/caregiver. Thank you for allowing me to be part of the clinical care of this patient! I look forward to continued participation in the patient s care with you. Please do not hesitate to call with any questions. Sincerely, Memo Magallon MD documented in this encounter [facility] 07-05-2023 Note HNO ID: [id number] Author: MEMO MAGALLON MD Service: ? Author Type: Physician Type: Progress Notes Filed: 07/08/2023 15:52 Note Text: [facility] - FOLLOW UP EVALUATION - VIRTUAL VISIT Prashant Gary DO [address] [facility] [address] Dear Prashant Gary DO: I had the [...] visit. Either the patient or their legal territory account representative has been informed of the risks [...] please feel free to send me a Sendmail message or contact the office PT Interested in clinical research? Not currently Updated Movement Disor (more content not included)... [facility] 07-05-2023 History of Present illness Narrative [facility] - FOLLOW UP EVALUATION - VIRTUAL VISIT Prashant Gary DO [address] [facility] [address] Dear Prashant Gary DO: I had the [...] visit. Either the patient or their legal territory account representative has been informed of the risks [...] please feel free to send me a Sendmail message or contact the office PT Interested [...] Memo Magallon MD documented in this encounter [facility] 05-25-2023 Evaluation note Encounter Date Diagnosis Assessment Notes May, Essential hypertension (ICD-10 - I10) [facility] 01-25-2024 NoteHNO ID: [id number] Author: MEMO MAGALLON MD Service: ? Author Type: Physician Type: Progress Notes Filed: 05/14/2023 07:43 Note Text: [facility] - FOLLOW UP EVALUATION No referring provider defined for this encounter. Prashant Gary DO [address] [facility] [address] I had the pleasure of seeing Mr. [...] Performed: MDS-UPDRS Motor subsca (more content not included)...[facility] 04-30-2023 Telephone encounter Note* Telephone Encounter - Memo Magallon MD - 04/30/2023 12:16 PM EST Done [facility]01-15-2024 Miscellaneous Notes* Telephone Encounter - Memo [...] to the patient's pharmacy. Mague Da Silva, Landscaper III [facility] Telephone encounter Note * Telephone Encounter [...] to the patient's pharmacy. Mague Da Silva, Landscaper III [facility]01-11-2024 Evaluation note* Encounter Date Diagnosis Assessment Notes Treatment Notes Treatment Clinical Notes Apr, Primary hypertension (ICD-10 - I10) [facility] 01-04-2024 Evaluation note* Encounter Date Diagnosis [...] report is being monitored every 90 days. [facility] Other 09-29-2023 Evaluation note* Encounter Date Diagnosis [...] directed therapy Failed to improve w/ injections [facility] 08-23-2023 Miscellaneous Notes* Telephone Encounter - Autumn Graff - 12/06/2022 8:52 AM EDT Pharmacy called stating they the [facility] are unable to fill the carbidopa-levodopa ([id number]) 25-100 mg per tablet. Patient is requesting that it be sent to e- [facility]/pharmacy #[id number] [place] [address] [address] [facility] . Please call patient at [phone] once sent to the pharmacy. Thank you! Autumn Graff [facility] note* Encounter Date Diagnosis [...] and feet daily for blisters and ulcerations. [facility] 06-29-2023 Evaluation note* Encounter Date Diagnosis [...] diet, fluids and reduce Amitiza to 8mg [facility] 05-30-2023 Evaluation note* Encounter Date Diagnosis Assessment Notes Treatment Notes Treatment Clinical Notes August, Essential hypertension (ICD-10 - I10) [facility] 04-04-2023 NoteCONSULTATION CONSULTATION DATE: 07/18/2022 TO: [...] comfortable in the semi-recumbent position. He uses Shandaken for pain control, 5 mg daily p.r. [...] our patients to inform us about any dzru-xtf-rtmmtvf medications or herbal remedies/nutritional supplements/alternative remedies. 2. [...] treatment options with their primary care provider.[id number] Evaluation note * Encounter Date Diagnosis Assessment [...] Chronic prescription opiate use (ICD-10 - Z79.891) [facility] 01-13-2023 History of Present illness Narrative* Memo Magallon MD - 04/28/2022 5:28 PM EST [facility] - FOLLOW UP EVALUATION - VIRTUAL VISIT Prashant Gary DO [address] [facility] [address] Dear Prashant Gary DO: I had the pleasure of seeing Mr. De La Garza for follow-up today. As you know he is a 77 year old right-handed male with a history of Parkinson's disease since 2002. Also with chronic low back pain and diffuse arthritis, fused ankles. He is seen with his . We had a visit using: [employer] I received consent from the patient to [...] 3 3 3 Level of service : 10989 (20-29 min). Time spent 25 min on the day of service, which included preparing to see the patient, dlnd-ln-bdem patient care, completing clinical documentation, and counseling and educating the patient/family/caregiver. Thank you for allowing me to be part of the clinical care of this patient! I look forward to continued participation in the patient s care with you. Please do not hesitate to call with any questions. Sincerely, Memo Magallon MD [facility] History of Present illness Narrative* Memo Magallon MD - 10/24/2021 11:00 AM EDT [facility] - FOLLOW UP EVALUATION Tamika Gillis [address] [facility] [address] Prashant Gary, DO [address] [facility] [place] [address] I had the pleasure of seeing Mr. De La Garza for follow up today. He is a 76 year old right-handed male with a history of Parkinson's disease since 2002. Also with chronic low back pain and diffuse arthritis, fused ankles. He is seen with his . We had a visit using: [employer] I received consent from the patient to [...] [facility] Diagnosis Parkinson disease (HCC)- Primary Paralysis agitans REM sleep behavior disorder Restless legs syndrome Restless legs syndrome (RLS) documented in this [facility] note* Diagnosis Parkinson disease (HCC) Paralysis agitans Gait instability Abnormality of gait documented in this encounter [facility] noteNo [employer] Other Evaluation note* Diagnosis Parkinson's disease, unspecified whether dyskinesia present, unspecified whether manifestations fluctuate (HCC) Gait instability Abnormality of gait documented in this encounter [facility] note* Diagnosis Parkinson disease (HCC) Paralysis agitans Gait instability Abnormality of gait [facility] Diagnosis Parkinson's disease, unspecified whether dyskinesia present, unspecified whether manifestations fluctuate (HCC) documented in this encounter [facility] general Narrative - Reported* Type Description Date [...] ON 2021 Hospitalization History SEE SURGICAL HX [facility] Other Reason for referral (narrative)* Reason * 07/12 Referral for pain management Diagnosis 1 Lumbar spondylosis ( M47.816) Diagnosis 2 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 P: [id number] F: [id number] [facility] Other Summary Purpose Family History No Family [...] 60-74 MINUTES Memo Magallon MD [address] [address] Referral ID Status Reason Start Date Expiration Date Visits Requested Visits Authorized [id number] Authorized PCP Requested Referral 10/24/2021 01/22/2022 1 1 Referral ID Status Reason Start Date Expiration Date Visits Requested Visits Authorized [id number] Authorized PCP Requested Referral 04/28/2022 07/27/2022 1 1 Specialty Diagnoses / Procedures Referred By Contac t Referred To Contact Diagnoses Parkinson's disease, unspecified whether dyskinesia present, unspecified whether manifestations fluctuate (HCC) Procedures PROVIDER ORDERED FOLLOW UP OFFICE/OUTPATIENT NEW HIGH MDM 60 MINUTES Memo Magallon MD [address] [address] Referral ID Status Reason Start Date Expiration Date Visits Requested Visits Authorized [id number] Authorized PCP Requested Referral 07/05/2023 10/03/2023 1 1 Referral ID Status Reason Start Date Expiration Date Visits Requested Visits Authorized [id number] Authorized PCP Requested Referral 01/09/2024 04/08/2024 1 1 Specialty Diagnoses / Procedures Referred By Contac t Referred To Contact [facility] Diagnoses Parkinson's disease, unspecified whether dyskinesia present, unspecified whether manifestations fluctuate (HCC) Procedures CONSULT TO PHYSICAL THERAPY PHYSICAL THERAPY EVALUATION HIGH COMPLEX 45 MINS Memo Magallon MD [address] [address] [facility] [place] [address] Referral ID Status Reason Start Date Expiration Date Visits Requested Visits Authorized [id number] Pending Review Auto-Generat ed Referral 01/09/2024 01/08/2025 1 1 Additional Source Comments (unrecognized sect ion and content) No Status Records FoundNo Status Records FoundNo Status Records FoundNo Status Records Found INFORMATION SOURCE (unrecogn ized section and content) DATE CREATED AUTHOR 03/24/2018 Daniel Nunez [facility] DATE CREATED AUTHOR AUTHOR'S ORGANIZ ATION 10/07/2021 [facility] DATE CREATED AUTHOR AUTHOR'S ORGANIZ ATION 08/22/2022 [facility] DATE CREATED AUTHOR AUTHOR'S ORGANIZ ATION 01/11/2024 [facility] Source Comments (unrecognize d section and content) In the event this informatio n is protected by the Federal Confidentiality of Alcohol and Drug Abuse Patient Records regulations: The Federal rules restrict any use of the information to criminally investigate or prosecute any alcohol or drug abuse patient.[facility] the event this information is protected by the Federal Confidentiality of Alcohol and Drug Abuse Patient Records regulations: The Federal rules restrict any use of the information to criminally investigate or prosecute any alcohol or drug abuse patient.[facility] the event this information is protected by the Federal Confidentiality of Alcohol and Drug Abuse Patient Records regulations: The Federal rules restrict any use of the information to criminally investigate or prosecute any alcohol or drug abuse patient.[facility] the event this information is protected by the Federal Confidentiality of Alcohol and Drug Abuse Patient Records regulations: The Federal rules restrict any use of the information to criminally investigate or prosecute any alcohol or drug abuse patient.[facility] the event this information is protected by the Federal Confidentiality of Alcohol and Drug Abuse Patient Records regulations: The Federal rules restrict any use of the information to criminally investigate or prosecute any alcohol or drug abuse patient.[facility] the event this information is protected by the Federal Confidentiality of Alcohol and Drug Abuse Patient Records regulations: The Federal rules restrict any use of the information to criminally investigate or prosecute any alcohol or drug abuse patient.[facility] Reason for Visit (unrecogniz ed section and content) Reason Comments Telemedicine Follow Up Specialty Diagnoses / Procedures Referred By Contac t Referred To Contact Diagnoses Parkinson disease (HCC) Procedures PROVIDER ORDERED FOLLOW UP OFFICE/OUTPATIENT [facility] 60-74 MINUTES Memo Magallon MD [address] [place] [id number] Referral ID Status Reason Start Date Expiration Date V isits Requested Visits Authorized [id number] Closed PCP Requested Referral 10/24/2021 01/22/2022 1 1 Reason Comments Medication Problem Reason Onset Date Comments Refill Request 04/30/2023 Reason Comments Parkinson's Disease Specialty Diagnoses / Procedures Referred By Rose t Referred To Contact Diagnoses Parkinson's disease, unspecified whether dyskinesia present, unspecified whether manifestations fluctuate ([facility]) Procedures PROVIDER ORDERED FOLLOW UP OFFICE/OUTPATIENT NEW HIGH MDM 60 MINUTES Memo Magallon MD [address] [address] Referral ID Status Reason Start Date Expiration Date V isits Requested Visits Authorized [id number] Closed PCP Requested Referral 07/05/2023 10/03/2023 1 1 Care Teams (unrecognized sec tion and content) Lime Spreader Relationship Specialty Start Date End Date Prashant Gary DO PCP - General 03/11/07 Lime Spreader Relationship Specialty Start Date End Date Prashant Gary DO PCP - General 03/11/07 Lime Spreader Relationship Specialty Start Date End Date Prashant Gary DO PCP - General 03/11/07 Lime Spreader Relationship Specialty Start Date End Date Prashant Gary DO PCP - General 03/11/07 Memo Magallon MD [address] [address] Specialty Employee Development Specialist Neurology 04/04/23 Tamika Gillis TURRET LATHE MACHINIST.SUPERVISOR MOLD CONSTRUCTION [address] [place] [address] Specialty Employee Development Specialist Neurology 04/04/23 Lime Spreader Relationship Specialty Start Date End Date Prashant Gary DO PCP - General 03/11/07 Memo Magallon MD [address] [phone] Specialty Employee Development Specialist Neurology 04/04/23 Tamika Gillis, TURRET LATHE MACHINIST.SUPERVISOR MOLD CONSTRUCTION [address] [place] [address] Specialty Employee Development Specialist Neurology 04/04/23 Lime Spreader Relationship Specialty Start Date End Date Prashant Gary DO PCP - General 03/11/07 Memo Magallon MD [address] [phone] Specialty Employee Development Specialist Neurology 04/04/23 Tamika Gillis, TURRET LATHE MACHINIST.SUPERVISOR MOLD CONSTRUCTION [address] [place], [place] [phone] Specialty Employee Development Specialist Neurology 04/04/23 FOR RECORDS PERTAINING TO [...] BE BASED ON THE PRIMARY CLINICAL RECORDS. [facility] [employer] [facility]. provides no warranty or guarantee of the accuracy or completeness of information in this document.
[2024-06-03 12:30] LABS: Bilirubin Urine NEGATIVE (NEGATIVE); Blood Urine NEGATIVE (NEGATIVE); Clarity Urine CLEAR (CLEAR); Color Urine LT. YELLOW (YELLOW); Glucose Urine UA NEGATIVE (NEGATIVE); Ketones Urine NEGATIVE (NEGATIVE); Leukocyte Esterase Urine NEGATIVE (NEGATIVE); Nitrite Urine NEGATIVE (NEGATIVE); Protein Urine NEGATIVE (NEG/TRACE); Urobilinogen Urine 0.2 EU/dL (0.2-1.0); pH Urine 5.5 (5.0-9.0)
[2024-06-03 12:31] LABS: Basophils Absolute Auto 0.1 10^3/uL (0.0-0.1); Basophils Percent Auto 0.7 % (0.2-2.0); Eosinophils Absolute Auto 0.1 10^3/uL (0.0-0.7); Eosinophils Percent Auto 1.1 % (0.9-7.0); Hematocrit 43.6 % (42.0-54.0); Hemoglobin 14.6 g/dL (14.0-18.0); Immature Granulocytes Abs Auto 0.03 10^3/uL (0.00-0.03); Immature Granulocytes Pct Auto 0.4 % (0.0-0.5); Lymphocytes Absolute Auto 1.8 10^3/uL (1.2-3.8); Lymphocytes Percent Auto 21.7 % (20.5-60.0); Mean Corpuscular HGB Conc 33.5 g/dL (29.9-35.2); Mean Corpuscular Volume 89.5 fL (80.0-94.0); Mean Platelet Volume 11.4 fL (9.5-13.5); Monocytes Absolute Auto 0.7 10^3/uL (0.3-0.8); Monocytes Percent Auto 8.6 % (1.7-12.0); Neutrophils Absolute Auto 5.6 10^3/uL (1.4-6.5); Neutrophils Percent Auto 67.5 % (43.0-75.0); Platelet Count 189 10^3/uL (150-450); Red Blood Count 4.87 10^6/uL (4.70-6.10); Red Cell Distribution Width 12.7 % (11.0-15.0); White Blood Count 8.3 10^3/uL (4.0-11.0)
[2024-06-03 12:51] LABS: Alanine Aminotransferase 10 U/L (16-63); Albumin Globulin Ratio 1.2; Alkaline Phosphatase 108 U/L (46-116); Anion Gap 14.8; Aspartate Amino Transferase 23 U/L (15-37); BUN Creatinine Ratio 14.8; Bilirubin Total 0.8 mg/dL (0.2-1.0); Carbon Dioxide 24.6 mmol/L (21.0-32.0); Chloride 104 mmol/L (98-107); Estimated GFR (African America >60 (>=60 mL/min/1.73m^2); Estimated GFR (Non-African Ame >60 (>=60 mL/min/1.73m^2); Globulin 3.3 g/dL; Glucose 106 mg/dL (74-106); Potassium 4.4 mmol/L (3.5-5.1); Sodium 139 mmol/L (136-145); Total Protein 7.3 g/dL (6.4-8.2)
[2024-06-03 13:07] LABS: Bacteria Urine NONE SEEN #/HPF (NONE SEEN); Cast Seen? NONE SEEN #/LPF (NONE SEEN); Crystals Seen? None Seen #/HPF (None Seen); Mucus Urine NONE SEEN (NONE SEEN); RBC Urine NONE SEEN #/HPF (0-2); Squamous Epithelial Cell Urine RARE #/LPF (NONE/RARE); WBC Urine NONE SEEN #/HPF (NONE SEEN)
[2024-06-03 13:08] LABS: Urine Culture Indicated ALREADY ORDERED
== END 2024-06-03 12:00 | disposition home or self-care (01) ==
LOC: LAB 12:02
PROVIDERS: PCP Internal Medicine; Visit Provider Internal Medicine
DX: R44.1 Visual hallucinations (principal); I10 Essential (primary) hypertension; G20.B1 Parkinson's disease with dyskinesia, without mention of fluctuations; R82.998 Other abnormal findings in urine
CPT/HCPCS: 36415; 80053; 81001; 85025; 87086

== ENCOUNTER 2024-12-08 13:57 | Emergency (ER) | payer MEDICARE, SELFPAY ==
[2024-12-08] VITALS (26 sets, daily range): BP systolic 80–156; BP diastolic 52–82; PULSE 56–72; O2SAT 92–100; BMI 25.0
--- OUTSIDE RECORDS SUMMARY | 2024-12-08 14:05 | XMS_ITS | Encounter Summary ---
Author Organization [facility] Address [facility] [place] [address] Care Team Providers Care Balance And Hairspring Assembler Name Role Phone Prashant Gayr DO Primary Care Provider [phone] Tasneem Magallon MD Unavailable [phone] Tamika Gillis APRN.ASSISTANT SHIFT SUPERVISOR Unavailable [phone] Source Comments In the event this information is protected by the Federal Confidentiality of Alcohol and Drug AbusePatient Records regulations: The Federal rules restrict any use of the information to criminally investigate or prosecute any alcohol or drug abuse patient.[facility] Encounter Details Date Type Department Care Team (Late st Contact Info) Description 07/31/2024 Patient Msg Neurology [address] [phone] Provider, [facility] Research Helps Us Understand Parkinson's Disease - Join Us To Learn How! Social History Tobacco Use Types Packs/Day Years Used Date Smoking Tobacco: Former Cigarettes 12 8 0 05/14/1975 - 05/14/1983 Smokeless Tobacco: Never Alcohol Use Standard Drinks/Week Comments Yes 48 (1 standard drink = 0.6 oz pu re alcohol) PHQ-2 Answer Date Recorded PHQ-2 score 1 06/15/2024 Area Deprivation Index Answer Date Mike rded National Score (1-100), lower number is lower ri sk 65 07/05/2023 State Score (1-10), lower number is lower risk 4 07/05/2023 Data from: https://www.neighborhoodatlas.medicine.[facility].edu/. Last address used for calculation [address] 07/05/2023 Sex and Gender Information Value Date Recorded Sex Assigned at Not on file Legal Sex Male 8:04 AM EST Gender Identity Not on file Sexual Orientation Not on file documented as of this encounter Plan of Treatment Upcoming Encounters Date Type Department Care Team (Late st Contact Info) Description 01/26/2025 11:00 AM EDT Office Visit Neurology [address] [phone] Tasneem Magallon MD [address] [address] pd follow up documented as of this encounter Visit Diagnoses Not on filedocumented in this encounter Care Teams Balance And Hairspring Assembler Relationship Specialty Start Date End Date Prashant Gary DO PCP - General 03/11/07 Tasneem Magallon MD [facility] [address] [address] Specialty Powder Worker Tnt Neurology 04/04/23 Tamika Gillis APRN.[place]AC[address] [place] [address] Specialty Powder Worker Tnt Neurology 04/04/23 documented as of this encounter
--- OUTSIDE RECORDS SUMMARY | 2024-12-08 14:05 | XMS_ITS | Encounter Summary ---
Author Organization [facility] Address [address] [place] [address] Care Team Providers Care Public Health Inspector Name Role Phone Prashant Gary DO Primary Care Provider [phone] Tasneem Magallon MD Unavailable [phone] Tamika Gillis APRN.HIGHWAY ENGINEERING TECHNICIAN Unavailable [phone] Source Comments In the event this information is protected by the Federal Confidentiality of Alcohol and Drug AbusePatient Records regulations: The Federal rules restrict any use of the information to criminally investigate or prosecute any alcohol or drug abuse patient.[facility] Encounter Details Date Type Department Care Team (Late st Contact Info) Description 12/18/2023 Patient Msg [address] [place] [address] [place] [address] Provider, [facility] CNR Virtual Shared Medical Appointment [place] - December 2023 Social History Tobacco Use Types Packs/Day Years Used Date Smoking Tobacco: Former Cigarettes 12 8 0 05/14/1975 - 05/14/1983 Smokeless Tobacco: Never Alcohol Use Standard Drinks/Week Comments Yes 48 (1 standard drink = 0.6 oz pu re alcohol) PHQ-2 Answer Date Recorded PHQ-2 score 2 05/10/2023 Area Deprivation Index Answer Date Mike rded National Score (1-100), lower number is lower ri sk 65 07/05/2023 State Score (1-10), lower number is lower risk 4 07/05/2023 Data from: https://www.neighborhoodatlas.medicine.[facility].edu/. Last address used for calculation [address] [...] AM EDT Office Visit Neurology [address] [phone] Tasneem Magallon MD [address] [address] [place] follow up documented as of this encounter Visit Diagnoses Not on filedocumented in this encounter Care Teams Public Health Inspector Relationship Specialty Start Date End Date Prashant Gary DO PCP - General 03/11/07 Tasneem Magallon MD [address] [address] Specialty Restaurant Host Neurology 04/04/23 Tamika Gillis APRN.CNP [address] [place] [address] Specialty Restaurant Host Neurology 04/04/23 documented as of this encounter
--- OUTSIDE RECORDS SUMMARY | 2024-12-08 14:05 | XMS_ITS | Encounter Summary ---
Author Organization [facility] Address [facility] [place] [address] Care Team Providers Care Skein Washer Name Role Phone Prashant Gary DO Primary Care Provider Tasneem Magallon MD Unavailable [phone] Tamika Gillis APRN.COMMUNITY CASE MANAGER Unavailable [phone] Source Comments In the event this information is protected by the Federal Confidentiality of Alcohol and Drug AbusePatient Records regulations: The Federal rules restrict any use of the information to criminally investigate or prosecute any alcohol or drug abuse patient.[facility] Encounter Details Date Type Department Care Team (Late st Contact Info) Description 03/05/2024 Patient Msg Neurology [address] [phone] Provider, [facility] Message from [facility] Social History Tobacco Use Types Packs/Day Years Used Date Smoking Tobacco: Former Cigarettes 12 8 0 05/14/1975 - 05/14/1983 Smokeless Tobacco: Never Alcohol Use Standard Drinks/Week Comments Yes 48 (1 standard drink = 0.6 oz pu re alcohol) PHQ-2 Answer Date Recorded PHQ-2 score 4 01/09/2024 Area Deprivation Index Answer Date Mike rded National Score (1-100), lower number is lower ri 65 07/05/2023 State Score (1-10), lower number is lower risk 4 07/05/2023 Data from: https://www.neighborhoodatlas.medicine.[facility].edu/. Last address used for calculation [address] [...] AM EDT Office Visit Neurology [address] [phone] Tasneem Magallon MD [address] [address] [place] follow up documented as of this encounter Visit Diagnoses Not on filedocumented in this encounter Care Teams Skein Washer Relationship Specialty Start Date End Date Prashant Gary DO PCP - General 03/11/07 Tasneem Magallon MD [facility] [address] [address] Specialty Photoengraving Apprentice Neurology 04/04/23 Tamika Gillis APRN.CNP [facility] [place] [address] Specialty Photoengraving Apprentice Neurology 04/04/23 documented as of this encounter
--- OUTSIDE RECORDS SUMMARY | 2024-12-08 14:05 | XMS_ITS | Encounter Summary ---
Author Organization [facility] Address [facility] [place] [address] Care Team Providers Care Licensed Pesticide Applicator Name Role Phone Prashant Gary DO Primary Care Provider [phone] Tasneem Magallon MD Unavailable [phone] Tamika Gillis APRN.SMASH HAND Unavailable [phone] Source Comments In the event this information is protected by the Federal Confidentiality of Alcohol and Drug AbusePatient Records regulations: The Federal rules restrict any use of the information to criminally investigate or prosecute any alcohol or drug abuse patient.[facility] Encounter Details Date Type Department Care Team (Late st Contact Info) Description 11/06/2024 Patient Msg Neurology [address] [phone] Provider, [place] Am I an [place] Candidate for New Therapies in Parkinson's Disease? Social History Tobacco Use Types Packs/Day Years [...] is lower risk 4 07/05/2023 Data from: https://www.neighborhoodatlas.medicine.[facility].edu/. Last address used for calculation [address] [...] AM EDT Office Visit Neurology [address] [phone] Tasneem Magallon MD [address] [address] pd follow up documented as of this encounter Visit Diagnoses Not on filedocumented in this encounter Care Teams Licensed Pesticide Applicator Relationship Specialty Start Date End Date Prashant Gary DO PCP - General 03/11/07 Tasneem Magallon MD [facility] [address] [address] Specialty Primary Grade Teacher Neurology 04/04/23 Tamika Gillis APRN.SMASH HAND [place] [address] Specialty Primary Grade Teacher Neurology 04/04/23 documented as of this encounter
--- OUTSIDE RECORDS SUMMARY | 2024-12-08 14:05 | XMS_ITS | Encounter Summary ---
Author Organization [facility] Address [address] [place] [address] Care Team Providers Care Billing Machine Operator Name Role Phone Prashant Gary DO Primary Care Provider [phone] Tasneem Magallon MD Unavailable [phone] Tamika Gillis APRN.STEAM TUNNEL FEEDER Unavailable [phone] Source Comments In the event this information is protected by the Federal Confidentiality of Alcohol and Drug AbusePatient Records regulations: The Federal rules restrict any use of the information to criminally investigate or prosecute any alcohol or drug abuse patient.[facility] Reason for Visit * Reason Comments Appointment Cancelled Encounter Details Date Type Department Care Team (Late st Contact Info) Description 11/18/2024 Telephone Neurology [address] [phone] Tasneem Magallon MD [address] [facility] [address] [place] [address] Appointment Cancelled Social History Tobacco Use Types Packs/Day Years [...] is lower risk 4 07/05/2023 Data from: https://www.neighborhoodatlas.[facility]/. Last address used for calculation [address] 07/05/2023 Sex and Gender Information Value Date Recorded Sex Assigned at Not on file Legal Sex Male 8:04 AM EST Gender Identity Not on file Sexual Orientation Not on file documented as of this encounter Miscellaneous Notes * Telephone Encounter - [place] - 11/18/2024 11:22 AM EDT Sent patient a MyChart letting them know that their appointment with Dr. Tasneem Magallon on 02/04/25 has been cancelled and needs to be rescheduled, the provider will be out of the office. Per clinical Ok to reschedule for next available. If they want a sooner appointment they can be added to the waitlist. documented in this encounter Plan of Treatment Upcoming Encounters Date Type Department Care Team (Late st Contact Info) Description 01/26/2025 11:00 AM EDT Office Visit Neurology [address] [phone] Tasneem Magallon MD [address] [address] pd follow up documented as of this encounter Visit Diagnoses Not on filedocumented in this encounter Care Teams Billing Machine Operator Relationship Specialty Start Date End Date Prashant Gary DO PCP - General 03/11/07 Tasneem Magallon MD [address] [address] Specialty Senior Java Data Architect Neurology 04/04/23 Tamika Gillis APRN.STEAM TUNNEL FEEDER [address] [place] [address] Specialty Senior Java Data Architect Neurology 04/04/23 documented as of this encounter
--- NOTE | 2024-12-08 14:47 | ECG_ITS ---
[facility] Test Date: 2024-12-08 Pat Name: SILKE VEGA Department: Room: - Gender: Male Mold Operator: : 1945 Requested By: [id number] Order Number: [id number] Reading MD: SAMSON BALLARD Measurements Intervals [place] Rate: 56 P: 26 VA: 160 QRS: 9 QRSD: 70 T: 31 QT: 452 QTc: 444 Interpretive Statements 1100 Sinus rhythm 8102 Low QRS voltage in chest leads 9120 atypical ECG Compared to ECG 01/27/2024 14:06:43 No significant changes Electronically Signed On 12-10-2024 15:52:09 EDT by SAMSON BALLARD
[2024-12-08 14:54] LABS: Hematocrit 39.7 % (42.0-54.0); Hemoglobin 13.7 g/dL (14.0-18.0); Immature Granulocytes Abs Auto 0.03 10^3/uL (0.00-0.03); Immature Granulocytes Pct Auto 0.4 % (0.0-0.5); Lymphocytes Absolute Auto 1.3 10^3/uL (1.2-3.8); Mean Corpuscular HGB Conc 34.5 g/dL (29.9-35.2); Mean Corpuscular Hemoglobin 30.4 pg (25.9-34.0); Mean Corpuscular Volume 88.0 fL (80.0-94.0); Platelet Count 193 10^3/uL (150-450); Red Blood Count 4.51 10^6/uL (4.70-6.10); White Blood Count 7.5 10^3/uL (4.0-11.0)
--- NOTE | 2024-12-08 15:04 | ED_ITS ---
HPI HPI - General Adult General Chief complaint: Abdominal Pain Stated complaint: DIZZINESS, ABDOMINAL PAIN Time Seen by Provider: 12/08/24 14:25 Source: patient and family Mode of arrival: Wheelchair Limitations: physical limitation Limitations comment: parkinson's History of Present Illness HPI narrative: Patient has history of Parkinson's states he has had intermittent abdominal pain and dizziness in the past family states that they went to make lunch and the patient Onset (ago): hour(s) (3) Location: Reports abdomen Associated symptoms: Reports cough; Denies chest pain Treatments prior to arrival: Reports none Related Data Home Medications ?Medication ?Instructions ?Recorded ?Confirmed atorvastatin 10 mg tablet mg 01/27/24 furosemide 20 mg tablet mg 01/27/24 losartan 50 mg tablet mg 01/27/24 pramipexole 0.25 mg tablet mg 01/27/24 Allergies Allergy/AdvReac Type Severity Reaction Status Date / Time Penicillins Allergy Unknown Unknown Verified 12/08/24 14:14 Opioids - Morphine Analogues AdvReac Mild Redness of Verified 12/08/24 14:14 Skin Review of Systems ROS Status of ROS 10 or more systems reviewed and unremark able except as noted in history and below Constitutional Denies: fever or chills Ears, nose, mouth, and throat Denies: neck pain or ear pain Cardiovascular Denies: chest pain or palpitations Respiratory Reports: cough Gastrointestinal Reports: abdominal pain; Denies: nausea, vomiting or diarrhea Genitourinary Denies: urinary frequency or blood in urine Musculoskeletal Denies: back pain Neurological Reports: dizziness; Denies: headache Psychiatric Denies: anxiety or mood swings Endocrine Denies: excessive urination Hematologic/Lymphatic Denies: easy bruising Allergic/Immunologic Denies: hives PFSH PFSH Social History Little interest or pleasure in doing things: not at all Feeling down, depressed, or hopeless: not at all Exam Constitutional Vital Signs, click to edit/add: Last Vital Signs Pulse 68 12/08/24 17:31 Resp 17 12/08/24 16:30 BP 156/82 H 12/08/24 17:31 Pulse Ox 96 12/08/24 17:30 O2 Del Method Room Air 12/08/24 14:10 Documenting provider has reviewed patient's vital signs: yes Common normals: no apparent distress Exam limitations: no altered mental status General appearance: cooperative and well kempt Orientation/consciousness: Yes awake, Yes oriented to person, Yes oriented to place and Yes oriented to time HENMT Common normals: normocephalic Face and sinus: normal facial exam General ear: hearing not grossly impaired External ear: external ears normal External auditory canal: EACs normal Tympanic membrane: TM normal on the right and unable to visualize TM (cereumen left) Eye Common normals: PERRL and EOMs intact bilaterally Neck & C-Spine Common normals: supple Chest Common normals: palpation of chest normal Respiratory Common normals: normal respiratory effort and clear to auscultation bilaterally Effort & inspection: able to speak in complete sentences Cardio Common normals: regular rate, regular rhythm, S1 normal heart sound and S2 normal heart sound GI Common normals: tender Auscultation: normoactive bowel sounds Palpation: soft and tender Details: RUQ Common normals: no CVA tenderness Extremity General: normal exam except as noted and other findings (Tremors noted.) Neuro Common normals: oriented x3, CN's II-XII intact bilaterally and moves all extremities Course Vital Signs Vital signs: Vital Signs Pulse Rate 60 12/08/24 14:10 Respiratory Rate 18 12/08/24 14:10 Pulse Oximetry 96 12/08/24 14:10 Oxygen Delivery Method Room Air 12/08/24 14:10 Pulse Rate 68 12/08/24 17:31 Respiratory Rate 17 12/08/24 16:30 Blood Pressure 156/82 H 12/08/24 17:31 Pulse Oximetry 96 12/08/24 17:30 Oxygen Delivery Method Room Air 12/08/24 14:10 Medical Decision Making [facility] Narrative Medical decision making narrative: Patient presents with increased abdominal pain. Patient does have Parkinson's states he has had similar issues in the past he was also family not eating his lunch today. Will add CBC CMP Plavix CT abdomen pelvis. Patient's symptoms have resolved. Once discharged to home we reviewed patient's CT scans and lab work with patient and family they would like discharged home will disposition home. Lab Data Lab results reviewed: Yes I reviewed the patient's lab results Labs: Lab Results 12/08/24 12/08/24 12/08/24 Range/Units 14:30 15:21 17:12 WBC 7.5 (4.0-11.0) 10^3/uL RBC 4.51 L (4.70-6.10) 10^6/uL Hgb 13.7 L (14.0-18.0) g/dL Hct 39.7 L (42.0-54.0) % MCV 88.0 (80.0-94.0) fL MCH 30.4 (25.9-34.0) pg MCHC 34.5 (29.9-35.2) g/dL RDW 12.7 (11.0-15.0) % Plt Count 193 (150-450) 10^3/uL MPV 11.1 (9.5-13.5) fL Neut % (Auto) 73.0 (43.0-75.0) % Lymph % (Auto) 16.9 L (20.5-60.0) % [place]t % (Auto) 7.1 (1.7-12.0) % Eos % (Auto) 1.9 (0.9-7.0) % Baso % (Auto) 0.7 (0.2-2.0) % Neut # (Auto) 5.5 (1.4-6.5) 10^3/uL Lymph # (Auto) 1.3 (1.2-3.8) 10^3/uL [place] # (Auto) 0.5 (0.3-0.8) 10^3/uL Eos # (Auto) 0.1 (0.0-0.7) 10^3/uL Baso # (Auto) 0.1 (0.0-0.1) 10^3/uL Abs Immat Gran (auto) 0.03 (0.00-0.03) 10^3/uL Imm/Tot Granulo (auto) 0.4 (0.0-0.5) % Sodium 141 (136-145) mmol/L Potassium 4.3 (3.5-5.1) mmol/L Chloride 104 (98-107) mmol/L Carbon Dioxide 29.5 (21.0-32.0) mmol/L Anion Gap 11.8 BUN 21.0 H (7.0-18.0) mg/dL Creatinine 0.97 (0.70-1.30) mg/dL Est GFR ( Amer) >60 (>=60 mL/min/1.73m^2) Est GFR (Non-Af Amer) >60 (>=60 mL/min/1.73m^2) BUN/Creatinine Ratio 21.6 Glucose 96 (74-106) mg/dL Calcium 9.1 (8.5-10.1) mg/dL Magnesium 2.0 (1.8-2.4) mg/dL Total Bilirubin 0.8 (0.2-1.0) mg/dL AST 12 L (15-37) U/L ALT 10 L (16-63) U/L Alkaline Phosphatase 100 (46-116) U/L Troponin I High Sens 10.6 (4.0-76.1) pg/mL Total Protein 7.2 (6.4-8.2) g/dL Albumin 4.1 (3.4-5.0) g/dL Globulin 3.1 g/dL Albumin/Globulin Ratio 1.3 Lipase 43.0 (16.0-77.0) U/L Urine Color Lt. yellow (YELLOW) Urine Clarity Clear (CLEAR) Urine pH 5.5 (5.0-9.0) Ur Specific Turpin <=1.005 A (1.005-1.025) Urine Protein Negative (NEG/TRACE) mg/dL Urine Glucose (UA) Negative (NEGATIVE) mg/dL Urine Ketones Negative (NEGATIVE) mg/dL Urine Occult Blood Negative (NEGATIVE) Urine Nitrite Negative (NEGATIVE) Urine Bilirubin Negative (NEGATIVE) Urine Urobilinogen 0.2 (0.2-1.0) EU/dL Ur Leukocyte Esterase Negative (NEGATIVE) Ethanol Quant <3 mg/dL SARS-CoV-2 Ag (CV2AG) Negative (NEGATIVE) Imaging Data CT scan - abdomen: Radiologist's impression: ITS Impressions Head CT 12/08/24 15:54 IMPRESSION: No acute intracranial pathology. Chronic age-related neurodegenerative changes are redemonstrated as above. Impression dictated by: Minh Morrison M.D. 12/08/2024 4:29 PM Dictation Location: [place] [address] Electronically authenticated by: [id number] Y Date: 12/08/2024 16:29 Abdomen/Pelvis CT 12/08/24 16:00 IMPRESSION: No acute intra-abdominal pathology. No bowel obstruction or obstructive uropathy. No free fluid or free air. Additional chronic appearing findings are noted as above. Impression dictated by: Minh Morrison M.D. 12/08/2024 4:41 PM Dictation Location: [facility] Electronically authenticated by: [id number] Y Date: 12/08/2024 16:41 Chest X-Ray 12/08/24 16:14 IMPRESSION: NO ACUTE CARDIOPULMONARY ABNORMALITY. Impression dictated by: Charly Henao Jr., D.O. 12/08/2024 4:25 PM Dictation Location: [facility] Electronically authenticated by: [id number] Y Date: 12/08/2024 16:25 Discharge Plan Discharge Chief Complaint: Abdominal Pain Clinical Impression: Dizziness, History of Parkinson disease Abdominal pain Qualifiers: Abdominal location: right upper quadrant Qualified Code(s): R10.11 - Right upper quadrant pain Patient Disposition: Home, Self-Care Condition: Good Prescriptions / Home Meds: No Action losartan 50 mg tablet atorvastatin 10 mg tablet pramipexole 0.25 mg tablet furosemide 20 mg tablet Print Language: Frisian Instructions: Abdominal Pain (ED), Dizziness (ED) Additional Instructions: Drink plenty of fluids take medications as prescribed return to if any symptoms worsen or new symptoms well. Referrals: Prashant Gary DO [Primary Care Provider, Internal Medicine] - 1 week
[2024-12-08 15:18] LABS: Alanine Aminotransferase 10 U/L (16-63); Albumin Globulin Ratio 1.3; Albumin Level 4.1 g/dL (3.4-5.0); Alkaline Phosphatase 100 U/L (46-116); Anion Gap 11.8; Aspartate Amino Transferase 12 U/L (15-37); Blood Urea Nitrogen 21.0 mg/dL (7.0-18.0); Calcium 9.1 mg/dL (8.5-10.1); Carbon Dioxide 29.5 mmol/L (21.0-32.0); Chloride 104 mmol/L (98-107); Estimated GFR (African America >60 (>=60 mL/min/1.73m^2); Estimated GFR (Non-African Ame >60 (>=60 mL/min/1.73m^2); Globulin 3.1 g/dL; Glucose 96 mg/dL (74-106); Lipase 43.0 U/L (16.0-77.0); Magnesium 2.0 mg/dL (1.8-2.4); Potassium 4.3 mmol/L (3.5-5.1); Sodium 141 mmol/L (136-145); Total Protein 7.2 g/dL (6.4-8.2)
[2024-12-08] MEDS: 0.9 % SODIUM CHLORIDE 500 ML 1000 ML IV (15:26)
[2024-12-08 15:43] LABS: SARS-CoV-2 Ag NEGATIVE (NEGATIVE)
--- NOTE | 2024-12-08 15:54 | CT_ITS ---
The [address] [address] Patient Name: SILKE VEGA MRN: [id number] date: 1945 Sex: M Assigned Patient Location: ER Current Patient Location: ER Accession/Order Number: [id number] Exam Date: 12/08/2024 15:44 Report Date: 12/08/2024 16:29 At the request of: MATEO MCGOWAN Procedure: CT head/brain wo con CT head/brain wo con 12/08/2024 3:54 PM SIGNS AND SYMPTOMS: Abdominal pain, poor appetite, right upper quadrant pain, dizziness, cough TECHNIQUE:Multi-detector CT axial slices of the brain were obtained without IV contrast. CT was performed with one or more of the following dose reduction techniques: Automated exposure control, adjustment of the mA and/or kV according to patient size, or use of iterative reconstruction technique. COMPARISON: 05/07/2023 FINDINGS: There is no shift of the midline structures, acute intracranial bleeding, mass effects, or evidence of acute ischemia. There is subcortical white matter hypoattenuation in the right frontal lobe which is unchanged. There is mild age-related cortical atrophy. Atherosclerotic changes are noted in the intracranial segments of the internal carotid arteries. The ventricular system is normal in size. The brainstem and the cerebellum are unremarkable. The visualized intraorbital contents, the visualized paranasal sinuses, and the infratemporal soft tissues show no acute abnormality. The osseous structures in the skull base and the calvarium show no abnormality. CT/CT head/brain wo con IMPRESSION: No acute intracranial pathology. Chronic age-related neurodegenerative changes are redemonstrated as above. Impression dictated by: Minh Morrison M.D. 12/08/2024 4:29 PM Dictation Location: [place] [address] Electronically authenticated by: [id number] Y Date: 12/08/2024 16:29
--- NOTE | 2024-12-08 16:00 | CT_ITS ---
[address] [address] Patient Name: SILKE VEGA MRN: [id number] date: 1945 Sex: M Assigned Patient Location: ER Current Patient Location: ER Accession/Order Number: [id number] Exam Date: 12/08/2024 15:44 Report Date: 12/08/2024 16:41 At the request of: MATEO MCGOWAN Procedure: CT abdomen pelvis w con CT abdomen pelvis w con 12/08/2024 3:55 PM SIGNS AND SYMPTOMS: Abdominal pain, right upper quadrant pain, dizziness, cough TECHNIQUE: Multidetector ct axial images of the abdomen and pelvis were obtained with IV contrast. Multiplanar reformats were performed and reviewed to further define anatomy and possible pathology. CT was performed with one or more of the following dose reduction techniques: Automated exposure control, adjustment of the mA and/or kV according to patient size, or use of iterative reconstruction technique. COMPARISON: None. FINDINGS: Lower Chest: Atherosclerotic changes are present in the coronary arteries and thoracic aorta. ABDOMEN: Liver: Within normal limits. Bile Ducts: Normal caliber. Gallbladder: No calcified gallstones. Normal caliber wall. Pancreas: Within normal limits. Spleen: Within normal limits. Adrenals: Within normal limits. Kidneys: Within normal limits. Pelvis: Reproductive Organs: No pelvic masses. Ureters: Within normal limits. Bladder: Within normal limits. Bowel: Normal caliber. There is a normal appendix in the right lower quadrant. Mesenteric Lymph Nodes: No enlarged mesenteric lymph nodes. Peritoneum: No ascites or free air, no fluid collection. Vessels: Atherosclerotic changes are noted in the abdominal aorta and its branches. Retroperitoneum: Within normal limits. Abdominal Wall: Within normal limits. Bones: Degenerative changes are noted in the thoracolumbar spine with a remote appearing compression deformity of the superior endplate of L1. Postoperative changes are noted in the right hip. Degenerative changes are noted in the hips and sacroiliac joints. CT/CT abdomen pelvis w con IMPRESSION: No acute intra-abdominal pathology. No bowel obstruction or obstructive uropathy. No free fluid or free air. Additional chronic appearing findings are noted as above. Impression dictated by: Minh Morrison M.D. 12/08/2024 4:41 PM Dictation Location: [place] [address] Electronically authenticated by: [id number] Y Date: 12/08/2024 16:41
--- NOTE | 2024-12-08 16:14 | XR_ITS ---
[address] [address] Patient Name: SILKE VEGA MRN: [id number] date: 1945 Sex: M Assigned Patient Location: ER Current Patient Location: ER Accession/Order Number: [id number] Exam Date: 12/08/2024 16:05 Report Date: 12/08/2024 16:25 At the request of: MATEO MCGOWAN Procedure: XR chest 2V Chest 2 views CLINICAL HISTORY: cough COMPARISON: Chest 05/07/2023 FINDINGS: Heart normal in size. No lung consolidation pneumothorax pleural effusion or free air. XR/XR chest 2V IMPRESSION: NO ACUTE CARDIOPULMONARY ABNORMALITY. Impression dictated by: Charly Henao Jr., DMargauxOMargaux 12/08/2024 4:25 PM Dictation Location: [place] [address] Electronically authenticated by: [id number] Y Date: 12/08/2024 16:25
[2024-12-08 17:25] LABS: Glucose Urine UA NEGATIVE (NEGATIVE)
== END 2024-12-08 18:23 | disposition home or self-care (01) ==
PROVIDERS: Physician Assistant; Emergency Provider Student in an Organized Health Care Education/Training Program; PCP Internal Medicine
DX: R42 Dizziness and giddiness (principal); R10.11 Right upper quadrant pain; G20.A1 Parkinson's disease without dyskinesia, without mention of fluctuations; Z79.899 Other long term (current) drug therapy
CPT/HCPCS: 36415; 70450; 71046; 74177; 80053; 80320; 81003; 83690; 83735; 84484; 85025; 87811; 93005; 96360; 96361; 99285; Q9967

== ENCOUNTER 2025-01-29 10:10 | Outpatient (OUT) | payer MEDICARE, SELFPAY ==
--- OUTSIDE RECORDS SUMMARY | 2025-01-19 07:51 | XMS_ITS | Continuity of Care Document ---
Author Organization [facility] Address [address] [place] [address] Phone Care Team Providers Care General Ophthalmologist Name Role Phone Prashant Gary DO Primary Care Provider Brendon Ashley PA-C Attending Provider Cris Diaz CMA Attending Provider Anna Prashnat Patrick DO Attending Provider Care Teams Patient Care Team Team Status: Active Member Role Status Dates Prashant Gary DO Primary Care Provider Active Patient Care Team Team Status: Active Member Role Status Dates Prashant Gary DO Primary Care Provider Active Start: December 08, 2024 Brendon Ashley PA-C Attending Provider Active Start: December 08, 2024 Patient Care Team Team Status: Active Member Role Status Dates Prashant Gary DO Primary Care Provider Active Start: December 10, 2024 Cris Diaz CMA Attending Provider Active Start: December 10, 2024 Patient Care Team Team Status: Inactive Member Role Status Dates Prashant Gary DO Primary Care Provider Active Start: January 19, 2025 End: January 19, 2025 Prashant Gary DO Attending Provider Active Sta rt: January 19, 2025 End: January 19, 2025 Chief Complaint and Reason for Visit Chief Complaint Admit Date Amb Documentation December 10, 2024 11 :57am wellness January 19, 2025 10 :32am Reason for Visit Admit Date Bronchiectasis January 19, 2025 10 :32am Chronic prescription opiate use January 19, 2025 10:32am Chronic venous insufficiency January 10:32am Hallucination, visual January 19, 2025 10:32am Hypercholesterolemia January 19, 2025 1 0:32am Hypertension January 19, 2025 10 :32am Lumbar spondylosis January 19, 2025 10 :32am Medicare annual wellness visit, subseque nt January 19, 2025 10:32am Nicotine dependence, cigarettes, in fabian ssion January 19, 2025 10:32am Parkinson disease January 19, 2025 10 :32am Screening PSA (prostate specific antigen ) January 19, 2025 10:32am Weight loss January 19, 2025 10 :32am Allergies, Adverse Reactions, Alerts Allergen Type Severity Reaction Last Updated Verified Status cyclobenzaprine Allergy Unknown Cyclobenzapr ine *CHEMICALS* Comment:Hallucinations , Comment:Hallucinations January 19, 2025 10:57am Yes Active Penicillins Allergy Unknown Swelling January 19, 2025 10:57am Yes Active pregabalin Allergy Unknown Comment:Hallucinations Oc tober 2024 10:57am Yes Active morphine Allergy Unknown Swelling January 19, 2025 10:57am Yes Active Social History Smoking Status Status Start Date End Date Date of Observa tion Ex-smoker (finding) September 10:59am Observation Status Observation Response Date of Response Legal Sex Male (finding) Sex Assigned At Male [birth year] Family History Relationship Condition Age at Onset Recorded Date/T aubrey mother Heart disease Unknown Problems Active Problems Medical Problem Onset Date Status Comments Medicare annual wellness visit, subsequent Unknown Active Screening PSA (prostate specific antigen) Unknown Active Nicotine dependence, cigarettes, in remission Unknown Active Varicose veins of both legs with edema Unknown Ac tive Chronic cough Unknown Active Hypercholesterolemia Unknown Active Arthritis of left hip Unknown Active Chronic prescription opiate use Unknown Active Weight loss Unknown Active Sensorineural hearing loss, bilateral Unknown Act audelia Hallucination, visual Unknown Active Chronic venous insufficiency Unknown Active Bronchiectasis Unknown Active Hypertension Unknown Active Parkinson disease Unknown Active Lumbar spondylosis Unknown Active Inactive/Resolved Problems Medical Problem Onset Date Status Comments Dysphagia Unknown Resolved Problem List cl jose c-up per request of Phys. EHR Cmte Medications Medication Status Dose Units Route Directions Qty Days St art Date Stop Date End Date Instructions Adherence Atorvastati n 10 mg tablet Discont inued 10 MG PO Daily July 30, 2023 6:12pm Febru kyle 2024 6:50p m Felodipine 5 mg tablet extended release 24 hr Discont inued 0 .ROUTE .COMPLEX October 25, 2023 6:56am Octob er 2023 3:13p m TAKE 1 TABLET BY MOUTH EVERY DAY Losartan 25 mg tablet Discont inued 25 MG PO Twice daily 60 30 Octobe r 2023 5:32pm Octob er 2023 5:37p m Losartan 25 mg tablet Discont inued 25 MG PO Twice daily 60 30 Octobe r 2023 5:37pm Febru 2024 6:50p m Furosemide 20 mg tablet Active 0 .ROUTE .COMPLEX June 26, 2024 12:49p m TAKE 1 TABLET BY MOUTH DAILY Complies with drug therapy Atorvastati n 10 mg tablet Active 0 .ROUTE .COMPLEX July 05, 2024 8:43am TAKE 1 TABLET BY MOUTH EVERY DAY Complies with drug therapy Atorvastati n 10 mg tablet Discont inued 10 MG PO Daily October 04, 2021 12:00a m July 30, 2023 6:13p m Hydrocodone -Acetaminop hen 5-325 mg tablet Discont inued 1 TAB PO Four times daily as needed for Pain October 04, 2021 12:00a m 2024 4:31p m Pramipexole 0.25 mg tablet Discont inued 0.25 MG PO Daily October 04, 2021 12:00a m Febru 2024 6:50p m Felodipine 10 mg tablet extended release 24 hr Discont inued 10 MG PO Daily October 04, 2021 12:00a m July 18, 2023 1:21p m Carbidopa-L evodopa 25-100 mg tablet Discont inued 1 TAB PO Daily October 04, 2021 12:00a m July 18, 2023 1:26p m Losartan 100 mg tablet Discont inued 100 MG PO Daily October 04, 2021 12:00a m Febru [email or web address] 11:00 am Docusate Sodium (Stool Softener) 100 mg Capsule Discont inued 100 MG PO As Directed as needed for Constipatio n October 05, 2021 12:00a m Banneru [email or web address] 4:31p m Albuterol Sulfate 90 mcg/actuati on HFA aerosol inhaler Discont inued 2 PUFF INHALA TION Every 4 hours as needed July 18, 2023 12:00a m Octob er 2024 11:09 am Felodipine 5 mg tablet extended release 24 hr Discont inued 5 MG PO Daily July 18, 2023 12:00a m October 25, 2023 6:56a m Furosemide 20 mg tablet Discont inued 20 MG PO Daily July 18, 2023 12:00a m July 19, 2023 10:34 am Lubiproston e 24 mcg capsule Discont inued 24 MCG PO Twice daily July 18, 2023 12:00a m Febru 2024 4:29p m Lubiproston e 8 mcg capsule Discont inued 8 MCG PO Daily July 18, 2023 12:00a m Febru 2024 4:29p m Furosemide 20 mg tablet Discont inued 20 MG PO Daily 30 July 19, 2023 10:33a m Febru 2024 6:50p m Losartan 50 mg tablet Discont inued 50 MG PO Daily 2023 1:00am 2023 11:26 am Losartan 50 mg tablet Discont inued 50 MG PO Daily 30 2023 11:26a m Octob er 2023 5:33p m Pramipexole 0.25 mg tablet Active 0.75 MG PO Four times daily 336 2024 6:47pm Complies with drug therapy Carbidopa-L evodopa 25-100 mg tablet,disi ntegrating Active 2 TAB PO Three times daily 168 2024 1:00am Complies with drug therapy Atorvastati n 10 mg tablet Discont inued 10 MG PO Daily 28 2024 6:49pm July 05, 2024 8:44a m Furosemide 20 mg tablet Discont inued 20 MG PO Daily 28 2024 6:49pm June 26, 2024 12:49 pm Losartan 25 mg tablet Active 25 MG PO Twice daily 56 2024 6:50pm Complies with drug therapy Quetiapine (Seroquel) 25 mg tablet Discont inued 25 MG PO Daily at bedtime September 29, 2024 12:00a m Octob er 2024 11:09 am Triamcinolo ne Acetonide 0.5 % cream Discont inued 1 APPLIC TOPICA L Twice daily October 17, 2023 12:00a m Octob er 2024 11:08 am Immunizations Immunization Event Date Not Given Reason Dose Number [employer] Lot Number Vaccine Information Statement (VIS) Detail Administration Location COVID-19 mRNA-[id number] (Moderna) May 14, 2020 COVID-19 mRNA, Comirnaty (Pfizer) May 14, 2020 COVID-19 mRNA, Comirnaty (Pfizer) June 04, 2020 COVID-19 mRNA, Comirnaty (Pfizer) March 29, 2021 Fluzone TIV High-Dose 65YR+ January 17, 2024 [id number] [facility] Fluzone TIV High-Dose 65YR+ January 19, 2025 [id number] [facility] Influenza, trivalent February 18, 2020 [id number] Influenza vaccine, quadrivalent, adjuvanted December 29, 2021 [id number] influenza, unspecified formulation November 28, 2017 influenza, unspecified formulation February 18, 2020 influenza, unspecified formulation December 29, 2021 influenza, unspecified formulation January 12, 2023 Pneumococcal Conjugate Vaccine, 13 valent November 28, 2017 Relevant Diagnostic Tests and/or Laboratory Data Laboratory Results Test Collection Date/Time Result Date/Time Result Interpretation Reference Range Result Comment Performing Site Ethyl Alcohol Level December 08, 2024 2:30pm December 08, 2024 2:30pm <3 mg/dL NOTE: 80 mg/dl is the legal limit for a blood alcohol level Lipase December 08, 2024 2:30pm December 08, 2024 2:30pm 43.0 U/L 16.0-77.0 Troponin I High Sensitiv ity December 08, 2024 2:30pm December 08, 2024 2:30pm 10.6 pg/mL 4.0-76.1 CUT-OFF POINTS HAVE BEEN ESTABLISHED BASED ON THE FOURTHUNIVE RSAL DEFINITION OF MYOCARDIAL INFARCTION. THE UPPERREFERE NCE LIMIT (URL) OF TROPONIN, DEFINED THE 99THPERCENT ILE OF cTnI DISTRIBUTIO N IN A REFERENCE POPULATION, HAS BEEN CONFIRMED THE DECISION THRESHOLD FOR MIDIAGNOSIS .99TH PERCENTILE = 76.2 PG/MLNOTE: HIGH-SENSIT IVITY TROPONIN ASSAY IS NOT INTENDED TO BEUSED IN ISOLATION BUT SHOULD BE INTERPRETED IN CONJUNCTION WITH OTHER DIAGNOSTIC AND CLINICAL INFORMATION . Magnesiu m Level December 08, 2024 2:30pm December 08, 2024 2:30pm 2.0 mg/dL 1.8-2.4 Anion Gap December 08, 2024 2:30pm December 08, 2024 2:30pm 11.8 Basophil s # (Auto) December 08, 2024 2:30pm December 08, 2024 2:30pm 0.1 10 3/uL 0.0-0.1 SARS-CoV -2 Ag (CV2AG) December 08, 2024 3:21pm December 08, 2024 3:21pm NEGATIVE NEGATIVE This test has not been FDA cleared or approved, but has beenauthori zed by the FDA under an Emergency Use Authorizati on(EUA) for use by authorized laboratorie s certified underIA that meet the requirement s to perform moderate or highcomplex ity testing. This test has been authorized only forthe detection of proteins from SARS-CoV-2, not for any otherviruse s or pathogens. The emergency use of this test isauthorize d for the duration of the declaration thatcircums tances exist justifying the authorizati on ofemergency use of in vitro diagnostic tests for detectionan d/or diagnosis of Covid-19 under section 564(b)(1) of theAct, 21 U.S.C. 360bbb-3(b) (1), unless the declaration isterminate d or authorizati on is revoked sooner. Urine Microsco pic Review December 08, 2024 5:12pm December 08, 2024 5:12pm NO Albumin/ Globulin Ratio December 08, 2024 2:30pm December 08, 2024 2:30pm 1.3 Basophil s (%) (Auto) December 08, 2024 2:30pm December 08, 2024 2:30pm 0.7 % 0.2-2.0 Urine Bilirubi n December 08, 2024 5:12pm December 08, 2024 5:12pm NEGATIVE NEGATIVE Albumin December 08, 2024 2:30pm December 08, 2024 2:30pm 4.1 g/dL 3.4-5.0 Eosinoph ils # (Auto) December 08, 2024 2:30pm December 08, 2024 2:30pm 0.1 10 3/uL 0.0-0.7 Urine Occult Blood December 08, 2024 5:12pm December 08, 2024 5:12pm NEGATIVE NEGATIVE Alkaline Phosphat ase December 08, 2024 2:30pm December 08, 2024 2:30pm 100 U/L 46-116 Eosinoph ils (%) (Auto) December 08, 2024 2:30pm December 08, 2024 2:30pm 1.9 % 0.9-7.0 Urine Appearan ce December 08, 2024 5:12pm December 08, 2024 5:12pm CLEAR CLEAR Alanine Aminotra nsferase (ALT/SGP T) December 08, 2024 2:30pm December 08, 2024 2:30pm 10 U/L Below low normal 16-63 Hematocr it December 08, 2024 2:30pm December 08, 2024 2:30pm 39.7 % Below low normal 42.0-54.0 Urine Color December 08, 2024 5:12pm December 08, 2024 5:12pm LT. YELLOW YELLOW Aspartat e Amino Transf (AST/SGO T) December 08, 2024 2:30pm December 08, 2024 2:30pm 12 U/L Below low normal 15-37 Hemoglob in December 08, 2024 2:30pm December 08, 2024 2:30pm 13.7 g/dL Below low normal 14.0-18.0 Urine Glucose (UA) December 08, 2024 5:12pm December 08, 2024 5:12pm NEGATIVE mg/dL NEGATIVE BUN/Crea tinine Ratio December 08, 2024 2:30pm December 08, 2024 2:30pm 21.6 Immature Granuloc yte # (Auto) December 08, 2024 2:30pm December 08, 2024 2:30pm 0.03 10 3/uL 0.00-0.03 Urine Ketones December 08, 2024 5:12pm December 08, 2024 5:12pm NEGATIVE mg/dL NEGATIVE Blood Urea Nitrogen December 08, 2024 2:30pm December 08, 2024 2:30pm 21.0 mg/dL Above high normal 7.0-18.0 Immature Granuloc yte % (Auto) December 08, 2024 2:30pm December 08, 2024 2:30pm 0.4 % 0.0-0.5 Urine Leukocyt e Esterase December 08, 2024 5:12pm December 08, 2024 5:12pm NEGATIVE NEGATIVE Calcium Level December 08, 2024 2:30pm December 08, 2024 2:30pm 9.1 mg/dL 8.5-10.1 Lymphocy marixa # (Auto) December 08, 2024 2:30pm December 08, 2024 2:30pm 1.3 10 3/uL 1.2-3.8 Urine Nitrite December 08, 2024 5:12pm December 08, 2024 5:12pm NEGATIVE NEGATIVE Chloride Level December 08, 2024 2:30pm December 08, 2024 2:30pm 104 mmol/L 98-107 Lymphocy marixa (%) (Auto) December 08, 2024 2:30pm December 08, 2024 2:30pm 16.9 % Below low normal 20.5-60.0 Urine pH December 08, 2024 5:12pm December 08, 2024 5:12pm 5.5 5.0-9.0 Carbon Dioxide Level December 08, 2024 2:30pm December 08, 2024 2:30pm 29.5 mmol/L 21.0-32.0 Mean Corpuscu lar Hemoglob in December 08, 2024 2:30pm December 08, 2024 2:30pm 30.4 pg 25.9-34.0 Urine Protein December 08, 2024 5:12pm December 08, 2024 5:12pm NEGATIVE mg/dL NEG/TRACE Creatini ne December 08, 2024 2:30pm December 08, 2024 2:30pm 0.97 mg/dL 0.70-1.30 Mean Corpuscu lar Hemoglob in Concent December 08, 2024 2:30pm December 08, 2024 2:30pm 34.5 g/dL 29.9-35.2 Urine Specific [place] December 08, 2024 5:12pm December 08, 2024 5:12pm <=1.005 Abnormal (applies to non-numeric results) 1.005-1.02 5 Estimate d GFR ( ) December 08, 2024 2:30pm December 08, 2024 2:30pm >60 >=60 mL/min/1.7 3m 2 Mean Corpuscu lar Volume December 08, 2024 2:30pm December 08, 2024 2:30pm 88.0 fL 80.0-94.0 Urine Urobilin ogen December 08, 2024 5:12pm December 08, 2024 5:12pm 0.2 EU/dL 0.2-1.0 Estimate d GFR (Non-Afr ican Albanian December 08, 2024 2:30pm December 08, 2024 2:30pm >60 >=60 mL/min/1.7 3m 2 Monocyte s # (Auto) December 08, 2024 2:30pm December 08, 2024 2:30pm 0.5 10 3/uL 0.3-0.8 Globulin December 08, 2024 2:30pm December 08, 2024 2:30pm 3.1 g/dL Monocyte s (%) (Auto) December 08, 2024 2:30pm December 08, 2024 2:30pm 7.1 % 1.7-12.0 Glucose Level December 08, 2024 2:30pm December 08, 2024 2:30pm 96 mg/dL 74-106 Mean Platelet Volume December 08, 2024 2:30pm December 08, 2024 2:30pm 11.1 fL 9.5-13.5 Potassiu m Level December 08, 2024 2:30pm December 08, 2024 2:30pm 4.3 mmol/L 3.5-5.1 Neutroph ils # (Auto) December 08, 2024 2:30pm December 08, 2024 2:30pm 5.5 10 3/uL 1.4-6.5 Sodium Level December 08, 2024 2:30pm December 08, 2024 2:30pm 141 mmol/L 136-145 Neutroph ils (%) (Auto) December 08, 2024 2:30pm December 08, 2024 2:30pm 73.0 % 43.0-75.0 Total Bilirubi n December 08, 2024 2:30pm December 08, 2024 2:30pm 0.8 mg/dL 0.2-1.0 Platelet Count December 08, 2024 2:30pm December 08, 2024 2:30pm 193 10 3/uL 150-450 Total Protein December 08, 2024 2:30pm December 08, 2024 2:30pm 7.2 g/dL 6.4-8.2 Red Blood Count December 08, 2024 2:30pm [place] 25th, 2025 2:30pm 4.51 10 6/uL Below low normal 4.70-6.10 Red Cell Distribu tion Width December 08, 2024 2:30pm December 08, 2024 2:30pm 12.7 % 11.0-15.0 Correcte d White Blood Count December 08, 2024 2:30pm December 08, 2024 2:30pm 7.5 10 3/uL 4.0-11.0 Vital Signs Vital Reading Result Reference Range Collection Date/Time Height 64 [in_i] January 19 11:11am Weight 58.96 kg January 19 11:11am Heart Rate 73 /min 60-100 January 19 11:11am Respiratory rate 12 /min 12-January 11:11am BP Systolic 147 mm[Hg] 100-140 January 19 11:11am BP Diastolic 74 mm[Hg] 60-100 January 19 11:11am BMI (Body Mass Index) 22.3 kg/m2 Octobe r 2024 11:11am Advance Directives Advance Directive Response Recorded Date/ Time Advance Directives No September 29 1:37pm Insurance Providers Guarantor Karan De La Garza Address [address] [place] [phone] Contact Info. Home Phone: Payer Policy Id Subscriber's Name Subscriber Id Effectiv e Date Expiration Date [employer] [facility] [id number] Karan De La Garza [id number] Encounters Encounter Location(s) Arrival/Admit Date Discharge/Depart Date Provider(s) Non-patient / Non-visit -[facility] December 08, 2024 2:30pm Brendon Ashley PA-C Non-patient / Non-visit -[facility] December 10, 2024 11:57am Cris Diaz CMA Departed Physician/Prov ider Office Visit -[facility] January 19, 2025 10:32am January 19, 2025 11:49am Prashant Gary DO Recent Diagnosis Onset Date Admit Date Bronchiectasis Unknown January 19 10:32am Chronic prescription opiate use Unknown January 19, 2025 10:32am Chronic venous insufficiency Unknown Jan 10:32am Hallucination, visual Unknown January 10:32am Hypercholesterolemia Unknown January 10:32am Hypertension Unknown January 19 10:32am Lumbar spondylosis Unknown January 19, 2025 10:32am Medicare annual wellness visit, subsequent Unkno wn January 19, 2025 10:32am Nicotine dependence, cigarettes, in remission Un known January 19, 2025 10:32am Parkinson disease Unknown January 19, 2 025 10:32am Screening PSA (prostate specific antigen) Unknow n January 19, 2025 10:32am Weight loss Unknown January 19 10:32am Assessments Diagnosis Onset Date Resolution Status Admit Date Bronchiectasis acute January 10:32am Chronic prescription opiate use acut e January 19, 2025 10:32am Chronic venous insufficiency acute January 19, 2025 10:32am Hallucination, visual acute Oct lolita 2024 10:32am Hypercholesterolemia acute Octo yuliet 2024 10:32am Hypertension acute January 19, 2025 10:32am Lumbar spondylosis acute Octobe r 2024 10:32am Medicare annual wellness vis it, subsequent acute January 19 10:32am Nicotine dependence, cigaret marixa, in remission acute January 19 10:32am Parkinson disease acute January 19, 2025 10:32am Screening PSA (prostate spec ific antigen) acute January 19 10:32am Weight loss acute January 19, 2025 10:32am Plan of Treatment Author Prashant Gary [facility] Authored January 19, 2025 11 :44am I have instructed this patie nt to consume a healthy, low-fat, low-salt diet. I have also encouraged them to continue exercise with weight loss to achieve/maintain a BMI < 30. I have instructed this patient on the correct procedure for obtaining home BP measurements: - rest for 5 minutes w/o talking. - positioned w/ feet on floor and arms supported. - average best 2/3 readings w/ goal < 135/85. - update office w/ home readings in 2 weeks. Continue Losartan without interruption He has required less medications Fall precautions, proper use of assistive device. He is experiencing increased difficulty w/ MRADL - discussed lift chair as well as Motorized Wheelchair - able to use walker for short distances No change in medical therapy f/u Neurology Continue Sinemet and Pramipexole without interruption Most likely multifactorial. - teeth extracted w/ delayed replacement - sedating properties of PD medications - constant pain due to post herpetic neuralgia Encouraged to consume meals prior to taking sedating medications Instructed to drink Ensure/Boost 3x daily. He denies abdominal pain, changes in bowel habits, melena or hematochezia - last EGD 2021, 24 - 70kg, Aril - 67kg, October - 63kg Jan - 62kg May, 25 - 62kg, September - 58kg, Jan I have instructed this patient to avoid bending, twisting or lifting. I have also instructed on use of intermittent heat and ice as needed. They may schedule a massage or gentle manipulation. I instructed them on the safe use of Tylenol, Lidocaine and stretching exercises. I informed them of alternative modes of treatment for severe pain, which may include referral to physical therapy or pain management. He is aware they are hallucinations and are not frightening to him Discussed use of antipsychotics and adjustments in Parkinson's medications - best to be done by treating Neurologist - suggested they text their Neurologist Initiated on Seroquel 25mg q HS I have instructed this patient on a low fat, high fiber diet and exercise. I have discussed the primary and secondary prevention benefits attributed to lowering LDL cholesterol. I have also discussed the medical treatment of elevated cholesterol, which is based on the 10 year ASCVD risk. Continue Atorvastatin without interruption Instructed on use of water, mucolytics and CLAUDETTE to mobilize secretions. UTD w/ vaccinations No recent ER visits for acute exacerbations I have instructed this patient to avoid salt and elevate their lower extremities. I have also recommended use of support stockings. I instructed them to inspect their legs and feet daily for blisters and ulcerations. Continue Furosemide without interruption This patient has been encouraged to continue abstinence. They are aware of the hazards associated with tobacco use, including but not limited to respiratory infections, vascular disease and cancers. He is no longer a candidate for yearly LDCT chest for lung cancer screening. I have instructed this patient on the recommended lifestyle changes, which includes a low fat, high fiber diet along with a regular exercise routine. I have also reviewed the recommended age-appropriate preventive testing for this patient. I have also reviewed the recommended vaccines for their age and risk factors. This patient requires opiate use on a daily basis to control pain. This patient does not exhibit drug-seeking or aberrant behavior. This patient is able to continue with ADL, with an adequate quality of life, that they would not be able to achieve without the prescription pain medication. There has been no surgical treatment recommended for this condition. Use of non-opiate treatment should be continued, such as nonstrenuous and aquatic exercises. This patient has a pain management contract and they have been counseled on safe storage of the medication. They have been counseled on the risks of concomitant use with alcohol or sedating meds. PDMP is being followed and this patient's OAR[place] report is being monitored every 90 days. I have recommended yearly PSA testing. I have informed him that the PSA can be elevated w/ cancer, infection and enlarged prostates. I have explained to the patient, that If his PSA is elevated, while there are many causes, referral will be recommended to r/o cancer. He would be referred to Urology, who may recommend an MRI, TRUS/bx or possibly continued monitoring. He is agreeable to this plan of action PSA: 0.69 - 01/2024 Future Tests Future scheduled test information is unavailable Pending Tests Test Name Ordered Date Scheduled Date Comprehensive Metabolic Panel January 19, 2025 11:42am Future Visits Future appointment information is unavailable Referrals to Other Providers Referral information is unavailable Future Procedures Procedure Name Ordered Date Scheduled Date Complete Blood Count Auto Diff January 19, 2025 11:42am Lipid Panel January 19, 2025 11:43am Thyroid Stimulating Hormone January 19, 2025 11 :42am Future Medications Future medication information is unavailable Patient Instructions Patient instructions are unavailable
--- OUTSIDE RECORDS SUMMARY | 2025-01-26 11:00 | XMS_ITS | Encounter Summary ---
Author Organization [facility] Address [address] [place] [address] Care Team Providers Care Hydro Technician Name Role Phone Prashant Gary DO Primary Care Provider [phone] Tasneem Magallon MD Unavailable [phone] Tamika Gillis APRN.STOCK CLERK SELF SERVICE STORE Unavailable [phone] Source Comments In the event this information is protected by the Federal Confidentiality of Alcohol and Drug AbusePatient Records regulations: The Federal rules restrict any use of the information to criminally investigate or prosecute any alcohol or drug abuse patient.[facility] Reason for Referral * Consult, Test, Treat (Routine) - Pending Review Specialty Diagnoses / Procedures Referred By Contac t Referred To Contact Diagnoses Parkinson's disease, unspecified whether dyskinesia present, unspecified whether manifestations fluctuate (HCC) Procedures OFFICE/OUTPATIENT [facility] 60 MINUTES Tasneem Magallon MD [facility] [address] [address] Phone: tel: fax: Referral ID Status Reason Start Date Expiration Date Visits Requested Visits Authorized [id number] Pending Review PCP Requested Referral 5 04/26/2025 1 1 * Physical Therapy (Routine) - Pending Review Specialty Diagnoses / Procedures Referred By Contac t Referred To Contact [facility] Diagnoses Parkinson's disease, unspecified whether dyskinesia present, unspecified whether manifestations fluctuate (HCC) Procedures PHYSICAL THERAPY EVALUATION HIGH COMPLEX 45 MINS Tasneem Magallon MD [address] [facility] [address] [place] [address] Phone: tel: fax: [facility] [address] [place] [address] Referral ID Status Reason Start Date Expiration Date Visits Requested Visits Authorized [id number] Pending Review Auto-Generat ed Referral 5 01/26/2026 1 1 Scheduling Instructions For an appointment call: [place]: [phone]. [facility]: [phone], Option 1. [facility]: [phone] [facility]: [phone] [facility]: [phone] [facility] ([place]) ADULTS - For an appointment call: [place], [place]: [phone] ([address] [facility], [address]) [place], [place]: [phone] ([address]) or [phone] ([address]) [place], [place]: [phone] ([address]) or [phone] ([address] [facility], [address]) or [phone] ([address] [facility], [address]) PEDIATRICS - For an appointment call: [place], [place]: [phone] ([address] [facility] [place]) The insurance special agent will assist you in selecting the location and specialty service that will best meet your needs. For a list of sites and services: [email or web address] Order Date: January 26, 2025 Ordering Physician: Tasneem Magallon MD (Signed Electronically in [facility]) Reason for Visit * Reason Comments Parkinson's Disease * Consult, Test, Treat (Routine) - Closed Specialty Diagnoses / Procedures Referred By Contac t Referred To Contact [facility] Diagnoses Parkinson's disease, unspecified whether dyskinesia present, unspecified whether manifestations fluctuate (HCC) Procedures OFFICE/OUTPATIENT [facility] 60 MINUTES Tasneem Magallon MD [address] [address] Phone: tel: fax: Neurology [address] [place] [address] Phone: tel:[phone] Referral ID Status Reason Start Date Expiration Date V isits Requested Visits Authorized [id number] Closed PCP Requested Referral 07/24/2024 07/24/2025 1 1 Encounter Details Date Type Department Care Team (Latest Contact Info) Description 01/26/2025 11:00 AM EDT Office Visit Neurology [address] [address] Tasneem Magallon MD [address] [id number] Parkinson's disease, unspecified whether dyskinesia present, unspecified whether manifestations fluctuate (HCC); Sialorrhea; Hallucinations Social History Tobacco Use Types Packs/Day Years Used Date Smoking Tobacco: Former Cigarettes 12 8 0 05/14/1975 - 05/14/1983 Smokeless Tobacco: Never Tobacco Cessation:Counseling Given: Not Answered Alcohol Use Standard Drinks/Week Comments Yes 48 (1 standard drink = 0.6 oz pu re alcohol) PHQ-2 Answer Date Recorded PHQ-2 score 2 01/26/2025 Area Deprivation Index Answer Date Mike rded National Score (1-100), lower number is lower ri sk 65 07/05/2023 State Score (1-10), lower number is lower risk 4 07/05/2023 Data from: https://www.neighborhoodatlas.medicine.[facility].edu/. Last address used for calculation [address] 07/05/2023 Sex and Gender Information Value Date Recorded Sex Assigned at Not on file Legal Sex Male 8:04 AM EST Gender Identity Not on file Sexual Orientation Not on file documented as of this encounter Last Filed Vital Signs Vital Sign Reading Time Taken Comments Blood Pressure - - Pulse - - Temperature - - Respiratory Rate - - Oxygen Saturation 98% 01/26/2025 10:50 AM EDT Inhaled Oxygen Concentration - - Weight 58.7 kg (129 lb 6.6 oz) 01/26/2025 10:50 AM EDT Height - - Body Mass Index 21.53 05/10/2023 2:00 PM EST documented in this encounter Patient Instructions * Patient Instructions* Tasneem Magallon MD - 01/26/2025 12:41 PM EDT It was a pleasure to see you today. We addressed the following diagnoses: Parkinson's disease, unspecified whether dyskinesia present, unspecified whether manifestations fluctuate (hcc) Sialorrhea Hallucinations My recommendations are as follows: We discussed your concerns about drooling and swallowing difficulties: - The drooling is likely related to Parkinson???s disease, as it can reduce the frequency and volume of swallowing while saliva production remains normal. - To help manage the drooling: - Try sucking on hard candy or chewing gum during the day to remind yourself to swallow more often and keep your mouth closed. - I prescribed Atropine eye drops to reduce saliva production. Use 1 drop under your tongue at bedtime or as needed, up to 4 times daily. This has been sent to the [facility] pharmacy. Note that the drops may taste bitter or salty. - Once you receive your dentures, they may help reduce daytime drooling by improving your mouth structure, though they are unlikely to help at night. - If symptoms worsen or do not improve, let me know, and we can explore additional options. We discussed your physical therapy experience and mobility: - You reported that your previous physical therapy was inconsistent and not helpful. You found the U-Step walker beneficial during therapy sessions. - I will email [facility] to check if they can provide in-home therapy in your area. They specializein Parkinson???s therapy and may be a good resource if available. - To maintain mobility, it is important to stay active and avoid relying too much on a wheelchair. If you stop walking, it will be harder to regain that ability. - I recommend scheduling physical therapy during your next visit in 6 months. This will allow you to test a U-Step walker and receive guidance on exercises you can do at home. If you decide not to pursue therapy, you can cancel the appointment. We discussed your hallucinations: - The hallucinations are likely related to your Parkinson???s medications, particularly pramipexole. However, stopping this medication could negatively affect your movement. - Since the hallucinations are not distressing or causing unsafe behavior, we will not make any changes to your medications at this time. If they become bothersome, let me know, and we can reassess. We discussed your Parkinson???s medications: - Continue taking carbidopa-levodopa (Sinemet) three times daily (6:00 AM, 12:00 PM, and 6:00 PM) and pramipexole as prescribed. These medications appear to be helping with your symptoms. - If you experience any changes in your symptoms or side effects, please let me know. Follow-Up: - Schedule your next appointment with me in 6 months (mid-July). I recommend scheduling physical therapy [id number] with this visit to evaluate your mobility and discuss the U-Step walker. - I will contact you via depict if [facility] is available in your area and accepts your insurance. Please let me know if you have any questions or concerns before your next visit. Movement Disorders Medication Schedule: Medications 6am 12pm 6pm 12am Sinemet 25/100 2 2 2 Mirapex 0.25 mg 3 3 3 seroquel 25 1 Return at or around: 07/27/25 Your current [facility] Movement Disorders Team includes: Primary Movement Disorders Neurologist: Tasneem Magallon MD You don't have a movement disorders-specialized advanced practice provider (SPENCER) on your team yet. You may ask to have your next follow-up appointment scheduled with an SPENCER and add them to your team to expand your team, access, and appointment options. If there are any concerns before your next visit, please call or you can send a message through depict. You can also now schedule and select appointments through depict. Tasneem Magallon MD documented in this encounter Progress Notes * Tasneem Magallon MD - 01/26/2025 12:36 PM EDT [facility] - FOLLOW UP EVALUATION Recording using [employer] software for draft documentation of the visit was discussed with the patient/authorized parts representative; all questions welcomed and answered. Patient/authorized parts representative agreed to proceed Prashant Gary DO [address] [facility] [address] Dear Prashant Gary DO: I had the pleasure of seeing Mr. De La Garza for follow-up today. As you know he is a 79 year old right-handed male with a history of Parkinson's disease since 2002. Also with chronic low back pain and diffuse arthritis, fused ankles. Subjective Previous Plan- 07/24/2024 Visit :- Take Seroquel at 6:00 PM with your other evening medications. - Gradually taper off midnight dose of Mirapex - Take 2 pills for the first 3 days. - Take 1 pill for the next 3 days and then discontinue it. Keep taking the Mirapex doses at 6, noon, and 6p like you have been - No change to Sinemet - Resume physical therapy sessions to maintain mobility and strength. - Maintain a balanced diet and consider incorporating protein drinks and smoothies to ensure adequate nutrition, especially given the current dental issues. Patient's perception of importance for healthcare provider to let them know of research trials for which they may be eligible? Not at all important Interested in clinical research? Not discussed Interval History: Karan is an 79-year-old male with Parkinson's disease presenting for follow-up. He is accompanied by a his who provides additional history. Karan reports bothersome sialorrhea and dysphagia. He notes that these symptoms are not debilitating but are bothersome. The dysphagia is primarily with liquids, and he reports waking up around 3:00 AM feeling like he is drowning in saliva. He sleeps on his back and often wakes up with a wet pillow. He also reports difficulty swallowing saliva at night. He does not report significant issues with swallowing solids, though he occasionally has troublewith dry or stringy foods. He had a modified barium swallow study vs EGD performed at [facility] approximately 5 years ago. Karan is currently awaiting dental implants, which have been delayed for over a year due to complications with the initial procedure. He has pegs in place and is scheduled for a follow-up appointment with the doctor who placed them in approximately 2 weeks. He is hopeful that the implants will be completed in time for Thanksgiving. Karan reports that his physical therapy has not been helpful. He attended therapy for approximately1 month but found the sessions inconsistent and lacking a clear plan. He did find the U-step walkerhelpful and enjoyed using it during therapy sessions. He is currently using a wheelchair at home and is concerned about losing his ability to walk. Karan reports hallucinations, which are generally not bothersome. He describes seeing people who are not there, often playing baseball or engaging in other activities. He sometimes does not recognizehis family members and believes they are other people. He was previously prescribed Seroquel for the hallucinations but stopped taking it after approximately 10 days due to side effects. He is currently taking carbidopa-levodopa and pramipexole, which he reports are effective for his Parkinson's symptoms. He takes his medication at 6:00 AM, noon, and 6:00 PM. He reports that the medication helps with his symptoms but also causes drowsiness. He often falls asleep within 45 minutes of taking his m edication and sometimes has difficulty staying awake during meals. He reports that walking is more difficult when he is tired. Karan reports that he is generally healthy and is getting by. He had a recent wellness visit with his primary care physician and is awaiting lab results. He is not interested in pursuing additional physical therapy at this time. Movement Disorders Medications Schedule - as of the start of the visit: Medications 6am 12pm 6pm 12am Sinemet 25/100 2 2 2 Mirapex 0.25 mg 3 3 3 seroquel 25 1 Parkinson's Motor Complications Medication benefit onset: 15 minutes Medication duration: 6 hours Wearing off: no Dyskinesia: yes (Comment: If tired and not frequently) Prior Anti-Parkinson Therapies Apomorphine SC (Apokyn) Carbidopa/Levodopa Carbidopa/Levodopa CR Carbidopa/Levodopa/Entacapone Pramipexole Selegiline Questionnaires: In addition, the following areas that may be affected by abnormal involuntary movements were evaluated: Daily activities Difficulties with eating: Difficulties in dressin (none) Difficulties with hygiene activities: Difficulties with handwriting: Difficulties with doing hobbies and other activities: 0 (none) Difficulties turning in bed: Difficulties getting out of bed, car or chair: Tremors/Gait/Balance Shaking or tremors: Yes (slight) Walking and balance problems: Yes (mild) Number of falls in the Last Month: Gait freezing: Autonomic/Pain Lightheadeness on standing: Yes (slight) Urinary problems: Yes (slight) Constipation problems: Pain and other sensations: Speech/Swallowing Speech problems: Yes (slight) Drooling: Chewing and swallowing problems: 0 (none) Sleep/Fatigue Sleep problems: Daytime sleepiness: Yes (moderate) Fatigue: Mood/Behavior Depression: PHQ-9 Score: 7 usually representing mild (5-9) depression. Anxiety: Finally, the following table shows the patient's overall global physical and mental health using the PROMIS scale: PROMIS-10 Flowsheet Row Office Visit from 01/26/2025 in Neurology Office Visit from 05/10/2023 in Neurology Global Physical Health T Score 39.8 -- Global Mental Health T Score 43.5 -- 0-10 Standard Pain Scale 3 2 *PROMIS-10 scoring scale: mean = 50, over 50 is above average, under 50 is below average ALLERGIES Allergen Reactions Latex, Natural Rubb* Rash Morphine Other: See Comments Pt takes Avinza po, had allergic reaction with Morphine IV push, red streaking up arm. Penicillin G Rash Current Outpatient Medications Medication Sig losartan (COZAAR) 25 mg tablet Take 25 mg by mouth two times a day. carbidopa-levodopa (SINEMET 25-100) 25-100 mg per tablet Take 2 tablets by mouth three times a day.2 tab at 6am, 12pm and 6pm pramipexole (MIRAPEX) 0.25 mg tablet Take 3 tablets by mouth three times a day. furosemide (LASIX) 20 mg tablet atorvastatin calcium(LIPITOR 10 MG TAB) one daily atropine 1 % ophthalmic solution 1 drop sublingually up to 4 times a day as needed for drooling No current facility-administered medications for this visit. Objective Vital Signs: Wt 58.7 kg (129 lb 6.6 oz) SpO2 98% BMI 21.53 kg/m?? Orthostatic Vitals: Sitting: BP 152/79 Pulse 74 Standing: BP 170/77 Pulse 77 Weight: 58.7 kg (129 lb 6.6 oz) No LMP for male patient. Body mass index is 21.53 kg/m??. Neurological Exam Mental Status Awake and alert. Language is fluent with no aphasia. Movement Disorders Scales Performed: MDS-UPDRS Motor subscale condition of exam Medication Off/On/Naiive ON Time of UPDRS Time of Last Medication 0600 Last Medication Taken DBS Right N/A DBS Left N/A MDS-UPDRS Motor subscale scores Speech 2-Mild. Loss of modulation, diction, or volume, with a few words unclear, but the overall sentences easy to follow. Facial Expression 1-Slight. Minimal masked facies manifested only by decreased frequency of blinking. Rigidity Neck 1-Slight. Rigidity only detected with activation maneuver. Rigidity Right Upper Extremity 0-Normal. No rigidity. Rigidity Left Upper Extremity 0-Normal. No rigidity. Rigidity Right Lower Extremity 0-Normal. No rigidity. Rigidity Left Lower Extremity 0-Normal. No rigidity. Finger Taps Right 1-Slight. a) the regular rhythm is broken with one or two interruptions or hesitations of the tapping movement, b) slight slowing, c) the amplitude decrements near the end of the 10taps. Finger Taps Left 2-Mild. a) 3 to 5 interruptions during tapping, b) mild slowing, c) the amplitude decrements midway in the 10-tap sequence. Hand Movements Right 2-Mild. a) 3 to 5 interruptions during the movements, b) mild slowing, c) the amplitude decrements midway in the task. Hand Movements Left 2-Mild. a) 3 to 5 interruptions during the movements, b) mild slowing, c) the amplitude decrements midway in the task. Arm Movements Right 0-Normal. No problems. Arm Movements Left 0-Normal. No problems. Toe Taps Right 4-Severe. Cannot or can only barely perform the task because of slowing, interruptions or decrements. Toe Taps Left 4-Severe. Cannot or can only barely perform the task because of slowing, interruptions or decrements. Leg Agility Right 1-Slight. a) the regular rhythm is broken with one or two interruptions or hesitations of the movement, b) slight slowing, c) the amplitude decrements near the end of the task. Leg Agility Left 0-Normal. No problems. Arise From Chair Gait Gait Freezing Posture Stability Posture Body Bradykinesia 2-Mild. Mild global slowness and poverty of spontaneous movements. [...] tremor. MDS-UPDRS Motor subscale totals Left Total 8 Right Total 8 Midline Total Tremor Total / 10 0 PIGD Total / 3 Overall Total Change Better/Worse % Change Compared to Last Filed Total [...] Mr. De La Garza is a right-handed 79 year old male with history significant for HTN, neuropathy, LBP, withdystonia-predominant PD since around 2002. The following are the current problems noted and addressed during this visit: Parkinson's disease, unspecified whether dyskinesia present, unspecified whether manifestations fluctuate (hcc) Sialorrhea Hallucinations Plan 01/26/2025 Visit: 1. Parkinson's disease, unspecified whether dyskinesia present, unspecified whether manifestations fluctuate (HCC) (G20.A1): - Stable overall; patient demonstrates adequate motor control with minimal rigidity and acceptable dexterity. - Continues carbidopa-levodopa at 6 AM, 12 PM, and 6 PM, and pramipexole without reported adverse effects. - Explored physical therapy options; patient dissatisfied with prior facility???s lack of consistency. - Provided information about [facility] for in-home Parkinson???s-specific therapy if coverage and location permit. Emailed coordinator regarding availability; awaiting response. - Noted possibility of scheduling outpatient therapy in conjunction with next neurology visit here. - Advised to remain active and avoid prolonged reliance on the wheelchair to prevent deconditioning. - Follow-up in six months, or sooner if mobility declines significantly or new concerns arise. 2. Sialorrhea (K11.7): - Persistent but more bothersome overnight - Prescribed atropine 1 drop sublingually at bedtime as needed (up to four times daily) to reduce salivary flow. - Advised chewing gum or hard candy during the day to increase swallowing and minimize drooling. - Instructed patient and caregiver to reassess sialorrhea after dentures are placed. - Encouraged to report any significant dryness of mouth, taste alteration, or lack of improvement. 3. Hallucinations (R44.3): - Mild visual hallucinations, predominantly non-threatening, involving past acquaintances; no aggressive or unsafe behavior reported. Some may be dreams. - Patient is not taking quetiapine; hallucinations do not appear distressing. - No new treatment initiated as hallucinations are well tolerated. - Advised to monitor for any changes in frequency, content, or associated anxiety; return or call if these become problematic. Updated Movement Disorders Medication Schedule: Medications 6am 12pm 6pm 12am Sinemet 25/100 2 2 2 Mirapex 0.25 mg 3 3 3 seroquel 25 1 Return at or around: 07/27/25 Level of service : 09252 (40-68 min). Time spent 43 min on the day of service, which included preparing to see the patient, [id number] patient care, completing clinical documentation, performing a medically appropriate examination, counseling and educating the patient/family/caregiver, and care co ordination (not separately reported). Thank you for allowing me to be part of the clinical care of this patient! I look forward to continued participation in the patient???s care with you. Please do not hesitate to call with any questions. Sincerely, Tasneem Magallon MD documented in this encounter Plan of Treatment Upcoming Encounters Date Type Department Care Team (Late st Contact Info) Description 07/27/2025 1:00 PM EDT Office Visit Neurology [address] [address] Tasneem Magallon MD [address] [address] Follow up Scheduled Referrals Name Type Priority Associated Diagnoses Orde r Schedule CONSULT TO PHYSICAL THERAPY Referral Routine Parkinson's disease, unspecified whether dyskinesia present, unspecified whether manifestations fluctuate (HCC) 1 Occurrences starting 01/26/2025 until 01/26/2026 PROVIDER ORDERED FOLLOW UP Referral Routine Parkinson's disease, unspecified whether dyskinesia present, unspecified whether manifestations fluctuate (HCC) Expected: 07/27/2025, Expires: 01/26/2026 documented as of this encounter Visit Diagnoses Diagnosis Parkinson's disease, unspecified whether dyskinesia present, unspecified whether manifestations fluctuate (HCC) Sialorrhea Disturbance of salivary secretion Hallucinations documented in this encounter Care Teams Hydro Technician Relationship Specialty Start Date End Date Prashant Gary DO PCP - General 03/11/07 Tasneem Magallon MD [address] [address] Specialty Oil Extractor Neurology 04/04/23 Tamika Gillis APRN.CNP [address] [place] [address] Specialty Oil Extractor Neurology 04/04/23 documented as of this encounter
--- OUTSIDE RECORDS SUMMARY | 2025-01-29 10:29 | XMS_ITS | Encounter Summary ---
Author Organization [facility] Address [facility] [place] [address] Care Team Providers Care Belt Picker Name Role Phone Prashant Gary DO Primary Care Provider [phone] Tasneem Magallon MD Unavailable [phone] Tamika Gillis APRN.MEDICAL SALES ASSOCIATE Unavailable [phone] Source Comments In the event this information is protected by the Federal Confidentiality of Alcohol and Drug AbusePatient Records regulations: The Federal rules restrict any use of the information to criminally investigate or prosecute any alcohol or drug abuse patient.[facility] Encounter Details Date Type Department Care Team (Late st Contact Info) Description 11/06/2024 Patient Msg Neurology [address] [phone] Provider, [place] Am I an [place] Candidate for New Therapies in Parkinson's Disease? [...] is lower risk 4 07/05/2023 Data from: https://www.neighborhoodatlas.medicine.[facility].edu/. Last address used for calculation [address] [...] PM EDT Office Visit Neurology [address] [phone] Tasneem Magallon MD [address] [address] Follow up documented as of this encounter Visit Diagnoses Not on filedocumented in this encounter Care Teams Belt Picker Relationship Specialty Start Date End Date Prashant Gary DO PCP - General 03/11/07 Tasneem Magallon MD [facility] [address] [address] Specialty Escrow Assistant Neurology 04/04/23 Tamika Gillis APRN.PACO [facility] [place] [address] Specialty Escrow Assistant Neurology 04/04/23 documented as of this encounter
--- OUTSIDE RECORDS SUMMARY | 2025-01-29 10:29 | XMS_ITS | Clinical Summary ---
Author Organization [facility] Address [address] [place] [address] Care Team Providers Care Dental Technology Advisor Name Role Phone Prashant Gary DO Primary Care Provider [phone] Tasneem Magallon MD Unavailable [phone] Tamika Gillis HYDROGEOLOGY PROFESSOR.MANAGER TALENT MANAGEMENT Unavailable [phone] Allergies Active Allergy Reactions Criticality Noted Date Comments Latex, Natural Rubber Rash Medium 04/26/2021 Morphine Other: See Comments 03/01/2011 Pt takes Avinza po, had allergic reaction with Morphine IV push, red streaking up arm. Penicillin G Rash 03/06/2007 Medications atorvastatin calcium(LIPITOR 10 MG TAB) one daily Active furosemide (LASIX) 20 mg tablet 024 Active losartan (COZAAR) 25 mg tablet Take 25 mg by mouth two times a day. Active carbidopa-levodop a (SINEMET 25-100) 25-100 mg per tabletIndications :Parkinson's disease, unspecified whether dyskinesia present, unspecified whether manifestations fluctuate (HCC) Take 2 tablets by mouth three times a day. 2 tab at 6am, 12pm and 6pm 540 tablet 3 025 2025 Active pramipexole (MIRAPEX) 0.25 mg tabletIndications :Parkinson's disease, unspecified whether dyskinesia present, unspecified whether manifestations fluctuate (HCC),Gait instability Take 3 tablets by mouth three times a day. 810 tablet 3 025 2025 Active atropine 1 % ophthalmic solution 1 drop sublingually up to 4 times a day as needed for drooling 5 mL 025 Active QUEtiapine (SEROQUEL) 25 mg tablet Take 1 tablet by mouth daily at bedtime. 90 tablet 3 025 2024 Discontinued Active Problems Problem Noted Date Diagnosed Date Infection and inflammatory r eaction due to other internal orthopedic device, implant, and graft 09/26/2011 Primary localized osteoarthrosis, unspecified si te 03/01/2011 Osteoarthrosis, unspecified whether generalized or localized, ankle and foot 03/25/2007 Parkinson disease HTN (hypertension) Encounters Date Type Department Care Team Description 01/26/2025 11:00 AM EDT Office Visit Neurology [address] [phone] Tasneem Magallon MD Parkinson's disease, unspecified whether dyskinesia present, unspecified whether manifestations fluctuate (HCC); Sialorrhea; Hallucinations 11/18/2024 Telephone Neurology [address] [phone] Tasneem Magallon MD Appointment Cancelled 11/06/2024 Patient Msg Neurology [address] [place] [address] Provider, [facility] Am I an [place] Candidate for New Therapies in Parkinson's Disease? from Last 3 Months Family History Medical History Relation Comments Heart Brother 2 Heart Mother None Son 2 Relation Status Comments Brother 1 Alive Brother 2 Father Mother Son 1 Alive Son 2 Social History Tobacco Use Types Packs/Day Years [...] is lower risk 4 07/05/2023 Data from: https://www.neighborhoodatlas.medicine.[facility].edu/. Last address used for calculation [address] 07/05/2023 Sex and Gender Information Value Date Recorded Sex Assigned at Not on file Legal Sex Male 8:04 AM EST Gender Identity Not on file Sexual Orientation Not on file Last Filed Vital Signs Vital Sign Reading Time Taken Comments Blood Pressure 125/60 07/24/2024 10:30 AM EDT Pulse 67 07/24/2024 10:30 AM EDT Temperature 36.9 C (98.4 F) 07/09/2012 7:00 PM EDT Respiratory Rate 14 01/17/2017 8:59 AM EDT Oxygen Saturation 98% 01/26/2025 10:50 AM EDT Inhaled Oxygen Concentration - - Weight 58.7 kg (129 lb 6.6 oz) 01/26/2025 10:50 AM EDT Height 165.1 cm (5' 5 ) 05/10/2023 2:00 PM EST Body Mass Index 21.53 05/10/2023 2:00 PM EST Plan of Treatment Upcoming Encounters Date Type Department Care Team ([facility] st Contact Info) Description 07/27/2025 1:00 PM EDT Office Visit Neurology [address] [phone] Tasneem Magallon MD [address] [phone] Follow up Health Maintenance Due Date Last Done Comments Anxiety Screening 1961 Depression Screening 1961 DTaP,Tdap,Td Vaccine (1 - Tdap) 1962 Shingrix Vaccine (1 of 2) 1993 Diabetes Screening 07/06/2015 07/05/2012, 0 05/16/2012, 05/14/2012, Additional history exists RSV Vaccine (1 - 1-dose 75+ series) 2018 Pneumococcal Vaccine: 50+ (2 of 2 - PCV20 or PCV21) 11/28/2018 11/28/2017 Advance Directive Discussion 04/16/2024 Medicare Advantage Annual We llness Visit 04/16/2024 Covid-19 Vaccine (4 - 2024-2 6 season) 2024 03/29/2021, 06/04/2020, 05/14/2020 Influenza Vaccine (#1) 2024 3, 12/29/2021, 02/18/2020, Additional history exists Medical Devices Implanted Type Area Dry House Wheeler Device Identifier Shelf Expiration Date Model / Serial / Lot Graft Bn Infs Rhbmp-2 2.8ml - [id number] Implanted:Qty: 1 on 05/15/2012 at [facility] Bone Right: Bone - Ankle [employer] 09/14/2013 [id number] / / [id number] Sub Bngf Prognx + Dbm [facility] - [id number] Implanted:Qty: 1 on 05/15/2012 at [facility] Bone Right: Bone - Ankle [employer] 09/19/2013 [id number] / / [id number] 6.5 Commpression Screw Implanted:Qty: 1 on 03/01/2011 at [facility] Implant Right: Bone - Ankle [employer] [id number] / / 6.5 Mm Compression Screw Implanted:Qty: 1 on 03/01/2011 at [facility] Implant Right: Bone - Ankle [employer] [id number] / / 6.5 Compression Screw Implanted:Qty: 1 on 03/01/2011 at [facility] Implant Right: Bone - Ankle [employer] [id number] / / 4.5mm Compression Screw Implanted:Qty: 1 on 03/01/2011 at [facility] Implant Right: Bone - Ankle [employer] [id number] / / 6.5mm X110mm Screw Implanted:Qty: 1 on 03/01/2011 at [facility] Implant Right: Bone - Ankle [employer] [id number] / / Bjg-In-S-Kind Implant - [id number] Implanted:Qty: 1 on 05/15/2012 at [facility] Implant Right: Bone - Ankle [employer] [id number] / / Description:3.5 x 20mm angle lock screw Orv-Ds-X-Kind Implant - [id number] Implanted:Qty: 1 on 05/15/2012 at [facility] Implant Right: Bone - Ankle [employer] [id number] / / Description:3.5 x 10 mm angl e lock screw Fah-Ty-U-Kind Implant - [id number] Implanted:Qty: 1 on 05/15/2012 at [facility] Implant Right: Bone - Ankle [employer] [id number] / / Description:3.5 x 10mm angle lock screw Fkp-Fy-W-Kind Implant - [id number] Implanted:Qty: 1 on 05/15/2012 at [facility] Implant Right: Bone - Ankle [employer] [id number] / / Description:8 hole l shape a nkle plate Xug-Fv-S-Kind Implant - [id number] Implanted:Qty: 1 on 05/15/2012 at [facility] Implant Right: Bone - Ankle [employer] [id number] / / Description:3.5 x 30 lock sc rew Ggm-Qj-M-Kind Implant - [id number] Implanted:Qty: 1 on 05/15/2012 at [facility] Implant Right: Bone - Ankle [employer] [id number] / / Description:3.5 x 30mm angle lock screw Aiw-Jh-Y-Kind Implant - [id number] Implanted:Qty: 1 on 05/15/2012 at [facility] Implant Right: Bone - Ankle [employer] [id number] / / Description:3.5mm 38mm lock screw [id number] Standard Barrel Hip Keyless 135 4 Hole [id number] - [id number] Implanted:Qty: 1 on 07/05/2012 at [facility] Plate Right: Bone - Hip [employer] 03/15/2015 [id number] / / [id number] Screw Compr 6.5x50mm - [id number] Implanted:Qty: 1 on 05/15/2012 at [facility] Screw Right: Bone - Ankle [employer] [id number] / / [id number]-Oplnm Bn 13mm 100mm O+ Ss Std - [id number] Implanted:Qty: 1 on 07/05/2012 at [facility] Screw Right: Bone - Hip [employer] 04/15/2015 [id number] / / [id number] Compression [place] 32mm [id number] - [id number] Implanted:Qty: 1 on 07/05/2012 at [facility] Screw Right: Bone - Hip [employer] 03/15/2015 [id number] / / [id number] Bn 4.5mm 38mm Axsos Ss - [id number] Implanted:Qty: 1 on 07/05/2012 at [facility] Screw Right: Bone - Hip KEE [id number] / / [id number] Bn 4.5mm 36mm Axsos Ss - [id number] Implanted:Qty: 3 on 07/05/2012 at [facility] Screw Right: Bone - Hip KEE [id number] / / Procedures Procedure Name Priority Date/Time Associated Diagnosis Comments COMPREHENSIVE METABOLIC PANEL (EU,FV,HL,DEVON,MM,SP) Routine 07/05/2012 6:00 AM EDT from Last 3 Months or Most Recently Relevant to Health Maintenance Results * COMPREHENSIVE METABOLIC PANEL (EU,FV,HL,LK,DEVON,MM,SP) (07/05/2012 6:00 AM EDT) Pathologist [facility] Protein, Total 6.3 6.0 - 8.4 g/dL [facility] Albumin 4.3 3.5 - 5.0 g/dL [facility] Calcium 9.3 8.5 - 10.5 mg/dL [facility] Bilirubin, Total 0.9 0.0 - 1.5 mg/dL [facility] Alkaline Phosphatase 80 40 - 150 U/L [facility] AST 19 7 - 40 U/L [facility] Glucose 93 65 - 100 mg/dL [facility] BUN 14 10 - 25 mg/dL [facility] Creatinine 0.84 0.70 - 1.40 mg/dL [facility] Sodium 137 135 - 146 mmol/L [facility] Potassium 4.7 3.5 - 5.0 mmol/L [facility] Chloride 99 98 - 110 mmol/L [facility] CO2 29 23 - 32 mmol/L [facility] ALT 13 5 - 50 U/L [facility] Glom Filtration Rate (AA) >60 >60 [facility] Glom Filtration Rate (ZAHIDA) >60 >60 . [facility] Blood specimen (specimen) BLOOD SPECIMEN / Unknown 07/05/2012 6:00 AM EDT 07/05/2012 8:33 AM EDT us Eleni Andrews MD [facility] Final R esult [facility]ULLEN [address] [address] from Last 3 Months or Most Recently Relevant to Health Maintenance Insurance [facility] MEDICARE Care Teams Dental Technology Advisor Relationship Specialty Start Date End Date Prashant Gary DO PCP - General 03/11/07 Tasneem Magallon MD [address] [place] [address] Specialty Fleecer Neurology 04/04/23 Tamika Gillis APRN.CNP [address] [place] [address] Specialty Fleecer Neurology 04/04/23
--- OUTSIDE RECORDS SUMMARY | 2025-01-29 10:29 | XMS_ITS | Encounter Summary ---
Author Organization [facility] Address [facility] [place] [address] Care Team Providers Care Fashion Stylist Name Role Phone Prashant Gary DO Primary Care Provider [phone] Tasneem Magallon MD Unavailable [phone] Tamika Gillis APRN.IRRIGATIONIST Unavailable [phone] Source Comments In the event this information is protected by the Federal Confidentiality of Alcohol and Drug AbusePatient Records regulations: The Federal rules restrict any use of the information to criminally investigate or prosecute any alcohol or drug abuse patient.[facility] Encounter Details Date Type Department Care Team (Late st Contact Info) Description 07/31/2024 Patient Msg Neurology [address] [phone] Provider, [facility] Research Helps Us Understand Parkinson's [...] is lower risk 4 07/05/2023 Data from: https://www.neighborhoodatlas.medicine.[facility].edu/. Last address used for calculation [...] PM EDT Office Visit Neurology [address] [phone] Tasneem Magallon MD [address] [address] Follow up documented as of this encounter Visit Diagnoses Not on filedocumented in this encounter Care Teams Fashion Stylist Relationship Specialty Start Date End Date Prashant Gary DO PCP - General 03/11/07 Tasneem Magallon MD [address] [address] Specialty Qualification Engineer Neurology 04/04/23 Tamika Gillis APRN.IRRIGATIONIST [address] [place] [address] Specialty Qualification Engineer Neurology 04/04/23 documented as of this encounter
--- OUTSIDE RECORDS SUMMARY | 2025-01-29 10:29 | XMS_ITS | Encounter Summary ---
Author Organization [facility] Address [facility] [place] [address] Care Team Providers Care Vp Name Role Phone Prashant Gary DO Primary Care Provider Tasneem Magallon MD Unavailable [phone] Tamika Gillis APRN.TECHNICAL ADJUSTER Unavailable [phone] Source Comments In the event this information is protected by the Federal Confidentiality of Alcohol and Drug AbusePatient Records regulations: The Federal rules restrict any use of the information to criminally investigate or prosecute any alcohol or drug abuse patient.[facility] Encounter Details Date Type Department Care Team (Late st Contact Info) Description 03/05/2024 Patient Msg Neurology [address] [phone] Provider, [facility] A Message from [facility] Social History Tobacco Use Types Packs/Day Years [...] risk 4 07/05/2023 Data from: https://www.neighborhoodatlas.medicine.[facility].edu/. Last address used for calculation [...] PM EDT Office Visit Neurology [address] [phone] Tasneem Magallon MD [address] [address] Follow up documented as of this encounter Visit Diagnoses Not on filedocumented in this encounter Care Teams Vp Relationship Specialty Start Date End Date Prashant Gary DO PCP - General 03/11/07 Tasneem Magallon MD [address] [address] Specialty Chief Inspector Neurology 04/04/23 Tamika Gillis APRN.CNP [address] [place] [address] Specialty Chief Inspector Neurology 04/04/23 documented as of this encounter
--- OUTSIDE RECORDS SUMMARY | 2025-01-29 10:29 | XMS_ITS | Encounter Summary ---
Author Organization [facility] Address [address] [place] [address] Care Team Providers Care Model Maker Scale Name Role Phone Prashant Gary DO Primary Care Provider [phone] Tasneem Magallon MD Unavailable [phone] Tamika Gillis APRN.MOWER SHARPENER Unavailable [phone] Source Comments In the event this information is protected by the Federal Confidentiality of Alcohol and Drug AbusePatient Records regulations: The Federal rules restrict any use of the information to criminally investigate or prosecute any alcohol or drug abuse patient.[facility] Encounter Details Date Type Department Care Team (Late st Contact Info) Description 12/18/2023 Patient Msg [address] [place] [address] [place] [address] Provider, [facility]cf CNR Virtual Shared Medical Appointment [...] is lower risk 4 07/05/2023 Data from: https://www.neighborhoodatlas.medicine.[facility].edu/. Last address used for calculation [address] [...] PM EDT Office Visit Neurology [address] [phone] Tasneem Magallon MD [address] [address] Follow up documented as of this encounter Visit Diagnoses Not on filedocumented in this encounter Care Teams Model Maker Scale Relationship Specialty Start Date End Date Prashant Gary DO PCP - General 03/11/07 Tasneem Magallon MD [address] [address] Specialty Squad Boss Neurology 04/04/23 Tamika Gilils APRN.CNP [address] [place] [address] Specialty Squad Boss Neurology 04/04/23 documented as of this encounter
--- OUTSIDE RECORDS SUMMARY | 2025-01-29 10:37 | XMS_ITS | CCD ---
Author Organization [facility] CliniSywi Care Team Providers Care Structured Cabling Technician Name Role Phone Prashant Gary DO Primary Care Provider LAKSHMIPATHY ., NARENDRANATH Attending Ev vailable BALL, DR RANDLE Primary Care Unavailable LAKSHMIPATHY ., NARENDRANATH Consulting Ev vailable LAKSHMIPATHY ., NARENDÁLVAROATH Admitting Ev vailable BALL, DR RANDLE Primary Care Unavailable LAKSHMIPATHY ., NARENDRANATH Consulting Ev vailable LAKSHMIPATHY ., NARENDRANATH Admitting Ev vailable LAKSHMIPATHY ., WILMER Attending Ev vailable DEISI, DR RANDLE Primary Care Unavailable HALKER ., WILL Admitting Unavailable HALKER ., WILL Attending Unavailable BALL, DR RANDLE Admitting Unavailable BALL, DR RANDLE Attending Unavailable BALL, DR RANDLE Consulting Unavailable BALL, DR RANDLE Primary Care Unavailable ZIEBER, DR AL Bolden Consulting Unavailable BALL, DR RANDLE Admitting Unavailable BALL, DR RANDLE Attending Unavailable BALL, DR RANDLE Consulting Unavailable BALL, DR RANDLE Primary Care Unavailable WEN BAEZ Attending Unavailable SASHA, WEN Consulting Unavailable BALL, DR RANDLE Primary Care Unavailable SASHA, WEN Admitting Unavailable LAKSHMIPATHY ., NARENDRANATH Consulting Ev vailable OWOYELE, ANNE Consulting Unavailable SASHA, WEN Consulting Unavailable SASHA, WEN Admitting Unavailable BALL, DR RANDLE Primary Care Unavailable SASHA, WEN Attending Unavailable AGUILAR YOST Consulting Unavailable DEISI, DR RANDLE Primary Care Unavailable LAKSHMIPATHY ., NARENDRANATH Attending Ev vailable LAKSHMIPATHY ., NARENDRANATH Consulting Ev vailable LAKSHMIPATHY ., HENRIENDÁLVAROATH Admitting Ev vailable Prashant Gary Unavailable Prashant Gary DO Primary Care Provider Memo Magallon MD Unavailable Carlin BAARJAS.Tamika ANTONIO Unavailable [phone] Deisi ANTON, Prashant E Primary Care Provider Prashant Gary DO Attending Provider Ball Prashant Attending Unavailable Deisi, Prashant Admitting Unavailable FLOYD, MEMO K Referring Unavailable FLOYD, MEMO K Attending Unavailable Prashant Gary DO Primary Care Provider [phone] Gabi WITT, Brendon Salvador Attending Provider Cris Diaz CMA Attending Provider Unavaila ble Deisi ANTON, Prashant Attending Provider DEISI, PRASHANT E Primary Care Unavailable FLOYD, MEMO Referring Unavailable FLOYD, MEMO Attending Unavailable BALL, PRASHANT E Primary Care Unavailable FLOYD, MEMO Referring Unavailable FLOYD, MEMO Attending Unavailable FAMILIA QUINONES Attending Unavailable DEISI, PRASHANT E Primary Care Unavailable Allergies Allergy Classification Reported Allergen(s) Allergy Type Date of Onset Reaction(s) Facility (12 sources) Latex; Translations: [LATEX, NATURAL RUBBER] Drug Allergy 022 [facility] Work Phone: (15 sources) Morphine; Translations: [MORPHINE] Drug Allergy 011 Other: See Comments, Swelling [facility] (12 sources) Penicillin G; Translations: [PENICILLIN G] Drug Allergy 007 [facility] Work Phone: (2 sources) Morphine Drug Allergy 020 [facility] Repository (2 sources) natural latex rubber Drug allergy (disorder) [facility] (5 sources) Penicillins Drug allergy (disorder) 013 Swelling [facility] (16 sources) cyclobenzaprine Drug Allergy 025 Cyclobenzaprine *CHEMICALS* Comment:Hallucmiladis tiadriana, Cyclobenzaprine *CHEMICALS* Comment:Hallucmiladis oates, Comment:Hallucina tions [facility] (16 sources) pregabalin [facility] Flexeril *MUSCULOSKELETAL THERAPY AGENTS* Propensity to adverse reactions Comment:Sandip tiadriana PolyActiva Other (13 sources) Substance with penicillin structure and antibacterial mechanism of action (substance) Drug allergy Unknown PolyActiva Other (3 sources) patient allergy list reviewed by nurse or physicia Propensity to adverse reactions 016 Comment:Done PolyActiva Other (1 source) cyclobenzaprine Drug Allergy 025 [facility] (1 source) Morphine Drug Allergy 025 [facility] (1 source) Penicillins Drug allergy (disorder) 025 [facility] (1 source) pregabalin Drug Allergy 025 [facility] Medications Current Medications Medication Drug Class(es) Dates Sig (Normalized) Sig (Original) AeroChamber Mini Chamber - (18 sources) Start: 06-28-2022 AeroChamber Mini Chamber - 1 inhalation Use with MDI every 4 hours as needed for cough or SOB for 30 days Jun, Active atorvastatin 10 mg oral tablet (20 sources) HMG-CoA Reductase Inhibitor Start: 07-05-2024 take 1 tablet by mouth once daily Atorvastatin 10 mg tablet Active 0 .ROUTE .COMPLEX 90 July 05, 2024 8:43am TAKE 1 TABLET BY MOUTH EVERY DAY Complies with drug therapy Start: 10-04-2021 End: 07-05-2024 take 1 tablet by mouth once daily Atorvastatin 10 mg tablet Discontinued 10 MG PO Daily June 02, 2024 6:49pm July 05, 2024 8:44am Comment on above: one daily carbidopa 25 mg / levodopa 100 mg oral tablet (20 sources) Aromatic Amino Acid Decarboxylation Inhibitor, Aromatic Amino Acid Start: 07-24-2024 End: 07-24-2025 carbidopa-levodopa (SINEMET 25-100) 25-100 mg per tablet Indications: Parkinson's disease, unspecified whether dyskinesia present, unspecified whether manifestations fluctuate (HCC) Take 2 tablets by mouth three times a day. 2 tab at 6am, 12pm and 6pm 540 tablet 3 07/24/2024 07/24/2025 Active Start: 06-02-2024 take 2 tablets by mo [facility] three times daily Carbidopa-Levodopa 25-100 mg tablet,disintegrating Active 2 TAB PO Three times daily June 02, 2024 1:00am Complies with drug therapy Start: 10-04-2021 End: 07-18-2023 take 1 tablet by mouth once daily Carbidopa-Levodopa 25-100 mg tablet Discontinued 1 TAB PO Daily October 04, 2021 12:00am July 18, 2023 1:26pm Start: 08-08-2021 End: 07-04-2024 carbidopa-levodopa (SINEMET 25-100) 25-100 mg per tablet Indications: Parkinson's disease, unspecified whether dyskinesia present, unspecified whether manifestations fluctuate (HCC) Take 2 tablets by mouth three times a day. 2 tab at 6am, 12pm and 6pm 540 tablet 3 07/05/2023 07/04/2024 Active take 2 tablets by mo ut every six hours Sinemet 25-100 MG 2 tablet Orally qid Active take 1 tablet by finesse two times weekly as needed Sinemet 25-100 MG 1 tablet as needed Orally Two times a Week Active Comment on above: Take 2 tablets by mo ut three times daily. Take 2 tablets by mo ut three times a day. 2 tab at 6am, 12pm and 6pm Take 2 tablets by mo uth three times a day. furosemide 20 mg oral tablet (20 sources) Loop Diuretic Start: 06-26-2024 take 1 tablet by mouth once daily Furosemide 20 mg tablet Active 0 .ROUTE .COMPLEX 90 June 26, 2024 12:49pm TAKE 1 TABLET BY MOUTH DAILY Complies with drug therapy Start: 01-12-2023 End: 06-26-2024 take 1 tablet by mouth once daily Furosemide 20 mg tablet Discontinued 20 MG PO Daily June 02, 2024 6:49pm June 26, 2024 12:49pm hydroCHLOROthiazide 25 mg oral tablet (1 source) Thiazide Diuretic Start: 12-21-2022 take 1 tablet by mouth every twenty-four hours hydroCHLOROthiazide 25 MG 1 tablet in the morning Orally Once a day for 30 days Dec, Active pramipexole dihydrochloride 0.25 mg oral tablet (20 sources) Nonergot Dopamine Agonist Start: 07-24-2024 End: 07-24-2025 take 3 tablets by mouth three times daily pramipexole (MIRAPEX) 0.25 mg tablet Indications: Parkinson's disease, unspecified whether dyskinesia present, unspecified whether manifestations fluctuate (HCC) , Gait instability Take 3 tablets by mouth three times a day. 810 tablet 3 07/24/2024 07/24/2025 Active Start: 10-04-2021 End: 06-02-2024 take 1 tablet by mouth once daily Pramipexole 0.25 mg tablet Discontinued 0.25 MG PO Daily October 04, 2021 12:00am June 02, 2024 6:50pm Start: 08-08-2021 End: 07-04-2024 take 3 tablets by mouth four times daily Pramipexole 0.25 mg tablet Active 0.75 MG PO Four times daily 336 June 02, 2024 6:47pm Complies with drug therapy Mirapex Active Comment on above: Take 3 tablets by mo [facility] four times daily. Completed/Discontinued Medications Medication Drug Class(es) Dates Sig (Normalized) Sig (Original) acetaminophen 325 mg / HYDROcodone bitartrate 5 mg oral tablet (20 sources) Opioid Agonist Start: 10-04-2021 End: 06-02-2024 take 1 tablet by mouth four times daily as needed for pain Hydrocodone-Acetami nophen 5-325 mg tablet Discontinued 1 TAB PO Four times daily as needed for Pain October 04, 2021 12:00am June 02, 2024 4:31pm End: 05-10-2023 take 1 tablet by mouth every six hours as needed HYDROcodone-acetaminophen (NORCO) 5-325 mg per tablet Take 1 tablet by mouth every 6 hours as needed. 0 05/10/2023 Discontinued Comment on above: Take 1 tablet by finesse every 6 hours as needed. [id number] 200 actuat albuterol 0.09 mg/actuat metered dose inhaler (20 sources) beta2-Adrenergic Agonist Start: End: take 1 puff(s) by inhalation every four hours as needed Albuterol Sulfate 90 mcg/actuation HFA aerosol inhaler Discontinued 2 PUFF INHALATION Every 4 hours as needed July 18, 2023 12:00am January 19, 2025 11:09am Start: 01-20-2021 End: 06-18-2024 albuterol HFA (PROVENTIL HFA , VENTOLIN HFA) 90 mcg/actuation inhaler 01/20/2021 06/18/2024 Discontinued take 2 puff(s) by in halation every [...] as needed for cough and SOB Active cloNIDine hydrochloride 0.1 mg oral tablet (7 sources) Central alpha-2 Adrenergic Agonist Start: 04-27-2023 End: 07-05-2023 take 1 tablet by mouth every twelve hours cloNIDine HCl (CATAPRES) 0.1 mg tablet Take 1 tablet by mouth every 12 hours. 0 04/27/2023 07/05/2023 Discontinued Comment on above: Take 1 tablet by finesse th every 12 hours. docusate sodium 100 mg oral capsule (7 sources) Start: 10-05-2021 End: 06-02-2024 Docusate Sodium (Stool Softener) 100 mg Capsule Discontinued 100 MG PO As Directed as needed for Constipation October 05, 2021 12:00am June 02, 2024 4:31pm End: 05-10-2023 docusate sodium (STOOL SOFTE NER ORAL) Take by mouth as needed. 0 05/10/2023 Discontinued docusate sodium (STOOL SOFTENER ORAL) Take by mouth as needed. 0 Active Comment on above: Take by mouth as nee ded. 24 hr felodipine 5 mg extended release oral tablet (20 sources) Dihydropyridine Calcium Channel Ailyn Start: 10-25-19 End: 01-25-20 take 1 tablet by mouth once daily Felodipine 5 mg tablet extended release 24 hr Discontinued 0 .ROUTE .COMPLEX 90 October 25, 2023 6:56am January 25, 2024 3:13pm TAKE 1 TABLET BY MOUTH EVERY DAY Start: 07-18-2023 End: 10-25-2023 take 1 tablet by mouth once daily Felodipine 5 mg tablet extended release 24 hr Discontinued 5 MG PO Daily July 18, 2023 12:00am October 25, 2023 6:56am Start: 12-21-2022 End: 06-18-2024 felodipine ER (PLENDIL) 5 mg 24 hr tablet Take by mouth every 24 hours. 12/21/2022 06/18/2024 Discontinued Start: 12-21-2022 take 1 tablet by finesse th every twenty-four hours Felodipine ER 5 MG 1 tablet Orally Once a day for 30 days Replaces the 10mg dose Dec, Active Start: 10-04-2021 End: 07-18-2023 take 1 tablet by mouth once daily Felodipine 10 mg tablet extended release 24 hr Discontinued 10 MG PO Daily October 04, 2021 12:00am July 18, 2023 1:21pm Start: 01-17-2021 End: 05-10-2023 felodipine ER (PLENDIL) 10 m g 24 hr tablet Comment on above: Take by mouth every 24 hours. losartan potassium 25 mg oral tablet (20 sources) Angiotensin 2 Receptor Ailyn Start: End: take 1 tablet by mouth twice daily Losartan 25 mg tablet Discontinued 25 MG PO Twice daily 60 January 28, 2024 5:37pm June 02, 2024 6:50pm Start: 06-08-2023 End: 01-28-2024 take 1 tablet by mouth once daily Losartan 50 mg tablet Discontinued 50 MG PO Daily June 08, 2023 11:26am January 28, 2024 5:33pm Start: 10-04-2021 End: 06-08-2023 take 1 tablet by mouth once daily Losartan 100 mg tablet Discontinued 100 MG PO Daily October 04, 2021 12:00am June 08, 2023 11:00am End: 06-18-2024 losartan (COZAAR) 100 mg tab let Take 50 mg by mouth once daily. 06/18/2024 Discontinued take 1 tablet by finesse th every twenty-four hours Losartan Potassium 50 MG 1 tablet Orally Once a day Active Comment on above: Take 100 mg by mouth once daily. Take 50 mg by mouth once daily. lubiprostone 0.024 mg oral capsule (20 sources) Chloride Channel Activator Start: End: take 1 capsule by mouth twice daily Lubiprostone 24 mcg capsule Discontinued 24 MCG PO Twice daily July 18, 2023 12:00am June 02, 2024 4:29pm Start: 07-18-2023 End: 06-02-2024 take 1 capsule by mouth once daily Lubiprostone 8 mcg capsule Discontinued 8 MCG PO Daily July 18, 2023 12:00am June 02, 2024 4:29pm Start: 07-18-2023 End: 06-02-2024 take 1 capsule by mouth twice daily Lubiprostone 24 mcg capsule Discontinued 24 MCG PO Twice daily July 17, 2023 11:00pm June 02, 2024 3:29pm Start: 07-18-2023 End: 06-02-2024 take 1 capsule by mouth once daily Lubiprostone 8 mcg capsule Discontinued 8 MCG PO Daily July 17, 2023 11:00pm June 02, 2024 3:29pm Start: 10-12-2022 take 1 capsule by mo [...] WATER FOR 30 DAYS for 30 Active QUEtiapine 25 mg oral tablet (5 sources) Atypical Antipsychotic Start: 07-24-2024 End: 07-24-2025 take 1 tablet by mouth once daily at bedtime Quetiapine (Seroquel) 25 mg tablet Discontinued 25 MG PO Daily at bedtime September 29, 2024 12:00am January 19, 2025 11:09am Start: 06-17-2024 QUEtiapine (SE ROQUEL) 25 mg tablet take 1/2 tab at bedtime. in 5 days increase to 1 tab if tolerated. 28 tablet 3 06/17/2024 Active triamcinolone acetonide 5 mg/ml topical cream (3 sources) Corticosteroid Start: 10-17-2023 End: 01-19-2025 Triamcinolone Acetonide 0.5 % cream Discontinued 1 APPLIC TOPICAL Twice daily 30 October 17, 2023 12:00am January 19, 2025 11:08am Problems Active Problems Problem Classification Problem Date Documented Da te Episodic/Chronic Blindness and vision defects (5 sources) Visual hallucinations; Translations: [Visual hallucinations] 06-02-2024 Episodic Chronic obstructive pulmonary disease and bronchiectasis (20 [...] sources) High risk drug monitoring status; Translations: [tank terminal gauger (current) use of opiate analgesic] Episodic Other aftercare (18 sources) H/O: high risk medication; Translations: [Other [place] [facility] (current) drug therapy] Episodic Other aftercare (5 sources) senior care (current) use of opiate analgesic; Translations: [Long-term (current) use of other medications] Episodic Other aftercare (3 sources) Long-term current use of drug therapy; Translations: [Other [place] [facility] [place] (current) drug therapy] Episodic Other aftercare (4 sources) Prescribed medication regimen behavior finding; Translations: [senior care (current) use of opiate analgesic] 07-18-2023 Episodic Other connective tissue disease (1 source) Other specified soft tissue disorders Episodic Other diseases of veins and lymphatics (17 sources) Peripheral venous insufficiency; Translations: [Unspecified venous (peripheral) insufficiency] Onset: 11-06-2016 07-18-2023 Episodic Other diseases of veins and lymphatics (4 sources) Venous insufficiency (chronic) (peripheral); Translations: [Venous (peripheral) insufficiency, unspecified] Episodic Other ear and sense organ disorders (20 sources) Sensorineural hearing loss, bilateral; Translations: [Sensorineural hearing loss, bilateral] 07-18-2023 Chronic Other gastrointestinal disorders (20 sources) Dysphagia; Translations: [Dysphagia, unspecified] 03-28-2023 Episodic Comment on above: Problem List clean-u p per request of Phys. EHR Cmte Other hereditary and degenerative nervous system conditions (1 source) Restless legs; Translations: [Restless legs syndrome] Chronic Other injuries and conditions due to external causes (4 sources) Unspecified injury of head, initial encounter; Translations: [UNSPECIFIED INJURY HEAD INITIAL ENC] Onset: 08-17-2022 Episodic Other injuries and conditions due to external causes (3 sources) History of fall; Translations: [History of falling] Episodic Other lower respiratory disease (20 sources) Chronic cough; Translations: [Chronic cough] Onset: 04-23-2022 07-18-2023 Episodic Other lower respiratory disease (5 sources) [...] (3 sources) Overweight; Translations: [Overweight] Episodic Other nutritional; endocrine; and metabolic disorders (4 sources) Weight decreased; Translations: [Abnormal weight loss] 01-17-2024 Episodic Other screening for suspected conditions (not mental disorders or infectious disease) (3 sources) Radiology result abnormal; Translations: [Other nonspecific (abnormal) findings on radiological and other examination of body structure] Onset: 05-13-2015 Chronic Other screening for suspected conditions (not mental disorders or infectious disease) (6 sources) Encounter for screening for malignant neoplasm of prostate; Translations: [Patient encounter status] Onset: 01-03-2022 Episodic Parkinson`s disease (20 sources) [...] THORACIC [place]ION] Onset: 07-18-2022 Episodic Substance-related disorders (20 sources) Tobacco user; Translations: [Nicotine dependence, cigarettes, in remission] 07-18-2023 Chronic Unclassified (3 sources) Long-term current use of drug therapy; Translations: [Long-term (current) use of other medications] Onset: 11-06-2016 Varicose veins of lower extremity (17 sources) Varicose veins of lower limb co-occurrent with edema; Translations: [Varicose veins of bilateral lower extremities with other complications] Episodic Viral infection (20 sources) Postherpetic neuralgia; Translations: [Other postherpetic nervous system involvement] Onset: 08-17-2022 Episodic Past or Other Problems Problem Classification Problem Date Documented Da te Episodic/Chronic Complication of device; implant or graft (11 sources) Infection AND/OR inflammatory reaction due to [...] 11-27-2017 Episodic Other aftercare (1 source) Other [place] [facility] [place] drug therapy; Translations: [OTH SHELTER CURRENT DRUG THERAPY] Onset: 01-03-2022 Episodic Other [...] Test Name Value Interpretation Reference Range Facility [facility] 01-26-2025 CNOV Office Visit (NRMDN) SILKE DE LA GARZA ([id number]) 1945 M Date Time Provider Department 01/26/25 11:00 AM MEMO MAGALLON BEATRICE During your visit today, we recorded the following information about you: Weight 58.7 kg Memo Magallon MD 01/26/2025 12:42 PM Signed [facility] - FOLLOW UP EVALUATION Recording using [employer] software for draft documentation of the visit was discussed with the patient/authorized communications representative; all questions welcomed and answered. Patient/authorized communications representative agreed to proceed Prashant Gary DO [facility] [id number] Dear Prashant Gary DO: I had the [...] in clinical research? Not discussed Interval History: Silke is an 79-year-old male with Parkinson's disease presenting for follow-up. He is accompanied by a his who provides additional history. Silke reports bothersome sialorrhea and dysphagia. He notes [...] with swallowing solids, though he occasionally has trouble with dry or stringy foods. He had a modified barium swallow study vs EGD performed at [facility] approximately 5 years ago. Silke is currently awaiting dental implants, which have been delayed for over a year due to complications with the initial procedure. He has pegs in place and is scheduled for a follow-up appointment with the doctor who placed them in approximately 2 weeks. He is hopeful that the implants will be completed in time for Thanksgiving. Silke reports that his physical therapy has not been helpful. He attended therapy for approximately 1 month but found the sessions inconsistent and lacking a clear plan. He did find the U-step walker helpful and enjoyed using it during therapy sessions. He is currently using a wheelchair at home and is concerned about losing his ability to walk. Silke reports hallucinations, which are generally not bothersome. He describes seeing people who are not there, often playing baseball or engaging in other activities. He sometimes does not recognize his family members and believes they are other [...] asleep within 45 minutes of taking his medication and sometimes has difficulty staying awake during meals. He reports that walking is more difficult when he is tired. Silke reports that he is generally healthy and [...] Therapies Apomorphine SC (Apokyn) Carbidopa/Levodopa Carbidopa/Levodopa CR Carbidopa/Levodopa/E ntacapone Pramipexole Selegiline Questionnaires: In addition, the following areas that may be affected by abnormal involuntary movements were evaluated: Daily activities Difficult (more content not included)... Normal [facility] Basophils Auto (Bld) [#/Vol] Ordered By: Brendon Ashley on 12-08-2024 Basophils (Bld) [#/Vol] 0.1 10 3/uL 0.0-0.1 [facility] Basophils/100 WBC Auto (Bld) Ordered By: Brendon Ashley on 12-08-2024 Basophils/100 WBC (Bld) 0.7 % 0.2-2.0 [facility] Eosinophils/100 WBC Auto (Bl d)Ordered By: Brendon Ashley on 12-08-2024 Eosinophils/100 WBC (Bld) 1.9 % 0.9-7.0 [facility] Erythrocyte distribution wid th Auto (RBC) [Ratio]Ordered By: Brendon Ashley on 12-08-2024 Erythrocyte distribution width (RBC) [Ratio] 12.7 % 11.0-15.0 [facility] Globulin Calc (S) [Mass/Vol] Ordered By: Brendon Ashley on 12-08-2024 Globulin (S) [Mass/Vol] 3.1 g/dL [facility] Glomerular filtration rate ( GFR) estimation in non- AmericanOrdered By: Brendon Ashley on 12-08-2024 GFR/1.73 sq M.predicted among non-blacks MDRD (S/P/Bld) [Vol rate/Area] mL/min/{1.73_m2} >=60 mL/min/1.73m 2 [facility] Hematocrit Auto (Bld) [Volum e fraction]Ordered By: Brendon Ashley on 12-08-2024 Hematocrit (Bld) [Volume fraction] 39.7 % Low 42.0-54.0 [facility] Hemoglobin [Mass/volume] in BloodOrdered By: Brendon Ashley on 12-08-2024 Hemoglobin (Bld) [Mass/Vol] 13.7 g/dL Low 14.0-18.0 [facility] Laboratory - Chemistry and C hemistry - challengeOrdered By: Prashant Gary on 12-08-2024 Bilirubin Ql (U) Negative NEGATIVE [facility] Glucose (U) [Mass/Vol] Negative NEGATIVE [facility] Ketones Ql (U) Negative NEGATIVE [facility] pH (U) 5.5 [pH] 5.0-9.0 [facility] Specific gravity (U) [Rel density] <=1.005 Abnormal 1.005-1.025 [facility] Urobilinogen Qn (U) 0.2 {Demar'U}/dL 0.2-1.0 [facility] - Chemistry and C hemistry - challengeOrdered By: Brendon Ashley on 12-08-2024 Albumin [Mass/Vol] 4.1 g/dL 3.4-5.0 [facility] ALP [Catalytic activity/Vol] 100 U/L 46-116 [facility] ALT [Catalytic activity/Vol] 10 U/L Low 16-63 [facility] AST [Catalytic activity/Vol] 12 U/L Low 15-37 [facility] Bilirubin [Mass/Vol] 0.8 mg/dL 0.2-1.0 [facility] Calcium [Mass/Vol] 9.1 mg/dL 8.5-10.1 [facility] Chloride [Moles/Vol] 104 mmol/L 98-107 [facility] CO2 [Moles/Vol] 29.5 mmol/L 21.0-32.0 [facility] Creatinine [Mass/Vol] 0.97 mg/dL 0.70-1.30 [facility] GFR/1.73 sq M.predicted MDRD (S/P/Bld) [Vol rate/Area] mL/min/{1.73_m2} >=60 mL/min/1.73m 2 [facility] Glucose [Mass/Vol] 96 mg/dL 74-106 [facility] Lipase [Catalytic activity/Vol] 43.0 U/L 16.0-77.0 [facility] Magnesium [Mass/Vol] 2.0 mg/dL 1.8-2.4 [facility] Potassium [Moles/Vol] 4.3 mmol/L 3.5-5.1 [facility] Protein [Mass/Vol] 7.2 g/dL 6.4-8.2 [facility] Sodium [Moles/Vol] 141 mmol/L 136-145 [facility] Urea nitrogen [Mass/Vol] 21.0 mg/dL High 7.0-18.0 [facility] Urea nitrogen/Creatinine [Mass ratio] 21.6 mg/mg [facility] - Hematology and Cell countsOrdered By: Brendon Ashley on 12-08-2024 Immature granulocytes/100 WBC (Bld) 0.4 % 0.0-0.5 [facility] - Microbiology an d Antimicrobial susceptibilityOrdered By: Brendon Ashley on 12-08-2024 SARS-CoV-2 (COVID-19) RNA ZAHIDA+probe Ql (Unsp spec) Negative NEGATIVE [facility] Comment on above: This test has not be en FDA cleared or approved, but has beenauthorized by the FDA under an Emergency Use Authorization(EUA) for use by authorized laboratories certified underIA that meet the requirements to perform moderate or highcomplexity testing. This test has been authorized only forthe detection of proteins from SARS-CoV-2, not for any otherviruses or pathogens. The emergency use of this test isauthorized for the duration of the declaration thatcircumstances exist justifying the authorization ofemergency use of in vitro diagnostic tests for detectionand/or diagnosis of Covid-19 under section 564(b)(1) of theAct, 21 U.S.C. 360bbb-3(b)(1), unless the declaration isterminated or authorization is revoked sooner. Laboratory - Specimen inform ationOrdered By: Prashant Gary on 12-08-2024 Appearance (U) CLEAR CLEAR [facility] Color (U) LT. YELLOW YELLOW [facility] Laboratory - UrinalysisOrder ed By: Prashant Gary on 12-08-2024 Leukocyte esterase Test strip Ql (U) Negative NEGATIVE [facility] Nitrite Ql (U) Negative NEGATIVE [facility] Protein Ql (U) Negative NEG/TRACE [facility] Leukocytes [#/volume] correc eri for nucleated erythrocytes in Blood by Automated counOrdered By: Brendon Ashley on 12-08-2024 WBC corrected for nucl RBC Auto (Bld) [#/Vol] 7.5 10 3/uL 4.0-11.0 [facility] Lymphocytes Auto (Bld) [#/Vo l]Ordered By: Brendon Ashley on 12-08-2024 Lymphocytes (Bld) [#/Vol] 1.3 10 3/uL 1.2-3.8 [facility] Lymphocytes/100 WBC Auto (Bl d)Ordered By: Brendon Ashley on 12-08-2024 Lymphocytes/100 WBC (Bld) 16.9 % Low 20.5-60.0 [facility] MCH Auto (RBC) [Entitic mass ]Ordered By: Brendon Ashley on 12-08-2024 MCH (RBC) [Entitic mass] 30.4 pg 25.9-34.0 [facility] MCHC Auto (RBC) [Mass/Vol]Or dered By: Brendon Ashley on 12-08-2024 MCHC (RBC) [Mass/Vol] 34.5 g/dL 29.9-35.2 [facility] MCV Auto (RBC) [Entitic vol] Ordered By: Brendon Ashley on 12-08-2024 MCV (RBC) [Entitic vol] 88.0 fL 80.0-94.0 [facility] Monocytes Auto (Bld) [#/Vol] Ordered By: Brendon Ashley on 12-08-2024 Monocytes (Bld) [#/Vol] 0.5 10 3/uL 0.3-0.8 [facility] Monocytes/100 WBC Auto (Bld) Ordered By: Brendon Ashley on 12-08-2024 Monocytes/100 WBC (Bld) 7.1 % 1.7-12.0 [facility] Neutrophils Auto (Bld) [#/Vo l]Ordered By: Brendon Ashley on 12-08-2024 Neutrophils (Bld) [#/Vol] 5.5 10 3/uL 1.4-6.5 [facility] Neutrophils/100 WBC Auto (Bl d)Ordered By: Brendon Ashley on 12-08-2024 Neutrophils/100 WBC (Bld) 73.0 % 43.0-75.0 [facility] No Panel InformationOrdered By: Prashant Gary on 12-08-2024 Urine Microscopic Review NO [facility] Urine Occult Blood Negative NEGATIVE [facility] No Panel InformationOrdered By: Brendon Ashley on 12-08-2024 Eosinophils # (Auto) 0.1 10 3/uL 0.0-0.7 [facility] Ethyl Alcohol Level <3 mg/dL [facility] Comment on above: NOTE: 80 mg/dl is th e legal limit for a blood alcohol level Immature Granulocyte # (Auto) 0.03 10 3/uL 0.00-0.03 [facility] Troponin I High Sensitivity 10.6 pg/mL 4.0-76.1 [facility] Comment on above: CUT-OFF POINTS HAVE BEEN ESTABLISHED BASED ON THE FOURTHUNIVERSAL DEFINITION OF MYOCARDIAL INFARCTION. THE UPPERREFERENCE LIMIT (URL) OF TROPONIN, DEFINED THE 99THPERCENTILE OF cTnI DISTRIBUTION IN A REFERENCE POPULATION,HAS BEEN CONFIRMED THE DECISION THRESHOLD FOR MIDIAGNOSIS.99TH PERCENTILE = 76.2 PG/MLNOTE: HIGH-SENSITIVITY TROPONIN ASSAY IS NOT INTENDED TO BEUSED IN ISOLATION BUT SHOULD BE INTERPRETED IN CONJUNCTIONWITH OTHER DIAGNOSTIC AND CLINICAL INFORMATION. Platelet mean volume Auto (B ld) [Entitic vol]Ordered By: Brendon Ashley on 12-08-2024 Platelet mean volume (Bld) [Entitic vol] 11.1 fL 9.5-13.5 [facility] Platelets Auto (Bld) [#/Vol] Ordered By: Brendon Ashley on 12-08-2024 Platelets (Bld) [#/Vol] 193 10 3/uL 150-450 [facility] RBC Auto (Bld) [#/Vol]Ordere d By: Brendon Ashley on 12-08-2024 RBC (Bld) [#/Vol] 4.51 10 6/uL Low 4.70-6.10 [facility] Serum or plasma albumin/glob ulin mass ratioOrdered By: Brendon Ashley on 12-08-2024 Albumin/Globulin [Mass ratio] 1.3 {ratio} [facility] Serum or plasma anion gap de terminationOrdered By: Brendon Ashley on 12-08-2024 Anion gap [Moles/Vol] 11.8 mmol/L [facility] CNPNon 11-18-2024 CNPN Telephone (NRMDN) SILKE DE LA GARZA ([id number]) 1945 M Date Time Provider Department 11/18/24 MEMO MAGALLON During your visit today, we recorded the following information about you: Caroline Lake 11/18/2024 11:23 AM Signed Sent patient a MyChart letting them know that their appointment with Dr. Memo Magallon on 02/04/25 has been cancelled and needs to be rescheduled, the provider will be out of the office. Per clinical Ok to reschedule for next available. If they want a sooner appointment they can be added to the waitlist. Allergies As of Date: 11/18/2024 Noted Allergy Reaction LATEX, NATURAL RUBBER 04/26/2021 2 - Rash MORPHINE 03/01/2011 14 - Other: See Comments Comments: Pt takes Avinza po, had allergic reaction with Morphine IV push, red streaking up arm. PENICILLIN G 03/06/2007 2 - Rash Date Reviewed: 07/24/2024 Reviewed by: Memo Magallon MD - Fully Assessed Reason for Visit: Appointment Cancelled [1023] Prescriptions as of 12/29/2024 - losartan (COZAAR) 25 mg tablet Take 25 mg by mouth two times a day. - carbidopa-levodopa (SINEMET 25-100) 25-100 mg per tablet Take 2 tablets by mouth three times a day. 2 tab at 6am, 12pm and 6pm - pramipexole (MIRAPEX) 0.25 mg tablet Take 3 tablets by mouth three times a day. - QUEtiapine (SEROQUEL) 25 mg tablet Take 1 tablet by mouth daily at bedtime. - furosemide (LASIX) 20 mg tablet - atorvastatin calcium(LIPITOR 10 MG TAB) one daily Problem List As Of Date 11/18/2024 Noted Resolved OSTEOARTHROS NOS-ANKLE [M19.079] 03/25/2007 Primary localized osteoarthrosis, unspecified s*03/01/2011 Parkinson disease [G20.A1] HTN (hypertension) [I10] Infection, orth device NEC [T84.7XXA] 09/26/2011 Encounter Status:Closed by CAROLINE LAKE on 12/29/24 [facility] 10-10-2024 CNPN Telephone (NRMDN) SILKE DE LA GARZA ([id number]) 1945 M Date Time Provider Department 10/10/24 MEMO MAGALLON During your visit today, we recorded the following information about you: Sosa Kearney MA 10/10/2024 1:07 PM Addendum Received PT progress note and PT cert letter from [facility]. Placed on Dr. Magallon desk for review Sosa Kearney MA 10/13/2024 10:01 AM Signed PT certification letter signed and faxed back and confirmation received Allergies As of Date: 10/10/2024 Noted Allergy Reaction LATEX, NATURAL RUBBER 04/26/2021 2 - Rash MORPHINE 03/01/2011 14 - Other: See Comments Comments: Pt takes Avinza po, had allergic reaction with Morphine IV push, red streaking up arm. PENICILLIN G 03/06/2007 2 - Rash Date Reviewed: 07/24/2024 Reviewed by: Memo Magallon MD - Fully Assessed Reason for Visit: Patient Update [1234] Prescriptions as of 10/13/2024 - losartan (COZAAR) 25 mg tablet Take 25 mg by mouth two times a day. - carbidopa-levodopa (SINEMET 25-100) 25-100 mg per tablet Take 2 tablets by mouth three times a day. 2 tab at 6am, 12pm and 6pm - pramipexole (MIRAPEX) 0.25 mg tablet Take 3 tablets by mouth three times a day. - QUEtiapine (SEROQUEL) 25 mg tablet Take 1 tablet by mouth daily at bedtime. - furosemide (LASIX) 20 mg tablet - atorvastatin calcium(LIPITOR 10 MG TAB) one daily Problem List As Of Date 10/10/2024 Noted Resolved OSTEOARTHROS NOS-ANKLE [M19.079] 03/25/2007 Primary localized osteoarthrosis, unspecified s*03/01/2011 Parkinson disease [G20.A1] HTN (hypertension) [I10] Infection, orth device NEC [T84.7XXA] 09/26/2011 Encounter Status:Closed by SOSA KEARNEY on 10/10/24 [facility] SIKLE [facility] ([id number]) 1945 M Date Time Provider Department 09/19/24 MEMO MAGALLON During your visit today, we recorded the following information about you: Sosa Kearney MA 09/19/2024 2:24 PM Signed Received PT progress note from Daniel Nunez. Placed on Dr. Floyd aaron for review Allergies As of Date: 09/19/2024 Noted Allergy Reaction LATEX, NATURAL RUBBER 04/26/2021 2 - Rash MORPHINE 03/01/2011 14 - Other: See Comments Comments: Pt takes Avinza po, had allergic reaction with Morphine IV push, red streaking up arm. PENICILLIN G 03/06/2007 2 - Rash Date Reviewed: 07/24/2024 Reviewed by: Memo Magallon MD - Fully Assessed Reason for Visit: Patient Update [1234] Prescriptions as of 09/19/2024 - losartan (COZAAR) 25 mg tablet Take 25 mg by mouth two times a day. - carbidopa-levodopa (SINEMET 25-100) 25-100 mg per tablet Take 2 tablets by mouth three times a day. 2 tab at 6am, 12pm and 6pm - pramipexole (MIRAPEX) 0.25 mg tablet Take 3 tablets by mouth three times a day. - QUEtiapine (SEROQUEL) 25 mg tablet Take 1 tablet by mouth daily at bedtime. - furosemide (LASIX) 20 mg tablet - atorvastatin calcium(LIPITOR 10 MG TAB) one daily Problem List As Of Date 09/19/2024 Noted Resolved OSTEOARTHROS NOS-ANKLE [M19.079] 03/25/2007 Primary localized osteoarthrosis, unspecified s*03/01/2011 Parkinson disease [G20.A1] HTN (hypertension) [I10] Infection, orth device NEC [T84.7XXA] 09/26/2011 Encounter Status:Closed by SOSA KEARNEY on 09/19/24 [facility] Nonvisit Note - PTon 09-03- 025 Nonvisit Note - PT Nonvisit Note - PT Cancel due to not feeling well. Normal [facility] Jose 08-05-2024 CNPN Telephone (NRMDN) SILKE DE LA GARZA ([id number]) 1945 M Date Time Provider Department 08/05/24 MEMO MAGALLON BEATRICE During your visit today, we recorded the following information about you: Sosa Kearney MA 08/05/2024 2:17 PM Signed Received PT certification letter from [facility]. Placed on Dr. Magallon desk for review and signature Sosa Kearney MA 08/08/2024 2:01 PM Signed Faxed back and confirmation received Allergies As of Date: 08/05/2024 Noted Allergy Reaction LATEX, NATURAL RUBBER 04/26/2021 2 - Rash MORPHINE 03/01/2011 14 - Other: See Comments Comments: Pt takes Avinza po, had allergic reaction with Morphine IV push, red streaking up arm. PENICILLIN G 03/06/2007 2 - Rash Date Reviewed: 07/24/2024 Reviewed by: Memo Magallon MD - Fully Assessed Reason for Visit: Orders [681] Prescriptions as of 08/08/2024 - losartan (COZAAR) 25 mg tablet Take 25 mg by mouth two times a day. - carbidopa-levodopa (SINEMET 25-100) 25-100 mg per tablet Take 2 tablets by mouth three times a day. 2 tab at 6am, 12pm and 6pm - pramipexole (MIRAPEX) 0.25 mg tablet Take 3 tablets by mouth three times a day. - QUEtiapine (SEROQUEL) 25 mg tablet Take 1 tablet by mouth daily at bedtime. - furosemide (LASIX) 20 mg tablet - atorvastatin calcium(LIPITOR 10 MG TAB) one daily Problem List As Of Date 08/05/2024 Noted Resolved OSTEOARTHROS NOS-ANKLE [M19.079] 03/25/2007 Primary localized osteoarthrosis, unspecified s*03/01/2011 Parkinson disease [G20.A1] HTN (hypertension) [I10] Infection, orth device NEC [T84.7XXA] 09/26/2011 Encounter Status:Closed by SOSA EKARNEY on 08/08/24 [facility] CNOVon 07-24-2024 CNOV Office Visit (NRMDN) SILKE DE LA GARZA ([id number]) 1945 M Date Time Provider Department 07/24/24 11:00 AM MEMO MAGALLON BEATRICE During your visit today, we recorded the following information about you: Pulse Blood pressure 67/minute 125/60 Memo Magallon MD 07/24/2024 12:30 PM Signed [facility] - FOLLOW UP EVALUATION Primary Movement Disorders Neurologist: Memo Magallon MD Primary Movement Disorders SPENCER: The patient consented to the use of [employer] software for draft documentation of the visit consistent with [facility] Notice of Privacy Practices. Prashant Gary DO [address] [place] [id number] Dear Prashant Gary DO: I had the pleasure of seeing Mr. De La Garza for follow-up today. As you know he is a 79 year old right-handed male with a history of Parkinson's disease since 2002. Also with chronic low back pain and diffuse arthritis, fused ankles. He is seen with his . Subjective Previous Plan- 06/17/2024 Visit: No change in the Parkinson's medication, add low-dose Seroquel at bedtime. Increase to 1 full tablet at bedtime if tolerated and hallucinations do not improve after 1 week Interval History: Silke is an 79-year-old male with a history of Parkinson's disease, presenting for follow-up. He is accompanied by his , who provides additional history. Silke has been experiencing hallucinations, described as really real stuff, primarily in the evenings and sometimes during the day. These hallucinations include both lifelike and fantastical elements, such as people in ridiculous costumes. He often talks to these hallucinations, sometimes addressing his as a third person. His notes that his facial expression changes when he is seeing someone, and he often looks up at things. She can tell when the hallucination is gone by his change in demeanor. He is currently taking Seroquel at bedtime, which his believes has helped him become calmer and more aware that the hallucinations are not real. He is also taking Mirapex, with a dose at midnight, which his administers. She reports that he can go right back to sleep after taking the medication but expresses concern about the frequent waking. Silke is also taking Sinemet every six hours, which his reports is still effective. However, she notes that he has been experiencing more dyskinesia, particularly later in the day, after 3:00 PM. She wonders if hunger might be contributing to this, as he often does not eat until noon or 1:00 PM. He has had all his teeth removed in February, just before , and is currently waiting to have posts placed in his jaw to hold his bottom denture. This has made eating more difficult, and his reports that he has lost some weight. He has been drinking protein drinks and eating eggs in various forms to maintain his nutrition. Silke has also been experiencing more drooling at night. He reports that this is manageable but has been more of a problem recently. He has not been walking much recently, due to the winter weather and not going out. His reports that he has slowed down in his walking and has lost muscle tone in his legs. She believes that he is ready for a wheelchair, as he often has difficulty with his walker. She reports that he has no issues walking at night, but the hardest walking is first thing in the morning, after taking his first round of pills. He has not been to physical therapy yet, but his reports that they had an appointment scheduled but left when they could not find a place to park. He does have a parking placard. Movement Disorders Medications Schedule - as of the start of the visit: Medications 6am 12pm 6pm 12am Sinemet 25/100 2 2 2 Mirapex 0.25 mg 3 3 3 3 seroquel 25 1 Parkinson's Motor Complications Medication benefit onset: 15 minutes Medication duration: 6 hours Wearing off: no Dyskinesia: yes (Comment: If tired and not frequently) Prior Anti-Parkinson Therapies Apomorphine SC (Apokyn) Carbidopa/Levodopa Carbidopa/Levodopa CR Carbidopa/Levodopa/E ntacapone Pramipexole Selegiline Questionnaires: In addition, the following areas that may be affected by abnormal involuntary movements were evaluated: Daily activities Difficulties with eating: Yes (slight) Difficulties in dressing: Difficulties with hygiene activities: Yes (slight) Difficulties with handwriting: Difficulties with doing hobbies and other activities: Yes (slight) Difficulties turning in bed: Difficulties getting out of bed, car or chair: Tremors/Gait/Balance Shaking or tremors: Yes (slight) Walking and balance problems: Yes (slight) Number of falls in the Last Month: 0 Gait freezing: Autonomic/Pain Lightheadeness on standing: Yes (slight) Urinary problems: Constipation prob (more content not included)... [facility] Basophils Auto (Bld) [#/Vol] on 06-03-2024 Basophils (Bld) [#/Vol] Automated basoph il count 0.0-0.1 [facility] Basophils/100 WBC Auto (Bld) on 06-03-2024 Basophils/100 WBC (Bld) Automated basophil % 0. 2-2.0 [facility] Eosinophils/100 WBC Auto (Bl d)on 06-03-2024 Eosinophils/100 WBC (Bld) Automated eosi nophil % 0.9-7.0 [facility] Erythrocyte distribution wid th Auto (RBC) [Ratio]on 06-03-2024 Erythrocyte distribution width (RBC) [Ratio] Erythrocyte distribution width [Ratio] by Automated count 11.0-15.0 [facility] Estimated glomerular filtrat ion rate (GFR) non- Americanon 06-03-2024 GFR/1.73 sq M.predicted among non-blacks MDRD (S/P/Bld) [Vol rate/Area] Estimated glomerular filtration rate (GFR) non- >=60 mL/min/1.73m 2 [facility] Globulin Calc (S) [Mass/Vol] on 06-03-2024 Globulin (S) [Mass/Vol] Serum globulin measurement by calculation (mass/volume) [facility] Hematocrit Auto (Bld) [Volum e fraction]on 06-03-2024 Hematocrit (Bld) [Volume fraction] Hematocrit [Volume Fraction] of Blood by Automated count 42.0-54.0 [facility] Hemoglobin [Mass/volume] in Bloodon 06-03-2024 Hemoglobin (Bld) [Mass/Vol] Hemoglobin [Mass/volume] in Blood 14.0-18.0 [facility] Laboratory - Chemistry and C hemistry - challengeon 06-03-2024 Albumin [Mass/Vol] 4.0 g/dL 3.4-5.0 [facility] ALP [Catalytic activity/Vol] 108 U/L 46-116 [facility] ALT [Catalytic activity/Vol] 10 U/L Low 16-63 [facility] AST [Catalytic activity/Vol] 23 U/L 15-37 [facility] Bilirubin [Mass/Vol] 0.8 mg/dL 0.2-1.0 [facility] Calcium [Mass/Vol] 9.0 mg/dL 8.5-10.1 [facility] Chloride [Moles/Vol] 104 mmol/L 98-107 [facility] CO2 [Moles/Vol] 24.6 mmol/L 21.0-32.0 [facility] Creatinine [Mass/Vol] 0.88 mg/dL 0.70-1.30 [facility] GFR/1.73 sq M.predicted MDRD (S/P/Bld) [Vol rate/Area] mL/min/{1.73_m2} >=60 mL/min/1.73m 2 [facility] Glucose [Mass/Vol] 106 mg/dL 74-106 [facility] Potassium [Moles/Vol] 4.4 mmol/L 3.5-5.1 [facility] Protein [Mass/Vol] 7.3 g/dL 6.4-8.2 [facility] Sodium [Moles/Vol] 139 mmol/L 136-145 [facility] Urea nitrogen [Mass/Vol] 13.0 mg/dL 7.0-18.0 [facility] Urea nitrogen/Creatinine [Mass ratio] 14.8 mg/mg [facility] - Hematology and Cell countson 06-03-2024 Immature granulocytes/100 WBC (Bld) 0.4 % 0.0-0.5 [facility] Leukocytes [#/volume] correc eri for nucleated erythrocytes in Blood by Automated counon 06-03-2024 WBC corrected for nucl RBC Auto (Bld) [#/Vol] Leukocytes [#/volume] corrected for nucleated erythrocytes in Blood by Automated coun 4.0-11.0 [facility] Lymphocytes Auto (Bld) [#/Vo l]on 06-03-2024 Lymphocytes (Bld) [#/Vol] Lymphocytes [#/volume] in Blood by Automated count 1.2-3.8 [facility] Lymphocytes/100 WBC Auto (Bl d)on 06-03-2024 Lymphocytes/100 WBC (Bld) Lymphocytes/10 0 leukocytes in Blood by Automated count 20.5-60.0 [facility] MCH Auto (RBC) [Entitic mass ]on 06-03-2024 MCH (RBC) [Entitic mass] MCH [Entitic ma ss] by Automated count 25.9-34.0 [facility] MCHC Auto (RBC) [Mass/Vol]on 06-03-2024 MCHC (RBC) [Mass/Vol] MCHC [Mass/volume] by Automated count 29.9-35.2 [facility] MCV Auto (RBC) [Entitic vol] on 06-03-2024 MCV (RBC) [Entitic vol] MCV [Entitic vol ume] by Automated count 80.0-94.0 [facility] Monocytes Auto (Bld) [#/Vol] on 06-03-2024 Monocytes (Bld) [#/Vol] Automated blood monocyte count 0.3-0.8 [facility] Monocytes/100 WBC Auto (Bld) on 06-03-2024 Monocytes/100 WBC (Bld) Automated monocyte % 1. 7-12.0 [facility] Neutrophils Auto (Bld) [#/Vo l]on 06-03-2024 Neutrophils (Bld) [#/Vol] Neutrophils [#/volume] in Blood by Automated count 1.4-6.5 [facility] Neutrophils/100 WBC Auto (Bl d)on 06-03-2024 Neutrophils/100 WBC (Bld) Automated neut rophil % 43.0-75.0 [facility] No Panel Informationon 06-03 Eosinophils # (Auto) 0.1 10 3/uL 0.0-0.7 [facility] Immature Granulocyte # (Auto) 0.03 10 3/uL 0.00-0.03 [facility] Platelet mean volume Auto (B ld) [Entitic vol]on 06-03-2024 Platelet mean volume (Bld) [Entitic vol] Platelet mean volume [Entitic volume] in Blood by Automated count 9.5-13.5 [facility] Platelets Auto (Bld) [#/Vol] on 06-03-2024 Platelets (Bld) [#/Vol] Platelets [#/vol ume] in Blood by Automated count 150-450 [facility] RBC Auto (Bld) [#/Vol]on RBC (Bld) [#/Vol] Erythrocytes [#/volume] in Blood by Automated count 4.70-6.10 [facility] Serum or plasma albumin/glob ulin mass ratioon 06-03-2024 Albumin/Globulin [Mass ratio] Serum or plasma albumin/globulin mass ratio [facility] Serum or plasma anion gap de terminationon 06-03-2024 Anion gap [Moles/Vol] Serum or plasma anion gap determination [facility] Urine Cultureon 06-03-2024 Bacteria identified Cx Nom (U) No Growth 2 Days PERFORMED BY: [place] [id number] PATHOLOGIST CARE CONSULTANT XOCHILT Toscano [facility] Comment on above: Performed By: #### C UU #### [address] Jose 05-26-2024 [place] Telephone (EMMA) SILKE DE LA GARZA ([id number]) 1945 M Date Time Provider Department 05/26/24 MEMO MAGALLON During your visit today, we recorded the following information about you: Alyssa Fregoso 05/26/2024 1:55 PM Signed Patient's called to report he's experiencing hallucinations at night. They are interested in starting medication for these symptoms. Please advise and call (Carla) with recommendations. Alyssa Rachana Zamora, RN 05/27/2024 12:03 PM Signed Waking through night with hallucinations. Onset sometime this winter Worse in the past week or 2. In past week this has occurred 3-4 nights. Last night and night before was not able to convince him that the hallucinations were not real. Normally he is agreeable with spouse and returns to sleep. Hallucinations are not new, but hallucinations through the night is new. Recently going to bed worried about things like the doors being locks, if the car is running, or cars on the street. Daytime hallucinations have not changed. is unsure that he is actually having daytime hallucinations. Old windows and poor vision, things are distorted. Gait - no changes noted Uses walker for all ambulation. Did not follow through with PT No recent illnesses No changes to medications, felodipine has been discontinued Independent with toileting No changes in urinary habits Did have ED visit in March, that was thought to be dehydration related. Was not admitted. Fluid intake: Now buying 12 ounce bottled water for ease and also monitoring intake. Goal is 3 bottles of water. Prefers sugary drinks such as Sprite. Today intake: coffee Fluid intake yesterday: unsure, possibly 1-2 bottles of water and a 6 ounces of Sprite. Recommended reaching out to PCP to have urine checked and rule out any other source of infection and also to check hydration and electrolyte status. - [facility]able. [facility]10[facility] 10:41 AM Addendum Pt's called to report he had UTI and Kidney tests and they were okay; however, pt's still having hallucinations - [phone]. 12/20/23 [facility]UV w/Rachana Negrete, RN 06/10/2024 11:40 AM Signed Testing was done at [facility] Urine was negative, blood work was also done, unsure what tests were done. Not swabbed for flu or COVID. Denies respiratory symptoms. Seeing people - not frightening. Has had hallucinations previously possibly SE from a BP medication. This was discontinued and hallucinations had improved. This was about 1 year ago. No new medications, and no changes to medications Unsure if night hallucination frequency has changed Wakes to go to the bathroom and sees people in the house. Patient hallucinations are not bothersome, states he is confused when seeing them. Sinemet 2 tablets three times daily 0600 1200 1800 Mirapex 3 tablets four times daily 0600 1200 1800 0001 Memo Magallon MD 06/11/2024 10:19 AM Signed Needs a visit. Either me or [facility], virtual ok Sosa Kearney MA 06/11/2024 2:14 PM Signed Patient notified. PSS please assist with scheduling Alyssa Fregoso 06/11/2024 2:58 PM Signed Called and Spoke with Patient's . She accepted virtual visit for 06/17/2024 with Familia Berkowitz PA-C. Patient sent visit instructions via [employer] message. Alyssa Ildefonso Allergies As of Date: 05/26/2024 Noted Allergy Reaction LATEX, NATURAL RUBBER 04/26/2021 2 - Rash MORPHINE 03/01/2011 14 - Other: See Comments Comments: Pt takes Avinza po, had allergic reaction with Morphine IV push, red streaking up arm. PENICILLIN G 03/06/2007 2 - Rash Date Reviewed: 01/09/2024 Reviewed by: Memo Magallon MD - Fully Assessed Reason for Visit: Patient Update [1234] Cmt: Hallucinations Prescriptions as of 06/11/2024 - carbidopa-levodopa (SINEMET 25-100) 25-100 mg per tablet Take 2 tablets by mouth three times a day. 2 tab at 6am, 12pm and 6pm - pramipexole (MIRAPEX) 0.25 mg tablet Take 3 tablets by mouth four times daily. - felodipine ER (PLENDIL) 5 mg 24 hr tablet Take by mouth every 24 hours. - furosemide (LASIX) 20 mg tablet - albuterol HFA (PROVENTIL HFA, VENTOLIN HFA) 90 mcg/actuation inhaler - losartan (COZAAR) 100 mg tablet Take 50 mg by mouth once daily. - atorvastatin calcium(LIPITOR 10 MG TAB) one daily Problem List As Of Date 05/26/2024 Noted Resolved OSTEOARTHROS NOS-ANKLE [M19.079] 03/25/2007 Primary localized osteoarthrosis, unspecified s*03/01/2011 Parkinson disease [G20.A1] HTN (hypertension) [I10] Infection, orth device NEC [T84.7XXA] 09/26/2011 Encounter Status:Closed by ALYSSA FREGOSO on 06/11/[address] [facility] [address] HEAD WO CONon 08-17-2022 CT [...] by: ANNE COLLIER Date: 2022-08-17 20:25 Normal [facility] CREATININEon 04-21-2022 Creatinine [Mass/Vol] 0.84 mg/dL Normal 0.70-1.30 [facility] Comment on above: Performed By: #### C MADM #### [facility] [address] [place] [address] Dr. Sarah Nath EGFR-AF LATVIAN >60 Normal >=60 [facility] Comment on above: Performed By: #### C MADM #### [facility] [address] [address] [address] Sarah Nath EGFR-NON AF LATVIAN >60 Normal >=60 [facility] Comment on above: Performed By: #### C MADM #### [facility] [address] [place] [address] Dr. Sarah Nath CTA CHEST WO W [...] by: AL MANCERA Date: 2022-04-21 08:37 Normal [facility] HEMOGLOBINon 04-21-2022 Hemoglobin (Bld) [Mass/Vol] 16.1 g/dL Normal 14.0-18.0 [facility] Comment on above: Performed By: #### H GB #### [facility] [address] [place] [address] Dr. Sarah Nath CBC AUTO DIFFon 12-30-2021 BASO # 0.1 103/ul Normal 0.0-0.1 [facility] Comment on above: Performed By: #### C MADM #### [facility] [address] [place] [address] Dr. Sarah Nath Basophils/100 WBC (Bld) 0.9 % Normal 0.2-2.0 [facility] Comment on above: Performed By: #### C MADM #### [facility] [address] [place] [address] Dr. Sarah Nath EO # 0.1 103/ul Normal 0.0-0.7 [facility] Comment on above: Performed By: #### C MADM #### [facility] [address] [place] [address] Dr. Sarah Nath Eosinophils/100 WBC (Bld) 2.0 % Normal 0.9-7.0 [facility] Comment on above: Performed By: #### C MADM #### [facility] [address] [place] [address] Dr. Sarah Nath Erythrocyte distribution width (RBC) [Ratio] 12.5 % Normal 11.0-15.0 [facility] Comment on above: Performed By: #### C MADM #### [facility] [address] [address] [address] Sarah Nath Hematocrit (Bld) [Volume fraction] 44.2 % Normal 42.0-54.0 [facility] Comment on above: Performed By: #### C MADM #### [facility] [address] [address] [address] Sarah Nath Hemoglobin (Bld) [Mass/Vol] 14.6 g/dL Normal 14.0-18.0 [facility] Comment on above: Performed By: #### C MADM #### [facility] [address] [address] [address] Sarah Nath IG # 0.03 10e3/ul Normal 0.00-0.03 [facility] Comment on above: Performed By: #### C MADM #### [facility] [address] [place] [address] Dr. Sarah Nath IG % 0.4 % Normal 0.0-0.5 [facility] Comment on above: Performed By: #### C MADM #### [facility] [address] [place] [address] Dr. Sarah Nath LYMPH # 1.7 103/ul Normal 1.2-3.8 [facility] Comment on above: Performed By: #### C MADM #### [facility] [address] [place] [address] Dr. Sarah Nath Lymphocytes/100 WBC (Bld) 24.6 % Normal 20.5-60.0 [facility] Comment on above: Performed By: #### C MADM #### [facility] [address] [place] [address] Dr. Sarah Nath MANUAL DIFF REQ NO Normal [facility] Comment on above: Performed By: #### C MADM #### [facility] [address] [place] [address] Dr. Sarah Nath MCH (RBC) [Entitic mass] 30.0 pg Normal 25.9-34.0 [facility] Comment on above: Performed By: #### C MADM #### [facility] [address] [address] [address] Sarah Nath MCHC (RBC) [Mass/Vol] 33.0 g/dL Normal 29.9-35.2 [facility] Comment on above: Performed By: #### C MADM #### [facility] [address] [address] [address] Sarah Nath MCV (RBC) [Entitic vol] 90.8 fL Normal 80.0-94.0 [facility] Comment on above: Performed By: #### C MADM #### [facility] [address] [address] [address] Sarah Nath MONO # 0.6 103/ul Normal 0.3-0.8 [facility] Comment on above: Performed By: #### C MADM #### [facility] [address] [place] [address] Dr. Sarah Nath Monocytes/100 WBC (Bld) 8.8 % Normal 1.7-12.0 [facility] Comment on above: Performed By: #### C MADM #### [facility] [address] [place] [address] Dr. Sarah Nath NEUT # 4.3 103/ul Normal 1.4-6.5 [facility] Comment on above: Performed By: #### C MADM #### [facility] [address] [place] [address] Dr. Sarah Nath Neutrophils/100 WBC (Bld) 63.3 % Normal 43.0-75.0 [facility] Comment on above: Performed By: #### C MADM #### [facility] [address] [place] [address] Dr. Sarah Nath Platelet mean volume (Bld) [Entitic vol] 10.7 fL Normal 9.5-13.5 [facility] Comment on above: Performed By: #### C MADM #### [facility] [address] [place] [address] Dr. Sarah Nath PLT 179 103/ul Normal 150-450 [facility] Comment on above: Performed By: #### C MADM #### [facility] [address] [address] [address] Sarah Nath RBC 4.87 106/ul Normal 4.70-6.10 [facility] Comment on above: Performed By: #### C MADM #### [facility] [address] [address] [address] Sarah Nath WBC 6.8 103/ul Normal 4.0-11.0 [facility] Comment on above: Performed By: #### C MADM #### [facility] [address] [place] [address] Dr. Sarah Nath LIPID PROFILEon 12-30-2021 CHOL-HDL RATIO NORM SEE BELOW Normal [facility] Comment on above: Result Comment: 3.3 - 4.4 LOW RISK 4.4 - 7.1 AVERAGE RISK 7.1 - 11.0 MODERATE RISK >11.0 HIGH RISK Performed By: #### A LT, LIPID, BMP #### [facility] [address] [place] [address] Dr. Sarah Nath Cholesterol [Mass/Vol] 172 mg/dL Normal <=[address] [facility] Comment on above: Performed By: #### A LT, LIPID, BMP #### [facility] [address] [place] [address] Dr. Sarah Nath Cholesterol in HDL [Mass/Vol] 73 mg/dL Critically high 40-60 [facility] Comment on above: Performed By: #### A LT, LIPID, BMP #### [facility] [address] [address] [address] Sarah Nath Cholesterol in LDL [Mass/Vol] 80.2 mg/dL Normal [facility] Comment on above: Performed By: #### A LT, LIPID, BMP #### [facility] [address] [address] [address] Sarah Nath Cholesterol.total/Cholest jose in HDL [Mass ratio] 2.4 {ratio} Normal [facility] Comment on above: Performed By: #### A LT, LIPID, BMP #### [facility] [address] [place] [address] Dr. Sarah Nath HDL NORMAL > or = 60 mg/dl - LOW CARDIOVASCULAR RISK <40 mg/dl - HIGH CARDIOVASCULAR RISK Normal [facility] Comment on above: Performed By: #### A LT, LIPID, BMP #### [facility] [address] [address] [address] Sarah Nath LDL CALC NORMAL SEE BELOW Normal [facility] Comment on above: Result Comment: <100 mg/dl OPTIMAL 100 - 129 mg/dl NEAR OR ABOVE OPTIMAL 130 - 159 mg/dl BORDERLINE HIGH 160 - 189 mg/dl HIGH >190 mg/dl VERY HIGH Performed By: #### A LT, LIPID, BMP #### [facility] [address] [address] [address] Sarah Nath Triglyceride [Mass/Vol] 94 mg/dL Normal <=150 [facility] Comment on above: Performed By: #### A LT, LIPID, BMP #### [facility] [address] [address] [address] Sarah Nath VLDL CALC 18.8 mg/dL Normal [facility] Comment on above: Performed By: #### A LT, LIPID, BMP #### [facility] [address] [address] [address] Sarah Nath PROF CHEM 8 (BAS METB)on Anion gap [Moles/Vol] 13.3 mmol/L Normal [facility] Comment on above: Performed By: #### A LT, LIPID, BMP #### [facility] [address] [address] [address] Sarah Nath Calcium [Mass/Vol] 8.8 mg/dL Normal 8.5-10.1 [facility] Comment on above: Performed By: #### A LT, LIPID, BMP #### [facility] [address] [address] [address] Sarah Nath Chloride [Moles/Vol] 102 mmol/L Normal 98-107 [facility] Comment on above: Performed By: #### A LT, LIPID, BMP #### [facility] [address] [address] [address] Sarah Nath CO2 [Moles/Vol] 24.6 mmol/L Normal 21.0-32.0 [facility] Comment on above: Performed By: #### A LT, LIPID, BMP #### [facility] [address] [place] [address] Dr. Sarah Nath Creatinine [Mass/Vol] 0.77 mg/dL Normal 0.70-1.30 [facility] Comment on above: Performed By: #### A LT, LIPID, BMP #### [facility] [address] [place] [address] Dr. Sarah Nath EGFR-AF LATVIAN >60 Normal >=60 [facility] Comment on above: Performed By: #### A LT, LIPID, BMP #### [facility] [address] [place] [address] Dr. Sarah Nath EGFR-NON AF LATVIAN >60 Normal >=60 [facility] Comment on above: Performed By: #### A LT, LIPID, BMP #### [facility] [address] [place] [address] Dr. Sarah Nath Glucose [Mass/Vol] 100 mg/dL Normal 74-106 [facility] Comment on above: Performed By: #### A LT, LIPID, BMP #### [facility] [address] [place] [address] Dr. Sarah Nath Potassium [Moles/Vol] 3.9 mmol/L Normal 3.5-5.1 [facility] Comment on above: Performed By: #### A LT, LIPID, BMP #### [facility] [address] [place] [address] Dr. Sarah Nath Sodium [Moles/Vol] 136 mmol/L Normal 136-145 [facility] Comment on above: Performed By: #### A LT, LIPID, BMP #### [facility] [address] [place] [address] Dr. Sarah Nath Urea nitrogen [Mass/Vol] 14.0 mg/dL Normal 7.0-18.0 [facility] Comment on above: Performed By: #### A LT, LIPID, BMP #### [facility] [address] [place] [address] Dr. Sarah Nath Urea nitrogen/Creatinine [Mass ratio] 18.2 mg/mg Normal [facility] Comment on above: Performed By: #### A LT LIPID, LEE #### [facility] [address] [address] [address] [facility] ALT [Catalytic activity/Vol] 9 U/L Critically low 16-63 [facility] Comment on above: Performed By: #### A LT LIPID, BMP #### [facility] [address] [address] [address] Sarah Nath XR CHEST 1 Von 09-27-2021 XR CHEST [...] AGUILAR YOST Date: 2021-09-26 22:49 Normal [facility] CARDIAC OWEN ADMITon 022 CK [Catalytic activity/Vol] 89 U/L Normal 39-308 [facility] Comment on above: Performed By: #### C EDSONM #### [facility] [address] [address] [address] Sarah Nath CK.MB [Mass/Vol] 2.62 ng/mL Normal <=3.60 [facility] Comment on above: Performed By: #### C EDSONM #### [facility] [address] [address] [address] Sarah Nath HSTROP 5.6 pg/mL Normal 4.0-76.1 [facility] Comment on above: Result Comment: CUT- OFF POINTS HAVE BEEN ESTABLISHED BASED ON THE FOURTH UNIVERSAL DEFINITIONS OF MYOCARDIAL INFARCTION. THE UPPER REFERENCE LIMIT (URL) OF TROPONIN, DEFINED THE 99TH PERCENTILE OF cTnI DISTRIBUTION IN A REFERENCE POPULATION, HAS BEEN CONFIRMED THE DECISION THRESHOLD FOR ID DIAGNOSIS. Performed By: #### C MADM #### [facility] [address] [place] [address] Dr. Sarah Nath MARISELA 73 ng/mL Normal 16-96 [facility] Comment on above: Performed By: #### C MADM #### [facility] [address] [place] [address] Dr. Sarah Nath CBC AUTO DIFFon 09-26-2021 BASO # 0.1 103/ul Normal 0.0-0.1 [facility] Comment on above: Performed By: #### C MADM #### [facility] [address] [place] [address] Dr. Sarah Nath Basophils/100 WBC (Bld) 0.7 % Normal 0.2-2.0 [facility] Comment on above: Performed By: #### C MADM #### [facility] [address] [place] [address] Dr. Sarah Nath EO # 0.1 103/ul Normal 0.0-0.7 [facility] Comment on above: Performed By: #### C MADM #### [facility] [address] [place] [address] Dr. Sarah Nath Eosinophils/100 WBC (Bld) 1.0 % Normal 0.9-7.0 [facility] Comment on above: Performed By: #### C MADM #### [facility] [address] [place] [address] Dr. Sarah Nath Erythrocyte distribution width (RBC) [Ratio] 12.9 % Normal 11.0-15.0 [facility] Comment on above: Performed By: #### C MADM #### [facility] [address] [place] [address] Dr. Sarah Nath Hematocrit (Bld) [Volume fraction] 48.9 % Normal 42.0-54.0 [facility] Comment on above: Performed By: #### C MADM #### [facility] [address] [place] [address] Dr. Sarah Nath Hemoglobin (Bld) [Mass/Vol] 16.1 g/dL Normal 14.0-18.0 [facility] Comment on above: Performed By: #### C MADM #### [facility] [address] [place] [address] Dr. Sarah Nath IG # 0.06 10e3/ul Critically high 0.00-0.03 [facility] Comment on above: Performed By: #### C MADM #### [facility] [address] [place] [address] Dr. Sarah Nath IG % 0.7 % Critically high 0.0-0.5 [facility] Comment on above: Performed By: #### C MADM #### [facility] [address] [place] [address] Dr. Sarah Nath LYMPH # 2.0 103/ul Normal 1.2-3.8 [facility] Comment on above: Performed By: #### C MADM #### [facility] [address] [place] [address] Dr. Sarah Nath Lymphocytes/100 WBC (Bld) 21.2 % Normal 20.5-60.0 [facility] Comment on above: Performed By: #### C MADM #### [facility] [address] [place] [address] Dr. Sarah Nath MANUAL DIFF REQ NO Normal [facility] Comment on above: Performed By: #### C MADM #### [facility] [address] [place] [address] Dr. Sarah Nath MCH (RBC) [Entitic mass] 30.4 pg Normal 25.9-34.0 [facility] Comment on above: Performed By: #### C MADM #### [facility] [address] [place] [address] Dr. Sarah Nath MCHC (RBC) [Mass/Vol] 32.9 g/dL Normal 29.9-35.2 [facility] Comment on above: Performed By: #### C MADM #### [facility] [address] [place] [address] Dr. Sarah Nath MCV (RBC) [Entitic vol] 92.3 fL Normal 80.0-94.0 [facility] Comment on above: Performed By: #### C MADM #### [facility] [address] [place] [address] Dr. Sarah Nath MONO # 0.7 103/ul Normal 0.3-0.8 [facility] Comment on above: Performed By: #### C MADM #### [facility] [address] [place] [address] Dr. Sarah Nath Monocytes/100 WBC (Bld) 7.9 % Normal 1.7-12.0 [facility] Comment on above: Performed By: #### C MADM #### [facility] [address] [place] [address] Dr. Sarah Nath NEUT # 6.3 103/ul Normal 1.4-6.5 [facility] Comment on above: Performed By: #### C MADM #### [facility] [address] [place] [address] Dr. Sarah Nath Neutrophils/100 WBC (Bld) 68.5 % Normal 43.0-75.0 [facility] Comment on above: Performed By: #### C MADM #### [facility] [address] [place] [address] Dr. Sarah Nath Platelet mean volume (Bld) [Entitic vol] 11.1 fL Normal 9.5-13.5 [facility] Comment on above: Performed By: #### C MADM #### [facility] [address] [place] [address] Dr. Sarah Nath PLT 231 103/ul Normal 150-450 [facility] Comment on above: Performed By: #### C MADM #### [facility] [address] [place] [address] Dr. Sarah Nath RBC 5.30 106/ul Normal 4.70-6.10 [facility] Comment on above: Performed By: #### C MADM #### [facility] [address] [place] [address] Dr. Sarah Nath WBC 9.2 103/ul Normal 4.0-11.0 [facility] Comment on above: Performed By: #### C [facility] #### [facility] [address] [place] [address] [id number] [address] Sarah Nath Vital Signs Date Time Vital Sign Value Performing Clinician Facility 01-19-2025 11:[id number] Body height 162.56 cm Prashant Ball DO Work Phone: [facility] 01-19-2025 11:11-0400 Body mass index (BMI) [Ratio] 22.3 kg/m2 Prashant Ball DO Work Phone: [facility] 01-19-2025 11:11040 Body weight 58.96 kg Prashant Ball DO Work Phone: [facility] 01-19-2025 11:11-0400 Diastolic blood pressure 74 mm[Hg] Prashant Ball DO Work Phone: [facility] 01-19-2025 11:11-0400 Heart rate 73 /min Prashant Ball DO Work Phone: [facility] 01-19-2025 11:11-0400 Respiratory rate 12 /min Prashant Ball DO Work Phone: [facility] 01-19-2025 11:11-0400 Systolic blood pressure 147 mm[Hg] Prashant Ball DO Work Phone: [facility] 06-02-2024 14:46-0500 Body height 162.56 cm [facility] 06-02-2024 14:46-0500 Body mass index (BMI) [Ratio] 23.6 kg/m2 [facility] 06-02-2024 14:46-0500 Body weight 62.31 kg [facility] 06-02-2024 14:46-0500 Diastolic blood pressure 58 mm[Hg] [facility] 06-02-2024 14:46-0500 Heart rate 73 /min [facility] 06-02-2024 14:46-0500 Respiratory rate 12 /min [facility] 06-02-2024 14:46-0500 Systolic blood pressure 100 mm[Hg] [facility] 01-09-2024 10:48-0400 SaO2% (BldA) [Mass fraction] 97 % Memo Magallon MD Work Phone: [facility] 04-19-2023 10:00-0500 Body height 162.56 cm Prashant Ball Other [facility] Other 04-19-2023 10:00-0500 Body mass index (BMI) [Ratio] 26.5 kg/m2 Prashant Ball Other [facility] Other 04-19-2023 10:00-0500 Body weight 70.04 kg Prashant Ball Other [facility] Other 04-19-2023 10:00-0500 Diastolic blood pressure 80 mm[Hg] Prashant Ball Other [facility] Other 04-19-2023 10:00-0500 Respiratory rate 12 /min Prashant Ball Other [facility] Other 04-19-2023 10:00-0500 Systolic blood pressure 190 mm[Hg] Prashant Ball Other [facility] Other 01-12-2023 10:30-0400 Body height 162.56 cm Prashant Ball Other [facility] Other 01-12-2023 10:30-0400 Body mass index (BMI) [Ratio] 26.33 kg/m2 Prashant Ball Other [facility] Other 01-12-2023 10:30-0400 Body weight 69.58 kg Prashant Ball Other [facility] Other 01-12-2023 10:30-0400 Diastolic blood pressure 60 mm[Hg] Prashant Ball Other [facility] Other 01-12-2023 10:30-0400 Respiratory rate 12 /min Prashant Ball Other [facility] Other 01-12-2023 10:30-0400 Systolic blood pressure 108 mm[Hg] Prashant Ball Other [facility] Other 11-14-2022 09:45-0400 Body height 162.56 cm Prashant Ball Other [facility] Other 11-14-2022 09:45-0400 Body weight 0.91 kg Prashant Ball Other [facility] Other 11-14-2022 09:45-0400 Diastolic blood pressure 75 mm[Hg] Prashant Ball Other [facility] Other 11-14-2022 09:45-0400 Respiratory rate 12 /min Prashant Ball Other [facility] Other 11-14-2022 09:45-0400 Systolic blood pressure 167 mm[Hg] Prashant Ball Other [employer] Other 10-12-2022 10:30-0400 Body height 162.56 cm Prashant Ball Other [employer] Other 10-12-2022 10:30-0400 Body mass index (BMI) [Ratio] 25.95 kg/m2 Prashant Ball Other [employer] Other 10-12-2022 10:30-0400 Body weight 68.58 kg Prashant Ball Other [employer] Other 10-12-2022 10:30-0400 Diastolic blood pressure 64 mm[Hg] Prashant Ball Other [employer] Other 10-12-2022 10:30-0400 Respiratory rate 12 /min Prashant Ball Other [employer] Other 10-12-2022 10:30-0400 Systolic blood pressure 124 mm[Hg] Prashant Ball Other [employer] Other 06-28-2022 12:30-0400 Body height 162.56 cm Prashant Ball Other [employer] Other 06-28-2022 12:30-0400 Body mass index (BMI) [Ratio] 25.95 kg/m2 Prashant Ball Other [employer] Other 06-28-2022 12:30-0400 Body weight 68.58 kg Prashant Ball Other [employer] Other 06-28-2022 12:30-0400 Diastolic blood pressure 81 mm[Hg] Prashant Ball Other [employer] Other 06-28-2022 12:30-0400 Respiratory rate 12 /min Prashant Deisi Other [employer] Other 06-28-2022 12:30-0400 Systolic blood pressure 177 mm[Hg] Prashant Ball Other [employer] Other Encounters Encounter Date Encounter Type Care Provider Facility Start: 01-26-2025 End: 01-26-2025 ambulatory PRASHANT GARY Facility:[facility] Start: 01-19-2025 End: 01-19-2025 ambulatory Prashant Deisi DO Work Phone: [facility] Work Phone: Start: 01-19-2025 End: 01-19-2025 Patient encounter procedure Prashant Gary DO -[facility] Work Phone: Start: 12-10-2024 Non-patient / Non-visit Cris Marshall bryce KAPLAN -[facility] Work Phone: Start: 12-08-2024 Non-patient / Non-visit Eleazargeorge elvira Ashley PA-C -[facility] Work Phone: Start: 11-18-2024 End: 12-29-2024 Telephone encounter Memo Magallon MD Work Phone: Neurology Comment on above: Appointment Cancelle d Start: 10-10-2024 End: 10-10-2024 Telephone encounter Memo Magallon MD Work Phone: Neurology Comment on above: Patient Update Start: 09-19-2024 End: 09-19-2024 Telephone encounter Memo Magallon MD Work Phone: Neurology Comment on above: Patient Update Start: 08-04-2024 ambulatory MEMO MAGALLON [facility] ity:[facility] [place] [place] Start: 07-24-2024 End: 07-24-2024 ambulatory PRASHANT Radhika DEISI Facility:[facility] Start: 06-17-2024 End: 06-17-2024 ambulatory Familia Quinones PA-C Work Phone: [facility] Comment on above: Parkinson's disease, unspecified whether dyskinesia present, unspecified whether manifestations fluctuate (HCC) (Primary Dx); Visual hallucinations Start: 06-17-2024 End: 06-17-2024 Telemedicine consultation with patient Familia Quinones PA-C Work Phone: [facility] Start: 06-03-2024 Non-patient / Non-visit Raj Gary DO Work Phone: [facility] Work Phone: Start: 06-03-2024 End: 06-03-2024 ambulatory Prashant Gary [facility] Work Phone: Start: 06-03-2024 End: 06-03-2024 Departed Referred Prashant Gary DO Work Phone: [facility] Start: 06-02-2024 End: 06-02-[address] [facility] Work Phone: Start: 06-02-2024 End: 06-02-2024 Patient encounter procedure [facility] Work Phone: Start: 05-26-2024 End: 06-11-2024 Telephone encounter Memo Magallon MD Work Phone: Neurology Comment on above: Patient Update (Bond ucinations ) Start: 01-15-2024 Patient encounter procedure [facility] Start: 01-09-2024 End: 01-09-2024 Office outpatient [...] with patient Memo Magallon MD Work Phone: [facility] Start: 05-25-2023 End: 05-25-2023 ambulatory Prashant Gary Other [employer] Other Start: 05-25-2023 Telephone encounter Prashant ORDAZ [facility] Start: 05-22-2023 End: 05-22-2023 ambulatory Prashant Gary Other [employer] Other Start: 05-22-2023 Telephone encounter Prashant ORDAZ [facility] Start: 05-17-2023 End: 05-17-2023 ambulatory Prashant Gary Other [employer] Other Start: 05-17-2023 Telephone encounter Prashant ORDAZ [facility] Start: 05-14-2023 End: 05-14-2023 ambulatory Prashant Ball Other [employer] Other Start: 05-14-2023 Telephone encounter Prashant Ball [facility] Start: 05-07-2023 End: 05-07-2023 ambulatory Prashant Ball Other [employer] Other Start: 05-07-2023 Telephone encounter Prashant Ball [facility] Start: 04-30-2023 Refill Memo faria MD Work Phone: [facility] Comment on above: Refill Request Start: 04-26-2023 End: 04-26-2023 ambulatory Prashant Ball Other [employer] Other Start: 04-26-2023 Telephone encounter Prashant Ball [facility] Start: 04-19-2023 End: 04-19-2023 ambulatory Prashant Ball Other [employer] Other Start: 04-19-2023 Office outpatient vi sit 25 minutes Prashant Ball [facility] Start: 02-09-2023 End: 02-09-2023 ambulatory Prashant Ball Other [employer] Other Start: 02-09-2023 Telephone encounter Prashant Ball [facility] Start: 01-14-2023 End: 01-14-2023 ambulatory Prashant Ball Other [employer] Other Start: 01-14-2023 Telephone encounter Prashant Ball [facility] Start: 01-12-2023 End: 01-12-2023 ambulatory Prashant Ball Other [employer] Other Start: 01-12-2023 Patient encounter procedure Prashant Ball [facility] Start: 12-29-2022 End: 12-29-2022 ambulatory Prashant Ball Other [employer] Other Start: 12-29-2022 Telephone encounter Prashant Gary [facility] Start: 12-15-2022 End: 12-15-2022 ambulatory Prashant Gary Other [employer] Other Start: 12-15-2022 Telephone encounter Prashant Gary [facility] Start: 12-06-2022 Telephone encounter Memo sawyer MD Work Phone: Neurology Comment on above: Medication Problem Start: 11-14-2022 End: 11-14-2022 ambulatory Prashant Gary Other [employer] Other Start: 11-14-2022 Office outpatient vi sit 15 minutes Prashant Gary [facility] Start: 10-12-2022 End: 10-12-2022 ambulatory Prashant Gary Other [employer] Other Start: 10-12-2022 Office outpatient vi sit 25 minutes Prashatn Gary [facility] Start: 09-12-2022 End: 09-12-2022 ambulatory Prashant Gary Other [employer] Other Start: 09-12-2022 Telephone encounter Prashant Gary [facility] Start: 08-17-2022 End: 08-17-2022 ambulatory WEN BAEZ Facility:[facility] Start: 08-17-2022 End: 08-18-2022 ambulatory NARENDRANATH LAKSHMIPATHY . Facility:[facility] Start: 08-01-2022 End: 08-01-[address] PRASHANT GARY Facility:[facility] Start: 07-18-2022 End: 07-19-[address] PRASHANT GARY Facility:[facility] Start: 06-28-2022 End: 06-28-2022 ambulatory Prashant Gary Other [employer] Other Start: 06-28-2022 Office outpatient vi sit 25 minutes Prashant Gary [facility] Start: 06-28-2022 Telephone encounter Prashant ORDAZ [facility] Start: 04-28-2022 End: 04-28-2022 ambulatory Memo Magallon MD Work Phone: Neurology Comment on above: Parkinson disease (H CC); Gait instability Start: 04-28-2022 End: 04-28-2022 Telemedicine consultation with patient Memo Magallon MD Work Phone: [facility] Start: 04-21-2022 End: 04-22-[address] PRASHANT GARY Facility:[facility] Start: 12-30-2021 End: 12-31-[address] PRASHANT GARY Facility:[facility] Start: 12-27-2021 Adult health examination Josiah harper Deisi Other [employer] Other Start: 10-24-2021 End: 10-24-2021 [facility] Memo Magallon MD Work Phone: Neurology Comment on above: Parkinson disease (H CC) (Primary Dx); REM sleep behavior disorder; Restless legs syndrome Start: 09-26-2021 End: 09-27-2021 ambulatory WEN SASHA Facility:[facility] Procedures Date Procedure Procedure Detail Performing Clinician Start: 12-30-2021 PSA screening CLIFTON CONTRERASMIGUILLE . Comment on above: Performed By: #### P [facility] #### [facility] [address] [place] [address] Dr. Sarah Nath Start: 04-12-2019 Adult depression screening assessment Memo Magallon MD Work Phone: Start: 02-27-2015 Screening for malign ant neoplasm of colon Prashant Gary Other Start: 12-07-2014 Screening for malign ant neoplasm of prostate Prashant Gary Other Depression screening Stefami n Deisi Other Screening for malign ant neoplasm of prostate Prashant Gary Other Plan of Treatment Date Care Activity Detail Author Start: 02-04-2025 End: 02-04-2025 Patient encounter procedure 02/04/2025 11:00 AM EDT Office Visit Neurology [address] [id number] Memo Magallon MD [address] [facility] [address] [place], [place] [id number] Parkinson's disease, unspecified whether dyskinesia present, unspecified whether manifestations fluctuate (HCC) [G20.A1] Neurology Comment on above: Parkinson's disease, unspecified whether dyskinesia present, unspecified whether manifestations fluctuate (HCC) [G20.A1] Start: 01-26-2025 End: 01-26-2025 Patient encounter procedure 01/26/2025 11:00 AM EDT Office Visit Neurology [address] [phone] Memo Magallon MD [address] [address] pd follow up Neurology Comment on above: pd follow up Start: 12-15-2024 Influenza vaccination [facility] Start: 07-24-2024 End: 07-24-2024 Patient encounter procedure 07/24/2024 11:00 AM EDT Office Visit Neurology [address] [address] Memo Magallon MD [address] [address] 6 month follow up Neurology Comment on above: 6 month follow up Start: 06-17-2024 End: 06-17-2024 Follow-up encounter 06/17/2024 4:30 PM [facility] [address] [place] [address] Familia Quinones, PA-C [address] [place] [address] follow up - PD, hallucinations (see encounter dated 05/26/2024) [facility] Comment on above: follow up - PD, bond ucinations (see encounter dated 05/26/2024) Start: 06-03-2024 Bacteria identified in Urine by Culture Urine Culture [facility] Start: 06-03-2024 Urine culture [facility] Start: 04-16-2024 Advance Directive Discussion Advance Directive Discussion [facility] Start: 04-16-2024 Medicare Advantage Annual Wellness Visit Medicare Advantage Annual Wellness Visit [facility] Start: 01-09-2024 End: 01-09-2024 Patient encounter procedure 01/09/2024 11:00 AM EDT Office Visit Neurology [address] [facility] [address] [place] [address] Memo Magallon MD [address] [facility] [address] [place] [address] 6 month follow up Neurology Comment on above: 6 month follow up Start: 12-16-2023 Covid-19 Vaccine ( season) Covid-19 Vaccine () [facility] Start: 12-16-2023 Influenza vaccination Influenza Vacc ine (#1) [facility] Start: 04-16-2023 Advance Directive Discussion Advance Directive Discussion [facility] Start: 04-16-2023 Depression Assessment Depression Ass essment [facility] Start: 12-15-2022 Covid-19 Vaccine ( season) Covid-19 Vaccine ( season) [facility] Start: 12-15-2022 Influenza vaccination INFLUENZA (#1) [facility] Start: 11-23-2022 ambulatory Ambulatory Facility:H 1 Start: 04-16-2022 ADVANCE DIRECTIVE DISCUSSION ADVANCE DIRECTIVE DISCUSSION [facility] Start: 04-16-2022 DEPRESSION ASSESSMENT DEPRESSION ASS ESSMENT [facility] Start: 12-15-2021 Influenza vaccination INFLUENZA (#1) [facility] Start: 04-16-2021 ADVANCE DIRECTIVE DISCUSSION ADVANCE DIRECTIVE DISCUSSION [facility] Start: 04-12-2020 Adult depression screening assessment DEPRESSION SCREENING [facility] Start: 11-28-2018 Pneumococcal Vaccine : 50+ (2 of 2 - PCV20 or PCV21) Pneumococcal Vaccine: 50+ (2 of 2 - PCV20 or PCV21) [facility] Start: 11-28-2018 Pneumococcal Vaccine : 50+ (2 of 2 - PPSV23) Pneumococcal Vaccine: 50+ (2 of 2 - PPSV23) [facility] Start: 11-28-2018 Pneumococcal Vaccine : 65+ (2 of 2 - PPSV23 or PCV20) Pneumococcal Vaccine: 65+ (2 of 2 - PPSV23 or PCV20) [facility] Start: 2018 RSV Vaccine (1 - 1-d ose 75+ series) RSV Vaccine (1 - 1-dose 75+ series) [facility] Start: 07-06-2015 DIABETES SCREEN DIABETES SCREEN 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 CANNING FELECIA DISEASE VISIT ANNUAL PCP TEAM CHRONIC DISEASE VISIT [facility] Start: 1961 Anxiety Screening Anxiety Screening [facility] Start: 1961 BP CONTROLLED (<130/80) BP CONTROLLE D (<130/80) [facility] Start: 1961 Depression Screening Depression Scre ening [facility] Start: 1961 HEPATITIS C SCREENING HEPATITIS C SC GENIA [facility] Start: 1943 COVID-19 VACCINE (#1) COVID-19 VACCI NE (#1) [facility] Comprehensive metabo lic 2000 panel - Serum or Plasma [facility] Immunizations Immunization Date Immunization Notes Care Provider Lucita chávez 01-19-2025 influenza, high dose seasonal, preservative-free Prashant Gary DO Work Phone: [facility] 01-17-2024 influenza, high dose seasonal, preservative-free [facility] 01-12-2023 influenza, high dose seasonal, preservative-free Prashant Gary Other [employer] Other 01-12-2023 influenza virus vaccine, unspecified formulation Memo Magallon MD Work Phone: [facility] 12-29-2021 Influenza vaccine, quadrivalent, adjuvanted Prashant Gary DO Work Phone: [facility] 12-29-2021 influenza virus vaccine, split virus (incl. purified surface antigen) Prashant Gary Other [employer] Other 12-29-2021 influenza virus vaccine, unspecified formulation [facility] 03-29-2021 COVID-19 Vaccine Pfi zer - Documentation Purposes Only Prashant Gary Other [facility] 06-04-2020 COVID-19 Vaccine Pfi zer - Documentation Purposes Only Prashant Gary Other [facility] 05-14-2020 COVID-19 mRNA, Comirnaty (Pfizer) [facility] 05-14-2020 COVID-19 Vaccine Moderna - Documentation Purposes Only Prashant Gary Other [facility] 02-18-2020 influenza virus vaccine, split virus (incl. purified surface antigen) Prashant Gary Other [facility] Other 02-18-2020 influenza virus vaccine, unspecified formulation [facility] 02-18-2020 Seasonal trivalent influenza vaccine, adjuvanted, preservative free Prashant Gary DO Work Phone: [facility] 11-28-2017 influenza virus vaccine, split virus (incl. purified surface antigen) Prashant Gary Other [facility] Other 11-28-2017 influenza virus vaccine, unspecified formulation [facility] 11-28-2017 pneumococcal conjuga te vaccine, 13 valent Prashant Gary Other [facility] Payers Date Payer Category Payer Self-pay 2011 Medicare HUMANA MEDICARE HUMANA MEDICARE PPO [id number] 2011-Present [phone] [place] [address] PPO [id number] 2011 Medicare HUMANA MEDICARE HUMANA MEDICARE PPO [id number] 2011-Present [phone] [place] [address] PPO [id number] 2011 Medicare (Managed Care) HUMANA M THOMASRE [id number] 1959 Medicare [id number] 1943 Unknown [id number] [id number] 1943 Unknown [id number] [id number] 1943 Unknown [id number] [id number] 1943 Unknown [id number] [id number] 1943 Unknown [id number] [id number] 1943 Unknown [id number] [id number] 1943 Unknown [id number] [id number] 1943 Unknown [id number] [id number] 1943 Unknown [id number] Unknown [id number] [id number] Social History Date Type Detail Facility Start: 03-01-2011 End: 10-05-2021 Tobacco smoking status NHIS Ex-smoker [facility] Start: 05-14-1975 End: 05-14-1983 History of tobacco use Current smoker [facility] Start: 05-14-1975 End: 05-14-1983 History of tobacco use Cigarette Smoker [facility] Start: 03-01-2011 End: 07-05-2023 Cigarettes smoked current (pack per day) - Reported 12 [facility] Start: 03-01-2011 End: 01-09-2024 Tobacco use and exposure Smokeless tobacco non-user [facility] Start: 01-22-2020 End: 07-24-2024 Alcohol intake Current drinker of alcohol (finding) [facility] Start: 1945 Sex Assigned At Not on file [facility] Start: 10-14-2021 End: 10-24-2021 Exposure to SARS-CoV-2 (event) Unable to assess [facility] Work Phone: Start: 01-22-2020 End: 07-05-2023 Sex Assigned At [facility] Start: 03-17-2012 Adult Depression Screening Assessment [address] [place] [address] Start: 06-02-2024 End: 06-05-2024 Sex Male (finding) [facility] Start: 1945 Sex Assigned At Male F [facility] Medical Equipment Procedure Code Equipment Code Equipment Origin al Text Equipment Identifier Dates Graft Bn Infs Rhbmp-2 2.8ml Sm - [id number] Start: 05-15-2012 Sub Bngf Prognx + Dbm Bov - [id number] Start: 05-15-2012 6.5 Commpression Screw [id number] Start: 03-01-2011 6.5 Mm Compressi on Screw [id number] Start: 03-01-2011 6.5 Compression Screw [id number] Start: 03-01-2011 4.5mm Compressio n Screw [id number] Start: 03-01-2011 6.5mm X110mm Screw 306375_[facility] Start: 03-01-2011 Wrr-Qd-K-Kind Implant - [id number] 484961_[facility] Start: 05-15-2012 Comment on above: Description: 3.5 x 2 0mm angle lock screw Zuw-Eu-B-Kind Implant - [id number] 484962_[facility] Start: 05-15-2012 Comment on above: Description: 3.5 x 1 0 mm angle lock screw Wgz-Tt-D-Kind Implant - [id number] 484963_[facility] Start: 05-15-2012 Comment on above: Description: 3.5 x 1 0mm angle lock screw Qqc-Uy-Q-Kind Implant - [id number] 484956_[facility] Start: 05-15-2012 Comment on above: Description: 8 hole l shape ankle plate Jus-Do-F-Kind Implant - [id number] 484957_[facility] Start: 05-15-2012 Comment on above: Description: 3.5 x 3 0 lock screw Nmh-Gq-B-Kind Implant - [id number] 484958_[facility] Start: 05-15-2012 Comment on above: Description: 3.5 x 3 0mm angle lock screw Uat-Do-F-Kind Implant - [id number] 484959_[facility] Start: 05-15-2012 Comment on above: Description: 3.5mm 3 8mm lock screw [id number] 0329 52-Plate Omega3 Standard Barrel Hip Keyless 135 4 Hole [id number] - [id number] 507959_[facility] Start: 07-05-2012 Screw Compr 6.5x 50mm - [id number] 484964_[facility] Start: [id number] 0329 52-Screw Bn 13mm 100mm O+ Ss Std - [id number] 507958_[facility] Start: [id number] 0329 52-Screw Compression [place] 32mm [id number] - [id number] 507960_[facility] Start: [id number] 0329 52-Screw Bn 4.5mm 38mm Axsos Ss - [id number] 507961_[facility] Start: [id number] 0329 52-Screw Bn 4.5mm 36mm Axsos - [id number]_imp Start: 07-05-2012 Clinical Notes 10-24-2021 to 01-26-2025 Telephone Encounter - Caroline Lake - 11/18/2024 11:22 AM EDTTelephone Encounter - Lorraine Lakedith - 11/18/2024 11:22 AM EDTTelephone Encounter - Sosa Kearney MA - 10/10/2024 1:05 PM EDT Note Date & Type Note Facility 01-26-2025 Note HNO ID: [id number] Author: MEMO MAGALLON MD Service: ? Author Type: Physician Type: Progress Notes Filed: 01/26/2025 12:42 Note Text: [facility] - FOLLOW UP EVALUATION Recording using ambient [employer] software for draft documentation of the visit was discussed with the patient/authorized communications representative; all questions welcomed and answered. Patient/authorized communications representative agreed to proceed Prashant Gary DO [address] [place] [id number] Dear Prashant Gary DO: I had the [...] in clinical research? Not discussed Interval History: Silke is an 79-year-old male with Parkinson's disease presenting for follow-up. He is accompanied by a his who provides additional history. Silke reports bothersome sialorrhea and dysphagia. He notes [...] with swallowing solids, though he occasionally has trouble with dry or stringy foods. He had a modified barium swallow study vs EGD performed at [facility] approximately 5 years ago. Silke is currently awaiting dental implants,which have been delayed for over a year due to complications with the initial procedure. He has pegs in place and is scheduled for a follow-up appointment with the doctor who placed them in approximately 2 weeks. He is hopeful that the implants will be completed in time for Thanksgiving. Silke reports that his physical therapy has not been helpful. He attended therapy for approximately 1 month but found the sessions inconsistent and lacking a clear plan. He did find the U-step walker helpful and enjoyed using it during therapy sessions. He is currently using a wheelchair at home and is concerned about losing his ability to walk. Silke reports hallucinations, which are generally not bothersome. He describes seeing people who are not there, often playing baseball or engaging in other activities. He sometimes does not recognize his family members and believes they are other [...] asleep within 45 minutes of taking his medication and sometimes has difficulty staying awake during meals. He reports that walking is more difficult when he is tired. Silke reports that he is generally healthy and [...] hobbies and other activities: 0 (none) Difficulties turnin (more content not included)... [facility] 11-18-2024 Telephone encount er Note Sent patient a MyChart letting them know that their appointment with Dr. Memo Magallon on 02/04/25 has been cancelled and needs to be rescheduled, the provider will be out of the office. Per clinical Ok to reschedule for next available. If they want a sooner appointment they can be added to the waitlist. [facility] 11-18-2024 Miscellaneous Notes Formattin g of this note might be different from the original. Sent patient a MyChart letting them know that their appointment with Dr. Memo Magallon on 02/04/25 has been cancelled and needs to be rescheduled, the provider will be out of the office. Per clinical Ok to reschedule for next available. If they want a sooner appointment they can be added to the waitlist. documented in this encounter [facility] 10-10-2024 Telephone encount er Note Received PT progress note and PT cert letter from [facility]. Placed on Dr. Magallon desk for review [facility] 10-10-2024 Miscellaneous Notes Formattin g of this note might be different from the original. Received PT progress note and PT cert letter from [facility]. Placed on Dr. Floyd tijerina for review documented in this encounter [facility] 09-19-2024 Telephone encount er Note Received PT progress note from [facility]. Placed on Dr. Floyd aaron for review [facility] 09-19-2024 Miscellaneous Notes Formattin g of this note might be different from the original. Received PT progress note from [facility]. Placed on Dr. Floyd aaron for review documented in this encounter [facility] 07-24-2024 Note HNO ID: [id number] Author: MEMO MAGALLON MD Service: ? Author Type: Physician Type: Progress Notes Filed: 07/24/2024 12:30 Note Text: [facility] - FOLLOW UP EVALUATION Primary Movement Disorders Neurologist: Memo Magallon MD Primary Movement Disorders SPENCER: The patient consented to the use of ambient AI software for draft documentation of the visit consistent with [facility]?s Notice of Privacy Practices. Prashant Gary DO [address] [place] [id number] Dear Prashant Gary DO: I had the pleasure of seeing Mr. De La Garza for follow-up today. As you know he is a 79 year old right-handed male with a history of Parkinson's disease since 2002. Also with chronic low back pain and diffuse arthritis, fused ankles. He is seen with his . Subjective Previous Plan- 06/17/2024 Visit: No change in the Parkinson's medication, add low-dose Seroquel at bedtime. Increase to 1 full tablet at bedtime if tolerated and hallucinations do not improve after 1 week Interval History: Silke is an 79-year-old male with a history of Parkinson's disease, presenting for follow-up. He is accompanied by his , who provides additional history. Silke has been experiencing hallucinations, described as really real stuff, primarily in the evenings and sometimes during the day. These hallucinations include both lifelike and fantastical elements, such as people in ridiculous costumes. He often talks to these hallucinations, sometimes addressing his as a third person. His notes that his facial expression changes when he is seeing someone, and he often looks up at things. She can tell when the hallucination is gone by his change in demeanor. He is currently taking Seroquel at bedtime, which his believes has helped him become calmer and more aware that the hallucinations are not real. He is also taking Mirapex, with a dose at midnight, which his administers. She reports that he can go right back to sleep after taking the medication but expresses concern about the frequent waking. Silke is also taking Sinemet every six hours, which his reports is still effective. However, she notes that he has been experiencing more dyskinesia, particularly later in the day, after 3:00 PM. She wonders if hunger might be contributing to this, as he often does not eat until noon or 1:00 PM. He has had all his teeth removed in February, just before , and is currently waiting to have posts placed in his jaw to hold his bottom denture. This has made eating more difficult, and his reports that he has lost some weight. He has been drinking protein drinks and eating eggs in various forms to maintain his nutrition. Silke has also been experiencing more drooling at night. He reports that this is manageable but has been more of a problem recently. He has not been walking much recently, due to the winter weather and not going out. His reports that he has slowed down in his walking and has lost muscle tone in his legs. She believes that he is ready for a wheelchair, as he often has difficulty with his walker. She reports that he has no issues walking at night, but the hardest walking is first thing in the morning, after taking his first round of pills. He has not been to physical therapy yet, but his reports that they had an appointment scheduled but left when they could not find a place to park. He does have a parking placard. Movement Disorders Medications Schedule - as of the start of the visit: Medications 6am 12pm 6pm 12am Sinemet 25/100 2 2 2 Mirapex 0.25 mg 3 3 3 3 seroquel 25 1 Parkinson's [...] with eating: Yes (slight) Difficulties in dressing: Difficulties with hygiene activities: Yes (slight) Difficulties with handwriting: Difficulties with doing hobbies and other activities: Yes (slight) Difficulties turning in bed: Difficulties getting out of bed, car or chair: Tremors/Gait/Balance Shaking or tremors: Yes (slight) Walking and balance problems: Yes (slight) Number of falls in the Last Month: 0 Gait freezing: Autonomic/Pain Lightheadeness on standing: Yes (slight) Urinary problems: Constipation problems: 0 (none) Pain and other sensations: Yes (moderate) Speech/Swallowing Speech problems: 0 (none) Drooling: Yes (mild) Chewing and swallowing problems: Sleep/Fatigue Sleep problems: Yes (moderate) Daytime sleepines (more content not included)... [facility] 06-17-2024 Note HNO ID: [id number] Author: FAMILIA QUINONES PA-C Service: ? Author Type: Physician Rechecker Type: Progress Notes Filed: 06/18/2024 10:58 Note Text: [facility] - FOLLOW UP EVALUATION - VIRTUAL VISIT Prashant Gary DO [address] [facility] [id number] Dear Prashant Gary DO: I had the pleasure of seeing Mr. De La Garza for follow-up today. As you know he is a 79 year old right-handed male with a history of Parkinson's disease since 2002. Also with chronic low back pain and diffuse arthritis, fused ankles. We had a visit using: Burtom Burtom I have communicated my name and active licensure. The patient's identity and physical location were verified at the time of this visit. Either the patient or their legal communications representative has been informed of the risks and benefits of -- and alternatives to -- treatment through a remote evaluation and consents to proceed with the evaluation remotely. Subjective During his previous visit the following plan was made: Previous plan- 01/09/2024 Visit: Continue your medications as you have been taking them. We are not making any changes today. If you feel you are not tolerating them or your symptoms are changing before your next appointment, please feel free to send me a Muzzley message or contact the office - Physical therapy- Interested in clinical research? Not discussed Interval History Since his last visit with Dr. Toribio Russo has developed hallucinations. Initially he was having them mostly when he would get up at night, but now he is having them frequently throughout the day. He does not find them threatening, there is no associated agitation. There has been no recent change in his Parkinson's medications and other metabolic workup have been negative as well as recent UA. Movement Disorders Medications Schedule - as of [...] G Rash Current Outpatient Medications Medication Sig QUEtiapine (SEROQUEL) 25 mg tablet take 1/2 tab at bedtime. in 5 days increase to 1 tab if tolerated. carbidopa-levodopa (SINEMET 25-100) 25-100 mg per tablet [...] movements were evaluated: Daily activities Difficulties with eatin (none) Difficulties in dressin (none) Difficulties with hygiene activities: 0 (none) Difficulties with handwriting: Yes (slight) Difficulties with doing hobbies and other activities: 0 (none) Difficulties turning in bed: Yes (slight) Difficulties getting out of bed, car or chair: Yes (slight) Tremors/Gait/Balance Shaking or tremors: Yes (slight) Walking and balance problems: Yes (moderate) Number of falls in the Last Month: 1 Gait freezing: Yes (mild) Autonomic/Pain Lightheadeness on standing: Urinary problems: Constipation problems: Pain and other sensations: Speech/Swallowing Speech problems: 0 (none) Drooling: Yes (mild) Chewing and swallowing problems: 0 (none) Sleep/Fatigue Sleep problems: Daytime sleepiness: Fatigue: Mood/Behavior Depression: PHQ-9 Score: 3 usually representing no significant (0-4) depression. Anxiety: Finally, the following table shows [...] above average, under 50 is below average Objective General: Awake, alert, interactive, no acute distress, good nutritional status, normal development, well-kept Only a limited general examination was done. Pertinent Studies Head CT 05/07/2023 U (more content not included)... [facility] 06-17-2024 History of Presen t illness Narrative [facility] - FOLLOW UP EVALUATION - VIRTUAL VISIT Prashant Gary DO [address] [facility] [place] [address] Dear Prashant Gary DO: I had the pleasure of seeing Mr. De La Garza for follow-up today. As you know he is a 79 year old right-handed male with a history of Parkinson's disease since 2002. Also with chronic low back pain and diffuse arthritis, fused ankles. We had a visit using: Burtom Smove I have communicated my name and active licensure. The patient's identity and physical location were verified at the time of this visit. Either the patient or their legal communications representative has been informed of the risks and benefits of -- and alternatives to -- treatment through a remote evaluation and consents to proceed with the evaluation remotely. Subjective During his previous visit the following plan was made: Previous plan- 01/09/2024 Visit: Continue your medications as you have been taking them. We are not making any changes today. If you feel you are not tolerating them or your symptoms are changing before your next appointment, please feel free to send me a Muzzley message or contact the office - Physical therapy- Interested in clinical research? Not discussed Interval History Since his last visit with Dr. Rooney Silke has developed hallucinations. Initially he was having them mostly when he would get up at night, but now he is having them frequently throughout the day. He does not find them threatening, there is no associated agitation. There has been no recent change in his Parkinson's medications and other metabolic workup have been negative as well as recent UA. Movement Disorders Medications Schedule - as of [...] G Rash Current Outpatient Medications Medication Sig QUEtiapine (SEROQUEL) 25 mg tablet take 1/2 tab at bedtime. in 5 days increase to 1 tab if tolerated. carbidopa-levodopa (SINEMET 25-100) 25-100 mg per tablet [...] movements were evaluated: Daily activities Difficulties with eatin (none) Difficulties in dressin (none) Difficulties with hygiene activities: 0 (none) Difficulties with handwriting: Yes (slight) Difficulties with doing hobbies and other activities: 0 (none) Difficulties turning in bed: Yes (slight) Difficulties getting out of bed, car or chair: Yes (slight) Tremors/Gait/Balance Shaking or tremors: Yes (slight) Walking and balance problems: Yes (moderate) Number of falls in the Last Month: 1 Gait freezing: Yes (mild) Autonomic/Pain Lightheadeness on standing: Urinary problems: Constipation problems: Pain and other sensations: Speech/Swallowing Speech problems: 0 (none) Drooling: Yes (mild) Chewing and swallowing problems: 0 (none) Sleep/Fatigue Sleep problems: Daytime sleepiness: Fatigue: Mood/Behavior Depression: PHQ-9 Score: 3 usually representing no significant (0-4) depression. Anxiety: Finally, the following table shows [...] above average, under 50 is below average Objective General: Awake, alert, interactive, no acute distress, good nutritional status, normal development, well-kept Only a limited general examination was done. Pertinent Studies Head CT 05/07/2023 Unenhanced axial [...] LBP, with dystonia-predominant PD since around 2002. Silke has developed daily his hallucinations since his last visit with Dr. Magallon. His Parkinson's medications have not changed recently, his metabolic workup and UA were negative as a causative agent for the hallucinations. They have been present for about a month, nonthreatening, no associated behavioral changes or agitation. We discussed adding low-dose Seroquel at bedtime with the option to increase to 1 full tab after a week should he tolerate the medication well and the hallucinations to be present. The following are the current problems noted and addressed during this visit: Parkinson's disease, unspecified whether dyskinesia present, unspecified whether manifestations fluctuate (hcc) (primary encounter diagnosis) Visual hallucinations Plan 06/17/2024 Visit: No change in the Parkinson's medication, add low-dose Seroquel at bedtime. Increase to 1 full tablet at bedtime if tolerated and hallucinations do not improve after 1 week Interested in clinical research? Not currently Updated Movement Disorder Medication Schedule: Medications 6am 12pm 6pm 12am Sinemet 25/100 2 2 2 Mirapex 0.25 mg 3 3 3 3 Level of service : 48678 ( 30-39 min). Time spent 30 min on the day of service, which included [id number] patient care, completing clinical documentation, performing a medically appropriate examination, counseling and educating the patient/family/caregiver, and ordering medications, tests, or procedures. Thank you for allowing me to be part of the clinical care of this patient! I look forward to continued participation in the patient s care with you. Please do not hesitate to call with any questions. Sincerely, Familia Quinones PA-C documented in this encounter [facility] 06-11-2024 Telephone encount er Note Called and Spoke with Patient's . She accepted virtual visit for 06/17/2024 with Familia Berkowitz PA-C. Patient sent visit instructions via NuAx message. Alyssa Fregoso [facility] 06-11-2024 Miscellaneous Notes Formattin g of this note might be different from the original. Called and Spoke with Patient's . She accepted virtual visit for 06/17/2024 with Familia Berkowitz PA-C. Patient sent visit instructions via NuAx message. Alyssa Fregoso Patient notified. PSS please assist with scheduling Needs a visit. Either nm or SPENCER, virtual ok Testing was done at [facility] Urine was negative, blood work was also done, unsure what tests were done. Not swabbed for flu or COVID. Denies respiratory symptoms. Seeing people - not frightening. Has had hallucinations previously possibly SE from a BP medication. This was discontinued and hallucinations had improved. This was about 1 year ago. No new medications, and no changes to medications Unsure if night hallucination frequency has changed Wakes to go to the bathroom and sees people in the house. Patient hallucinations are not bothersome, states he is confused when seeing them. Sinemet 2 tablets three times daily 0600 1200 1800 Mirapex 3 tablets four times daily 0600 1200 1800 0001 Pt's called to report he had UTI and Kidney tests and they were okay; however, pt's still having hallucinations - [phone]. 12/20/23 F[facility]raveen w/Dr. Magallon Waking through night with hallucinations. Onset sometime this winter Worse in the past week or 2. In past week this has occurred 3-4 nights. Last night and night before was not able to convince him that the hallucinations were not real. Normally he is agreeable with spouse and returns to sleep. Hallucinations are not new, but hallucinations through the night is new. Recently going to bed worried about things like the doors being locks, if the car is running, or cars on the street. Daytime hallucinations have not changed. is unsure that he is actually having daytime hallucinations. Old windows and poor vision, things are distorted. Gait - no changes noted Uses walker for all ambulation. Did not follow through with PT No recent illnesses No changes to medications, felodipine has been discontinued Independent with toileting No changes in urinary habits Did have ED visit in March, that was thought to be dehydration related. Was not admitted. Fluid intake: Now buying 12 ounce bottled water for ease and also monitoring intake. Goal is 3 bottles of water. Prefers sugary drinks such as Sprite. Today intake: coffee Fluid intake yesterday: unsure, possibly 1-2 bottles of water and a 6 ounces of Sprite. Recommended reaching out to PCP to have urine checked and rule out any other source of infection and also to check hydration and electrolyte status. - agreeable. Patient's called to report he's experiencing hallucinations at night. They are interested in starting medication for these symptoms. Please advise and call (Carla) with recommendations. Alyssa Fregoso documented in this encounter [facility] 06-11-2024 Telephone encount er Note Patient notified. PSS please assist with scheduling [facility] 06-11-2024 Telephone encount er Note Needs a visit. Either me or SPENCER, virtual ok [facility] 06-10-2024 Telephone encount er Note Testing was done at [facility] Urine was negative, blood work was also done, unsure what tests were done. Not swabbed for flu or COVID. Denies respiratory symptoms. Seeing people - not frightening. Has had hallucinations previously possibly SE from a BP medication. This was discontinued and hallucinations had improved. This was about 1 year ago. No new medications, and no changes to medications Unsure if night hallucination frequency has changed Wakes to go to the bathroom and sees people in the house. Patient hallucinations are not bothersome, states he is confused when seeing them. Sinemet 2 tablets three times daily 0600 1200 1800 Mirapex 3 tablets four times daily 0600 1200 1800 0001 [facility] 06-10-2024 Telephone encount er Note Pt's called to report he had UTI and Kidney tests and they were okay; however, pt's still having hallucinations - [phone]. 12/20/23 FUV w/Dr. Magallon [facility] 06-02-2024 Evaluation note Diagnosis Onset Date Resolution Bronchiectasis acute May 172024 2:18pm Chronic venous insufficiency acute June 02, 2024 2:18pm Hallucination, visual acute Feb ruary 2024 2:18pm Hypercholesterolemia acute Febr uary 2024 2:18pm Hypertension acute May 2:18pm Lumbar spondylosis acute Februa ry 2024 2:18pm Parkinson disease acute Februar y 2024 2:18pm [facility] Work Phone: 1(864) 529-426702-11-2025 Telephone encounter Note* Telephone Encounter - Rachana Avilez RN - 05/27/2024 11:36 AM EST Waking through night with hallucinations. Onset sometime this winter Worse in the past week or 2.In past week this has occurred 3-4 nights. Last night and night before was not able to convince him that the hallucinations were not real. Normally he is agreeable with spouse and returns to sleep. Hallucinations are not new, but hallucinations through the night is new. Recently going to bed worried about things like the doors being locks, if the car is running, or cars on the street. Daytime hallucinations have not changed. is unsure that he is actually having daytime hallucinations. Old windows and poor vision, things are distorted. Gait - no changes noted Uses walker for all ambulation. Did not follow through with PT No recent illnesses No changes to medications, felodipine has been discontinued Independent with toileting No changes in urinary habits Did have ED visit in March, that was thought to be dehydration related. Was not admitted. Fluid intake: Now buying 12 ounce bottled water for ease and also monitoring intake. Goal is 3 bottles of water. Prefers sugary drinks such as Sprite. Today intake: coffee Fluid intake yesterday: unsure, possibly 1-2 bottles of water and a 6 ounces of Sprite. Recommended reaching out to PCP to have urine checked and rule out any other source of infection and also to check hydration and electrolyte status. - agreeable. [facility]02-10-2025 Telephone encounter Note* Telephone Encounter - Alyssa Fregoso - 05/26/2024 1:37 PM EST Patient's called to report he's experiencing hallucinations at night. They are interested in starting medication for these symptoms. Please advise and call (Carla) with recommendations. Alyssa Fregoso [facility]09-26-2024 History of Present illness Narrative* Memo Magallon MD - 01/10/2024 12:46 PM EDT [facility] - FOLLOW UP EVALUATION Prashant Gary, [address] [facility] [address] I had the pleasure of seeing Mr. [...] are not making any changes today. If youfeel you are not tolerating them or your symptoms are changing before your next appointment, pleasefeel free to send me a [employer]ent[employer]ett message or contact the office PT Interval [...] the mouth, such as less spontaneous smiling, butlips not parted. Rigidity Neck 0-Normal. No rigidity. [...] end of the 10taps. Finger Taps Left 1-Slight. a) the regular [...] the amplitude decrements starting after the 1st [id number] sequence. Arm Movements Right 1-Slight. a) the [...] whether dyskinesia present, unspecified whether manifestations fluctuate (formerly [facility]) Plan 01/09/2024 Visit: Continue your medications as you have been taking them. We are not making any changes today. If youfeel you are not tolerating them or your symptoms are changing before your next appointment, pleasefeel free to send me a Muzzley message or contact the office - Physical therapy- Interested in clinical research? Not discussed Updated Movement Disorders Medication Schedule: Medications 6am 12pm 6pm 12am Sinemet 25/100 2 2 2 Mirapex 0.25 mg 3 3 3 3 Return at or around: 07/08/24 Level of service : 46225 (20-29 min). Time spent 24 min on the day of service, which included preparing to see the patient, [id number] patient care, completing clinical documentation, performing a medically appropriate examination, and counseling and educating the patient/family/caregiver. Thank you for allowing me to be part of the clinical care of this patient! I look forward to continued participation in the patient s care with you. Please do not hesitate to call with any questions. Sincerely, Memo Magallon MD [facility] History of Present illness Narrative* Memo Magallon MD - 07/05/2023 7:32 AM EDT [facility] - FOLLOW UP EVALUATION - VIRTUAL VISIT Prashant Gary DO [address] [facility] [id number] Dear Prashant Gary DO: I had the [...] licensure. The patient's identity and physical location wereverified at the time of this visit. Either the patient or their legal communications representative has been informed of the risks and benefits of -- and alternatives to -- treatment through a remote evaluation andconsents to proceed with the evaluation remotely. Subjective [...] neuropathy, LBP, withdystonia-predominant PD since around 2002. At last visit [...] are not making any changes today. If youfeel you are not tolerating them or your symptoms are changing before your next appointment, pleasefeel free to send me a Muzzley message or contact the office PT Interested in clinical research? Not currently Updated Movement Disorder Medication Schedule: Medications 6am 12pm 6pm 12am Sinemet 25/100 2 2 2 Mirapex 0.25 mg 3 3 3 3 Total time in minutes spent with patient: 27 with more than 50% of the time spent in patient education/counselling/coordinating care with the patient and /or family. Thank you for allowing me to be part of the clinical care of this patient! I look forward to continued participation in the patient s care with you. Please do not hesitate to call with any questions. Sincerely, Memo Magallon MD [facility] Evaluation note* Encounter Date Diagnosis Assessment Notes Treatment Notes Treatment Clinical Notes May, Essential hypertension (ICD-10 - I10) [facility] Other 01-15-2024 Telephone encounter Note* Telephone Encounter - Memo Magallon MD - 04/30/2023 12:16 PM EST Done [facility]01-15-2024 Miscellaneous Notes* Telephone Encounter - Memo [...] to the patient's pharmacy. Mague Da Silva, Weed Sprayer III [facility] Telephone encounter Note * Telephone Encounter [...] to the patient's pharmacy. Mague Da Silva, Weed Sprayer III [facility]01-11-2024 Evaluation note* Encounter Date Diagnosis Assessment Notes Treatment Notes Treatment Clinical Notes Apr, Primary hypertension (ICD-10 - I10) [facility] Other 01-04-2024 Evaluation note* Encounter Date Diagnosis [...] report is being monitored every 90 days. [facility] Other 09-29-2023 Evaluation note* Encounter Date Diagnosis [...] directed therapy Failed to improve w/ injections [facility] Other 08-23-2023 Miscellaneous Notes* Telephone Encounter - Autumn Graff - 12/06/2022 8:52 AM EDT Pharmacy called stating they [facility] to fill the carbidopa-levodopa ([id number]) 25-100 mg per tablet. Patient is requesting that it be sent to [id number] - [place] [address] - [address] [facility] . Please call patient at [phone] once sent to the pharmacy. Thank you! Autumn Graff [facility] Evaluation note* Encounter Date Diagnosis Assessment [...] and feet daily for blisters and ulcerations. [facility] Other 06-29-2023 Evaluation note* Encounter Date Diagnosis [...] diet, fluids and reduce Amitiza to 8mg [facility] Other 05-30-2023 Evaluation note* Encounter Date Diagnosis Assessment Notes Treatment Notes Treatment Clinical Notes August, Essential hypertension (ICD-10 - I10) [facility] Other 04-04-2023 NoteCONSULTATION CONSULTATION DATE: 07/18/2022 TO: [...] comfortable in the semi-recumbent position. He uses [place] for pain control, 5 mg daily p.r. [...] our patients to inform us about any [id number] medications or herbal remedies/nutritional supplements/alternative remedies. 2. [...] treatment options with their primary care provider.[id number] Evaluation note * Encounter Date Diagnosis Assessment [...] Chronic prescription opiate use (ICD-10 - Z79.891) [facility] Other 01-13-2023 History of Present illness Narrative* Memo Magallon MD - 04/28/2022 5:28 PM EST [facility] - FOLLOW UP EVALUATION - VIRTUAL VISIT Prashant Gary DO [address] [facility] [id number] Dear Prashant Gary DO: I had the pleasure of seeing Mr. De La Garza for follow-up today. As you know he is a 77 year old right-handed male with a history of Parkinson's disease since 2002. Also with chronic low back pain and diffuse arthritis, fused ankles. He is seen with his . We had a visit using: Fieldbook I received consent from the patient to [...] 3 3 3 Level of service : 16566 (20-29 min). Time spent 25 min on the day of service, which included preparing to see the patient, [id number] patient care, completing clinical documentation, and counseling and educating the patient/family/caregiver. Thank you for allowing me to be part of the clinical care of this patient! I look forward to continued participation in the patient s care with you. Please do not hesitate to call with any questions. Sincerely, Memo Magallon MD [facility] History of Present illness Narrative* Memo Magallon MD - 10/24/2021 11:00 AM EDT [facility] - FOLLOW UP EVALUATION Tamika Gillis [address] [facility] [address] Prashant Gary, DO [address] [facility] [address] I had the pleasure of seeing Mr. De La Garza for follow up today. He is a 76 year old right-handed male with a history of Parkinson's disease since 2002. Also with chronic low back pain and diffuse arthritis, fused ankles. He is seen with his . We had a visit using: Fieldbook I received consent from the patient to [...] Sincerely, Memo Magallon MD [facility] Diagnosis Parkinson disease (HCC)- Primary Paralysis agitans REM sleep behavior disorder Restless legs syndrome Restless legs syndrome (RLS) documented in this encounter [facility] note* Diagnosis Parkinson disease (HCC) Paralysis agitans Gait instability Abnormality of gait documented in this encounter [facility] noteNo [employer] Other Evaluation note* Diagnosis Parkinson's disease, unspecified whether dyskinesia present, unspecified whether manifestations fluctuate (HCC) Gait instability Abnormality of gait documented in this encounter [facility] note* Diagnosis Parkinson disease (HCC) Paralysis agitans Gait instability Abnormality of gait documented in this encounter [facility] note* Diagnosis Parkinson's disease, unspecified whether dyskinesia present, unspecified whether manifestations fluctuate (HCC) documented in this encounter [facility] note* Diagnosis Onset Date Resolution Status Admit Date Bronchiectasis acute May 172024 2:18pm Chronic prescription opiate use acut e June 02, 2024 2:18pm Chronic venous insufficiency acute June 02, 2024 2:18pm Hypercholesterolemia acute Febr uary 2024 2:18pm Hypertension acute May 2:18pm Lumbar spondylosis acute Februa ry 2024 2:18pm Parkinson disease acute Februar y 2024 2:18pm [facility] Work Phone: Evaluation note* Diagnosis Parkinson's disease, unspecified whether dyskinesia present, unspecified whether manifestations fluctuate (HCC)- Primary Visual hallucinations Psychophysical visual disturbances [facility] Diagnosis Onset Date Resolution Status Admit Date [...] Weight loss acute January 19, 2025 10:32am 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 P: [phone] F: [phone] [facility] Other Reason for referral (narrative)No reason for referral information availableSt. [facility] Work Phone: Reason for Referral Specialty Diagnoses / Procedures Referred By Rose encinas Referred To Contact Diagnoses Parkinson disease (HCC) Procedures PROVIDER ORDERED FOLLOW UP OFFICE/OUTPATIENT NEW HIGH MDM 60-74 MINUTES Memo Magallon MD [address] [address] Referral ID Status Reason Start Date Expiration Date Visits Requested Visits Authorized [id number] Authorized PCP Requested Referral 10/24/2021 01/22/2022 1 1 Referral ID Status Reason Start Date Expiration Date Visits Requested Visits Authorized [id number] Authorized PCP Requested Referral 04/28/2022 07/27/2022 1 1 Specialty Diagnoses / Procedures Referred By Rose encinas Referred To Contact Diagnoses Parkinson's disease, unspecified whether dyskinesia present, unspecified whether manifestations fluctuate (HCC) Procedures PROVIDER ORDERED FOLLOW UP OFFICE/OUTPATIENT NEW HIGH MDM 60 MINUTES Memo Magallon MD [address] [address] Referral ID Status Reason Start Date Expiration Date Visits Requested Visits Authorized [id number] Authorized PCP Requested Referral 07/05/2023 10/03/2023 1 1 Referral ID Status Reason Start Date Expiration Date Visits Requested Visits Authorized [id number] Authorized PCP Requested Referral 01/09/2024 04/08/2024 1 1 Specialty Diagnoses / Procedures Referred By Rose t Referred To Contact [facility] Diagnoses Parkinson's disease, unspecified whether dyskinesia present, unspecified whether manifestations fluctuate (HCC) Procedures CONSULT TO PHYSICAL THERAPY PHYSICAL THERAPY EVALUATION HIGH COMPLEX 45 MINS Memo Magallon MD [address] [address] [facility] [place] [address] Referral ID Status Reason Start Date Expiration Date Visits Requested Visits Authorized [id number] Pending Review Auto-Generat ed Referral 01/09/2024 01/08/2025 1 1 Summary Purpose Family History No Family History Records Found Relationship Condition Age at Onset Recorded Date/T aubrey mother Heart disease Unknown Advance Directives No Advanced Directives Records Found Advance Directive Response Recorded Date/ Time Advance Directives No September 29 12:37pm Advance Directive Response Recorded Date/ Time Advance Directives No September 29 1:37pm Chief Complaint and Reason for Visit Chief Complaint Admit Date follow up June 02, 2024 2:18pm Reason for Visit Admit Date Bronchiectasis June 02, 2024 2:18pm Chronic prescription opiate use June 02, 2024 2:18pm Chronic venous insufficiency June 022024 2:18pm Hypercholesterolemia June 02, 2024 2:18pm Hypertension June 02, 2024 2:18pm Lumbar spondylosis June 02, 2024 2:18pm Parkinson disease June 02, 2024 2:18pm Chief Complaint Admit Date follow up June 02, 2024 2:18pm Unknown June 03, 2024 12:07pm Reason for Visit Admit Date Bronchiectasis June 02, 2024 2:18pm Chronic venous insufficiency June 022024 2:18pm Hallucination, visual June 02 2:18pm Hypercholesterolemia June 02, 2024 2:18pm Hypertension June 02, 2024 2:18pm Lumbar spondylosis June 02, 2024 2:18pm Parkinson disease June 02, 2024 2:18pm Chief Complaint Admit Date Amb Documentation December [...] Weight loss January 19, 2025 10 :32am Additional Source Comments Source Comments (unrecognize d section and content) In the event this informatio n is protected by the Federal Confidentiality of Alcohol and Drug Abuse Patient Records regulations: The Federal rules restrict any use of the information to criminally investigate or prosecute any alcohol or drug abuse patient.[facility] HospitalIn the event this information is protected by the Federal Confidentiality of Alcohol and Drug Abuse Patient Records regulations: The Federal rules restrict any use of the information to criminally investigate or prosecute any alcohol or drug abuse patient.[facility] HospitalIn the event this information is protected by the Federal Confidentiality of Alcohol and Drug Abuse Patient Records regulations: The Federal rules restrict any use of the information to criminally investigate or prosecute any alcohol or drug abuse patient.[facility] HospitalIn the event this information is protected by the Federal Confidentiality of Alcohol and Drug Abuse Patient Records regulations: The Federal rules restrict any use of the information to criminally investigate or prosecute any alcohol or drug abuse patient.[facility] HospitalIn the event this information is protected by the Federal Confidentiality of Alcohol and Drug Abuse Patient Records regulations: The Federal rules restrict any use of the information to criminally investigate or prosecute any alcohol or drug abuse patient.[facility] HospitalIn the event this information is protected by the Federal Confidentiality of Alcohol and Drug Abuse Patient Records regulations: The Federal rules restrict any use of the information to criminally investigate or prosecute any alcohol or drug abuse patient.[facility] HospitalIn the event this information is protected by the Federal Confidentiality of Alcohol and Drug Abuse Patient Records regulations: The Federal rules restrict any use of the information to criminally investigate or prosecute any alcohol or drug abuse patient.[facility] HospitalIn the event this information is protected by the Federal Confidentiality of Alcohol and Drug Abuse Patient Records regulations: The Federal rules restrict any use of the information to criminally investigate or prosecute any alcohol or drug abuse patient.[facility] HospitalIn the event this information is protected by the Federal Confidentiality of Alcohol and Drug Abuse Patient Records regulations: The Federal rules restrict any use of the information to criminally investigate or prosecute any alcohol or drug abuse patient.[facility] HospitalIn the event this information is protected by the Federal Confidentiality of Alcohol and Drug Abuse Patient Records regulations: The Federal rules restrict any use of the information to criminally investigate or prosecute any alcohol or drug abuse patient.[facility] HospitalIn the event this information is protected by the Federal Confidentiality of Alcohol and Drug Abuse Patient Records regulations: The Federal rules restrict any use of the information to criminally investigate or prosecute any alcohol or drug abuse patient.[facility] Reason for Visit (unrecogniz ed section and content) Reason Comments Telemedicine Follow Up Specialty Diagnoses / Procedures Referred By Rose encinas Referred To Contact Diagnoses Parkinson disease (HCC) Procedures PROVIDER ORDERED FOLLOW UP OFFICE/OUTPATIENT NEW HIGH MDM 60-74 MINUTES Memo Magallon MD [address] [address] Referral ID Status Reason Start Date Expiration Date V isits Requested Visits Authorized [id number] Closed PCP Requested Referral 10/24/2021 01/22/2022 1 1 Reason Comments Medication Problem Reason Onset Date Comments Refill Request 04/30/2023 Reason Comments Parkinson's Disease Specialty Diagnoses / Procedures Referred By Rose encinas Referred To Contact Diagnoses Parkinson's disease, unspecified whether dyskinesia present, unspecified whether manifestations fluctuate (HCC) Procedures PROVIDER ORDERED FOLLOW UP OFFICE/OUTPATIENT NEW HIGH MDM 60 MINUTES Memo Magallon MD [address] [address] Referral ID Status Reason Start Date Expiration Date V isits Requested Visits Authorized [id number] Closed PCP Requested Referral 07/05/2023 10/03/2023 1 1 Reason Comments Patient Update Hallucinations Reason Comments Established Patient Reason Comments Patient Update Reason Comments Appointment Cancelled Care Teams (unrecognized sec tion and content) Team Status: Active Member Role Status Dates Prashant Gary DO Primary Care Provider Active Team Status: Active Member Role Status Dates Prashant Gary DO Primary Care Provider Active Start: December 08, 2024 Brendon Ashley PA-C Attending Provider Active Start: December 08, 2024 Team Status: Active Member Role Status Dates Prashant Gary DO Primary Care Provider Active Start: December 10, 2024 Cris Diaz CMA Attending Provider Active Start: December 10, 2024 Team Status: Inactive Member Role Status Dates Prashant Gary DO Primary Care Provider Active Start: January 19, 2025 End: January 19, 2025 Prashant Gary DO Attending Provider Active Sta rt: January 19, 2025 End: January 19, 2025 Structured Cabling Technician Relationship Specialty Start Date End Date Prashant Gary DO PCP - General 03/11/07 Structured Cabling Technician Relationship Specialty Start Date End Date Prashant Gary DO PCP - General 03/11/07 Structured Cabling Technician Relationship Specialty Start Date End Date Prashant Gary DO PCP - General 03/11/07 Structured Cabling Technician Relationship Specialty Start Date End Date Prashant Gary DO PCP - General 03/11/07 Memo Magallon MD [address] [address] Specialty Trench Trimmer Fine Neurology 04/04/23 Tamika Gillis, SCHOOL AGE TEACHER.MORTGAGE LOAN OFFICER ORIGINATOR [facility] [place] [address] Specialty Trench Trimmer Fine Neurology 04/04/23 Structured Cabling Technician Relationship Specialty Start Date End Date Prashant Gary DO PCP - General 03/11/07 Memo Magallon MD [address] [address] Specialty Trench Trimmer Fine Neurology 04/04/23 Tamika Gillis, SCHOOL AGE TEACHER.MORTGAGE LOAN OFFICER ORIGINATOR [address] [place] [address] Specialty Trench Trimmer Fine Neurology 04/04/23 Structured Cabling Technician Relationship Specialty Start Date End Date Prashant Gary DO PCP - General 03/11/07 Memo Magallon MD [address] [address] Specialty Trench Trimmer Fine Neurology 04/04/23 Tamika Gillis, SCHOOL AGE TEACHER.MORTGAGE LOAN OFFICER ORIGINATOR [address] [place] [address] Specialty Trench Trimmer Fine Neurology 04/04/23 Team Status: Inactive Member Role Status Dates Prashant Gary DO Primary Care Provide r, Attending Provider Active Start: June 02, 2024 End: June 02, 2024 Team Status: Inactive Member Role Status Dates Prashant Gary DO Attending Provider Active Sta rt: June 03, 2024 End: June 03, 2024 Team Status: Active Member Role Status Dates Prashant Gary DO Primary Care Provide r, Attending Provider Active Start: June 03, 2024 Structured Cabling Technician Relationship Specialty Start Date End Date Prashant Gary DO PCP - General 03/11/07 Memo Magallon MD [address] [place] [id number] Specialty Trench Trimmer Fine Neurology 04/04/23 Tamika Gillis, SCHOOL AGE TEACHER.MORTGAGE LOAN OFFICER ORIGINATOR [facility] [place] [address] Specialty Trench Trimmer Fine Neurology 04/04/23 Structured Cabling Technician Relationship Specialty Start Date End Date Prashant Gary DO PCP - General 03/11/07 Memo Magallon MD [address] [address] Specialty Trench Trimmer Fine Neurology 04/04/23 Tamika Gillis, SCHOOL AGE TEACHER.MORTGAGE LOAN OFFICER ORIGINATOR [facility] [place] [address] Specialty Trench Trimmer Fine Neurology 04/04/23 Structured Cabling Technician Relationship Specialty Start Date End Date Prashant Gary DO PCP - General 03/11/07 Memo Magallon MD [address] [address] Specialty Trench Trimmer Fine Neurology 04/04/23 Tamika Gillis, SCHOOL AGE TEACHER.MORTGAGE LOAN OFFICER ORIGINATOR [address] [place] [address] Specialty Trench Trimmer Fine Neurology 04/04/23 Structured Cabling Technician Relationship Specialty Start Date End Date Prashant Gary DO PCP - General 03/11/07 Memo Magallon MD [address] [address] Specialty Trench Trimmer Fine Neurology 04/04/23 Tamika Gillis, SCHOOL AGE TEACHER.MORTGAGE LOAN OFFICER ORIGINATOR [address] [place] [address] Specialty Trench Trimmer Fine Neurology 04/04/23 (unrecognized sect ion and content) No Status Records FoundNo Status Records FoundNo Status Records FoundNo Status Records Found INFORMATION SOURCE (unrecogn ized section and content) DATE CREATED AUTHOR 08/22/2022 [facility] DATE CREATED AUTHOR AUTHOR'S ORGANIZ ATION 10/01/2024 [facility] DATE CREATED AUTHOR AUTHOR'S ORGANIZ ATION 11/08/2024 [facility] DATE CREATED AUTHOR AUTHOR'S ORGANIZ ATION 01/27/2025 [facility] Goals (unrecognized section and content) Goals may be documented in a n alternate section FOR RECORDS PERTAINING TO PATIENTS WHO ARE [...] BE BASED ON THE PRIMARY CLINICAL RECORDS. [employer] provides no warranty or guarantee of the accuracy or completeness of information in this document.
[2025-01-29 11:15] LABS: Hematocrit 41.8 % (42.0-54.0); Hemoglobin 14.1 g/dL (14.0-18.0); Immature Granulocytes Abs Auto 0.03 10^3/uL (0.00-0.03); Immature Granulocytes Pct Auto 0.4 % (0.0-0.5); Lymphocytes Absolute Auto 1.4 10^3/uL (1.2-3.8); Mean Corpuscular HGB Conc 33.7 g/dL (29.9-35.2); Mean Corpuscular Hemoglobin 30.3 pg (25.9-34.0); Mean Corpuscular Volume 89.9 fL (80.0-94.0); Platelet Count 180 10^3/uL (150-450); Red Blood Count 4.65 10^6/uL (4.70-6.10); White Blood Count 7.4 10^3/uL (4.0-11.0)
[2025-01-29 12:04] LABS: Alanine Aminotransferase 13 U/L (16-63); Albumin Globulin Ratio 1.2; Albumin Level 4.1 g/dL (3.4-5.0); Alkaline Phosphatase 91 U/L (46-116); Anion Gap 13.4; Aspartate Amino Transferase 14 U/L (15-37); Blood Urea Nitrogen 25.0 mg/dL (7.0-18.0); Calcium 9.1 mg/dL (8.5-10.1); Carbon Dioxide 25.5 mmol/L (21.0-32.0); Chloride 108 mmol/L (98-107); Cholesterol 170 mg/dL (<=200); Estimated GFR (African America >60 (>=60 mL/min/1.73m^2); Estimated GFR (Non-African Ame >60 (>=60 mL/min/1.73m^2); Globulin 3.3 g/dL; Glucose 107 mg/dL (74-106); HDL Cholesterol 80 mg/dL (40-60); Potassium 3.9 mmol/L (3.5-5.1); Sodium 143 mmol/L (136-145); Thyroid Stimulating Hormone 1.037 uIU/mL (0.358-3.740); Total Protein 7.4 g/dL (6.4-8.2); Triglycerides 57 mg/dL (<=150); VLDL CHOLESTEROL 11.4 mg/dL
== END 2025-01-29 10:11 | disposition home or self-care (01) ==
PROVIDERS: PCP Internal Medicine; Visit Provider Internal Medicine
DX: E78.00 Pure hypercholesterolemia, unspecified (principal); G20.B1 Parkinson's disease with dyskinesia, without mention of fluctuations; I10 Essential (primary) hypertension; R53.83 Other fatigue
CPT/HCPCS: 36415; 80053; 80061; 84443; 85025